=== PATIENT | female | born 1950 | race Caucasian/White ===

== ENCOUNTER 2016-11-03 16:24 | Emergency (ER) | payer MEDICARE, MEDICAID ==
--- NOTE | 2016-11-03 16:40 | EDM.PDOC ---
ED HISTORY OF PRESENT ILLNESS - General Chief Complaint: Cardiovascular Problem Stated Complaint: TROUBLE BREATHING/RUNNY NOSE/CHEST PAIN Time Seen by Provider: 11/03/16 16:40 Source of Information: Reports: Patient History Limitations: Reports: No limitations - History of Present Illness INITIAL COMMENTS - FREE TEXT/NARRATIVE: History of present illness: [] Patient complains of 2 months of shortness of breath, palpitations and shaking hands. Patient also complains of fevers and chills. She used to be a smoker and quit but restarted smoking again. She denies any chest pain Review of systems: As per history of present illness and below otherwise all systems reviewed and negative. Past medical history: As per history of present illness and as reviewed below otherwise noncontributory. Surgical history: As per history of present illness and as reviewed below otherwise noncontributory. Social history: No reported history of drug or alcohol abuse. Family history: As per history of present illness and as reviewed below otherwise noncontributory. Physical exam: General: Well developed, well nourished in NAD HEENT: Atraumatic, normocephalic, pupils reactive, negative for conjunctival pallor or scleral icterus, mucous membranes moist, throat clear, neck supple, nontender, trachea midline. Lungs: Clear to auscultation, breath sounds equal bilaterally, chest nontender. No rhonchi or wheezing Heart: S1S2, regular, negative for clicks, rubs, or JVD. Abdomen: Soft, nondistended, nontender. Negative for masses or hepatosplenomegaly. Negative for costovertebral tenderness. Pelvis: Stable nontender. Genitourinary: Deferred. Rectal: Deferred. Extremities: Atraumatic, negative for cords or calf pain. Neurovascular unremarkable. No edema Neuro: Awake, alert, oriented. Cranial nerves II through XII unremarkable. Cerebellum unremarkable. Motor and sensory unremarkable throughout. Exam nonfocal. Diagnostics: [] Labs chest x-ray negative Therapeutics: [] Impression: [] Chronic shortness of breath, unknown etiology Plan: [] Quit smoking, followup PMD further pulmonary evaluation Definitive disposition and diagnosis as appropriate pending reevaluation and review of above. - Related Data Allergies/ADRs: Allergies Allergy/AdvReac Type Severity Reaction Status Date / Time amoxicillin [Amoxicillin] Allergy Other Verified 06/02/16 10:54 ampicillin Allergy Other Verified 06/02/16 10:54 digoxin Allergy Other Verified 06/02/16 10:54 doxycycline Allergy Other Verified 06/02/16 10:54 fentanyl Allergy Other Verified 06/02/16 10:54 nitrofurantoin Allergy Other Verified 06/02/16 10:54 [From Macrobid] nitrofurantoin Allergy Other Verified 06/02/16 10:54 macrocrystalline [From Macrobid] Penicillins Allergy Other Verified 06/02/16 10:54 Sulfa (Sulfonamide Allergy Other Verified 06/02/16 10:54 Antibiotics) Home Meds: Home Meds ALPRAZolam [Xanax] 1 mg PO Q8H PRN 05/08/14 [History] Cyanocobalamin (Vitamin B-12) [B-12] 1,000 mcg PO DAILY 05/08/14 [History] Cholecalciferol (Vitamin D3) [Vitamin D3] 2,000 unit PO DAILY 12/31/14 [History] Metoprolol Succinate 75 mg PO DAILY 12/31/14 [History] Loratadine [Claritin] 10 mg PO DAILY 10/16/16 [History] Potassium 1 tab DAILY 11/03/16 [History] Past Medical History HEENT History: Reports: Allergic rhinitis Other HEENT History: wears glasses, has full upper denture and partial lower denture Cardiovascular History: Reports: Hypertension Respiratory History: Reports: None Genitourinary History: Reports: None ECONOMICS CONSULTANT History: Reports: None Musculoskeletal History: Reports: Back pain, chronic Neurological History: Reports: None Other Neuro History: "bad nerves" Psychiatric History: Reports: Anxiety Other Psychiatric History: Takes medication for anxiety. Endocrine/Metabolic History: Reports: None Hematologic History: Reports: None Immunologic History: Reports: None Oncologic (Cancer) History: Reports: None Dermatologic History: Reports: None - Infectious Disease History Infectious Disease History: Reports: Measles, Mumps - Past Surgical History Head Surgeries/Procedures: Reports: None HEENT Surgical History: Reports: Naso-sinus surgery Other HEENT Surgeries/Procedures: nose surgery Cardiovascular Surgical History: Reports: None Respiratory Surgical History: Reports: None GI Surgical History: Reports: Cholecystectomy Female Surgical History: Reports: None Endocrine Surgical History: Reports: None Neurological Surgical History: Reports: None Musculoskeletal Surgical History: Reports: Other (see below) Other Musculoskeletal Surgeries/Procedures:: fusion of L4-5 Oncologic Surgical History: Reports: None Dermatological Surgical History: Reports: None Social & Family History - Family History Family Medical History: Noncontributory - Tobacco Use Smoking Status *Q: Current Every Day Smoker Years of Tobacco use: 53 Packs/Tins Daily: 1 Used Tobacco, but Quit: Yes Month Tobacco Last Used: 12/2015 Second Hand Smoke Exposure: Yes - Caffeine Use Caffeine Use: Reports: Coffee - Alcohol Use Days Per Week of Alcohol Use: 3 Number of Drinks Per Day: 2 Total Drinks Per Week: 6 - Recreational Drug Use Recreational Drug Use: No Drug Use in Last 12 Months: No ED ROS GENERAL - Review of Systems Review Of Systems: See Below (See history of present illness) ED EXAM, GENERAL - Physical Exam Exam: See Below (See history of present illness) Course - Vital Signs Last Recorded V/S: Last Vital Signs Temp 36.8 C 11/03/16 16:36 Pulse 91 11/03/16 16:36 Resp 18 11/03/16 16:36 BP 142/98 H 11/03/16 16:36 Pulse Ox 99 11/03/16 16:36 - Orders/Labs/Meds Orders: Active Orders 24 hr Category Date Time Status Chest 2V [CR] Stat Exams 11/03/16 16:38 Taken Labs: Laboratory Tests 11/03/16 11/03/16 11/03/16 Range/Units 16:55 16:55 16:55 WBC 5.37 (4.0-11.0) K/uL RBC 4.11 L (4.30-5.90) M/uL Hgb 13.6 (12.0-16.0) g/dL Hct 38.8 (36.0-46.0) % MCV 94.4 (80.0-98.0) fL MCH 33.1 H (27.0-32.0) pg MCHC 35.1 (31.0-37.0) g/dL RDW Std Deviation 45.1 (28.0-62.0) fl RDW Coeff of Dirk 13 (11.0-15.0) % Plt Count 241 (150-400) K/uL MPV 10.10 (7.40-12.00) fL Neut % (Auto) 50.5 (48.0-80.0) % Lymph % (Auto) 39.9 (16.0-40.0) % Robertson % (Auto) 7.4 (0.0-15.0) % Eos % (Auto) 1.1 (0.0-7.0) % Baso % (Auto) 1.1 (0.0-1.5) % Neut # 2.7 (1.4-5.7) K/uL Lymph # 2.1 (0.6-2.4) K/uL Robertson # 0.4 (0.0-0.8) K/uL Eos # 0.1 (0.0-0.7) K/uL Baso # 0.1 (0.0-0.1) K/uL Nucleated RBC % 0.0 /100WBC Nucleated RBCs # 0 K/uL Sodium 137 (136-146) mmol/L Potassium 4.0 (3.5-5.1) mmol/L Chloride 103 (98-110) mmol/L Carbon Dioxide 21 (21-31) mmol/L BUN 10 (6.0-23.0) mg/dL Creatinine 0.9 (0.6-1.5) mg/dL Est Cr Clr Drug Dosing 58.66 mL/min Estimated GFR (MDRD) > 60.0 ml/min Glucose 100 (60-110) mg/dL Calcium 9.8 (8.8-10.8) mg/dL Troponin I < 0.10 (0.0-0.29) NG/ML B-Natriuretic Peptide (<100) PG/ML 11/03/16 Range/Units 16:55 WBC (4.0-11.0) K/uL RBC (4.30-5.90) M/uL Hgb (12.0-16.0) g/dL Hct (36.0-46.0) % MCV (80.0-98.0) fL MCH (27.0-32.0) pg MCHC (31.0-37.0) g/dL RDW Std Deviation (28.0-62.0) fl RDW Coeff of Dirk (11.0-15.0) % Plt Count (150-400) K/uL MPV (7.40-12.00) fL Neut % (Auto) (48.0-80.0) % Lymph % (Auto) (16.0-40.0) % Robertson % (Auto) (0.0-15.0) % Eos % (Auto) (0.0-7.0) % Baso % (Auto) (0.0-1.5) % Neut # (1.4-5.7) K/uL Lymph # (0.6-2.4) K/uL Robertson # (0.0-0.8) K/uL Eos # (0.0-0.7) K/uL Baso # (0.0-0.1) K/uL Nucleated RBC % /100WBC Nucleated RBCs # K/uL Sodium (136-146) mmol/L Potassium (3.5-5.1) mmol/L Chloride (98-110) mmol/L Carbon Dioxide (21-31) mmol/L BUN (6.0-23.0) mg/dL Creatinine (0.6-1.5) mg/dL Est Cr Clr Drug Dosing mL/min Estimated GFR (MDRD) ml/min Glucose (60-110) mg/dL Calcium (8.8-10.8) mg/dL Troponin I (0.0-0.29) NG/ML B-Natriuretic Peptide < 15 (<100) PG/ML Departure - Departure Time of Disposition: 17:28 Disposition: Home, Self-Care 01 Condition: good Clinical Impression: Shortness of breath Forms: ED Department Discharge Additional Instructions: The following information is given to patients seen in the emergency department who are being discharged to home. This information is to outline your options for follow-up care. We provide all patients seen in our emergency department with a follow-up referral. The need for follow-up, as well as the timing and circumstances, are variable depending upon the specifics of your emergency department visit. If you don't have a primary care physician on staff, we will provide you with a referral. We always advise you to contact your personal physician following an emergency department visit to inform them of the circumstance of the visit and for follow-up with them and/or the need for any referrals to a consulting specialist. The emergency department will also refer you to a specialist when appropriate. This referral assures that you have the opportunity for follow-up care with a specialist. All of these measure are taken in an effort to provide you with optimal care, which includes your follow-up. Under all circumstances we always encourage you to contact your private physician who remains a resource for coordinating your care. When calling for follow-up care, please make the office aware that this follow-up is from your recent emergency room visit. If for any reason you are refused follow-up, please contact the [facility] Emergency Department at and asked to speak to the emergency department charge nurse. Quit smoking, follow up with her primary care physician for further pulmonary evaluation [facility] [address] [place] [id number] - My Orders Last 24 Hours: My Active Orders 11/03/16 16:38 Chest 2V [CR] Stat - Assessment/Plan Last 24 Hours: My Active Orders 11/03/16 16:38 Chest 2V [CR] Stat
[2016-11-03 17:22] LABS: CHLORIDE,CL 103 mmol/L (98-110); SODIUM,NA 137 mmol/L (136-146)
[2016-11-03 17:42] VITALS: BP 150/88
--- NOTE | 2016-11-04 19:30 | CR ---
EXAM DATE: 11/03/16 PATIENT'S AGE: 66 Patient: TAY DARDEN Facility: [place] [place] Site . Site : 1950 Study: XRay Chest [id number]/[id number] 5:13:25 PM Ordering Physician: Doctor Davalos Final Report: INDICATION: EXTREME SOB, SMOKER TECHNIQUE: Chest 2 views. COMPARISON: 06/02/16 FINDINGS: Cardiovascular and mediastinum: Heart size and vasculature are normal in caliber and appearance. Mediastinum is within normal limits. Lungs and pleural spaces: Lungs are clear. No sign of infiltrate or mass. No sign of pleural effusion. No pneumothorax. Bones and soft tissues: No significant findings. IMPRESSION: Unremarkable chest. Dictated by: Bernardo Hines MD @ 11/03/2016 17:37:14 (Electronic Signature) Report Signed by Proxy and Original Signed Document filed in the Medical Record. MTDD
== END 2016-11-03 17:39 | disposition home or self-care (01) ==
LOC: MW.ED 16:24
DX: R06.02 Shortness of breath (principal); I10 Essential (primary) hypertension; F41.9 Anxiety disorder, unspecified; F17.210 Nicotine dependence, cigarettes, uncomplicated; Z90.49 Acquired absence of other specified parts of digestive tract; Z98.1 Arthrodesis status; Z98.890 Other specified postprocedural states; Z79.899 Other long term (current) drug therapy; Z88.0 Allergy status to penicillin; Z88.2 Allergy status to sulfonamides; Z88.8 Allergy status to other drugs, medicaments and biological substances; Z88.1 Allergy status to other antibiotic agents
CPT/HCPCS: 36415; 71020; 71020-26; 80048; 83880; 84484; 85025; 99282; 99284

== ENCOUNTER 2016-12-23 15:00 | Observation (INO) | payer MEDICARE, MEDICAID ==
[2016-12-23] MEDS ORDERED: Sodium Chloride 0.9% 2.5 ML Syringe FLUSH PRN (15:07)
[2016-12-23] MEDS ORDERED: Sodium Chloride 0.9% 10 ML Syringe FLUSH PRN (15:07)
--- NOTE | 2016-12-23 15:11 | EDM.PDOC ---
[id number] [id number] TROUBLE REMEMBERING Time Seen by Provider: 12/23/16 15:09 Source of Information: Reports: Patient, EMS History Limitations: Reports: No limitations - History of Present Illness INITIAL COMMENTS - FREE TEXT/NARRATIVE: HISTORY AND PHYSICAL: [66-year-old female presenting by EMS with altered mental status, confusion and weak] History of Present Illness: [She states she has been, for the last 2 weeks, of not feeling well She became worse today] Review of Systems: As per history of present illness and below otherwise all systems reviewed and negative. Past medical history: As per history of present illness and as reviewed below otherwise noncontributory. Surgical history: As per history of present illness and as reviewed below otherwise noncontributory. Social history: No reported history of drug or alcohol abuse. Family history: As per history of present illness and as reviewed below otherwise noncontributory. Physical exam: Alert female who is staring off. has difficulty spelling her last name. HEENT: Atraumatic, normocehpalic, pupils reactive, negative for conjunctival pallor or scleral icterus, mucous membranes moist, throat clear, neck supple, nontender, trachea midline. Lungs: Clear to auscultation, breath sounds equal bilaterally, chest non tender. Heart: S1S2, regular, negative for clicks, rubs, or JVD. Abdomen: Soft, nondistended, nontender. Negative for masses or hepatossplenmegaly. Negative for costovertebral tenderness. Pelvis: Stable nontender. Genitourinary: Deferred. Rectal: Deferred Extremities: Atraumatic, negative for cords or calf pain. Neurovascular unremarkable. Neuro: Awake, alert, oriented. Cranial nerves II through XII unremarkable. Cerebellum unremarkable. Motor and sensory unremarkable throughout. Exam nonfocal. I discussed the case with Dr. Lux and he is in agreement to refer her for observation Discussed with the patient and her and they are agreeable to this course of action. Diagnostics: [CBC CMP AMyalase, Lipase, Head CT EKG] Therapeutics: [] Impression: [Altered mental status] Plan: [Refer for observation] Definitive disposition and diagnosis as appropriate pending reevaluation and review of above. Timing/Duration: Reports: Day(s): - Related Data Allergies/ADRs: Allergies Allergy/AdvReac Type Severity Reaction Status Date / Time amoxicillin [Amoxicillin] Allergy Other Verified 12/28/16 11:52 ampicillin Allergy Other Verified 12/28/16 11:52 digoxin Allergy Other Verified 12/28/16 11:52 doxycycline Allergy Other Verified 12/28/16 11:52 fentanyl Allergy Other Verified 12/28/16 11:52 nitrofurantoin Allergy Other Verified 12/28/16 11:52 [From Macrobid] nitrofurantoin Allergy Other Verified 12/28/16 11:52 macrocrystalline [From Macrobid] Penicillins Allergy Other Verified 12/28/16 11:52 Sulfa (Sulfonamide Allergy Other Verified 12/28/16 11:52 Antibiotics) Home Meds: Home Meds ALPRAZolam [Xanax] 1 mg PO TID PRN 05/08/14 [History] Cyanocobalamin (Vitamin B-12) [B-12] 1,000 mcg PO DAILY 05/08/14 [History] Cholecalciferol (Vitamin D3) [Vitamin D3] 2,000 unit PO DAILY 12/31/14 [History] Metoprolol Succinate 75 mg PO DAILY 12/31/14 [History] Budesonide/Formoterol [Symbicort 160-4.5 MCG] 1 puff INH BID 12/23/16 [History] Potassium Chloride [Klor-Con 10] 10 meq PO DAILY 12/23/16 [History] Past Medical History HEENT History: Reports: Allergic rhinitis Other HEENT History: wears glasses, has full upper denture and partial lower denture Cardiovascular History: Reports: Hypertension Respiratory History: Reports: None Genitourinary History: Reports: None ELASTIC CUTTER History: Reports: None Musculoskeletal History: Reports: Back pain, chronic Neurological History: Reports: None Other Neuro History: "bad nerves" Psychiatric History: Reports: Anxiety Other Psychiatric History: Takes medication for anxiety. Endocrine/Metabolic History: Reports: None Hematologic History: Reports: None Immunologic History: Reports: None Oncologic (Cancer) History: Reports: None Dermatologic History: Reports: None - Infectious Disease History Infectious Disease History: Reports: Measles, Mumps - Past Surgical History Head Surgeries/Procedures: Reports: None HEENT Surgical History: Reports: Naso-sinus surgery Other HEENT Surgeries/Procedures: nose surgery Cardiovascular Surgical History: Reports: None Respiratory Surgical History: Reports: None GI Surgical History: Reports: Cholecystectomy Female Surgical History: Reports: None Endocrine Surgical History: Reports: None Neurological Surgical History: Reports: None Musculoskeletal Surgical History: Reports: Other (see below) Other Musculoskeletal Surgeries/Procedures:: fusion of L4-5 Oncologic Surgical History: Reports: None Dermatological Surgical History: Reports: None Social & Family History - Family History Family Medical History: Noncontributory - Tobacco Use Smoking Status *Q: Current Every Day Smoker Years of Tobacco use: 53 Packs/Tins Daily: 1 Used Tobacco, but Quit: Yes Month Tobacco Last Used: 12/2015 Second Hand Smoke Exposure: Yes - Caffeine Use Caffeine Use: Reports: Coffee - Alcohol Use Days Per Week of Alcohol Use: 3 Number of Drinks Per Day: 2 Total Drinks Per Week: 6 - Recreational Drug Use Recreational Drug Use: No Drug Use in Last 12 Months: No ED ROS GENERAL - Review of Systems Review Of Systems: ROS reveals no pertinent complaints other than HPI. ED EXAM, NEURO - Physical Exam Exam: See Below (see dictation) EKG INTERPRETATION EKG Date: 12/23/16 Rhythm: NSR Rate (beats/min): 60 Walker: normal P-wave: present Course - Vital Signs Last Recorded V/S: Last Vital Signs Temp 37.0 C 12/24/16 08:00 Pulse 68 12/24/16 08:24 Resp 18 12/24/16 08:00 BP 132/65 12/24/16 08:24 Pulse Ox 94 L 12/24/16 08:00 - Orders/Labs/Meds Labs: Laboratory Tests 12/23/16 12/23/16 12/23/16 Range/Units 15:22 15:22 15:22 WBC 10.60 (4.0-11.0) K/uL RBC 3.59 L (4.30-5.90) M/uL Hgb 11.7 L (12.0-16.0) g/dL Hct 34.9 L (36.0-46.0) % MCV 97.2 (80.0-98.0) fL MCH 32.6 H (27.0-32.0) pg MCHC 33.5 (31.0-37.0) g/dL RDW Std Deviation 50.0 (28.0-62.0) fl RDW Coeff of Dirk 14 (11.0-15.0) % Plt Count 358 (150-400) K/uL MPV 10.20 (7.40-12.00) fL Neut % (Auto) 73.2 (48.0-80.0) % Lymph % (Auto) 20.5 (16.0-40.0) % [place] % (Auto) 4.8 (0.0-15.0) % Eos % (Auto) 0.8 (0.0-7.0) % Baso % (Auto) 0.7 (0.0-1.5) % Neut # (Auto) 7.8 H (1.4-5.7) K/uL Lymph # (Auto) 2.2 (0.6-2.4) K/uL [place] # (Auto) 0.5 (0.0-0.8) K/uL Eos # (Auto) 0.1 (0.0-0.7) K/uL Baso # (Auto) 0.1 (0.0-0.1) K/uL Nucleated RBC % 0.0 /100WBC Nucleated RBCs # 0 K/uL INR 1.02 (0.86-1.11) Lactate 0.8 (0.20-2.00) mmol/L Sodium (136-146) mmol/L Potassium (3.5-5.1) mmol/L Chloride (98-110) mmol/L Carbon Dioxide (21-31) mmol/L BUN (6.0-23.0) mg/dL Creatinine (0.6-1.5) mg/dL Est Cr Clr Drug Dosing mL/min Estimated GFR (MDRD) ml/min Glucose (60-110) mg/dL Calcium (8.8-10.8) mg/dL Total Bilirubin (0.1-1.5) mg/dL AST (5-40) IU/L ALT (8-54) IU/L Alkaline Phosphatase (40-150) Ammonia (14-68) UG/DL Troponin I (0.0-0.29) NG/ML Total Protein (6.0-8.0) g/dL Albumin (3.4-4.8) g/dL Globulin (2.0-3.5) g/dL Albumin/Globulin Ratio (1.3-2.8) Amylase (10-90) U/L Lipase (7-80) U/L Urine Color Urine Appearance Urine pH (5.0-8.0) Ur Specific [place] (1.001-1.035) Urine Protein (NEGATIVE) mg/dL Urine Glucose (UA) (NEGATIVE) mg/dL Urine Ketones (NEGATIVE) mg/dL Urine Occult Blood (NEGATIVE) Urine Nitrite (NEGATIVE) Urine Bilirubin (NEGATIVE) Urine Urobilinogen (<2.0) EU/dL Ur Leukocyte Esterase (NEGATIVE) Urine RBC (0-2/HPF) Urine WBC (0-5/HPF) Ur Epithelial Cells (NONE-FEW) Urine Bacteria (NEGATIVE) Urine Opiates Screen (NEGATIVE) Ur Oxycodone Screen (NEGATIVE) Urine Methadone Screen (NEGATIVE) Ur Barbiturates Screen (NEGATIVE) Ur Phencyclidine Scrn (NEGATIVE) Ur Amphetamine Screen (NEGATIVE) U Methamphetamines Scrn (NEGATIVE) U Benzodiazepines Scrn (NEGATIVE) U Cocaine Metab Screen (NEGATIVE) U Marijuana (THC) Screen (NEGATIVE) Ethyl Alcohol mg/dL 12/23/16 12/23/16 12/23/16 Range/Units 15:22 15:22 15:22 WBC (4.0-11.0) K/uL RBC (4.30-5.90) M/uL Hgb (12.0-16.0) g/dL Hct (36.0-46.0) % MCV (80.0-98.0) fL MCH (27.0-32.0) pg MCHC (31.0-37.0) g/dL RDW Std Deviation (28.0-62.0) fl RDW Coeff of Dirk (11.0-15.0) % Plt Count (150-400) K/uL MPV (7.40-12.00) fL Neut % (Auto) (48.0-80.0) % Lymph % (Auto) (16.0-40.0) % [place] % (Auto) (0.0-15.0) % Eos % (Auto) (0.0-7.0) % Baso % (Auto) (0.0-1.5) % Neut # (Auto) (1.4-5.7) K/uL Lymph # (Auto) (0.6-2.4) K/uL [place] # (Auto) (0.0-0.8) K/uL Eos # (Auto) (0.0-0.7) K/uL Baso # (Auto) (0.0-0.1) K/uL Nucleated RBC % /100WBC Nucleated RBCs # K/uL INR (0.86-1.11) Lactate (0.20-2.00) mmol/L Sodium 139 (136-146) mmol/L Potassium 4.2 (3.5-5.1) mmol/L Chloride 104 (98-110) mmol/L Carbon Dioxide 23 (21-31) mmol/L BUN 14 (6.0-23.0) mg/dL Creatinine 0.9 (0.6-1.5) mg/dL Est Cr Clr Drug Dosing 54.30 mL/min Estimated GFR (MDRD) > 60.0 ml/min Glucose 102 (60-110) mg/dL Calcium 9.4 (8.8-10.8) mg/dL Total Bilirubin 0.5 (0.1-1.5) mg/dL AST 17 (5-40) IU/L ALT 18 (8-54) IU/L Alkaline Phosphatase 48 (40-150) Ammonia 38 (14-68) UG/DL Troponin I < 0.10 (0.0-0.29) NG/ML Total Protein 6.8 (6.0-8.0) g/dL Albumin 3.7 (3.4-4.8) g/dL Globulin 3.1 (2.0-3.5) g/dL Albumin/Globulin Ratio 1.2 L (1.3-2.8) Amylase 34 (10-90) U/L Lipase 63 (7-80) U/L Urine Color Urine Appearance Urine pH (5.0-8.0) Ur Specific [place] (1.001-1.035) Urine Protein (NEGATIVE) mg/dL Urine Glucose (UA) (NEGATIVE) mg/dL Urine Ketones (NEGATIVE) mg/dL Urine Occult Blood (NEGATIVE) Urine Nitrite (NEGATIVE) Urine Bilirubin (NEGATIVE) Urine Urobilinogen (<2.0) EU/dL Ur Leukocyte Esterase (NEGATIVE) Urine RBC (0-2/HPF) Urine WBC (0-5/HPF) Ur Epithelial Cells (NONE-FEW) Urine Bacteria (NEGATIVE) Urine Opiates Screen (NEGATIVE) Ur Oxycodone Screen (NEGATIVE) Urine Methadone Screen (NEGATIVE) Ur Barbiturates Screen (NEGATIVE) Ur Phencyclidine Scrn (NEGATIVE) Ur Amphetamine Screen (NEGATIVE) U Methamphetamines Scrn (NEGATIVE) U Benzodiazepines Scrn (NEGATIVE) U Cocaine Metab Screen (NEGATIVE) U Marijuana (THC) Screen (NEGATIVE) Ethyl Alcohol mg/dL 12/23/16 12/23/16 12/23/16 Range/Units 15:22 15:54 15:54 WBC (4.0-11.0) K/uL RBC (4.30-5.90) M/uL Hgb (12.0-16.0) g/dL Hct (36.0-46.0) % MCV (80.0-98.0) fL MCH (27.0-32.0) pg MCHC (31.0-37.0) g/dL RDW Std Deviation (28.0-62.0) fl RDW Coeff of Dirk (11.0-15.0) % Plt Count (150-400) K/uL MPV (7.40-12.00) fL Neut % (Auto) (48.0-80.0) % Lymph % (Auto) (16.0-40.0) % [place] % (Auto) (0.0-15.0) % Eos % (Auto) (0.0-7.0) % Baso % (Auto) (0.0-1.5) % Neut # (Auto) (1.4-5.7) K/uL Lymph # (Auto) (0.6-2.4) K/uL [place] # (Auto) (0.0-0.8) K/uL Eos # (Auto) (0.0-0.7) K/uL Baso # (Auto) (0.0-0.1) K/uL Nucleated RBC % /100WBC Nucleated RBCs # K/uL INR (0.86-1.11) Lactate (0.20-2.00) mmol/L Sodium (136-146) mmol/L Potassium (3.5-5.1) mmol/L Chloride (98-110) mmol/L Carbon Dioxide (21-31) mmol/L BUN (6.0-23.0) mg/dL Creatinine (0.6-1.5) mg/dL Est Cr Clr Drug Dosing mL/min Estimated GFR (MDRD) ml/min Glucose (60-110) mg/dL Calcium (8.8-10.8) mg/dL Total Bilirubin (0.1-1.5) mg/dL AST (5-40) IU/L ALT (8-54) IU/L Alkaline Phosphatase (40-150) Ammonia (14-68) UG/DL Troponin I (0.0-0.29) NG/ML Total Protein (6.0-8.0) g/dL Albumin (3.4-4.8) g/dL Globulin (2.0-3.5) g/dL Albumin/Globulin Ratio (1.3-2.8) Amylase (10-90) U/L Lipase (7-80) U/L Urine Color YELLOW Urine Appearance CLEAR Urine pH 5.5 (5.0-8.0) Ur Specific [place] 1.015 (1.001-1.035) Urine Protein NEGATIVE (NEGATIVE) mg/dL Urine Glucose (UA) NEGATIVE (NEGATIVE) mg/dL Urine Ketones NEGATIVE (NEGATIVE) mg/dL Urine Occult Blood NEGATIVE (NEGATIVE) Urine Nitrite NEGATIVE (NEGATIVE) Urine Bilirubin NEGATIVE (NEGATIVE) Urine Urobilinogen 0.2 (<2.0) EU/dL Ur Leukocyte Esterase NEGATIVE (NEGATIVE) Urine RBC 0-1 (0-2/HPF) Urine WBC 0-2 (0-5/HPF) Ur Epithelial Cells FEW (NONE-FEW) Urine Bacteria RARE (NEGATIVE) Urine Opiates Screen NEGATIVE (NEGATIVE) Ur Oxycodone Screen NEGATIVE (NEGATIVE) Urine Methadone Screen NEGATIVE (NEGATIVE) Ur Barbiturates Screen NEGATIVE (NEGATIVE) Ur Phencyclidine Scrn NEGATIVE (NEGATIVE) Ur Amphetamine Screen NEGATIVE (NEGATIVE) U Methamphetamines Scrn NEGATIVE (NEGATIVE) U Benzodiazepines Scrn POSITIVE (NEGATIVE) U Cocaine Metab Screen NEGATIVE (NEGATIVE) U Marijuana (THC) Screen NEGATIVE (NEGATIVE) Ethyl Alcohol < 10.0 mg/dL Meds: Medications Discontinued Medications Generic Name Dose Route Start Last Admin Trade Name Freq PRN Reason Stop Dose Admin Acetaminophen 650 mg 12/23/16 17:50 Tylenol PO Q6H PRN Fever Alprazolam 1 mg 12/24/16 07:58 12/24/16 08:30 Xanax PO 1 mg TID PRN Administration Anxiety Enoxaparin Sodium 30 mg 12/23/16 18:00 12/23/16 18:47 Lovenox SUBCUT 30 mg Q24H EVELIO Administration Folic Acid 1 mg 12/23/16 18:00 12/24/16 08:25 Folic Acid PO 1 mg DAILY EVELIO Administration Sodium Chloride 1,000 mls @ 75 mls/hr 12/23/16 18:00 12/23/16 18:48 Normal Saline IV 75 mls/hr ASDIRECTED EVELIO Administration Metoprolol Succinate 75 mg 12/24/16 09:00 Toprol Xl PO DAILY EVELIO Metoprolol Succinate 50 mg/ 75 mg 12/24/16 09:00 12/24/16 08:24 Metoprolol Succinate 25 mg PO 75 mg DAILY EVELIO Administration Ondansetron HCl 4 mg 12/23/16 17:50 Zofran IVPUSH Q6H PRN Nausea/Vomiting Symbicort ( 1 each 12/24/16 09:00 12/24/16 08:24 Budesonide/ INH 1 each Formoterol) 160-4.5 BID EVELIO Administration Potassium Chloride 10 meq 12/24/16 09:00 12/24/16 08:21 Klor-Con 10 PO 10 meq DAILY EVELIO Administration Sodium Chloride 10 ml 12/23/16 15:07 Saline Flush FLUSH ASDIRECTED PRN Keep Vein Open Sodium Chloride 2.5 ml 12/23/16 15:07 Saline Flush FLUSH ASDIRECTED PRN Keep Vein Open Thiamine HCl 100 mg 12/23/16 18:00 12/24/16 08:21 Vitamin B-1 PO 100 mg DAILY EVELIO Administration Departure - Departure Time of Disposition: 17:10 Disposition: Refer to Observation Condition: fair Clinical Impression: Alcohol intoxication Qualifiers: Complication of substance-induced condition: uncomplicated Qualified Code(s): F10.920 - Alcohol use, unspecified with intoxication, uncomplicated Pancreatitis, alcoholic, acute Qualifiers: Acute pancreatitis complication: unspecified Qualified Code(s): K85.20 - Alcohol induced acute pancreatitis without necrosis or infection
[2016-12-23 15:54] LABS: CHLORIDE,CL 104 mmol/L (98-110); SODIUM,NA 139 mmol/L (136-146)
[2016-12-23] MEDS ORDERED: Acetaminophen 325 MG Tab PO PRN (17:50)
[2016-12-23] MEDS ORDERED: Ondansetron 4 MG/2 ML SDV IVPUSH PRN (17:50)
[2016-12-23] MEDS ORDERED: Sodium Chloride 0.9% 1,000 ML IV SCH (18:00)
[2016-12-23] MEDS ORDERED: Enoxaparin 30 MG/0.3 ML Syringe SUBCUT SCH (18:00)
[2016-12-23] MEDS: Folic Acid 1 MG Tab PO SCH (18:47)
[2016-12-23] MEDS: Thiamine 100 MG Tab PO SCH (18:47)
[2016-12-24 06:58] LABS: CHLORIDE,CL 105 mmol/L (98-110); SODIUM,NA 137 mmol/L (136-146)
[2016-12-24] MEDS ORDERED: ALPRAZolam 0.5 MG Tab PO PRN (07:58)
[2016-12-24] MEDS: Thiamine 100 MG Tab PO SCH (08:21)
[2016-12-24] MEDS: Folic Acid 1 MG Tab PO SCH (08:25)
[2016-12-24 08:35] VITALS: BP 162/70
[2016-12-24] MEDS ORDERED: SYMBICORT INH SCH (09:00)
[2016-12-24] MEDS ORDERED: Metoprolol Succinate 50 MG Tab.ER PO SCH (09:00)
[2016-12-24] MEDS ORDERED: Potassium Chloride 10 MEQ Tab.ER PO SCH (09:00)
--- NOTE | 2016-12-24 09:15 | PCM.HP ---
H&P History of Present Illness - General Admit Problem/Dx: altered mental status Source of Information: Patient History Limitations: Reports: No limitations - History of Present Illness Initial Comments - Free Text/Narative: The patient is a 66-year-old lady who is admitted to the hospital secondary to issues concerning her memory. Patient was presented by emergency medical services with change in mental status, confusion and weak. Patient today says that she is doing very well she has no concerns or complaints and she has been wanting to leave so she got up this morning. During emergency department visit the patient was noted to be staring off, not necessarily alert and having difficulty spelling her name. Information has been taken for the patient's EMR. Upon arrival on the floor the patient was noted to be awake alert and responding. She had a CIWWA scorer 3 at that time. The patient also reported that she had last alcohol use 2 weeks prior. The patient has a physician that she normally follows up with out of town. Patient has been compliant with her medications that she has been in her usual state of health. Currently she is awake alert and oriented x3. Onset of Symptoms: Reports: sudden Duration of Symptoms: Reports: Hour(s): Location: Reports: generalized Improves with: Reports: None Worsens with: Reports: None Associated Symptoms: Reports: no other symptoms - Related Data Allergies/Adverse Reactions: Allergies Allergy/AdvReac Type Severity Reaction Status Date / Time amoxicillin [Amoxicillin] Allergy Other Verified 12/23/16 15:06 ampicillin Allergy Other Verified 12/23/16 15:06 digoxin Allergy Other Verified 12/23/16 15:06 doxycycline Allergy Other Verified 12/23/16 15:06 fentanyl Allergy Other Verified 12/23/16 15:06 nitrofurantoin Allergy Other Verified 12/23/16 15:06 [From Macrobid] nitrofurantoin Allergy Other Verified 12/23/16 15:06 macrocrystalline [From Macrobid] Penicillins Allergy Other Verified 12/23/16 15:06 Sulfa (Sulfonamide Allergy Other Verified 12/23/16 15:06 Antibiotics) Home Medications: Home Meds ALPRAZolam [Xanax] 1 mg PO TID PRN 05/08/14 [History] Cyanocobalamin (Vitamin B-12) [B-12] 1,000 mcg PO DAILY 09/11/14 [History] Cholecalciferol (Vitamin D3) [Vitamin D3] 2,000 unit PO DAILY 12/31/14 [History] Metoprolol Succinate 75 mg PO DAILY 12/31/14 [History] Budesonide/Formoterol [Symbicort 160-4.5 MCG] 1 puff INH BID 12/23/16 [History] Potassium Chloride [Klor-Con 10] 10 meq PO DAILY 12/23/16 [History] Past Medical History HEENT History: Reports: Allergic rhinitis Other HEENT History: wears glasses, has full upper denture and partial lower denture Cardiovascular History: Reports: Hypertension Respiratory History: Reports: None Genitourinary History: Reports: None [employer]ELOPMENT History: Reports: None Musculoskeletal History: Reports: Back pain, chronic Neurological History: Reports: None Other Neuro History: "bad nerves" Psychiatric History: Reports: Anxiety Other Psychiatric History: Takes medication for anxiety. Endocrine/Metabolic History: Reports: None Hematologic History: Reports: None Immunologic History: Reports: None Oncologic (Cancer) History: Reports: None Dermatologic History: Reports: None - Infectious Disease History Infectious Disease History: Reports: None - Past Surgical History Head Surgeries/Procedures: Reports: None HEENT Surgical History: Reports: Naso-sinus surgery Other HEENT Surgeries/Procedures: nose surgery Cardiovascular Surgical History: Reports: None Respiratory Surgical History: Reports: None GI Surgical History: Reports: Cholecystectomy Female Surgical History: Reports: None Endocrine Surgical History: Reports: None Neurological Surgical History: Reports: None Musculoskeletal Surgical History: Reports: Other (see below) Other Musculoskeletal Surgeries/Procedures:: fusion of L4-5 Oncologic Surgical History: Reports: None Dermatological Surgical History: Reports: None Social & Family History - Family History Family Medical History: Noncontributory HEENT: Reports: None Cardiac: Reports: None Respiratory: Reports: None OBGYN: Reports: None Musculoskeletal: Reports: None Neurological: Reports: None Psychiatric: Reports: None Endocrine/Metabolic: Reports: None Hematologic: Reports: None Oncologic: Reports: Other (see below) Other Oncologic Family History: neck CA - Tobacco Use Smoking Status *Q: Never Smoker Years of Tobacco use: 53 Packs/Tins Daily: 1 Used Tobacco, but Quit: Yes Month Tobacco Last Used: 12/2015 Second Hand Smoke Exposure: No - Caffeine Use Caffeine Use: Reports: Coffee - Alcohol Use Days Per Week of Alcohol Use: 3 Number of Drinks Per Day: 2 Total Drinks Per Week: 6 - Recreational Drug Use Recreational Drug Use: No Drug Use in Last 12 Months: No H&P Review of Systems - Review of Systems: Review Of Systems: See Below General: Reports: no symptoms HEENT: Reports: no symptoms Pulmonary: Reports: No Symptoms Cardiovascular: Reports: no symptoms Gastrointestinal: Reports: No symptoms Genitourinary: Reports: no symptoms Musculoskeletal: Reports: no symptoms Skin: Reports: no symptoms Psychiatric: Reports: anxiety. Denies: confusion, depression Neurological: Reports: No Symptoms Hematologic/Lymphatic: Reports: no symptoms Immunologic: Reports: no symptoms Exam - Exam Exam: See Below - Vital Signs Vital Signs: Last Vital Signs Temp 37.0 C 12/24/16 08:00 Pulse 68 12/24/16 08:24 Resp 18 12/24/16 08:00 BP 132/65 12/24/16 08:24 Pulse Ox 94 L 12/24/16 08:00 Weight: 61.1 kg - Exam Quality Assessment: No: supplemental oxygen General: alert, oriented, cooperative HEENT: Conjunctiva clear, Mucosa moist & pink, Nares patent Neck: supple, trachea midline, 2 Lungs: Clear to auscultation, Normal respiratory effort Cardiovascular: regular rate, regular rhythm Abdomen: normal bowel sounds, soft. No: organomegaly Back Exam: normal inspection Extremities: normal inspection Skin: warm, dry, intact Neuro Extensive - Mental Status: alert, oriented x3 Neuro Extensive - Motor, Sensory, Reflexes: CN II-XII intact Psychiatric: alert, normal affect, normal mood - Patient Data Lab Results last 24 hrs: Laboratory Results - last 24 hr 12/24/16 12/24/16 Range/Units 06:15 06:15 WBC 5.86 (4.0-11.0) K/uL RBC 3.26 L (4.30-5.90) M/uL Hgb 10.7 L (12.0-16.0) g/dL Hct 32.0 L (36.0-46.0) % MCV 98.2 H (80.0-98.0) fL MCH 32.8 H (27.0-32.0) pg MCHC 33.4 (31.0-37.0) g/dL RDW Std Deviation 51.0 (28.0-62.0) fl RDW Coeff of Dirk 14 (11.0-15.0) % Plt Count 313 (150-400) K/uL MPV 9.60 (7.40-12.00) fL Neut % (Auto) 53.9 (48.0-80.0) % Lymph % (Auto) 34.6 (16.0-40.0) % [place] % (Auto) 8.7 (0.0-15.0) % Eos % (Auto) 1.9 (0.0-7.0) % Baso % (Auto) 0.9 (0.0-1.5) % Neut # (Auto) 3.2 (1.4-5.7) K/uL Lymph # (Auto) 2.0 (0.6-2.4) K/uL [place] # (Auto) 0.5 (0.0-0.8) K/uL Eos # (Auto) 0.1 (0.0-0.7) K/uL Baso # (Auto) 0.1 (0.0-0.1) K/uL Nucleated RBC % 0.0 /100WBC Nucleated RBCs # 0 K/uL Sodium 137 (136-146) mmol/L Potassium 4.1 (3.5-5.1) mmol/L Chloride 105 (98-110) mmol/L Carbon Dioxide 24 (21-31) mmol/L BUN 13 (6.0-23.0) mg/dL Creatinine 0.8 (0.6-1.5) mg/dL Est Cr Clr Drug Dosing 65.63 mL/min Estimated GFR (MDRD) > 60.0 ml/min Glucose 90 (60-110) mg/dL Calcium 9.1 (8.8-10.8) mg/dL Result Diagrams: 12/24/16 06:15 12/24/16 06:15 *Q Meaningful Use (ADM) - VTE *Q VTE Criteria *Q: VTE Mechanical Contraindications *Q: At Risk for Falls - Stroke *Q Stroke Criteria *Q: - AMI *Q AMI Criteria *Q: - Problem List (1) Altered mental status, unspecified SNOMED Code(s): 772236654 ICD Code: R41.82 - ALTERED MENTAL STATUS, UNSPECIFIED Status: Resolved Priority: High Current Visit: Yes Qualifiers: Altered mental status type: disorientation Qualified Code(s): R41.0 - Disorientation, unspecified (2) Anxiety SNOMED Code(s): 62678048 ICD Code: F41.9 - ANXIETY DISORDER, UNSPECIFIED Status: Acute Priority: High Current Visit: Yes (3) Anemia SNOMED Code(s): 623785311 ICD Code: D64.9 - ANEMIA, UNSPECIFIED Status: Acute Current Visit: Yes Qualifiers: Anemia type: unspecified type Qualified Code(s): D64.9 - Anemia, unspecified Problem List Initiated/Reviewed/Updated: Yes Orders Last 24hrs: Active Orders 24 hr Category Date Time Status CIWAA Assessment [RC] Q4H Care 12/23/16 17:48 Active Ready for Discharge [RC] PER UNIT ROUTINE Care 12/24/16 09:14 Ordered Regular Diet [DIET] Diet 12/23/16 Dinner Active ALPRAZolam [Xanax] Med 12/24/16 07:58 Active 1 mg PO TID PRN Acetaminophen [Tylenol] Med 12/23/16 17:50 Active 650 mg PO Q6H PRN Enoxaparin [Lovenox] Med 12/23/16 18:00 Active 30 mg SUBCUT Q24H Folic Acid Med 12/23/16 18:00 Active 1 mg PO DAILY Metoprolol Succinate [Toprol Xl] Med 12/24/16 09:00 Active 75 mg PO DAILY Ondansetron [Zofran] Med 12/23/16 17:50 Active 4 mg IVPUSH Q6H PRN Patient's Own Medication [Ptom] Med 12/24/16 09:00 Active 1 each INH BID Potassium Chloride [Klor-Con 10] Med 12/24/16 09:00 Active 10 meq PO DAILY Sodium Chloride 0.9% [Normal Saline] 1,000 ml Med 12/23/16 18:00 Active IV ASDIRECTED Thiamine [Vitamin B-1] Med 12/23/16 18:00 Active 100 mg PO DAILY Seizure Precautions [OM.PC] Routine Oth 12/23/16 17:48 Ordered Medication Orders Acetaminophen (Tylenol) 650 mg PO Q6H PRN PRN Reason: Fever Alprazolam (Xanax) 1 mg PO TID PRN PRN Reason: Anxiety Last Admin: 12/24/16 08:30 Dose: 1 mg Enoxaparin Sodium (Lovenox) 30 mg SUBCUT Q24H [facility] Last Admin: 12/23/16 18:47 Dose: 30 mg Folic Acid (Folic Acid) 1 mg PO DAILY [facility] Last Admin: 12/24/16 08:25 Dose: 1 mg Admin: 12/23/16 18:47 Dose: 1 mg Sodium Chloride (Normal Saline) 1,000 mls @ 75 mls/hr IV ASDIRECTED [facility] Last Admin: 12/23/16 18:48 Dose: 75 mls/hr Metoprolol Succinate 50 mg/ (Metoprolol Succinate 25 mg) 75 mg PO DAILY [facility] Last Admin: 12/24/16 08:24 Dose: 75 mg Ondansetron HCl (Zofran) 4 mg IVPUSH Q6H PRN PRN Reason: Nausea/Vomiting Symbicort ( Budesonide/Formoterol) 160-4.5 1 each INH BID [facility] Last Admin: 12/24/16 08:24 Dose: 1 each Potassium Chloride (Klor-Con 10) 10 meq PO DAILY [facility] Last Admin: 12/24/16 08:21 Dose: 10 meq Sodium Chloride (Saline Flush) 10 ml FLUSH ASDIRECTED PRN PRN Reason: Keep Vein Open Sodium Chloride (Saline Flush) 2.5 ml FLUSH ASDIRECTED PRN PRN Reason: Keep Vein Open Thiamine HCl (Vitamin B-1) 100 mg PO DAILY [facility] Last Admin: 12/24/16 08:21 Dose: 100 mg Admin: 12/23/16 18:47 Dose: 100 mg Assessment/Plan Comment:: Dec 24, 2016: Patient was admitted overnight for observation secondary to her altered mental status. Patient improved rapidly and has no concerns other than wanting to go home secondary to her anxiety.. By day of discharge she was awake alert and oriented in without discomfort. I recommended that the patient followup with her primary care physician. She is to continue all of her medications as prescribed. The patient will be discharged with a diet as tolerated and activity as tolerated. The patient will be discharged accordingly.
--- NOTE | 2016-12-24 09:25 | PCM.DCSUM1 ---
Discharge Summary - Hospital Course HPI Initial Comments: Patient was admitted overnight for observation secondary to her altered mental status. Patient improved rapidly and has no concerns other than wanting to go home secondary to her anxiety.. By day of discharge she was awake alert and oriented in without discomfort. I recommended that the patient followup with her primary care physician. She is to continue all of her medications as prescribed. The patient will be discharged with a diet as tolerated and activity as tolerated. The patient will be discharged accordingly. - Discharge Data Discharge Date: 12/24/16 Discharge Disposition: Home, Self-Care 01 Condition: Good - Discharge Diagnosis/Problem(s) (1) Altered mental status, unspecified SNOMED Code(s): 263878871 ICD Code: R41.82 - ALTERED MENTAL STATUS, UNSPECIFIED Status: Resolved Priority: High Current Visit: Yes Qualifiers: Altered mental status type: disorientation Qualified Code(s): R41.0 - Disorientation, unspecified (2) Anxiety SNOMED Code(s): 35526159 ICD Code: F41.9 - ANXIETY DISORDER, UNSPECIFIED Status: Acute Priority: High Current Visit: Yes (3) Anemia SNOMED Code(s): 321634121 ICD Code: D64.9 - ANEMIA, UNSPECIFIED Status: Acute Current Visit: Yes Qualifiers: Anemia type: unspecified type Qualified Code(s): D64.9 - Anemia, unspecified - Discharge Plan Home Medications: Home Meds ALPRAZolam [Xanax] 1 mg PO TID PRN 05/08/14 [History] Cyanocobalamin (Vitamin B-12) [B-12] 1,000 mcg PO DAILY 05/08/14 [History] Cholecalciferol (Vitamin D3) [Vitamin D3] 2,000 unit PO DAILY 12/31/14 [History] Metoprolol Succinate 75 mg PO DAILY 12/31/14 [History] Budesonide/Formoterol [Symbicort 160-4.5 MCG] 1 puff INH BID 12/23/16 [History] Potassium Chloride [Klor-Con 10] 10 meq PO DAILY 12/23/16 [History] Referrals: PCP,None [Primary Care Provider] - (pls see your primary care physician 1 to 2 weeks.) - General Info Admission Dx/Problem (Free Text: altered mental status Functional Status: Reports: pain controlled - Review of Systems General: Reports: No Symptoms HEENT: Reports: no symptoms Pulmonary: Reports: no symptoms Cardiovascular: Reports: No Symptoms Gastrointestinal: Reports: No symptoms Genitourinary: Reports: no symptoms Musculoskeletal: Reports: no symptoms Skin: Reports: no symptoms Neurological: Reports: No Symptoms Psychiatric: Reports: anxiety - Patient Data Vitals - Most Recent: Last Vital Signs Temp 37.0 C 12/24/16 08:00 Pulse 68 12/24/16 08:24 Resp 18 12/24/16 08:00 BP 132/65 12/24/16 08:24 Pulse Ox 94 L 12/24/16 08:00 Weight - Most Recent: 61.1 kg I&O - Last 24 hours: Intake & Output 12/23/16 12/24/16 12/24/16 22:59 06:59 14:59 Intake Total 1305 Output Total 750 Balance 555 Lab Results - Last 24 hrs: Laboratory Results - last 24 hr 12/24/16 12/24/16 Range/Units 06:15 06:15 WBC 5.86 (4.0-11.0) K/uL RBC 3.26 L (4.30-5.90) M/uL Hgb 10.7 L (12.0-16.0) g/dL Hct 32.0 L (36.0-46.0) % MCV 98.2 H (80.0-98.0) fL MCH 32.8 H (27.0-32.0) pg MCHC 33.4 (31.0-37.0) g/dL RDW Std Deviation 51.0 (28.0-62.0) fl RDW Coeff of Dirk 14 (11.0-15.0) % Plt Count 313 (150-400) K/uL MPV 9.60 (7.40-12.00) fL Neut % (Auto) 53.9 (48.0-80.0) % Lymph % (Auto) 34.6 (16.0-40.0) % [place] % (Auto) 8.7 (0.0-15.0) % Eos % (Auto) 1.9 (0.0-7.0) % Baso % (Auto) 0.9 (0.0-1.5) % Neut # (Auto) 3.2 (1.4-5.7) K/uL Lymph # (Auto) 2.0 (0.6-2.4) K/uL [place] # (Auto) 0.5 (0.0-0.8) K/uL Eos # (Auto) 0.1 (0.0-0.7) K/uL Baso # (Auto) 0.1 (0.0-0.1) K/uL Nucleated RBC % 0.0 /100WBC Nucleated RBCs # 0 K/uL Sodium 137 (136-146) mmol/L Potassium 4.1 (3.5-5.1) mmol/L Chloride 105 (98-110) mmol/L Carbon Dioxide 24 (21-31) mmol/L BUN 13 (6.0-23.0) mg/dL Creatinine 0.8 (0.6-1.5) mg/dL Est Cr Clr Drug Dosing 65.63 mL/min Estimated GFR (MDRD) > 60.0 ml/min Glucose 90 (60-110) mg/dL Calcium 9.1 (8.8-10.8) mg/dL Med Orders - Current: Current Medications Acetaminophen (Tylenol) 650 mg PO Q6H PRN PRN Reason: Fever Alprazolam (Xanax) 1 mg PO TID PRN PRN Reason: Anxiety Last Admin: 12/24/16 08:30 Dose: 1 mg Enoxaparin Sodium (Lovenox) 30 mg SUBCUT Q24H [facility] Last Admin: 12/23/16 18:47 Dose: 30 mg Folic Acid (Folic Acid) 1 mg PO DAILY [facility] Last Admin: 12/24/16 08:25 Dose: 1 mg Sodium Chloride (Normal Saline) 1,000 mls @ 75 mls/hr IV ASDIRECTED [facility] Last Admin: 12/23/16 18:48 Dose: 75 mls/hr Metoprolol Succinate 50 mg/ (Metoprolol Succinate 25 mg) 75 mg PO DAILY [facility] Last Admin: 12/24/16 08:24 Dose: 75 mg Ondansetron HCl (Zofran) 4 mg IVPUSH Q6H PRN PRN Reason: Nausea/Vomiting Symbicort ( Budesonide/Formoterol) 160-4.5 1 each INH BID [facility] Last Admin: 12/24/16 08:24 Dose: 1 each Potassium Chloride (Klor-Con 10) 10 meq PO DAILY [facility] Last Admin: 12/24/16 08:21 Dose: 10 meq Sodium Chloride (Saline Flush) 10 ml FLUSH ASDIRECTED PRN PRN Reason: Keep Vein Open Sodium Chloride (Saline Flush) 2.5 ml FLUSH ASDIRECTED PRN PRN Reason: Keep Vein Open Thiamine HCl (Vitamin B-1) 100 mg PO DAILY [facility] Last Admin: 12/24/16 08:21 Dose: 100 mg Discontinued Medications Metoprolol Succinate (Toprol Xl) 75 mg PO DAILY [facility] - Exam Quality Assessment: Denies: supplemental oxygen General: Reports: alert, oriented HEENT: Reports: Pupils equal, Pupils reactive, EOMI, Mucous membr. moist/pink Neck: Reports: supple, trachea midline Lungs: Reports: Clear to auscultation, Normal respiratory effort Cardiovascular: Reports: Regular Rate, Regular Rhythm Abdomen: Reports: bowel sounds present, soft, no tenderness, no distension Back Exam: Reports: normal inspection, full range of motion Extremities: Reports: no edema, normal pulses Skin: Reports: warm, dry, intact *Q Meaningful Use (DIS) - VTE *Q VTE Criteria *Q: VTE Mechanical Contraindications *Q: At Risk for Falls - Stroke *Q Stroke Criteria *Q: - AMI *Q AMI Criteria *Q:
--- NOTE | 2016-12-25 17:06 | CT ---
EXAM DATE: 12/23/16 PATIENT'S AGE: 66 Patient: TAY DARDEN Facility: [place], [place] Site . Site : 1950 Study: CT Head [id number]/2017 3:37:54 PM Ordering Physician: Doctor Davalos Final Report: INDICATION: confusion, pain CT HEAD WITHOUT CONTRAST TECHNIQUE: Multiple axial CT images were performed through the head without intravenous contrast administration. COMPARISON: 05/08/[address] FINDINGS: No acute intracranial hemorrhage is identified. No extra-axial collections are evident and there is no mass effect or midline shift. There is mild diffuse age-related cortical brain atrophy, similar to the previous exam. There is stable mild ventricular enlargement consistent with central brain atrophy. [place]-white differentiation is within normal limits. There is unchanged mild patchy hypodensity in the periventricular white matter, a nonspecific finding which most likely reflects chronic small vessel ischemic change. Intracranial atherosclerotic vascular calcifications are noted. Osseous structures are within normal limits and no fractures are seen. Included portions of the paranasal sinuses and mastoid air cells are normally aerated aside from minimal mucosal thickening in the left sphenoid and left maxillary sinuses. IMPRESSION: 1. No acute intracranial abnormality identified. 2. Age-related brain atrophy, white matter hypodensity consistent with chronic small vessel ischemic change, and intracranial atherosclerotic vascular calcifications. ANTONIO CARDONA MD [employer] Dictated by Albin Cardona MD @ 12/23/2016 4:00:21 PM Dictated by: Albin Cardona MD @ 12/23/2016 16:00:36 (Electronic Signature) Report Signed by Proxy. [facility]ITAL[facility]audia
--- NOTE | 2016-12-25 17:07 | CR ---
EXAM DATE: 12/23/16 PATIENT'S AGE: 66 Patient: TAY DARDEN Facility: [place], [place] Site . Site : 1950 Study: XRay Chest [id number]/28/2017 3:39:17 PM Ordering Physician: Doctor Davalos Final Report: CHEST 2 VIEWS INDICATION: Pain, shortness of breath COMPARISON: 11/03/2016 FINDINGS: Normal heart size and vascular pattern. Lungs are clear. No pneumothorax or pleural abnormality. IMPRESSION: 1. NEGATIVE CHEST. NO ACUTE ABNORMALITY OR SIGNIFICANT CHANGE FROM 11/03/2016. Dictated by Breezy Sinclair MD @ 12/23/2016 3:44:26 PM Dictated by: Breezy Sinclair MD @ 12/23/2016 15:44:35 (Electronic Signature) Report Signed by Proxy. [facility]
== END 2016-12-24 09:45 | disposition home or self-care (01) ==
LOC: MW.ED 15:00 → MW.MS 16:31
PROVIDERS: ADMIT Internal Medicine; ATTEND Internal Medicine
DX: R41.82 Altered mental status, unspecified (principal); R41.0 Disorientation, unspecified; F41.9 Anxiety disorder, unspecified; D64.9 Anemia, unspecified; I10 Essential (primary) hypertension; G89.29 Other chronic pain; M54.9 Dorsalgia, unspecified; J30.9 Allergic rhinitis, unspecified; Z79.899 Other long term (current) drug therapy; Z87.891 Personal history of nicotine dependence; Z88.0 Allergy status to penicillin; Z88.1 Allergy status to other antibiotic agents; Z88.2 Allergy status to sulfonamides; Z88.8 Allergy status to other drugs, medicaments and biological substances
CPT/HCPCS: 36415; 70450; 71020; 80048; 80053; 80305; 81001; 82140; 82150; 83605; 83690; 84484; 85025; 85610; 93005; 96360; 96361; 96372; 99285; A9270; G0378; G0480; J1650; J7040

== ENCOUNTER 2016-12-26 09:23 | Emergency (ER) | payer MEDICARE, MEDICAID ==
--- NOTE | 2016-12-26 09:43 | EDM.PDOC ---
ED HPI GENERAL MEDICAL PROBLEM - General Chief Complaint: General Stated Complaint: UNK Time Seen by Provider: 12/26/16 09:40 Source of Information: Reports: Patient History Limitations: Reports: No limitations - History of Present Illness INITIAL COMMENTS - FREE TEXT/NARRATIVE: HISTORY AND PHYSICAL: History of present illness: [66-year-old female with a past medical history of anxiety and panic as well as alcohol abuse, recently admitted after presenting with chronic memory loss and generalized weakness. Workup was negative as an inpatient the patient was discharged with a diagnosis of anxiety/panic. She now returns emergency department because of the same symptoms. She has no new complaints. No focal weakness visual or speech changes. No fevers chills sweats or shaking chills. No chest pain shortness of breath. Patient otherwise asymptomatic. She admits she has been anxious and she takes medication daily for anxiety. Patient has a flat affect but she denies suicidal ideation danger to self or others. Review of systems: As per history of present illness and below otherwise all systems reviewed and negative. Past medical history: As per history of present illness and as reviewed below otherwise noncontributory. Surgical history: As per history of present illness and as reviewed below otherwise noncontributory. Social history: No reported history of drug or alcohol abuse. Family history: As per history of present illness and as reviewed below otherwise noncontributory. Physical exam: Patient with flat affect and mildly anxious during conversation about her medical conditions. No acute distress HEENT: Atraumatic, normocephalic, pupils reactive, negative for conjunctival pallor or scleral icterus, mucous membranes moist, throat clear, neck supple, nontender, trachea midline. Lungs: Clear to auscultation, breath sounds equal bilaterally, chest nontender. Heart: S1S2, regular, negative for clicks, rubs, or JVD. Abdomen: Soft, nondistended, nontender. Negative for masses or hepatosplenomegaly. Negative for costovertebral tenderness. Pelvis: Stable nontender. Genitourinary: Deferred. Rectal: Deferred. Extremities: Atraumatic, negative for cords or calf pain. Neurovascular unremarkable. Neuro: Awake, alert, oriented. Cranial nerves II through XII unremarkable. Cerebellum unremarkable. Motor and sensory unremarkable throughout. Exam nonfocal. Diagnostics: [] Therapeutics: [] Impression: [] Plan: [Signs and symptoms consistent gestations of patient's chronic anxiety disorder. Anxiolytic given. Full workup unremarkable. Patient stable. No further workup or treatment indicated. patient agrees with outpatient followup and strict return precautions given Definitive disposition and diagnosis as appropriate pending reevaluation and review of above. - Related Data Allergies Allergy/AdvReac Type Severity Reaction Status Date / Time amoxicillin [Amoxicillin] Allergy Other Verified 12/26/16 09:37 ampicillin Allergy Other Verified 12/26/16 09:37 digoxin Allergy Other Verified 12/26/16 09:37 doxycycline Allergy Other Verified 12/26/16 09:37 fentanyl Allergy Other Verified 12/26/16 09:37 nitrofurantoin Allergy Other Verified 12/26/16 09:37 [From Macrobid] nitrofurantoin Allergy Other Verified 12/26/16 09:37 macrocrystalline [From Macrobid] Penicillins Allergy Other Verified 12/26/16 09:37 Sulfa (Sulfonamide Allergy Other Verified 12/26/16 09:37 Antibiotics) Home Meds: Home Meds ALPRAZolam [Xanax] 1 mg PO TID PRN 05/08/14 [History] Cyanocobalamin (Vitamin B-12) [B-12] 1,000 mcg PO DAILY 05/08/14 [History] Cholecalciferol (Vitamin D3) [Vitamin D3] 2,000 unit PO DAILY 12/31/14 [History] Metoprolol Succinate 75 mg PO DAILY 12/31/14 [History] Budesonide/Formoterol [Symbicort 160-4.5 MCG] 1 puff INH BID 12/23/16 [History] Potassium Chloride [Klor-Con 10] 10 meq PO DAILY 12/23/16 [History] Past Medical History HEENT History: Reports: Allergic rhinitis Other HEENT History: wears glasses, has full upper denture and partial lower denture Cardiovascular History: Reports: Hypertension Respiratory History: Reports: None Genitourinary History: Reports: None 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 Endocrine/Metabolic History: Reports: None Hematologic History: Reports: None Immunologic History: Reports: None Oncologic (Cancer) History: Reports: None Dermatologic History: Reports: None - Infectious Disease History Infectious Disease History: Reports: None - Past Surgical History Head Surgeries/Procedures: Reports: None HEENT Surgical History: Reports: Naso-sinus surgery Other HEENT Surgeries/Procedures: nose surgery Cardiovascular Surgical History: Reports: None Respiratory Surgical History: Reports: None GI Surgical History: Reports: Cholecystectomy Female Surgical History: Reports: None Endocrine Surgical History: Reports: None Neurological Surgical History: Reports: None Musculoskeletal Surgical History: Reports: Other (see below) Other Musculoskeletal Surgeries/Procedures:: fusion of L4-5 Oncologic Surgical History: Reports: None Dermatological Surgical History: Reports: None Social & Family History - Family History Family Medical History: Noncontributory HEENT: Reports: None Cardiac: Reports: None Respiratory: Reports: None OBGYN: Reports: None Musculoskeletal: Reports: None Neurological: Reports: None Psychiatric: Reports: None Endocrine/Metabolic: Reports: None Hematologic: Reports: None Oncologic: Reports: Other (see below) Other Oncologic Family History: neck CA - Tobacco Use Smoking Status *Q: Never Smoker Years of Tobacco use: 53 Packs/Tins Daily: 1 Used Tobacco, but Quit: Yes Month Tobacco Last Used: 12/2015 Second Hand Smoke Exposure: No - Caffeine Use Caffeine Use: Reports: Coffee - Alcohol Use Days Per Week of Alcohol Use: 3 Number of Drinks Per Day: 2 Total Drinks Per Week: 6 - Recreational Drug Use Recreational Drug Use: No Drug Use in Last 12 Months: No ED ROS GENERAL - Review of Systems Review Of Systems: See Below (Her history of present illness) ED EXAM, GENERAL - Physical Exam Exam: See Below (Per history of present illness) Course - Vital Signs Last Recorded V/S: Last Vital Signs Temp 37.0 C 12/26/16 12:31 Pulse 56 L 12/26/16 12:31 Resp 12 12/26/16 12:31 BP 185/65 H 12/26/16 12:31 Pulse Ox 98 12/26/16 12:31 - Orders/Labs/Meds Orders: Active Orders 24 hr Category Date Time Status Peripheral IV Insertion Adult [OM.PC] Stat Oth 12/26/16 10:07 Ordered Labs: Laboratory Tests 12/26/16 12/26/16 12/26/16 Range/Units 10:01 10:29 10:29 Hgb (12.0-16.0) g/dL Hct (36.0-46.0) % Sodium 140 (136-146) mmol/L Potassium 3.7 (3.5-5.1) mmol/L Chloride 106 (98-110) mmol/L Carbon Dioxide 20 L (21-31) mmol/L BUN 10 (6.0-23.0) mg/dL Creatinine 0.8 (0.6-1.5) mg/dL Est Cr Clr Drug Dosing 65.99 mL/min Estimated GFR (MDRD) > 60.0 ml/min Glucose 92 (60-110) mg/dL Calcium 9.7 (8.8-10.8) mg/dL Total Bilirubin 0.7 (0.1-1.5) mg/dL AST 16 (5-40) IU/L ALT 16 (8-54) IU/L Alkaline Phosphatase 47 (40-150) Troponin I < 0.10 (0.0-0.29) NG/ML Total Protein 7.0 (6.0-8.0) g/dL Albumin 3.7 (3.4-4.8) g/dL Globulin 3.3 (2.0-3.5) g/dL Albumin/Globulin Ratio 1.1 L (1.3-2.8) Urine Color YELLOW Urine Appearance CLEAR Urine pH 5.5 (5.0-8.0) Ur Specific [place] <= 1.005 (1.001-1.035) Urine Protein NEGATIVE (NEGATIVE) mg/dL Urine Glucose (UA) NEGATIVE (NEGATIVE) mg/dL Urine Ketones NEGATIVE (NEGATIVE) mg/dL Urine Occult Blood NEGATIVE (NEGATIVE) Urine Nitrite NEGATIVE (NEGATIVE) Urine Bilirubin NEGATIVE (NEGATIVE) Urine Urobilinogen 0.2 (<2.0) EU/dL Ur Leukocyte Esterase TRACE (NEGATIVE) Urine RBC 0-1 (0-2/HPF) Urine WBC 0-1 (0-5/HPF) Ur Epithelial Cells RARE (NONE-FEW) Urine Bacteria RARE (NEGATIVE) 12/26/16 Range/Units 10:29 Hgb 11.4 L (12.0-16.0) g/dL Hct 33.8 L (36.0-46.0) % Sodium (136-146) mmol/L Potassium (3.5-5.1) mmol/L Chloride (98-110) mmol/L Carbon Dioxide (21-31) mmol/L BUN (6.0-23.0) mg/dL Creatinine (0.6-1.5) mg/dL Est Cr Clr Drug Dosing mL/min Estimated GFR (MDRD) ml/min Glucose (60-110) mg/dL Calcium (8.8-10.8) mg/dL Total Bilirubin (0.1-1.5) mg/dL AST (5-40) IU/L ALT (8-54) IU/L Alkaline Phosphatase (40-150) Troponin I (0.0-0.29) NG/ML Total Protein (6.0-8.0) g/dL Albumin (3.4-4.8) g/dL Globulin (2.0-3.5) g/dL Albumin/Globulin Ratio (1.3-2.8) Urine Color Urine Appearance Urine pH (5.0-8.0) Ur Specific [place] (1.001-1.035) Urine Protein (NEGATIVE) mg/dL Urine Glucose (UA) (NEGATIVE) mg/dL Urine Ketones (NEGATIVE) mg/dL Urine Occult Blood (NEGATIVE) Urine Nitrite (NEGATIVE) Urine Bilirubin (NEGATIVE) Urine Urobilinogen (<2.0) EU/dL Ur Leukocyte Esterase (NEGATIVE) Urine RBC (0-2/HPF) Urine WBC (0-5/HPF) Ur Epithelial Cells (NONE-FEW) Urine Bacteria (NEGATIVE) Meds: Medications Discontinued Medications Generic Name Dose Route Start Last Admin Trade Name Rivasq PRN Reason Stop Dose Admin Alprazolam 1 mg 12/26/16 10:37 12/26/16 10:49 Xanax PO 12/26/16 10:38 Not Given ONETIME ONE Alprazolam Confirm 12/26/16 10:39 12/26/16 10:48 Xanax Administered 12/26/16 10:40 1 mg Dose Administration 1 mg .ROUTE .STK-MED ONE Sodium Chloride 1,000 mls @ 999 mls/hr 12/26/16 10:07 12/26/16 10:15 Normal Saline IV 12/26/16 11:07 999 mls/hr .Bolus ONE Administration Departure - Departure Time of Disposition: 11:53 Disposition: Home, Self-Care 01 Condition: good Clinical Impression: Anxiety, Anemia Instructions: Panic Attacks, [id number] Referrals: PCP,None [Primary Care Provider] - Forms: ED Department Discharge Additional Instructions: Your workup today was unremarkable. There are no findings which require immediate treatment or admission to the hospital. It appears that your anxiety is contributing to your perception of feeling generally weak. Be sure to take your Xanax as previously prescribed and follow up with your DrEloise in one day. Return immediately for new severe or worsening symptoms - My Orders Last 24 Hours: My Active Orders 12/26/16 10:07 Peripheral IV Insertion Adult [OM.PC] Stat - Assessment/Plan Last 24 Hours: My Active Orders 12/26/16 10:07 Peripheral IV Insertion Adult [OM.PC] Stat
[2016-12-26] MEDS ORDERED: Sodium Chloride 0.9% 1,000 ML IV ONE (10:07)
[2016-12-26] MEDS ORDERED: ALPRAZolam 0.25 MG Tab PO ONE ×2 (10:17→10:37)
[2016-12-26] MEDS: ALPRAZolam 0.5 MG Tab ONE ×2 (10:47→10:48)
--- NOTE | 2016-12-26 11:14 | CR ---
EXAMINATION: Portable chest radiograph. HISTORY: Chest eval FINDINGS: The trachea is midline. The cardiomediastinal silhouette is within normal limits there is possible s ubtle infiltrate within the left perihilar distribution. No definite pleural effusion or pneumothora x, however the left costophrenic angle is not included. Mild chronic interstitial prominence. Osseous structures appear unremarkable. IMPRESSION: Possible trace left perihilar infiltrate, correlate clinically.
[2016-12-26 11:28] LABS: CHLORIDE,CL 106 mmol/L (98-110); SODIUM,NA 140 mmol/L (136-146)
[2016-12-26 12:33] VITALS: BP 185/65
== END 2016-12-26 12:30 | disposition home or self-care (01) ==
LOC: MW.ED 09:23
DX: F41.9 Anxiety disorder, unspecified (principal); D64.9 Anemia, unspecified; I10 Essential (primary) hypertension; Z90.49 Acquired absence of other specified parts of digestive tract; Z79.899 Other long term (current) drug therapy; Z88.1 Allergy status to other antibiotic agents; Z88.0 Allergy status to penicillin; Z88.2 Allergy status to sulfonamides; Z88.8 Allergy status to other drugs, medicaments and biological substances
CPT/HCPCS: 36415; 71010; 80053; 81001; 84484; 85014; 85018; 93005; 96360; 99285; A9270; J7040; 99283

== ENCOUNTER 2016-12-28 11:40 | Emergency (ER) | payer MEDICARE, MEDICAID ==
--- NOTE | 2016-12-28 12:00 | EDM.PDOC ---
ED HPI GENERAL MEDICAL PROBLEM - General Chief Complaint: General Stated Complaint: SHORTNESS OF BREATH Time Seen by Provider: 12/28/16 12:08 Source of Information: Reports: Patient History Limitations: Reports: No limitations - History of Present Illness INITIAL COMMENTS - FREE TEXT/NARRATIVE: History of present illness: [66-year-old female comes in with diffuse complaints of anxiety and general feelings of being unwell. Patient doesn't knowledge she has chronic history of anxiety since childhood and arty takes antianxiety medication.] Review of systems: As per history of present illness and below otherwise all systems reviewed and negative. Past medical history: As per history of present illness and as reviewed below otherwise noncontributory. Surgical history: As per history of present illness and as reviewed below otherwise noncontributory. Social history: No reported history of drug or alcohol abuse. Family history: As per history of present illness and as reviewed below otherwise noncontributory. Physical exam: HEENT: Atraumatic, normocephalic, pupils reactive, negative for conjunctival pallor or scleral icterus, mucous membranes moist, throat clear, neck supple, nontender, trachea midline. Lungs: Clear to auscultation, breath sounds equal bilaterally, chest nontender. Heart: S1S2, regular, negative for clicks, rubs, or JVD. Abdomen: Soft, nondistended, nontender. Negative for masses or hepatosplenomegaly. Negative for costovertebral tenderness. Pelvis: Stable nontender. Genitourinary: Deferred. Rectal: Deferred. Extremities: Atraumatic, negative for cords or calf pain. Neurovascular unremarkable. Neuro: Awake, alert, oriented. Cranial nerves II through XII unremarkable. Cerebellum unremarkable. Motor and sensory unremarkable throughout. Exam nonfocal. Global assessment is negative for all but subjective complaints of anxiety as noted in the history of present illness. He shouldn't, discusses her concerns and her fears brother is at bedside. Mother requests to speak to the outreach and education social worker so that he can verbalize concerns about patient having a shrinking brain, and some level of dementia. Patient brother does not live locally and acknowledges that he doesn't know her very well there is an significant age difference and he doesn't see her very often Diagnostics: [CBC, CMP] Therapeutics: [IV fluid Ativan] Impression: [anxiety] Plan: [Take Xanax as prescribed followup with [facility]] Definitive disposition and diagnosis as appropriate pending reevaluation and review of above. - Related Data Allergies Allergy/AdvReac Type Severity Reaction Status Date / Time amoxicillin [Amoxicillin] Allergy Other Verified 12/28/16 11:52 ampicillin Allergy Other Verified 12/28/16 11:52 digoxin Allergy Other Verified 12/28/16 11:52 doxycycline Allergy Other Verified 12/28/16 11:52 fentanyl Allergy Other Verified 12/28/16 11:52 nitrofurantoin Allergy Other Verified 12/28/16 11:52 [From Macrobid] nitrofurantoin Allergy Other Verified 12/28/16 11:52 macrocrystalline [From Macrobid] Penicillins Allergy Other Verified 12/28/16 11:52 Sulfa (Sulfonamide Allergy Other Verified 12/28/16 11:52 Antibiotics) Home Meds: Home Meds ALPRAZolam [Xanax] 1 mg PO TID PRN 05/08/14 [History] Cyanocobalamin (Vitamin B-12) [B-12] 1,000 mcg PO DAILY 05/08/14 [History] Cholecalciferol (Vitamin D3) [Vitamin D3] 2,000 unit PO DAILY 12/31/14 [History] Metoprolol Succinate 75 mg PO DAILY 12/31/14 [History] Budesonide/Formoterol [Symbicort 160-4.5 MCG] 1 puff INH BID 12/23/16 [History] Potassium Chloride [Klor-Con 10] 10 meq PO DAILY 12/23/16 [History] Past Medical History HEENT History: Reports: Allergic rhinitis Other HEENT History: wears glasses, has full upper denture and partial lower denture Cardiovascular History: Reports: Hypertension Respiratory History: Reports: None Genitourinary History: Reports: None 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 Endocrine/Metabolic History: Reports: None Hematologic History: Reports: None Immunologic History: Reports: None Oncologic (Cancer) History: Reports: None Dermatologic History: Reports: None - Infectious Disease History Infectious Disease History: Reports: None - Past Surgical History Head Surgeries/Procedures: Reports: None HEENT Surgical History: Reports: Naso-sinus surgery Other HEENT Surgeries/Procedures: nose surgery Cardiovascular Surgical History: Reports: None Respiratory Surgical History: Reports: None GI Surgical History: Reports: Cholecystectomy Female Surgical History: Reports: None Endocrine Surgical History: Reports: None Neurological Surgical History: Reports: None Musculoskeletal Surgical History: Reports: Other (see below) Other Musculoskeletal Surgeries/Procedures:: fusion of L4-5 Oncologic Surgical History: Reports: None Dermatological Surgical History: Reports: None Social & Family History - Family History Family Medical History: Noncontributory HEENT: Reports: None Cardiac: Reports: None Respiratory: Reports: None OBGYN: Reports: None Musculoskeletal: Reports: None Neurological: Reports: None Psychiatric: Reports: None Endocrine/Metabolic: Reports: None Hematologic: Reports: None Oncologic: Reports: Other (see below) Other Oncologic Family History: neck CA - Tobacco Use Smoking Status *Q: Never Smoker Years of Tobacco use: 53 Packs/Tins Daily: 1 Used Tobacco, but Quit: Yes Month Tobacco Last Used: 12/2015 Second Hand Smoke Exposure: No - Caffeine Use Caffeine Use: Reports: Coffee - Alcohol Use Days Per Week of Alcohol Use: 3 Number of Drinks Per Day: 2 Total Drinks Per Week: 6 - Recreational Drug Use Recreational Drug Use: No Drug Use in Last 12 Months: No ED ROS GENERAL - Review of Systems Review Of Systems: See Below (The history of present illness) ED EXAM, GENERAL - Physical Exam Exam: See Below (See history of present illness) Course - Vital Signs Last Recorded V/S: Last Vital Signs Temp 36.2 C 12/28/16 11:49 Pulse 63 12/28/16 11:49 Resp 18 12/28/16 11:49 BP 135/64 12/28/16 11:49 Pulse Ox 96 12/28/16 11:49 - Orders/Labs/Meds Labs: Laboratory Tests 12/28/16 12/28/16 Range/Units 12:25 12:25 WBC 6.98 (4.0-11.0) K/uL RBC 3.44 L (4.30-5.90) M/uL Hgb 11.2 L (12.0-16.0) g/dL Hct 34.2 L (36.0-46.0) % MCV 99.4 H (80.0-98.0) fL MCH 32.6 H (27.0-32.0) pg MCHC 32.7 (31.0-37.0) g/dL RDW Std Deviation 53.0 (28.0-62.0) fl RDW Coeff of Dirk 15 (11.0-15.0) % Plt Count 272 (150-400) K/uL MPV 10.10 (7.40-12.00) fL Neut % (Auto) 55.4 (48.0-80.0) % Lymph % (Auto) 35.1 (16.0-40.0) % Long % (Auto) 8.0 (0.0-15.0) % Eos % (Auto) 0.6 (0.0-7.0) % Baso % (Auto) 0.9 (0.0-1.5) % Neut # (Auto) 3.9 (1.4-5.7) K/uL Lymph # (Auto) 2.5 H (0.6-2.4) K/uL Long # (Auto) 0.6 (0.0-0.8) K/uL Eos # (Auto) 0.0 (0.0-0.7) K/uL Baso # (Auto) 0.1 (0.0-0.1) K/uL Nucleated RBC % 0.0 /100WBC Nucleated RBCs # 0 K/uL Sodium 140 (136-146) mmol/L Potassium 3.8 (3.5-5.1) mmol/L Chloride 105 (98-110) mmol/L Carbon Dioxide 23 (21-31) mmol/L BUN 13 (6.0-23.0) mg/dL Creatinine 0.8 (0.6-1.5) mg/dL Est Cr Clr Drug Dosing TNP Estimated GFR (MDRD) > 60.0 ml/min Glucose 88 (60-110) mg/dL Calcium 9.8 (8.8-10.8) mg/dL Total Bilirubin 0.8 (0.1-1.5) mg/dL AST 14 (5-40) IU/L ALT 15 (8-54) IU/L Alkaline Phosphatase 47 (40-150) Total Protein 7.1 (6.0-8.0) g/dL Albumin 3.9 (3.4-4.8) g/dL Globulin 3.2 (2.0-3.5) g/dL Albumin/Globulin Ratio 1.2 L (1.3-2.8) Meds: Medications Discontinued Medications Generic Name Dose Route Start Last Admin Trade Name Twila PRKim Reason Stop Dose Admin Sodium Chloride 1,000 mls @ 999 mls/hr 12/28/16 12:09 12/28/16 12:32 Normal Saline IV 12/28/16 13:09 999 mls/hr STAT ONE Administration Lorazepam 1 mg 12/28/16 12:09 12/28/16 12:32 Ativan IVPUSH 12/28/16 12:10 1 mg ONETIME ONE Administration Departure - Departure Time of Disposition: 13:44 Disposition: Home, Self-Care 01 Condition: good Clinical Impression: Anxiety Additional Instructions: The following information is given to patients seen in the emergency department who are being discharged to home. This information is to outline your options for follow-up care. We provide all patients seen in our emergency department with a follow-up referral. The need for follow-up, as well as the timing and circumstances, are variable depending upon the specifics of your emergency department visit. If you don't have a primary care physician on staff, we will provide you with a referral. We always advise you to contact your personal physician following an emergency department visit to inform them of the circumstance of the visit and for follow-up with them and/or the need for any referrals to a consulting specialist. The emergency department will also refer you to a specialist when appropriate. This referral assures that you have the opportunity for follow-up care with a specialist. All of these measure are taken in an effort to provide you with optimal care, which includes your follow-up. Under all circumstances we always encourage you to contact your private physician who remains a resource for coordinating your care. When calling for follow-up care, please make the office aware that this follow-up is from your recent emergency room visit. If for any reason you are refused follow-up, please contact the [facility] Emergency Department at and asked to speak to the emergency department charge nurse. Take your anxiety medicine that you currently have Followup with [facility] to discuss concerns with the counselor Followup with your primary care provider when she days Return to ED as needed as discussed
[2016-12-28] MEDS ORDERED: Sodium Chloride 0.9% 1,000 ML IV ONE (12:09)
[2016-12-28] MEDS ORDERED: LORazepam 2 MG/ML MDV IVPUSH ONE (12:09)
[2016-12-28 12:58] LABS: CHLORIDE,CL 105 mmol/L (98-110); SODIUM,NA 140 mmol/L (136-146)
[2016-12-28 13:58] VITALS: BP 129/72
== END 2016-12-28 13:51 | disposition home or self-care (01) ==
LOC: MW.ED 11:40
DX: F41.9 Anxiety disorder, unspecified (principal); I10 Essential (primary) hypertension; Z79.899 Other long term (current) drug therapy; Z88.2 Allergy status to sulfonamides; Z90.49 Acquired absence of other specified parts of digestive tract; Z98.890 Other specified postprocedural states
CPT/HCPCS: 36415; 80053; 85025; 96361; 96374; 99284; J2060; J7040; 99283

== ENCOUNTER 2017-02-09 11:46 | Inpatient (IN) | payer MEDICARE, MEDICAID ==
[2017-02-09] MEDS ORDERED: Sodium Chloride 0.9% 1,000 ML IV ONE ×2 (12:26→15:13)
[2017-02-09] MEDS ORDERED: Sodium Chloride 0.9% 10 ML Syringe FLUSH PRN (12:26)
[2017-02-09] MEDS ORDERED: Sodium Chloride 0.9% 2.5 ML Syringe FLUSH PRN (12:26)
--- NOTE | 2017-02-09 12:32 | EDM.PDOC ---
ED HPI GENERAL MEDICAL PROBLEM - General Chief Complaint: General Stated Complaint: FELL 3 TIMES TODAY Time Seen by Provider: 02/09/17 12:14 - History of Present Illness INITIAL COMMENTS - FREE TEXT/NARRATIVE: HISTORY AND PHYSICAL: History of present illness: The patient is a 66-year-old female with a history of anxiety and hypertension who also takes Lexapro and presents with friend with history of 3 falls today and at least one yesterday and progressive confusion. According to the friend she had a episode of this back in April and was transferred to [facility] and when she was discharged she showed some improvement but not completely. She has had several episodes of confusion since that time and she has been seen here December 28 December 26 and December 23, with an admission on December 23 overnight, for altered mental status and anxiety. The patient is not a very good historian and says she 's been eating and drinking normally and has no systemic complaints of fever chills chest pain shortness of breath abdominal pain vomiting or diarrhea. She has no urinary complaints and denies any extremity neck or back pain. She states that when she falls she sometimes "falls asleep" but she doesn't lose consciousness when she falls. She is unsure of how long she is on the ground after she falls. She doesn't complain of any extremity pain because of these falls. She states that she is eating meals but the friend is concerned that that is not occurring. She lives alone and has no assistance in the household. The patient is well known to nursing staff for these prior episodes of confusion and altered mental status. According to the friend she checks on her on a regular basis as the patient lives above her in the building and last evening she states that her pillbox was filled with 10 days of medications and currently there are no more pills in the pillbox. She do not see any pills in the household on the floor and is unsure of if the patient ingested these pills or if they are lost. Patient is unsure of what happened with these pills. Review of systems: As per history of present illness and below otherwise all systems reviewed and negative. Past medical history: As per history of present illness and as reviewed below otherwise noncontributory. Surgical history: As per history of present illness and as reviewed below otherwise noncontributory. Social history: No reported history of drug or alcohol abuse. Family history: As per history of present illness and as reviewed below otherwise noncontributory. Physical exam: Gen.: Well-developed well-nourished female who speaks clearly and easily and is in no distress. She moves easily in the bed but does require some assistance with sitting up and seems somewhat stiffened overall. HEENT: Atraumatic, normocephalic, pupils reactive, no evidence of any facial injuries or swelling, negative for conjunctival pallor or scleral icterus, mucous membranes moist, throat clear, neck supple, nontender, trachea midline. Lungs: Clear to auscultation, breath sounds equal bilaterally, chest nontender. Heart: S1S2, regular, negative for clicks, rubs, or JVD. Abdomen: Soft, nondistended, nontender. Negative for masses or hepatosplenomegaly. Negative for costovertebral tenderness. Pelvis: Stable nontender. Genitourinary: Deferred. Rectal: Deferred. Extremities: Atraumatic except for some erythema noted on bilateral knees and bilateral elbows with some superficial abrasions but no palpable bony deformities or soft tissue swelling. There is no tenderness in these areas of elbows and knees bilaterally., negative for cords or calf pain. Neurovascular unremarkable. Neuro: Awake, alert, oriented. Cranial nerves II through XII unremarkable. Cerebellum unremarkable. Motor and sensory unremarkable throughout. Exam nonfocal. Gait was not assessed in my initial evaluation but in the bed the patient has very good strength throughout all extremities and dorsi and plantar flexion is intact 5/5 bilaterally. Back: There are no midline step-off sinus defects of the cervical thoracic or lumbar spine and no evidence of any soft tissue trauma is visualized. Skin: Normal turgor no evidence of any rashes or lesions and only superficial abrasion seen as described in the extremity exam above Diagnostics: EKG CBC CMP CT scan of the head chest x-ray Tylenol and aspirin levels alcohol level INR TSH CPK UA and UDS blood cultures 2 Therapeutics: IV O2 monitor IV fluids Rocephin and Zithromax 1510: Case was discussed with our hospitalist Dr. Lux and he is aware of the chest x-ray findings as well as the lab findings and the patient's clinical presentation. We will plan on inpatient admission and he requests more IV fluids to be given, Rocephin and Zithromax. I discussed findings with the patient and friend at bedside as well Impression: Frequent falls, left infrahilar pneumonia, dehydration and mild rhabdomyolysis Definitive disposition and diagnosis as appropriate pending reevaluation and review of above. Generalized Pain Score (Numeric/FACES): 5 - Related Data Allergies Allergy/AdvReac Type Severity Reaction Status Date / Time amoxicillin [Amoxicillin] Allergy Other Verified 02/09/17 12:19 ampicillin Allergy Other Verified 02/09/17 12:19 digoxin Allergy Other Verified 02/09/17 12:19 doxycycline Allergy Other Verified 02/09/17 12:19 fentanyl Allergy Other Verified 02/09/17 12:19 nitrofurantoin Allergy Other Verified 02/09/17 12:19 [From Macrobid] nitrofurantoin Allergy Other Verified 02/09/17 12:19 macrocrystalline [From Macrobid] Penicillins Allergy Other Verified 02/09/17 12:19 Sulfa (Sulfonamide Allergy Other Verified 02/09/17 12:19 Antibiotics) Home Meds: Home Meds ALPRAZolam [Xanax] 1 mg PO TID PRN 05/08/14 [History] Cyanocobalamin (Vitamin B-12) [B-12] 1,000 mcg PO DAILY 05/08/14 [History] Cholecalciferol (Vitamin D3) [Vitamin D3] 2,000 unit PO DAILY 12/31/14 [History] Metoprolol Succinate 75 mg PO DAILY 12/31/14 [History] Budesonide/Formoterol [Symbicort 160-4.5 MCG] 1 puff INH BID 12/23/16 [History] Potassium Chloride [Klor-Con 10] 10 meq PO DAILY 12/23/16 [History] Past Medical History HEENT History: Reports: Allergic Rhinitis Other HEENT History: wears glasses, has full upper denture and partial lower denture Cardiovascular History: Reports: Hypertension Respiratory History: Reports: None Genitourinary History: Reports: None 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 Endocrine/Metabolic History: Reports: None Hematologic History: Reports: None Immunologic History: Reports: None Oncologic (Cancer) History: Reports: None Dermatologic History: Reports: None - Infectious Disease History Infectious Disease History: Reports: None - Past Surgical History Head Surgeries/Procedures: Reports: None HEENT Surgical History: Reports: Naso-Sinus Surgery Cardiovascular Surgical History: Reports: None Respiratory Surgical History: Reports: None GI Surgical History: Reports: Cholecystectomy Female Surgical History: Reports: None Endocrine Surgical History: Reports: None Neurological Surgical History: Reports: None Oncologic Surgical History: Reports: None Dermatological Surgical History: Reports: None Social & Family History - Family History Family Medical History: Noncontributory HEENT: Reports: None Cardiac: Reports: None Respiratory: Reports: None OBGYN: Reports: None Musculoskeletal: Reports: None Neurological: Reports: None Psychiatric: Reports: None Endocrine/Metabolic: Reports: None Hematologic: Reports: None Oncologic: Reports: Other (See Below) Other Oncologic Family History: neck CA - Tobacco Use Smoking Status *Q: Never Smoker Years of Tobacco use: 53 Packs/Tins Daily: 1 Used Tobacco, but Quit: Yes Month Tobacco Last Used: 12/2015 Second Hand Smoke Exposure: No - Caffeine Use Caffeine Use: Reports: Coffee - Alcohol Use Days Per Week of Alcohol Use: 3 Number of Drinks Per Day: 2 Total Drinks Per Week: 6 - Recreational Drug Use Recreational Drug Use: No Drug Use in Last 12 Months: No ED ROS GENERAL - Review of Systems Review Of Systems: ROS reveals no pertinent complaints other than HPI. ED EXAM, GENERAL - Physical Exam Exam: See Below (See dictation) Course - Vital Signs Last Recorded V/S: Last Vital Signs Temp 36.3 C 02/09/17 13:48 Pulse 80 02/09/17 13:48 Resp 15 02/09/17 12:42 BP 138/63 02/09/17 13:48 Pulse Ox 95 02/09/17 12:42 - Orders/Labs/Meds Orders: Active Orders 24 hr Category Date Time Status Cardiac Monitoring [RC] . DIRECTED Care 02/09/17 12:25 Active EKG Documentation Completion [RC] STAT Care 02/09/17 12:25 Active Oxygen Therapy, ED [RC] ASDIRECTED Care 02/09/17 12:25 Active Pulse Oximetry [RC] ASDIRECTED Care 02/09/17 12:25 Active CULTURE BLOOD [BC] Stat Lab 02/09/17 15:15 Ordered CULTURE BLOOD [BC] Stat Lab 02/09/17 15:15 Ordered DRUG SCREEN, URINE [URCHEM] Stat Lab 02/09/17 13:38 Ordered UA W/MICROSCOPIC [URIN] Stat Lab 02/09/17 13:38 Ordered Sodium Chloride 0.9% [Normal Saline] 1,000 ml Med 02/09/17 15:13 Ordered IV STAT Sodium Chloride 0.9% [Saline Flush] Med 02/09/17 12:26 Active 10 ml FLUSH ASDIRECTED PRN Sodium Chloride 0.9% [Saline Flush] Med 02/09/17 12:26 Active 2.5 ml FLUSH ASDIRECTED PRN cefTRIAXone [Rocephin in Dextrose,Iso-Osm 1 GM/50 ML] 1 Med 02/09/17 15:13 Ordered gm Premix Bag 1 bag IV ONETIME Blood Culture x2 Reflex Set [OM.PC] Stat Oth 02/09/17 15:15 Ordered Saline Lock Insert [OM.PC] Stat Oth 02/09/17 12:25 Ordered Medication Orders Sodium Chloride (Normal Saline) 1,000 mls @ 999 mls/hr IV STAT ONE Stop: 02/09/17 16:13 Ceftriaxone Sodium/Dextrose 1 (gm/ Premix) 50 mls @ 100 mls/hr IV ONETIME ONE Stop: 02/09/17 15:42 Sodium Chloride (Saline Flush) 10 ml FLUSH ASDIRECTED PRN PRN Reason: Keep Vein Open Last Admin: 02/09/17 12:37 Dose: 10 ml Sodium Chloride (Saline Flush) 2.5 ml FLUSH ASDIRECTED PRN PRN Reason: Keep Vein Open Last Admin: 02/09/17 12:37 Dose: 2.5 ml Labs: Laboratory Tests 02/09/17 02/09/17 02/09/17 Range/Units 12:38 12:38 12:38 WBC 19.21 H (4.0-11.0) K/uL RBC 3.57 L (4.30-5.90) M/uL Hgb 11.6 L (12.0-16.0) g/dL Hct 34.5 L (36.0-46.0) % MCV 96.6 (80.0-98.0) fL MCH 32.5 H (27.0-32.0) pg MCHC 33.6 (31.0-37.0) g/dL RDW Std Deviation 47.3 (28.0-62.0) fl RDW Coeff of Dirk 13 (11.0-15.0) % Plt Count 186 (150-400) K/uL MPV 9.70 (7.40-12.00) fL Neut % (Auto) 89.2 H (48.0-80.0) % Lymph % (Auto) 4.4 L (16.0-40.0) % [place] % (Auto) 6.2 (0.0-15.0) % Eos % (Auto) 0.0 (0.0-7.0) % Baso % (Auto) 0.2 (0.0-1.5) % Neut # (Auto) 17.1 H (1.4-5.7) K/uL Lymph # (Auto) 0.9 (0.6-2.4) K/uL [place] # (Auto) 1.2 H (0.0-0.8) K/uL Eos # (Auto) 0.0 (0.0-0.7) K/uL Baso # (Auto) 0.0 (0.0-0.1) K/uL Nucleated RBC % 0.0 /100WBC Nucleated RBCs # 0 K/uL INR 1.09 (0.86-1.11) Lactate (0.20-2.00) mmol/L Sodium 134 L (136-146) mmol/L Potassium 3.9 (3.5-5.1) mmol/L Chloride 101 (98-110) mmol/L Carbon Dioxide 22 (21-31) mmol/L BUN 15 (6.0-23.0) mg/dL Creatinine 1.0 (0.6-1.5) mg/dL Est Cr Clr Drug Dosing 52.50 mL/min Estimated GFR (MDRD) 55.6 ml/min Glucose 105 (60-110) mg/dL Calcium 9.5 (8.8-10.8) mg/dL Total Bilirubin 2.0 H (0.1-1.5) mg/dL AST 25 (5-40) IU/L ALT 20 (8-54) IU/L Alkaline Phosphatase 53 (40-150) Creatine Kinase 1076 H (9-236) IU/L Total Protein 7.1 (6.0-8.0) g/dL Albumin 3.8 (3.4-4.8) g/dL Globulin 3.3 (2.0-3.5) g/dL Albumin/Globulin Ratio 1.2 L (1.3-2.8) TSH 3rd Generation 0.80 (0.47-5.0) uIU/mL Salicylates < 5.0 (0-20) mg/dL Acetaminophen < 3.0 ug/mL Ethyl Alcohol < 10.0 mg/dL 02/09/17 Range/Units 13:14 WBC (4.0-11.0) K/uL RBC (4.30-5.90) M/uL Hgb (12.0-16.0) g/dL Hct (36.0-46.0) % MCV (80.0-98.0) fL MCH (27.0-32.0) pg MCHC (31.0-37.0) g/dL RDW Std Deviation (28.0-62.0) fl RDW Coeff of Dirk (11.0-15.0) % Plt Count (150-400) K/uL MPV (7.40-12.00) fL Neut % (Auto) (48.0-80.0) % Lymph % (Auto) (16.0-40.0) % [place] % (Auto) (0.0-15.0) % Eos % (Auto) (0.0-7.0) % Baso % (Auto) (0.0-1.5) % Neut # (Auto) (1.4-5.7) K/uL Lymph # (Auto) (0.6-2.4) K/uL [place] # (Auto) (0.0-0.8) K/uL Eos # (Auto) (0.0-0.7) K/uL Baso # (Auto) (0.0-0.1) K/uL Nucleated RBC % /100WBC Nucleated RBCs # K/uL INR (0.86-1.11) Lactate 1.4 (0.20-2.00) mmol/L Sodium (136-146) mmol/L Potassium (3.5-5.1) mmol/L Chloride (98-110) mmol/L Carbon Dioxide (21-31) mmol/L BUN (6.0-23.0) mg/dL Creatinine (0.6-1.5) mg/dL Est Cr Clr Drug Dosing mL/min Estimated GFR (MDRD) ml/min Glucose (60-110) mg/dL Calcium (8.8-10.8) mg/dL Total Bilirubin (0.1-1.5) mg/dL AST (5-40) IU/L ALT (8-54) IU/L Alkaline Phosphatase (40-150) Creatine Kinase (9-236) IU/L Total Protein (6.0-8.0) g/dL Albumin (3.4-4.8) g/dL Globulin (2.0-3.5) g/dL Albumin/Globulin Ratio (1.3-2.8) TSH 3rd Generation (0.47-5.0) uIU/mL Salicylates (0-20) mg/dL Acetaminophen ug/mL Ethyl Alcohol mg/dL Meds: Medications Generic Name Dose Route Start Last Admin Trade Name Freq PRN Reason Stop Dose Admin Sodium Chloride 1,000 mls @ 999 mls/hr 02/09/17 15:13 Normal Saline IV 02/09/17 16:13 STAT ONE Ceftriaxone Sodium/Dextrose 1 50 mls @ 100 mls/hr 02/09/17 15:13 gm/ Premix IV 02/09/17 15:42 ONETIME ONE Sodium Chloride 10 ml 02/09/17 12:26 02/09/17 12:37 Saline Flush FLUSH 10 ml ASDIRECTED PRN Administration Keep Vein Open Sodium Chloride 2.5 ml 02/09/17 12:26 02/09/17 12:37 Saline Flush FLUSH 2.5 ml ASDIRECTED PRN Administration Keep Vein Open Discontinued Medications Generic Name Dose Route Start Last Admin Trade Name Freq PRN Reason Stop Dose Admin Azithromycin 500 mg 02/09/17 15:13 Zithromax PO 02/09/17 15:14 ONETIME ONE Sodium Chloride 1,000 mls @ 999 mls/hr 02/09/17 12:26 02/09/17 12:36 Normal Saline IV 02/09/17 13:26 999 mls/hr STAT ONE Administration Departure - Departure Time of Disposition: 15:17 Disposition: Admitted As Inpatient 67 Condition: Good Clinical Impression: Pneumonia Qualifiers: Pneumonia type: due to unspecified organism Laterality: left Lung location: unspecified part of lung Qualified Code(s): J18.9 - Pneumonia, unspecified organism Rhabdomyolysis Qualifiers: Rhabdomyolysis type: traumatic Encounter type: initial encounter Qualified Code (s): T79.6XXA - Traumatic ischemia of muscle, initial encounter Falls Qualifiers: Encounter type: initial encounter Qualified Code(s): W19.XXXA - Unspecified fall, initial encounter - Discharge Information Forms: ED Department Discharge - My Orders Last 24 Hours: My Active Orders 02/09/17 12:25 Cardiac Monitoring [RC] . DIRECTED EKG Documentation Completion [RC] STAT Oxygen Therapy, ED [RC] ASDIRECTED Pulse Oximetry [RC] ASDIRECTED Saline Lock Insert [OM.PC] Stat 02/09/17 12:26 Sodium Chloride 0.9% [Saline Flush] 10 ml FLUSH ASDIRECTED PRN Sodium Chloride 0.9% [Saline Flush] 2.5 ml FLUSH ASDIRECTED PRN 02/09/17 13:38 DRUG SCREEN, URINE [URCHEM] Stat UA W/MICROSCOPIC [URIN] Stat 02/09/17 15:13 Sodium Chloride 0.9% [Normal Saline] 1,000 ml IV STAT cefTRIAXone [Rocephin in Dextrose,Iso-Osm 1 GM/50 ML] 1 gm Premix Bag 1 bag IV ONETIME 02/09/17 15:15 CULTURE BLOOD [BC] Stat CULTURE BLOOD [BC] Stat Blood Culture x2 Reflex Set [OM.PC] Stat - Assessment/Plan Last 24 Hours: My Active Orders 02/09/17 12:25 Cardiac Monitoring [RC] . DIRECTED EKG Documentation Completion [RC] STAT Oxygen Therapy, ED [RC] ASDIRECTED Pulse Oximetry [RC] ASDIRECTED Saline Lock Insert [OM.PC] Stat 02/09/17 12:26 Sodium Chloride 0.9% [Saline Flush] 10 ml FLUSH ASDIRECTED PRN Sodium Chloride 0.9% [Saline Flush] 2.5 ml FLUSH ASDIRECTED PRN 02/09/17 13:38 DRUG SCREEN, URINE [URCHEM] Stat UA W/MICROSCOPIC [URIN] Stat 02/09/17 15:13 Sodium Chloride 0.9% [Normal Saline] 1,000 ml IV STAT cefTRIAXone [Rocephin in Dextrose,Iso-Osm 1 GM/50 ML] 1 gm Premix Bag 1 bag IV ONETIME 02/09/17 15:15 CULTURE BLOOD [BC] Stat CULTURE BLOOD [BC] Stat Blood Culture x2 Reflex Set [OM.PC] Stat
[2017-02-09 13:14] LABS: CHLORIDE,CL 101 mmol/L (98-110); SODIUM,NA 134 mmol/L (136-146)
[2017-02-09 13:19] LABS: ACETAMINOPHEN < 3.0 ug/mL
--- NOTE | 2017-02-09 14:28 | CT ---
EXAMINATION: Non contrast CT head. Coronal and sagittal reformats. HISTORY: Pain FINDINGS: No evidence of intra or extra axial hemorrhage, mass, midline shift, hydrocephalus or edema. There is asymmetric prominence of the ventricular system, out of portion to the sulcal atrophy. Mild periv entricular white matter hypodensities are noted. No hypoattenuation changes in the major vascular territories to suggest acute infarct. No abnormal intracranial calcifications are detected. No evidence of substantial vascular calcifications. The paranasal sinuses and mastoid air cells are well aerated without substantial findings. Pituitary fossa appears unremarkable. The calvarium is intact. No evidence of skull fracture. IMPRESSION: 1. No acute intracranial findings. 2. Mild small vessel ischemic changes. 3. 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
--- NOTE | 2017-02-09 14:39 | CR ---
EXAMINATION: Portable chest radiograph. HISTORY: Shortness of breath. FINDINGS: The trachea is midline. The heart is normal in size. There is a left infrahilar infiltrate noted lik linda within the left lingula. No pleural effusion or pneumothorax. Osseous structures appear unremarkable. IMPRESSION: Left infrahilar pneumonia.
[2017-02-09] MEDS ORDERED: Azithromycin 250 MG Tab PO ONE (15:13)
[2017-02-09] MEDS ORDERED: cefTRIAXone 1 GM in Premix Bag 1 BAG IV ONE (15:13)
[2017-02-09] MEDS: Sodium Chloride 0.9% 1,000 ML IV SCH (16:00)
--- NOTE | 2017-02-09 16:25 | PCM.HP ---
<Autumn Benitez Vonnie - Last Filed: 02/09/17 18:03> H&P History of Present Illness - Related Data Allergies/Adverse Reactions: Allergies Allergy/AdvReac Type Severity Reaction Status Date / Time amoxicillin [Amoxicillin] Allergy Other Verified 02/09/17 12:19 ampicillin Allergy Other Verified 02/09/17 12:19 digoxin Allergy Other Verified 02/09/17 12:19 doxycycline Allergy Other Verified 02/09/17 12:19 fentanyl Allergy Other Verified 02/09/17 12:19 nitrofurantoin Allergy Other Verified 02/09/17 12:19 [From Macrobid] nitrofurantoin Allergy Other Verified 02/09/17 12:19 macrocrystalline [From Macrobid] Penicillins Allergy Other Verified 02/09/17 12:19 Sulfa (Sulfonamide Allergy Other Verified 02/09/17 12:19 Antibiotics) morphine Allergy Unknown Other Uncoded 02/09/17 20:40 Home Medications: Home Meds ALPRAZolam [Xanax] 1 mg PO TID PRN 05/08/14 [History] Cyanocobalamin (Vitamin B-12) [B-12] 1,000 mcg PO DAILY 05/08/14 [History] Cholecalciferol (Vitamin D3) [Vitamin D3] 2,000 unit PO DAILY 12/31/14 [History] Metoprolol Succinate 75 mg PO DAILY 12/31/14 [History] Budesonide/Formoterol [Symbicort 160-4.5 MCG] 1 puff INH BID 12/23/16 [History] Potassium Chloride [Klor-Con 10] 10 meq PO DAILY 12/23/16 [History] Albuterol [IJD: Ventolin HFA] 2 inh IH QID PRN 02/10/17 [History] Exam - Vital Signs Vital Signs: Last Vital Signs Temp 37.5 C 02/09/17 17:00 Pulse 67 02/09/17 16:59 Resp 16 02/09/17 16:59 BP 185/84 H 02/09/17 16:59 Pulse Ox 96 02/09/17 16:59 - Patient Data Result Diagrams: 02/09/17 12:38 02/09/17 12:38 *Q Meaningful Use (ADM) - VTE *Q VTE Criteria *Q: - Stroke *Q Stroke Criteria *Q: - AMI *Q AMI Criteria *Q: Orders Last 24hrs: Active Orders 24 hr Category Date Time Status Intake and Output [RC] QSHIFT Care 02/09/17 16:36 Active Oxygen Therapy [RC] PRN Care 02/09/17 16:36 Active RT Aerosol Therapy [RC] ASDIRECTED Care 02/09/17 16:39 Active Up With Assistance [RC] ASDIRECTED Care 02/09/17 16:36 Active VTE/DVT Education [RC] PER UNIT ROUTINE Care 02/09/17 16:36 Active Vital Signs [RC] Q4H Care 02/09/17 16:36 Active Consult to Physical Therapy [PT Evaluation and Cons 02/09/17 16:39 Active Treatment] [CONS] Routine Consult to Head Holder [CONS] Routine Cons 02/09/17 16:36 Active Heart Healthy Diet [DIET] Diet 02/09/17 Breakfast Active Hip Min 1V Rt [CR] Routine Exams 02/09/17 16:24 Taken Hip Min 2V or 3V w Pelvis Rt [CR] Stat Exams 02/09/17 17:02 Ordered Knee 1V or 2V Rt [CR] Routine Exams 02/09/17 16:05 Taken CBC WITH AUTO DIFF [HEME] AM Lab 02/10/17 05:11 Ordered CBC WITH AUTO DIFF [HEME] AM Lab 02/11/17 05:11 Ordered CBC WITH AUTO DIFF [HEME] AM Lab 02/12/17 05:11 Ordered CBC WITH AUTO DIFF [HEME] AM Lab 02/13/17 05:11 Ordered COMPREHENSIVE METABOLIC PN,CMP [CHEM] AM Lab 02/10/17 05:11 Ordered COMPREHENSIVE METABOLIC PN,CMP [CHEM] AM Lab 02/11/17 05:11 Ordered COMPREHENSIVE METABOLIC PN,CMP [CHEM] AM Lab 02/12/17 05:11 Ordered COMPREHENSIVE METABOLIC PN,CMP [CHEM] AM Lab 02/13/17 05:11 Ordered CREATINE KINASE,CK [CHEM] AM Lab 02/10/17 05:11 Ordered CREATINE KINASE,CK [CHEM] AM Lab 02/11/17 05:11 Ordered Acetaminophen [Tylenol] Med 02/09/17 16:36 Active 650 mg PO Q4H PRN Albuterol/Ipratropium [DuoNeb 3.0-0.5 MG/3 ML] Med 02/09/17 16:38 Active 3 ml NEB Q4HRRT PRN Heparin Sodium Med 02/09/17 21:00 Active 5,000 units SUBCUT Q12HR Ondansetron [Zofran] Med 02/09/17 16:36 Active 4 mg IVPUSH Q4H PRN Sodium Chloride 0.9% [Normal Saline] 1,000 ml Med 02/09/17 16:45 Active IV ASDIRECTED Medication Orders Acetaminophen (Tylenol) 650 mg PO Q4H PRN PRN Reason: Pain Albuterol/Ipratropium (Duoneb 3.0-0.5 Mg/3 Ml) 3 ml NEB Q4HRRT PRN PRN Reason: SOB/wheezing Heparin Sodium (Porcine) (Heparin Sodium) 5,000 units SUBCUT Q12HR EVELIO Sodium Chloride (Normal Saline) 1,000 mls @ 125 mls/hr IV ASDIRECTED EVELIO Ondansetron HCl (Zofran) 4 mg IVPUSH Q4H PRN PRN Reason: Nausea Sodium Chloride (Saline Flush) 10 ml FLUSH ASDIRECTED PRN PRN Reason: Keep Vein Open Last Admin: 02/09/17 12:37 Dose: 10 ml Sodium Chloride (Saline Flush) 2.5 ml FLUSH ASDIRECTED PRN PRN Reason: Keep Vein Open Last Admin: 02/09/17 12:37 Dose: 2.5 ml <Maryanne Glass M - Last Filed: 02/10/17 08:39> H&P History of Present Illness - General Date of Service: 02/09/17 Admit Problem/Dx: Pneumonia, confusion Source of Information: Patient, Other (family friend at bedside) History Limitations: Reports: No Limitations - History of Present Illness Initial Comments - Free Text/Narative: This 66 year old female with pmh of HTN, chronic back and neck pain, anxiety and depression presented to the ED with a friend with complaints of frequent falls, 3 today alone. According to her friend a few months ago she was confusion and improved. She reports the lsat 3-4 days the confusion has increased. Today the friend reports she arrived at [facility] [place] and her glasses were on upside down, pills were missing in her pill case and she ( Earnestine) had no recollection of what happened to them. The patient denies confusion, but in the same breath notes some things are "off". The patient denies fevers, but friend reports noticing her sweating and flushed, no chest pain, SOB, no cough or sputum. No recent URI, no abdominal pain or urinary symptoms. She has been falling at home, she reports mainly from unsteady gait. She denies passing out. She does report hitting her head a few times during falls and recalls waking up on the floor, not knowing how long she had been down. In the ED leukocytosis noted, 19,210, hgb 11.6, lactate 1.4 Na 134, bilirubin 2.0. CPK 1076, UA negative. Head CT reported no acute intracranial findings, but did note "ventricular prominence out of proportion to the sulcal atrophy, which may suggest normal pressure hydrocephalus". CXR revealed left infrahilar pneumonia. Generalized Pain Score (Numeric/FACES): 5 Right Hip Pain Score (Numeric/FACES): 10 Past Medical History HEENT History: Reports: Allergic Rhinitis Other HEENT History: wears glasses, has full upper denture and partial lower denture Cardiovascular History: Reports: Hypertension. Denies: Heart Failure, [place] Respiratory History: Reports: None. Denies: COPD, PE Genitourinary History: Reports: None. 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 Denies: CVA, Headaches, Chronic, TIA Psychiatric History: Reports: Anxiety, Depression Endocrine/Metabolic History: Reports: None. Denies: Diabetes, Type II, Hypothyroidism Hematologic History: Reports: None Immunologic History: Reports: None Oncologic (Cancer) History: Reports: None Dermatologic History: Reports: None - Infectious Disease History Infectious Disease History: Reports: None - Past Surgical History Head Surgeries/Procedures: Reports: None HEENT Surgical History: Reports: Naso-Sinus Surgery Cardiovascular Surgical History: Reports: None Respiratory Surgical History: Reports: None GI Surgical History: Reports: Cholecystectomy Female Surgical History: Reports: None Endocrine Surgical History: Reports: None Neurological Surgical History: Reports: None Oncologic Surgical History: Reports: None Dermatological Surgical History: Reports: None Social & Family History - Family History Family Medical History: Noncontributory HEENT: Reports: None Cardiac: Reports: None Respiratory: Reports: None OBGYN: Reports: None Musculoskeletal: Reports: None Neurological: Reports: None Psychiatric: Reports: None Endocrine/Metabolic: Reports: None Hematologic: Reports: None Oncologic: Reports: Other (See Below) Other Oncologic Family History: neck CA - Tobacco Use Smoking Status *Q: Never Smoker Years of Tobacco use: 53 Packs/Tins Daily: 1 Used Tobacco, but Quit: Yes Month Tobacco Last Used: 12/2015 Second Hand Smoke Exposure: No - Caffeine Use Caffeine Use: Reports: Coffee - Alcohol Use Days Per Week of Alcohol Use: 3 Number of Drinks Per Day: 2 Total Drinks Per Week: 6 - Recreational Drug Use Recreational Drug Use: No Drug Use in Last 12 Months: No - Living Situation & Occupation Living situation: Reports: Single (lives alone) H&P Review of Systems - Review of Systems: Review Of Systems: See Below General: Reports: Weakness (unsteady gait). Denies: Fever, Chills HEENT: Reports: No Symptoms. Denies: Headaches, Sinus Congestion, Vertigo, Visual Changes Pulmonary: Reports: No Symptoms. Denies: Shortness of Breath, Wheezing, Cough, Sputum Cardiovascular: Reports: No Symptoms. Denies: Chest Pain, Palpitations, Dyspnea on Exertion, Lightheadedness Gastrointestinal: Reports: No Symptoms. Denies: Abdominal Pain, Black Stool, Bloody Stool, Constipation, Nausea, Vomiting Genitourinary: Reports: No Symptoms. Denies: Dysuria, Frequency, Burning, Pain , Incontinence Musculoskeletal: Reports: Neck Pain (chronic along with back) Skin: Reports: Bruising (bilateral elbows and knees along with some skin tears from carpet) Neurological: Reports: Confusion (mild) Hematologic/Lymphatic: Reports: No Symptoms Immunologic: Reports: No Symptoms Exam - Exam Exam: See Below - Vital Signs Vital Signs: Last Vital Signs Temp 97.9 F 02/09/17 16:09 Pulse 67 02/09/17 16:09 Resp 18 02/09/17 16:09 BP 194/89 H 02/09/17 16:09 Pulse Ox 95 02/09/17 16:09 Weight: 61.1 kg - Exam General: Alert. No: Oriented (orientation takes a minute, easily redirected and reoriented. ) HEENT: Conjunctiva Clear, Mucosa Moist & Toyei, Nares Patent, Posterior Pharynx Clear Neck: Supple, Trachea Midline, Full Range of Motion (no nuchal rigidity, movement is limited secondary to recent anterior approach cervical neck surgery) Lungs: Clear to Auscultation, Normal Respiratory Effort Cardiovascular: Regular Rate, Regular Rhythm, Normal S1, Normal S2 Abdomen: Normal Bowel Sounds, Soft. No: Organomegaly, Distention, Tenderness Extremities: Normal Inspection, Normal Pulses Skin: Ecchymosis (brusing noted to bilateral elbows and knees, from multiple falls. Skin abrasions and tears noted as well from carpet) Neurological: Reflexes Equal Bilateral, Strength Equal Bilateral, Normal Speech Neuro Extensive - Mental Status: Alert. No: Normal Mood/Affect (mild confusion , easily reoriented, but is easily distracted and impulsive in movements) Neuro Extensive - Motor, Sensory, Reflexes: CN II-XII Intact. No: Normal Gait ( unsteady gait) Psychiatric: Alert, Normal Affect, Normal Mood - Patient Data Result Diagrams: 02/10/17 04:37 02/10/17 04:37 *Q Meaningful Use (ADM) - VTE *Q VTE Criteria *Q: - VTE Risk Assess *Q Each Risk Factor Represents 1 Point: Serious Lung Disease Including Pneumonia, Less than 1 Month Total Score 1 Point Risk Factors: 1 Each Risk Factor Represents 2 Points: Age 60 - 74 Years Total Score 2 Point Risk Factors: 2 Each Risk Factor Represents 3 Points: None Total Score 3 Point Risk Factors: 0 Each Risk Factor Represents 5 Points: None Total Score 5 Point Risk Factors: 0 Venous Thromboembolism Risk Factor Score *Q: 3 - Stroke *Q Stroke Criteria *Q: - AMI *Q AMI Criteria *Q: - Problem List (1) Pneumonia SNOMED Code(s): 896778781 ICD Code: J18.9 - PNEUMONIA, UNSPECIFIED ORGANISM Status: Acute Current Visit: Yes Qualifiers: Pneumonia type: due to unspecified organism Laterality: left Lung location: lower lobe of lung Qualified Code(s): J18.1 - Lobar pneumonia, unspecified organism (2) Fracture of femoral neck, right SNOMED Code(s): 7797385 ICD Code: S72.001A - FRACTURE OF UNSP PART OF NECK OF RIGHT FEMUR, INIT Status: Acute Current Visit: Yes Qualifiers: Encounter type: initial encounter Fracture type: closed Qualified Code(s) : S72.001A - Fracture of unspecified part of neck of right femur, initial encounter for closed fracture (3) Falls SNOMED Code(s): 3546873, 568666184 ICD Code: W19.XXXA - UNSPECIFIED FALL, INITIAL ENCOUNTER Status: Acute Current Visit: Yes Qualifiers: Encounter type: initial encounter Qualified Code(s): W19.XXXA - Unspecified fall, initial encounter (4) Rhabdomyolysis SNOMED Code(s): 185418791 ICD Code: M62.82 - RHABDOMYOLYSIS Status: Acute Current Visit: Yes Qualifiers: Encounter type: initial encounter (5) Anxiety SNOMED Code(s): 18831979 ICD Code: F41.9 - ANXIETY DISORDER, UNSPECIFIED Status: Chronic Current Visit: No (6) HTN (hypertension) SNOMED Code(s): 70707834 ICD Code: I10 - ESSENTIAL (PRIMARY) HYPERTENSION Status: Chronic Current Visit: Yes Qualifiers: Hypertension type: essential hypertension Qualified Code(s): I10 - Essential (primary) hypertension Problem List Initiated/Reviewed/Updated: Yes Orders Last 24hrs: Active Orders 24 hr Category Date Time Status Knee 1V or 2V Rt [CR] Routine Exams 02/09/17 16:05 Ordered Medication Orders Sodium Chloride (Saline Flush) 10 ml FLUSH ASDIRECTED PRN PRN Reason: Keep Vein Open Last Admin: 02/09/17 12:37 Dose: 10 ml Sodium Chloride (Saline Flush) 2.5 ml FLUSH ASDIRECTED PRN PRN Reason: Keep Vein Open Last Admin: 02/09/17 12:37 Dose: 2.5 ml Assessment/Plan Comment:: This 66 year old female admitted with pneumonia, mild confusion and falls. 1. Pneumonia; BC pending. Will start Rocephin and Azithromycin for community acquired pneumonia. Oxygen as needed, Duonebs PRN. 2. Mild confusion: Exacerbated by illness, will monitor. Will speak with Dr. Ochoa regrading normal pressure hydrocephalus suggested on CT. 3. Rhabdomyolysis: Give 2 L fluids in ED. Continue IVF 125, recheck CPK in am. 4. Falls: Will consult PT. Does live alone, will consult case management as well. HIGH FALL RISK. In the ED patient was found on ground by nursing staff, she was then c/o R hip pain. Xray reported displaced R femoral neck fracture. Dr. Lopez. consulted. 5. HTN: Continue home medications 6. Anxiety: Continue home medications VTE prophylaxis: Heparin Dispo: Pending improvement
[2017-02-09] MEDS ORDERED: Acetaminophen 325 MG Tab PO PRN (16:36)
[2017-02-09] MEDS ORDERED: Albuterol/Ipratropium 3.0-0.5 MG/3 ML Neb Soln NEB PRN (16:38)
--- NOTE | 2017-02-09 18:53 | PCM.CONS ---
H&P History of Present Illness - General Date of Service: 02/09/17 Admit Problem/Dx: R hip pain Source of Information: Patient, RN Notes Reviewed History Limitations: Reports: No Limitations, Other (occasional confusion) - History of Present Illness Initial Comments - Free Text/Narative: 66 y/o female with R hip pain. Has had some increasing confusion over the past few days. Today had multiple falls and was evaluated in ER. She was found on the floor next to her stretcher in the ER. Following that she c/o pain in the R hip. XR show displaced R femoral neck fx. Admitted for medical conditions as well as hip fracture. Denies previous h/o R hip pain. No other injuries from the fall. Onset of Symptoms: Reports: Today Duration of Symptoms: Reports: Hour(s): (2) Location: Reports: Lower Extremity, Right Quality: Reports: Dull Severity: Moderate Improves with: Reports: Immobilization Worsens with: Reports: Movement Context: Reports: Trauma (Patient fell OOB in ER earlier today. Had 3 other falls today, but did not c/o of pain in hip on presentation to the ER.) Associated Symptoms: Reports: Cough, Fever/Chills, Other (confusion) Generalized Pain Score (Numeric/FACES): 5 - Related Data Allergies/Adverse Reactions: Allergies Allergy/AdvReac Type Severity Reaction Status Date / Time amoxicillin [Amoxicillin] Allergy Other Verified 02/09/17 12:19 ampicillin Allergy Other Verified 02/09/17 12:19 digoxin Allergy Other Verified 02/09/17 12:19 doxycycline Allergy Other Verified 02/09/17 12:19 fentanyl Allergy Other Verified 02/09/17 12:19 nitrofurantoin Allergy Other Verified 02/09/17 12:19 [From Macrobid] nitrofurantoin Allergy Other Verified 02/09/17 12:19 macrocrystalline [From Macrobid] Penicillins Allergy Other Verified 02/09/17 12:19 Sulfa (Sulfonamide Allergy Other Verified 02/09/17 12:19 Antibiotics) Home Medications: Home Meds ALPRAZolam [Xanax] 1 mg PO TID PRN 05/08/14 [History] Cyanocobalamin (Vitamin B-12) [B-12] 1,000 mcg PO DAILY 05/08/14 [History] Cholecalciferol (Vitamin D3) [Vitamin D3] 2,000 unit PO DAILY 12/31/14 [History] Metoprolol Succinate 75 mg PO DAILY 12/31/14 [History] Budesonide/Formoterol [Symbicort 160-4.5 MCG] 1 puff INH BID 12/23/16 [History] Potassium Chloride [Klor-Con 10] 10 meq PO DAILY 12/23/16 [History] Past Medical History HEENT History: Reports: Allergic Rhinitis Other HEENT History: wears glasses, has full upper denture and partial lower denture Cardiovascular History: Reports: Hypertension. Denies: Heart Failure, [place] Respiratory History: Reports: None. Denies: COPD, PE Genitourinary History: Reports: None. 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 Denies: CVA, Headaches, Chronic, TIA Other Neuro History: "bad nerves" Psychiatric History: Reports: Anxiety, Depression Other Psychiatric History: Takes medication for anxiety. Endocrine/Metabolic History: Reports: None. Denies: Diabetes, Type II, Hypothyroidism Hematologic History: Reports: None Immunologic History: Reports: None Oncologic (Cancer) History: Reports: None Dermatologic History: Reports: None - Infectious Disease History Infectious Disease History: Reports: None - Past Surgical History Head Surgeries/Procedures: Reports: None HEENT Surgical History: Reports: Naso-Sinus Surgery Cardiovascular Surgical History: Reports: None Respiratory Surgical History: Reports: None GI Surgical History: Reports: Cholecystectomy Female Surgical History: Reports: None Endocrine Surgical History: Reports: None Neurological Surgical History: Reports: None Oncologic Surgical History: Reports: None Dermatological Surgical History: Reports: None Social & Family History - Family History Family Medical History: Noncontributory HEENT: Reports: None Cardiac: Reports: None Respiratory: Reports: None OBGYN: Reports: None Musculoskeletal: Reports: None Neurological: Reports: None Psychiatric: Reports: None Endocrine/Metabolic: Reports: None Hematologic: Reports: None Oncologic: Reports: Other (See Below) Other Oncologic Family History: neck CA - Tobacco Use Smoking Status *Q: Never Smoker Years of Tobacco use: 53 Packs/Tins Daily: 1 Used Tobacco, but Quit: Yes Month Tobacco Last Used: 12/2015 Second Hand Smoke Exposure: No - Caffeine Use Caffeine Use: Reports: Coffee - Alcohol Use Days Per Week of Alcohol Use: 3 Number of Drinks Per Day: 2 Total Drinks Per Week: 6 - Recreational Drug Use Recreational Drug Use: No Drug Use in Last 12 Months: No - Living Situation & Occupation Living situation: Reports: Single (lives alone) H&P Review of Systems - Review of Systems: Review Of Systems: See Below General: Reports: No Symptoms HEENT: Reports: No Symptoms Pulmonary: Reports: Shortness of Breath, Cough Cardiovascular: Reports: No Symptoms Gastrointestinal: Reports: No Symptoms Genitourinary: Reports: No Symptoms Skin: Reports: Bruising (R knee) Psychiatric: Reports: No Symptoms Neurological: Reports: Confusion Hematologic/Lymphatic: Reports: No Symptoms Immunologic: Reports: No Symptoms Exam - Exam Exam: See Below - Vital Signs Vital Signs: Last Vital Signs Temp 99.5 F 02/09/17 17:00 Pulse 67 02/09/17 16:59 Resp 16 02/09/17 16:59 BP 185/84 H 02/09/17 16:59 Pulse Ox 96 02/09/17 16:59 Weight: 61.1 kg - Exam General: Alert, Oriented HEENT: Conjunctiva Clear, Hearing Intact, Nares Patent Neck: Supple, Trachea Midline, 2 Lungs: Normal Respiratory Effort Cardiovascular: Regular Rate Abdomen: Soft (Female) Exam: Deferred Rectal (Female) Exam: Deferred Skin: Warm, Dry, Intact Neuro Extensive - Mental Status: Alert (occasionally answers questions inappropriately, but easily redirected), Oriented x3, Normal Mood/Affect, Normal Cognition Psychiatric: Alert, Normal Affect, Normal Mood Physical Exam Comments:: Exam of RLE show bruising over lateral hip. Pain with gentle log rolling of R hip. Ecchymosis noted over anterior R knee. No TTP. No calf TTP. AT/EHL/gastroc 5/5. Sensation intact. DP 2+. - Patient Data Result Diagrams: 02/09/17 12:38 02/09/17 12:38 Imaging Impressions Last 24 hrs: XR R hip and pelvis reviewed. Shows displaced R femoral neck fracture. R knee XR show degenerative changes without acute injury. Consult PN Assessment/Plan POD#: 1 Procedures: Procedures ASSAY OF AMMONIA (12/23/16) ASSAY OF AMYLASE (12/23/16) ASSAY OF CK (CPK) (02/13/15) ASSAY OF LACTIC ACID (12/23/16) ASSAY OF LIPASE (12/23/16) ASSAY OF NATRIURETIC PEPTIDE (11/03/16) ASSAY OF TROPONIN QUANT (12/26/16) BIOPSY OF TONGUE (02/16/16) BLOOD GASES ANY COMBINATION (12/31/14) CHEST X-RAY 1 VIEW FRONTAL (12/26/16) CHEST X-RAY 2VW FRONTAL&LATL (12/23/16) COMPLETE CBC W/AUTO DIFF WBC (12/28/16) COMPREHEN METABOLIC PANEL (12/28/16) CREATINE MB FRACTION (02/13/15) CT ANGIOGRAPHY CHEST (06/02/16) CT HEAD/BRAIN W/O DYE (12/23/16) DRUG TEST PRSMV DIR OPT OBS (12/23/16) ELECTROCARDIOGRAM TRACING (12/26/16) EMERGENCY DEPT VISIT (12/28/16) EMERGENCY DEPT VISIT (12/26/16) EMERGENCY DEPT VISIT (11/03/16) EMERGENCY DEPT VISIT (10/16/16) EMERGENCY DEPT VISIT (06/02/16) EMERGENCY DEPT VISIT (03/27/16) EMERGENCY DEPT VISIT (03/26/16) EMERGENCY DEPT VISIT (04/19/15) EMERGENCY DEPT VISIT (02/13/15) EMERGENCY DEPT VISIT (05/08/14) EVALUATE PT USE OF INHALER (06/02/16) FIBRIN DEGRADATION QUANT (06/02/16) HEMATOCRIT (12/26/16) HEMOGLOBIN (12/26/16) HYDRATE IV INFUSION ADD-ON (12/28/16) HYDRATION IV INFUSION INIT (12/26/16) INFLUENZA ASSAY W/OPTIC (10/16/16) METABOLIC PANEL TOTAL CA (12/23/16) NASAL ENDOSCOPY DX (09/25/15) OFFICE/OUTPATIENT VISIT EST (02/08/16) OFFICE/OUTPATIENT VISIT NEW (09/25/15) PROTHROMBIN TIME (12/23/16) ROUTINE VENIPUNCTURE (12/28/16) THER/PROPH/DIAG INJ IV PUSH (12/28/16) THER/PROPH/DIAG INJ SC/IM (12/23/16) TISSUE EXAM BY PATHOLOGIST (02/16/16) TX/PRO/DX INJ NEW DRUG ADDON (02/13/15) URINALYSIS AUTO W/SCOPE (12/26/16) WITHDRAWAL OF ARTERIAL BLOOD (12/31/14) X-RAY EXAM OF SINUSES (02/01/16) (1) Fracture of femoral neck, right SNOMED Code(s): 1412784 Code(s): S72.001A - FRACTURE OF UNSP PART OF NECK OF RIGHT FEMUR, INIT Current Visit: Yes Qualifiers: Encounter type: initial encounter Fracture type: closed Qualified Code(s) : S72.001A - Fracture of unspecified part of neck of right femur, initial encounter for closed fracture Problem List Initiated/Reviewed/Updated: Yes Plan: At this time treatment options d/w patient. Due to type of fracture I am recommending surgical treatment. This would be a R hip hemiarthroplasty. The procedure, along with postoperative course was also discussed. Risks of procedure include, but are not limited to, infection, n/v injury, dislocation, continued pain, blood clots, need for transfusion, and anesthetic complications and . Patient agrees to proceed. Will plan to do Monday morning. With her pneumonia, I would like to make sure BC are negative prior to surgery. I would also like her to show improvement with the pneumonia after her abx are started. She agrees with the plan.
[2017-02-09] MEDS ORDERED: Heparin Sodium 5,000 Units/ML Vial SUBCUT SCH (21:00)
[2017-02-10] MEDS: Sodium Chloride 0.9% 1,000 ML IV SCH ×3 (02:35→21:04)
[2017-02-10 05:38] LABS: CHLORIDE,CL 107 mmol/L (98-110); SODIUM,NA 137 mmol/L (136-146)
[2017-02-10] MEDS: oxyCODONE 5 MG Tab PO PRN ×3 (07:15→22:48)
--- NOTE | 2017-02-10 08:05 | PCM.SN ---
- Free Text/Narrative Note: pt resting comfortably in bed answers questions appropriately today states pain is tolerable if she does not move states she has frequent falls, does not use FWW no appetite, but denies n/v no productive cough/sob/cp/fevers/chills exam rle shows externally rotated position multiple ecchymosis over bilateral knees cath secure is on R thigh polar care in place R displaced femoral neck fx pna - managed by hospitalist plan: OR tomorrow AM if blood cultures negative continue pain management change cath secure device to L thigh NPO at midnight (ordered by RK) pre-op abx as ordered by RK will hold heparin after evening dose tonight, likely resume POD#1
--- NOTE | 2017-02-10 08:43 | PCM.PN ---
- General Info Date of Service: 02/10/17 Admission Dx/Problem (Free Text): Pneumonia, confusion Subjective Update: Reports not feeling well today, R hip hurts. Continues to denies chest pain or SOB and no cough. Functional Status: Reports: pain controlled, tolerating diet - Review of Systems General: Reports: No Symptoms. Denies: Fever HEENT: Reports: no symptoms. Denies: sinus congestion, sore throat, visual changes Pulmonary: Reports: no symptoms. Denies: shortness of breath, cough, sputum Cardiovascular: Reports: No Symptoms. Denies: Chest Pain, Edema Gastrointestinal: Reports: No symptoms. Denies: Abdominal pain, Nausea, Vomiting Genitourinary: Reports: no symptoms Musculoskeletal: Reports: leg pain (R hip) Neurological: Reports: Confusion Psychiatric: Reports: no symptoms - Patient Data Vitals - most recent: Last Vital Signs Temp 98.1 F 02/10/17 07:47 Pulse 54 L 02/10/17 07:47 Resp 18 02/10/17 07:47 BP 165/62 H 02/10/17 07:47 Pulse Ox 95 02/10/17 07:47 Weight - most recent: 61.1 kg I&O - last 24 hours: Intake & Output 02/09/17 02/10/17 02/10/17 22:59 06:59 14:59 Intake Total 1475 Output Total 1250 Balance 225 Lab Results last 24 hrs: Laboratory Results - last 24 hr 02/10/17 02/10/17 02/10/17 Range/Units 04:37 04:37 04:37 WBC 12.96 H (4.0-11.0) K/uL RBC 3.18 L (4.30-5.90) M/uL Hgb 10.3 L (12.0-16.0) g/dL Hct 31.1 L (36.0-46.0) % MCV 97.8 (80.0-98.0) fL MCH 32.4 H (27.0-32.0) pg MCHC 33.1 (31.0-37.0) g/dL RDW Std Deviation 47.8 (28.0-62.0) fl RDW Coeff of Dirk 13 (11.0-15.0) % Plt Count 174 (150-400) K/uL MPV 9.90 (7.40-12.00) fL Neut % (Auto) 81.1 H (48.0-80.0) % Lymph % (Auto) 10.6 L (16.0-40.0) % [place] % (Auto) 7.9 (0.0-15.0) % Eos % (Auto) 0.2 (0.0-7.0) % Baso % (Auto) 0.2 (0.0-1.5) % Neut # (Auto) 10.5 H (1.4-5.7) K/uL Lymph # (Auto) 1.4 (0.6-2.4) K/uL [place] # (Auto) 1.0 H (0.0-0.8) K/uL Eos # (Auto) 0.0 (0.0-0.7) K/uL Baso # (Auto) 0.0 (0.0-0.1) K/uL Nucleated RBC % 0.0 /100WBC Nucleated RBCs # 0 K/uL Sodium 137 (136-146) mmol/L Potassium 3.5 (3.5-5.1) mmol/L Chloride 107 (98-110) mmol/L Carbon Dioxide 20 L (21-31) mmol/L BUN 8 (6.0-23.0) mg/dL Creatinine 0.7 (0.6-1.5) mg/dL Est Cr Clr Drug Dosing 72.10 mL/min Estimated GFR (MDRD) > 60.0 ml/min Glucose 92 (60-110) mg/dL Calcium 8.5 L (8.8-10.8) mg/dL Total Bilirubin 1.4 (0.1-1.5) mg/dL AST 49 H (5-40) IU/L ALT 24 (8-54) IU/L Alkaline Phosphatase 52 (40-150) Creatine Kinase 2357 H (9-236) IU/L Total Protein 6.1 (6.0-8.0) g/dL Albumin 3.2 L (3.4-4.8) g/dL Globulin 2.9 (2.0-3.5) g/dL Albumin/Globulin Ratio 1.1 L (1.3-2.8) Blood Type A POSITIVE Antibody Screen NEGATIVE Med Orders - Current: Current Medications Acetaminophen (Tylenol) 650 mg PO Q4H PRN PRN Reason: Pain Last Admin: 02/09/17 18:21 Dose: 650 mg Albuterol/Ipratropium (Duoneb 3.0-0.5 Mg/3 Ml) 3 ml NEB Q4HRRT PRN PRN Reason: SOB/wheezing Heparin Sodium (Porcine) (Heparin Sodium) 5,000 units SUBCUT Q12H EVELIO Hydromorphone HCl (Dilaudid) 0.5 mg IVPUSH Q2H PRN PRN Reason: Pain Sodium Chloride (Normal Saline) 1,000 mls @ 125 mls/hr IV ASDIRECTED EVELIO Last Admin: 02/10/17 02:35 Dose: 125 mls/hr Clindamycin Phosphate 600 mg/ (Premix) 50 mls @ 100 mls/hr IV ONETIME ONE Stop: 02/11/17 09:29 Azithromycin 500 mg/ Sodium (Chloride) 250 mls @ 250 mls/hr IV Q24H EVELIO Ceftriaxone Sodium/Dextrose 1 (gm/ Premix) 50 mls @ 100 mls/hr IV Q24H EVELIO Ondansetron HCl (Zofran) 4 mg IVPUSH Q4H PRN PRN Reason: Nausea Oxycodone HCl (Oxycodone) 5 mg PO Q4H PRN PRN Reason: Pain Last Admin: 02/10/17 07:15 Dose: 5 mg Sodium Chloride (Saline Flush) 10 ml FLUSH ASDIRECTED PRN PRN Reason: Keep Vein Open Last Admin: 02/09/17 12:37 Dose: 10 ml Sodium Chloride (Saline Flush) 2.5 ml FLUSH ASDIRECTED PRN PRN Reason: Keep Vein Open Last Admin: 02/09/17 12:37 Dose: 2.5 ml Tranexamic Acid (Cyklokapron) 1,000 mg .ROUTE .STK-MED ONE Stop: 02/11/17 09:01 Discontinued Medications Azithromycin (Zithromax) 500 mg PO ONETIME ONE Stop: 02/09/17 15:14 Last Admin: 02/09/17 15:48 Dose: 500 mg Heparin Sodium (Porcine) (Heparin Sodium) 5,000 units SUBCUT Q12HR EVELIO Last Admin: 02/09/17 22:01 Dose: 5,000 units Sodium Chloride (Normal Saline) 1,000 mls @ 999 mls/hr IV STAT ONE Stop: 02/09/17 13:26 Last Admin: 02/09/17 12:36 Dose: 999 mls/hr Sodium Chloride (Normal Saline) 1,000 mls @ 999 mls/hr IV STAT ONE Stop: 02/09/17 16:13 Last Admin: 02/09/17 15:22 Dose: 999 mls/hr Ceftriaxone Sodium/Dextrose 1 (gm/ Premix) 50 mls @ 100 mls/hr IV ONETIME ONE Stop: 02/09/17 15:42 Last Admin: 02/09/17 15:48 Dose: 100 mls/hr - Exam General: alert, oriented, cooperative Lungs: Clear to auscultation, Normal respiratory effort Cardiovascular: Regular Rate, Regular Rhythm Abdomen: bowel sounds present, soft, no tenderness, no distension Extremities: normal pulses, other (tenderness to R hip, no ecchymosis noted. Polar ice in place) Neurological: other (intermittent confusion noted.) Psy/Mental Status: alert, normal affect, normal mood - Problem List & Annotations (1) Pneumonia SNOMED Code(s): 817752333 Code(s): J18.9 - PNEUMONIA, UNSPECIFIED ORGANISM Status: Acute Current Visit: Yes Qualifiers: Pneumonia type: due to unspecified organism Laterality: left Lung location: lower lobe of lung Qualified Code(s): J18.1 - Lobar pneumonia, unspecified organism (2) Fracture of femoral neck, right SNOMED Code(s): 6814414 Code(s): S72.001A - FRACTURE OF UNSP PART OF NECK OF RIGHT FEMUR, INIT Status: Acute Current Visit: Yes Qualifiers: Encounter type: initial encounter Fracture type: closed Qualified Code(s) : S72.001A - Fracture of unspecified part of neck of right femur, initial encounter for closed fracture (3) Falls SNOMED Code(s): 3604150, 064724532 Code(s): W19.XXXA - UNSPECIFIED FALL, INITIAL ENCOUNTER Status: Acute Current Visit: Yes Qualifiers: Encounter type: initial encounter Qualified Code(s): W19.XXXA - Unspecified fall, initial encounter (4) Rhabdomyolysis SNOMED Code(s): 127719219 Code(s): M62.82 - RHABDOMYOLYSIS Status: Acute Current Visit: Yes Qualifiers: Encounter type: initial encounter (5) Anxiety SNOMED Code(s): 51397857 Code(s): F41.9 - ANXIETY DISORDER, UNSPECIFIED Status: Chronic Current Visit: No (6) HTN (hypertension) SNOMED Code(s): 44345698 Code(s): I10 - ESSENTIAL (PRIMARY) HYPERTENSION Status: Chronic Current Visit: Yes Qualifiers: Hypertension type: essential hypertension Qualified Code(s): I10 - Essential (primary) hypertension - Problem List Review Problem List Initiated/Reviewed/Updated: Yes - My Orders Last 24 Hours: My Active Orders 02/09/17 16:36 Intake and Output [RC] QSHIFT Oxygen Therapy [RC] PRN Up With Assistance [RC] ASDIRECTED VTE/DVT Education [RC] PER UNIT ROUTINE Vital Signs [RC] Q4H Consult to Library Sales Consultant [CONS] Routine Acetaminophen [Tylenol] 650 mg PO Q4H PRN Ondansetron [Zofran] 4 mg IVPUSH Q4H PRN 02/09/17 16:38 Albuterol/Ipratropium [DuoNeb 3.0-0.5 MG/3 ML] 3 ml NEB Q4HRRT PRN 02/09/17 16:39 RT Aerosol Therapy [RC] ASDIRECTED 02/09/17 16:45 Sodium Chloride 0.9% [Normal Saline] 1,000 ml IV ASDIRECTED 02/10/17 15:45 Azithromycin [Zithromax] 500 mg Sodium Chloride 0.9% [Normal Saline] 250 ml IV Q24H 02/10/17 16:00 cefTRIAXone [Rocephin in Dextrose,Iso-Osm 1 GM/50 ML] 1 gm Premix Bag 1 bag IV Q24H 02/11/17 05:11 CBC WITH AUTO DIFF [HEME] AM COMPREHENSIVE METABOLIC PN,CMP [CHEM] AM CREATINE KINASE,CK [CHEM] AM 02/12/17 05:11 CBC WITH AUTO DIFF [HEME] AM COMPREHENSIVE METABOLIC PN,CMP [CHEM] AM 02/13/17 05:11 CBC WITH AUTO DIFF [HEME] AM COMPREHENSIVE METABOLIC PN,CMP [CHEM] AM - Plan Plan:: This 66 year old female admitted with pneumonia, mild confusion and falls. 1. Pneumonia: BC pending. Continue Rocephin and Azithromycin for community acquired pneumonia. Leukocytosis improving. Oxygen as needed, Duonebs PRN. 2. Mild confusion: Exacerbated by illness, will monitor. Spoke with Dr. Ochoa regrading normal pressure hydrocephalus suggested on CT. Assessment will be very difficult due to hip fracture. No assessment or treatment is acutely needed at this time, She would like to see that patient as outpatient in 2-4 weeks when she is able to assess her gait. 3. Elevated CPK: Continue IVF 125, CPK is only mildly elevated. Monitor. 4. R femoral neck fx: Dr. Lopez consulted. Plan to OR in am. Will continue Heparin today and this evening, then hold until POD #1. 5. HTN: Continue home medications 6. Anxiety: Continue home medications VTE prophylaxis: Heparin Dispo: Pending improvement, will likely need SNF placement
[2017-02-10] MEDS: Heparin Sodium 5,000 Units/ML Vial SUBCUT SCH ×2 (09:02→21:22)
[2017-02-10] MEDS: HYDROmorphone 1 MG/ML Syringe IVPUSH PRN (13:44)
[2017-02-10] MEDS: Azithromycin 500 MG in Sodium Chloride 0.9% 250 ML IV SCH (15:17)
[2017-02-10] MEDS: cefTRIAXone 1 GM in Premix Bag 1 BAG IV SCH (16:18)
--- NOTE | 2017-02-10 16:49 | CR ---
EXAM DATE: 02/09/17 PATIENT'S AGE: 66 Patient: TAY DARDEN Facility: [place], [place] Site . Site : 1950 Study: XRay Knee [id number]/15/2017 4:38:13 PM Ordering Physician: Jose J Lima Final Report: Indication: Fall Technique: Two views of the right knee Comparison: None available Findings: Bones: Alignment is normal. No fractures or bone lesions. A superior patellar enthesophyte. Joint spaces: Unremarkable. Soft tissues: A linear calcific density in the posterior soft tissues of the mid thigh, nonspecific. Impression: No acute fracture or dislocation. Dictated by Alan Krishna MD @ 02/09/2017 4:55:00 PM Dictated by: Alan Krishna MD @ 02/09/2017 16:55:03 (Electronic Signature) Report Signed by Proxy. KHANH
--- NOTE | 2017-02-10 16:52 | CR ---
EXAM DATE: 02/09/17 PATIENT'S AGE: 66 Patient: TAY DARDEN Facility: [place], [place] Site . Site : 1950 Study: XRay Hip w/ pelvis [id number]/15/2017 5:34:51 PM Ordering Physician: Jose J Lima Final Report: INDICATION: Fall TECHNIQUE: AP pelvis and two views right hip, 5:20 p.m. COMPARISON: 4:24 p.m. FINDINGS: Bones: Right femoral neck fracture. Joint spaces: Unremarkable. Soft tissues: Unremarkable. IMPRESSION: Right femoral neck fracture. Dictated by Bernardo Hines MD @ 02/09/2017 6:07:22 PM Dictated by: Bernardo Hines MD @ 02/09/2017 18:07:26 (Electronic Signature) Report Signed by Proxy. [facility] HOSPITALClaudia
--- NOTE | 2017-02-10 16:52 | CR ---
EXAM DATE: 02/09/17 PATIENT'S AGE: 66 Patient: TAY DARDEN Facility: [place], [place] Site . Site : 1950 Study: XRay Hip [id number]/15/2017 4:38:38 PM Ordering Physician: Jose J Lima Final Report: Indication: Fall Technique: A single view of the right hip Comparison: None available Findings: Bones: A lucency in the superior lip of the right acetabulum and apparent cortical irregularity in the right femoral neck, concerning for a nondisplaced fracture. No evidence of dislocation. Joint spaces: Unremarkable. Soft tissues: Unremarkable. Impression: Findings concerning for a right femoral neck and superior acetabular fractures. Correlate with additional views. Dictated by Alan Krishna MD @ 02/09/2017 4:57:09 PM Dictated by: Alan Krishna MD @ 02/09/2017 16:57:13 (Electronic Signature) Report Signed by Proxy. KHANH
[2017-02-10] MEDS ORDERED: Sodium Chloride 0.65% Nasal Spray 45 ML Bottle NAS PRN (23:49)
[2017-02-10] MEDS ORDERED: Metoprolol Succinate 50 MG Tab.ER PO ONE (23:53)
[2017-02-11] MEDS: HYDROmorphone 1 MG/ML Syringe IVPUSH PRN ×3 (04:25→17:25)
[2017-02-11 06:49] LABS: CHLORIDE,CL 106 mmol/L (98-110); SODIUM,NA 138 mmol/L (136-146)
[2017-02-11] MEDS ORDERED: Propofol 200 MG/20 ML SDV ONE ×2 (08:28→08:39)
[2017-02-11] MEDS ORDERED: Lidocaine 2% 5 ML SDV ONE (08:28)
[2017-02-11] MEDS ORDERED: fentaNYL 100 MCG/2 ML SDV ONE (08:29)
--- NOTE | 2017-02-11 08:42 | PCM.PREANE ---
Preanesthetic Assessment - Anesthesia/Transfusion/Family Hx Anesthesia History: Prior Anesthesia Reaction Family History of Anesthesia Reaction: No Transfusion History: No Prior Transfusion(s) Intubation History: Unknown - Review of Systems General: No Symptoms Pulmonary: No Symptoms Cardiovascular: No Symptoms Gastrointestinal: No symptoms Neurological: Confusion Other: Reports: None - Physical Assessment Pulse: 69 O2 Sat by Pulse Oximetry: 91 Respiratory Rate: 20 Blood Pressure: 181/79 Vital Signs: Last Vital Signs Temp 36.9 C 02/11/17 04:10 Pulse 70 02/11/17 05:05 Resp 20 02/11/17 04:10 BP 163/78 H 02/11/17 05:05 Pulse Ox 91 L 02/11/17 04:10 Height: 1.65 m Weight: 61.1 kg ASA Class: 3E Mental Status: Other (confused) Thyro-Mental Finger Breadths: 3 Mouth Opening Finger Breadths: 3 ROM/Head Extension: Limited/Partial Lungs: Decreased breath sounds, Crackles (difuse) - Lab Values: Laboratory Last Values WBC 8.68 K/uL (4.0-11.0) 02/11/17 06:00 RBC 3.15 M/uL (4.30-5.90) L 02/11/17 06:00 Hgb 10.2 g/dL (12.0-16.0) L 02/11/17 06:00 Hct 30.4 % (36.0-46.0) L 02/11/17 06:00 MCV 96.5 fL (80.0-98.0) 02/11/17 06:00 MCH 32.4 pg (27.0-32.0) H 02/11/17 06:00 MCHC 33.6 g/dL (31.0-37.0) 02/11/17 06:00 RDW Std Deviation 46.1 fl (28.0-62.0) 02/11/17 06:00 RDW Coeff of Dirk 13 % (11.0-15.0) 02/11/17 06:00 Plt Count 211 K/uL (150-400) 02/11/17 06:00 MPV 9.90 fL (7.40-12.00) 02/11/17 06:00 Neut % (Auto) 74.2 % (48.0-80.0) 02/11/17 06:00 Lymph % (Auto) 14.9 % (16.0-40.0) L 02/11/17 06:00 [place] % (Auto) 9.4 % (0.0-15.0) 02/11/17 06:00 Eos % (Auto) 1.2 % (0.0-7.0) 02/11/17 06:00 Baso % (Auto) 0.3 % (0.0-1.5) 02/11/17 06:00 Neut # (Auto) 6.4 K/uL (1.4-5.7) H 02/11/17 06:00 Lymph # (Auto) 1.3 K/uL (0.6-2.4) 02/11/17 06:00 [place] # (Auto) 0.8 K/uL (0.0-0.8) 02/11/17 06:00 Eos # (Auto) 0.1 K/uL (0.0-0.7) 02/11/17 06:00 Baso # (Auto) 0.0 K/uL (0.0-0.1) 02/11/17 06:00 Nucleated RBC % 0.0 /100WBC 02/11/17 06:00 Nucleated RBCs # 0 K/uL 02/11/17 06:00 INR 1.09 (0.86-1.11) 02/09/17 12:38 Lactate 1.4 mmol/L (0.20-2.00) 02/09/17 13:14 Sodium 138 mmol/L (136-146) 02/11/17 06:00 Potassium 3.3 mmol/L (3.5-5.1) L 02/11/17 06:00 Chloride 106 mmol/L (98-110) 02/11/17 06:00 Carbon Dioxide 21 mmol/L (21-31) 02/11/17 06:00 BUN 5 mg/dL (6.0-23.0) L 02/11/17 06:00 Creatinine 0.7 mg/dL (0.6-1.5) 02/11/17 06:00 Est Cr Clr Drug Dosing 72.10 mL/min 02/11/17 06:00 Estimated GFR (MDRD) > 60.0 ml/min 02/11/17 06:00 Glucose 85 mg/dL (60-110) 02/11/17 06:00 Calcium 8.1 mg/dL (8.8-10.8) L 02/11/17 06:00 Total Bilirubin 0.9 mg/dL (0.1-1.5) 02/11/17 06:00 AST 49 IU/L (5-40) H 02/11/17 06:00 ALT 28 IU/L (8-54) 02/11/17 06:00 Alkaline Phosphatase 128 (40-150) 02/11/17 06:00 Creatine Kinase 848 IU/L (9-236) H 02/11/17 06:00 Total Protein 5.7 g/dL (6.0-8.0) L 02/11/17 06:00 Albumin 2.9 g/dL (3.4-4.8) L 02/11/17 06:00 Globulin 2.8 g/dL (2.0-3.5) 02/11/17 06:00 Albumin/Globulin Ratio 1.0 (1.3-2.8) L 02/11/17 06:00 TSH 3rd Generation 0.80 uIU/mL (0.47-5.0) 02/09/17 12:38 Urine Color YELLOW 02/09/17 15:15 Urine Appearance CLEAR 02/09/17 15:15 Urine pH 6.0 (5.0-8.0) 02/09/17 15:15 Ur Specific [place] 1.015 (1.001-1.035) 02/09/17 15:15 Urine Protein TRACE mg/dL (NEGATIVE) 02/09/17 15:15 Urine Glucose (UA) NEGATIVE mg/dL (NEGATIVE) 02/09/17 15:15 Urine Ketones NEGATIVE mg/dL (NEGATIVE) 02/09/17 15:15 Urine Occult Blood LARGE (NEGATIVE) H 02/09/17 15:15 Urine Nitrite NEGATIVE (NEGATIVE) 02/09/17 15:15 Urine Bilirubin NEGATIVE (NEGATIVE) 02/09/17 15:15 Urine Urobilinogen 0.2 EU/dL (<2.0) 02/09/17 15:15 Ur Leukocyte Esterase NEGATIVE (NEGATIVE) 02/09/17 15:15 Urine RBC 0-2 (0-2/HPF) 02/09/17 15:15 Urine WBC 0-1 (0-5/HPF) 02/09/17 15:15 Ur Epithelial Cells RARE (NONE-FEW) 02/09/17 15:15 Urine Bacteria RARE (NEGATIVE) 02/09/17 15:15 Salicylates < 5.0 mg/dL (0-20) 02/09/17 12:38 Urine Opiates Screen NEGATIVE (NEGATIVE) 02/09/17 15:15 Ur Oxycodone Screen NEGATIVE (NEGATIVE) 02/09/17 15:15 Urine Methadone Screen NEGATIVE (NEGATIVE) 02/09/17 15:15 Acetaminophen < 3.0 ug/mL 02/09/17 12:38 Ur Barbiturates Screen NEGATIVE (NEGATIVE) 02/09/17 15:15 Ur Phencyclidine Scrn NEGATIVE (NEGATIVE) 02/09/17 15:15 Ur Amphetamine Screen NEGATIVE (NEGATIVE) 02/09/17 15:15 U Methamphetamines Scrn NEGATIVE (NEGATIVE) 02/09/17 15:15 U Benzodiazepines Scrn NEGATIVE (NEGATIVE) 02/09/17 15:15 U Cocaine Metab Screen NEGATIVE (NEGATIVE) 02/09/17 15:15 U Marijuana (THC) Screen NEGATIVE (NEGATIVE) 02/09/17 15:15 Ethyl Alcohol < 10.0 mg/dL 02/09/17 12:38 Blood Type A POSITIVE 02/10/17 04:37 Antibody Screen NEGATIVE 02/10/17 04:37 - Allergies Allergies/Adverse Reactions: Allergies Allergy/AdvReac Type Severity Reaction Status Date / Time amoxicillin [Amoxicillin] Allergy Other Verified 02/09/17 12:19 ampicillin Allergy Other Verified 02/09/17 12:19 digoxin Allergy Other Verified 02/09/17 12:19 doxycycline Allergy Other Verified 02/09/17 12:19 fentanyl Allergy Other Verified 02/09/17 12:19 nitrofurantoin Allergy Other Verified 02/09/17 12:19 [From Macrobid] nitrofurantoin Allergy Other Verified 02/09/17 12:19 macrocrystalline [From Macrobid] Penicillins Allergy Other Verified 02/09/17 12:19 Sulfa (Sulfonamide Allergy Other Verified 02/09/17 12:19 Antibiotics) morphine Allergy Unknown Other Uncoded 02/09/17 20:40 - Blood Blood Available: No - Anesthesia Plan Pre-Op Medication Ordered: None - Acknowledgements Anesthesia Type Planned: Spinal Pt an Appropriate Candidate for the Planned Anesthesia: Yes Alternatives and Risks of Anesthesia Discussed w Pt/Guardian: Yes Pt/Guardian Understands and Agrees with Anesthesia Plan: Yes PreAnesthesia Questionnaire HEENT History: Reports: Allergic Rhinitis Other HEENT History: wears glasses, has full upper denture and partial lower denture Cardiovascular History: Reports: Hypertension Respiratory History: Reports: None, COPD Genitourinary History: Reports: None. Denies: Chronic Renal Insuffiency SOFTLINES SUPERVISOR History: Reports: None Musculoskeletal History: Reports: Back Pain, Chronic, Neck Pain, Chronic, Other (See Below) (rt. hip fx. at present time) Neurological History: Reports: None. Denies: CVA, Headaches, Chronic, TIA Other Neuro History: "bad nerves" Psychiatric History: Reports: Anxiety, Depression, Other (See Below) (normal pressure hydrocephalus, confused at present time (for unknown lenth of time)) Other Psychiatric History: Takes medication for anxiety. Endocrine/Metabolic History: Reports: Other (See Below) (hypokalemia 3.3 at present). Denies: Diabetes, Type II, Hypothyroidism Hematologic History: Reports: Anemia Immunologic History: Reports: None Oncologic (Cancer) History: Reports: None Dermatologic History: Reports: None - Infectious Disease History Infectious Disease History: Reports: None - Past Surgical History Head Surgeries/Procedures: Reports: None HEENT Surgical History: Reports: Naso-Sinus Surgery Cardiovascular Surgical History: Reports: None Respiratory Surgical History: Reports: None GI Surgical History: Reports: Cholecystectomy Female Surgical History: Reports: None Endocrine Surgical History: Reports: None Neurological Surgical History: Reports: None Oncologic Surgical History: Reports: None Dermatological Surgical History: Reports: None - SUBSTANCE USE Smoking Status *Q: Former Smoker (quit 01/10 smoked for 53 years) Tobacco Use Within Last Twelve Months: Cigarettes Second Hand Smoke Exposure: No Days Per Week of Alcohol Use: 3 Number of Drinks Per Day: 2 Total Drinks Per Week: 6 Recreational Drug Use History: No - HOME MEDS Home Medications: Home Meds ALPRAZolam [Xanax] 1 mg PO TID PRN 05/08/14 [History] Cholecalciferol (Vitamin D3) [Vitamin D3] 2,000 unit PO DAILY 12/31/14 [History] Metoprolol Succinate 75 mg PO DAILY 12/31/14 [History] Potassium Chloride [Klor-Con 10] 10 meq PO DAILY 12/23/16 [History] ALPRAZolam [Xanax] 1 mg PO TID 02/10/17 [History] Albuterol [IJD: Ventolin HFA] 2 inh IH QID PRN 02/10/17 [History] Cetirizine [ZyrTEC] 10 mg PO DAILY PRN 02/10/17 [History] Escitalopram [Lexapro] 10 mg PO DAILY 02/10/17 [History] - CURRENT (IN HOUSE) MEDS Current Meds: Current Medications Acetaminophen (Tylenol) 650 mg PO Q4H PRN PRN Reason: Pain Last Admin: 02/09/17 18:21 Dose: 650 mg Albuterol/Ipratropium (Duoneb 3.0-0.5 Mg/3 Ml) 3 ml NEB Q4HRRT PRN PRN Reason: SOB/wheezing Heparin Sodium (Porcine) (Heparin Sodium) 5,000 units SUBCUT Q12H EVELIO Hydromorphone HCl (Dilaudid) 0.5 mg IVPUSH Q2H PRN PRN Reason: Pain Last Admin: 02/11/17 08:09 Dose: 0.5 mg Sodium Chloride (Normal Saline) 1,000 mls @ 125 mls/hr IV ASDIRECTED EVELIO Last Infusion: 02/11/17 04:58 Dose: 125 mls/hr Clindamycin Phosphate 600 mg/ (Premix) 50 mls @ 100 mls/hr IV ONETIME ONE Stop: 02/11/17 09:29 Azithromycin 500 mg/ Sodium (Chloride) 250 mls @ 250 mls/hr IV Q24H EVELIO Last Admin: 02/10/17 15:17 Dose: 250 mls/hr Ceftriaxone Sodium/Dextrose 1 (gm/ Premix) 50 mls @ 100 mls/hr IV Q24H EVELIO Last Admin: 02/10/17 16:18 Dose: 100 mls/hr Ondansetron HCl (Zofran) 4 mg IVPUSH Q4H PRN PRN Reason: Nausea Oxycodone HCl (Oxycodone) 5 mg PO Q4H PRN PRN Reason: Pain Last Admin: 02/10/17 22:48 Dose: 5 mg Sodium Chloride (Saline Flush) 10 ml FLUSH ASDIRECTED PRN PRN Reason: Keep Vein Open Last Admin: 02/09/17 12:37 Dose: 10 ml Sodium Chloride (Saline Flush) 2.5 ml FLUSH ASDIRECTED PRN PRN Reason: Keep Vein Open Last Admin: 02/09/17 12:37 Dose: 2.5 ml Tranexamic Acid (Cyklokapron) 1,000 mg .ROUTE .STK-MED ONE Stop: 02/11/17 09:01 Discontinued Medications Azithromycin (Zithromax) 500 mg PO ONETIME ONE Stop: 02/09/17 15:14 Last Admin: 02/09/17 15:48 Dose: 500 mg Fentanyl (Sublimaze) Confirm Administered Dose 100 mcg .ROUTE .STK-MED ONE Stop: 02/11/17 08:30 Heparin Sodium (Porcine) (Heparin Sodium) 5,000 units SUBCUT Q12HR EVELIO Last Admin: 02/09/17 22:01 Dose: 5,000 units Heparin Sodium (Porcine) (Heparin Sodium) 5,000 units SUBCUT Q12HR EVELIO Stop: 02/10/17 21:01 Last Admin: 02/10/17 21:22 Dose: 5,000 units Sodium Chloride (Normal Saline) 1,000 mls @ 999 mls/hr IV STAT ONE Stop: 02/09/17 13:26 Last Admin: 02/09/17 12:36 Dose: 999 mls/hr Sodium Chloride (Normal Saline) 1,000 mls @ 999 mls/hr IV STAT ONE Stop: 02/09/17 16:13 Last Admin: 02/09/17 15:22 Dose: 999 mls/hr Ceftriaxone Sodium/Dextrose 1 (gm/ Premix) 50 mls @ 100 mls/hr IV ONETIME ONE Stop: 02/09/17 15:42 Last Admin: 02/09/17 15:48 Dose: 100 mls/hr Lidocaine (Xylocaine-Mpf 2%) Confirm Administered Dose 5 ml .ROUTE .STK-MED ONE Stop: 02/11/17 08:29 Metoprolol Succinate (Toprol Xl) 50 mg PO ONETIME ONE Stop: 02/10/17 23:54 Last Admin: 02/11/17 00:12 Dose: 50 mg Propofol (Diprivan 20 Ml) Confirm Administered Dose 200 mg .ROUTE .STK-MED ONE Stop: 02/11/17 08:29
[2017-02-11] MEDS ORDERED: Phenylephrine 1% 10 MG/ML SDV ONE (08:49)
[2017-02-11] MEDS ORDERED: Clindamycin Phosphate in D5W 600 MG in Premix Bag 50 BAG IV ONE ×2 (09:00)
[2017-02-11] MEDS ORDERED: Ondansetron 4 MG/2 ML SDV ONE (10:34)
--- NOTE | 2017-02-11 11:11 | PCM.OPNOTE ---
- General Post-Op/Procedure Note Date of Surgery/Procedure: 02/11/17 Operative Procedure(s): R hip hemiarthroplasty Post-Op Diagnosis: displaced R femoral neck fracture Anesthesia Technique: Moderate sedation, Spinal Primary Surgeon: Julia Lopez Flight Test Engineer: Dory Donnelly EBBhargav in mLs: 150 Condition: Stable Free Text/Narrative:: #[id number] Intake & Output 02/10/17 02/11/17 02/11/17 22:59 06:59 14:59 Intake Total 4361 1038 Output Total 4490 1500 Balance -129 462
--- NOTE | 2017-02-11 12:38 | PCM.POSTAN ---
POST ANESTHESIA ASSESSMENT - MENTAL STATUS Mental Status: alert, oriented - RESPIRATORY Respiratory Status: respiratory rate WNL, airway patent, O2 saturation stable - CARDIOVASCULAR CV Status: pulse rate WNL, blood pressure stable - GASTROINTESTINAL GI Status: no symptoms - POST OP HYDRATION Hydration Status: adequate & stable
[2017-02-11] MEDS ORDERED: Potassium Chloride 20 MEQ Tab.ER PO ONE (13:06)
--- NOTE | 2017-02-11 13:13 | PCM.PN ---
- Review of Systems Systems Review Comment:: reports leg pain - Patient Data Vitals - most recent: Last Vital Signs Temp 36.1 C 02/11/17 10:53 Pulse 71 02/11/17 11:43 Resp 16 02/11/17 11:43 BP 145/80 H 02/11/17 11:43 Pulse Ox 95 02/11/17 11:43 Weight - most recent: 61.1 kg I&O - last 24 hours: Intake & Output 02/10/17 02/11/17 02/11/17 22:59 06:59 14:59 Intake Total 4361 1038 800 Output Total 4490 1500 Balance -129 -462 800 Lab Results last 24 hrs: Laboratory Results - last 24 hr 02/11/17 02/11/17 Range/Units 06:00 06:00 WBC 8.68 (4.0-11.0) K/uL RBC 3.15 L (4.30-5.90) M/uL Hgb 10.2 L (12.0-16.0) g/dL Hct 30.4 L (36.0-46.0) % MCV 96.5 (80.0-98.0) fL MCH 32.4 H (27.0-32.0) pg MCHC 33.6 (31.0-37.0) g/dL RDW Std Deviation 46.1 (28.0-62.0) fl RDW Coeff of Dirk 13 (11.0-15.0) % Plt Count 211 (150-400) K/uL MPV 9.90 (7.40-12.00) fL Neut % (Auto) 74.2 (48.0-80.0) % Lymph % (Auto) 14.9 L (16.0-40.0) % [place] % (Auto) 9.4 (0.0-15.0) % Eos % (Auto) 1.2 (0.0-7.0) % Baso % (Auto) 0.3 (0.0-1.5) % Neut # (Auto) 6.4 H (1.4-5.7) K/uL Lymph # (Auto) 1.3 (0.6-2.4) K/uL [place] # (Auto) 0.8 (0.0-0.8) K/uL Eos # (Auto) 0.1 (0.0-0.7) K/uL Baso # (Auto) 0.0 (0.0-0.1) K/uL Nucleated RBC % 0.0 /100WBC Nucleated RBCs # 0 K/uL Sodium 138 (136-146) mmol/L Potassium 3.3 L (3.5-5.1) mmol/L Chloride 106 (98-110) mmol/L Carbon Dioxide 21 (21-31) mmol/L BUN 5 L (6.0-23.0) mg/dL Creatinine 0.7 (0.6-1.5) mg/dL Est Cr Clr Drug Dosing 72.10 mL/min Estimated GFR (MDRD) > 60.0 ml/min Glucose 85 (60-110) mg/dL Calcium 8.1 L (8.8-10.8) mg/dL Total Bilirubin 0.9 (0.1-1.5) mg/dL AST 49 H (5-40) IU/L ALT 28 (8-54) IU/L Alkaline Phosphatase 128 (40-150) Creatine Kinase 848 H (9-236) IU/L Total Protein 5.7 L (6.0-8.0) g/dL Albumin 2.9 L (3.4-4.8) g/dL Globulin 2.8 (2.0-3.5) g/dL Albumin/Globulin Ratio 1.0 L (1.3-2.8) Med Orders - Current: Current Medications Hydrocodone Bitart/Acetaminophen ([place] 325-5 Mg) 1 - 2 tab PO Q4H PRN PRN Reason: Pain Albuterol/Ipratropium (Duoneb 3.0-0.5 Mg/3 Ml) 3 ml NEB Q4HRRT PRN PRN Reason: SOB/wheezing Hydromorphone HCl (Dilaudid) 0.5 mg IVPUSH Q2H PRN PRN Reason: Pain Last Admin: 02/11/17 08:09 Dose: 0.5 mg Sodium Chloride (Normal Saline) 1,000 mls @ 125 mls/hr IV ASDIRECTED EVELIO Last Infusion: 02/11/17 04:58 Dose: 125 mls/hr Azithromycin 500 mg/ Sodium (Chloride) 250 mls @ 250 mls/hr IV Q24H EVELIO Last Admin: 02/10/17 15:17 Dose: 250 mls/hr Ceftriaxone Sodium/Dextrose 1 (gm/ Premix) 50 mls @ 100 mls/hr IV Q24H [facility] Last Admin: 02/10/17 16:18 Dose: 100 mls/hr Clindamycin Phosphate 600 mg/ (Premix) 50 mls @ 100 mls/hr IV Q8H [facility] Stop: 02/12/17 01:29 Ondansetron HCl (Zofran) 4 mg IVPUSH Q4H PRN PRN Reason: Nausea Potassium Chloride (Klor-Con M20) 40 meq PO ONETIME ONE Stop: 02/11/17 13:07 Rivaroxaban (Xarelto) 10 mg PO DAILY [facility] Sodium Chloride (Saline Flush) 10 ml FLUSH ASDIRECTED PRN PRN Reason: Keep Vein Open Last Admin: 02/09/17 12:37 Dose: 10 ml Sodium Chloride (Saline Flush) 2.5 ml FLUSH ASDIRECTED PRN PRN Reason: Keep Vein Open Last Admin: 02/09/17 12:37 Dose: 2.5 ml Discontinued Medications Acetaminophen (Tylenol) 650 mg PO Q4H PRN PRN Reason: Pain Last Admin: 02/09/17 18:21 Dose: 650 mg Azithromycin (Zithromax) 500 mg PO ONETIME ONE Stop: 02/09/17 15:14 Last Admin: 02/09/17 15:48 Dose: 500 mg Fentanyl (Sublimaze) Confirm Administered Dose 100 mcg .ROUTE .STK-MED ONE Stop: 02/11/17 08:30 Glycopyrrolate () Confirm Administered Dose 1 mg .ROUTE .STK-MED ONE Stop: 02/11/17 09:35 Heparin Sodium (Porcine) (Heparin Sodium) 5,000 units SUBCUT Q12HR [facility] Last Admin: 02/09/17 22:01 Dose: 5,000 units Heparin Sodium (Porcine) (Heparin Sodium) 5,000 units SUBCUT Q12H [facility]ELIO Heparin Sodium (Porcine) (Heparin Sodium) 5,000 units SUBCUT Q12HR [facility] Stop: 02/10/17 21:01 Last Admin: 02/10/17 21:22 Dose: 5,000 units Sodium Chloride (Normal Saline) 1,000 mls @ 999 mls/hr IV STAT ONE Stop: 02/09/17 13:26 Last Admin: 02/09/17 12:36 Dose: 999 mls/hr Sodium Chloride (Normal Saline) 1,000 mls @ 999 mls/hr IV STAT ONE Stop: 02/09/17 16:13 Last Admin: 02/09/17 15:22 Dose: 999 mls/hr Ceftriaxone Sodium/Dextrose 1 (gm/ Premix) 50 mls @ 100 mls/hr IV ONETIME ONE Stop: 02/09/17 15:42 Last Admin: 02/09/17 15:48 Dose: 100 mls/hr Clindamycin Phosphate 600 mg/ (Premix) 50 mls @ 100 mls/hr IV ONETIME ONE Stop: 02/11/17 09:29 Last Admin: 02/11/17 10:14 Dose: Not Given Lidocaine (Xylocaine-Mpf 2%) Confirm Administered Dose 5 ml .ROUTE .STK-MED ONE Stop: 02/11/17 08:29 Metoprolol Succinate (Toprol Xl) 50 mg PO ONETIME ONE Stop: 02/10/17 23:54 Last Admin: 02/11/17 00:12 Dose: 50 mg Ondansetron HCl (Zofran) Confirm Administered Dose 4 mg .ROUTE .STK-MED ONE Stop: 02/11/17 10:35 Oxycodone HCl (Oxycodone) 5 mg PO Q4H PRN PRN Reason: Pain Last Admin: 02/10/17 22:48 Dose: 5 mg Phenylephrine HCl (Don-Synephrine) Confirm Administered Dose 10 mg .ROUTE .STK- MED ONE Stop: 02/11/17 08:50 Propofol (Diprivan 20 Ml) Confirm Administered Dose 200 mg .ROUTE .STK-MED ONE Stop: 02/11/17 08:29 Propofol (Diprivan 20 Ml) Confirm Administered Dose 200 mg .ROUTE .STK-MED ONE Stop: 02/11/17 08:40 Tranexamic Acid (Cyklokapron) 1,000 mg .ROUTE .STK-MED ONE Stop: 02/11/17 09:01 Tranexamic Acid (Cyklokapron) Confirm Administered Dose 1,000 mg .ROUTE .STK- MED ONE Stop: 02/11/17 09:03 - Exam General: alert, cooperative Lungs: Clear to auscultation, Normal respiratory effort Cardiovascular: Regular Rate, Regular Rhythm Extremities: no edema Skin: warm, dry, intact Neurological: no new focal deficit - Problem List Review Problem List Initiated/Reviewed/Updated: Yes - My Orders Last 24 Hours: My Active Orders 02/11/17 13:06 Potassium Chloride [Klor-Con M20] 40 meq PO ONETIME ONE - Plan Plan:: This 66 year old female admitted with pneumonia, mild confusion and falls. 1. Community acquired Pneumonia: Continue Rocephin and Azithromycin, cultures pending 2. Mild confusion: Exacerbated by illness, will monitor. Spoke with Dr. Ochoa regrading normal pressure hydrocephalus suggested on CT. Assessment will be very difficult due to hip fracture. No assessment or treatment is acutely needed at this time, She would like to see that patient as outpatient in 2-4 weeks when she is able to assess her gait. Patient takes Xanax daily prn at home. 3. Elevated CPK: Continue IVF 125, CPK is only mildly elevated. Monitor. 4. R femoral neck fx: Dr. Lopez consulted and repaired this morning 5. HTN: Continue home medications 6. Anxiety: Continue home medications VTE prophylaxis: scds Dispo: Pending improvement, will likely need SNF placement
--- NOTE | 2017-02-11 13:33 | PCM48HPAN ---
Post Anesthesia Note - EVALUATION WITHIN 48HRS OF ANESTHETIC Vital Signs in Normal Range: Yes Patient Participated in Evaluation: Yes Respiratory Function Stable: Yes Airway Patent: Yes Cardiovascular Function Stable: Yes Hydration Status Stable: Yes Pain Control Satisfactory: Yes Nausea and Vomiting Control Satisfactory: Yes Mental Status Recovered: Yes - COMMENTS/OBSERVATIONS Free Text/Narrative:: Pt alert and oriented to person, place but not completely oriented to situation. Does not recall how she broke her hip and does not recall going to surgery. Has taken PO and reports some pain to right knee but has not asked for analgesia until now. Nursing staff notified of patients request for analgesia. VSS. No apparent complications from anesthesia.
[2017-02-11] MEDS: Acetaminophen/HYDROcodone 325-5 MG Tab PO PRN ×2 (13:37→21:57)
--- NOTE | 2017-02-11 14:55 | OR ---
SURGEON: Julia Lopez MD DATE OF PROCEDURE: 02/11/2017 PREOPERATIVE DIAGNOSIS: Displaced right femoral neck fracture. POSTOPERATIVE DIAGNOSIS: Displaced right femoral neck fracture. PROCEDURE: Right hip hemiarthroplasty. CLINICAL ANALYST: Dory Donnelly PA-C. ANESTHESIA: Spinal with sedation. ESTIMATED BLOOD LOSS: 150 mL. TOURNIQUET TIME: 0 minutes. COMPLICATIONS: None. DVT PROPHYLAXIS: PAS boot to the nonoperative leg. IMPLANTS USED: Elza M/L taper hip prosthesis size 11, 47 mm bipolar head, and +3.5 mm neck length. BRIEF HISTORY: Earnestine is a 66-year-old female, who developed some confusion on 02/09/2017. She was evaluated in the emergency room and found to have pneumonia. Unfortunately, she did sustain a fall from her stretcher. She complained of right hip pain following this. X-rays were obtained, which showed a displaced right femoral neck fracture. Orthopedic consult was obtained. Due to the displacement of the fracture, I did recommend surgical intervention. The risks and goals of procedure were discussed with the patient and were documented preoperatively. She agreed to proceed. DESCRIPTION OF PROCEDURE: The patient was properly identified and brought to the operating room. Spinal anesthetic was administered on the operating room bed. After adequate anesthesia was obtained, she was transferred to the operating room table. She was then placed in a lateral position with the right lower extremity elevated. A pegboard was used to secure the pelvis and the patient. An axillary roll was placed. Care was taken to pad all bony prominences. The right lower extremity was then prepped in standard fashion using ChloraPrep solution. It was then sterilely draped. A time-out was performed to ensure correct site and procedure. Preoperative antibiotics were given along with 1 g of tranexamic acid. An incision was made centered over the greater trochanter. Subcutaneous tissues were incised down to the level of the fascia. The hip was then slightly abducted and iliotibial band was incised. The external rotator muscles were then identified. She did have a good piriformis muscle and this was removed from a subperiosteal location on the greater trochanter. This was then tagged. The capsule was then identified. This was elevated from the femur in a T-shape fashion. This allowed visualization of the neck. I was able to palpate the lesser trochanter. Oscillating saw was then used to make our neck cut approximately one fingerbreadth proximal to the greater trochanter. The portion of the neck was then removed. The head was then removed without difficulty. It was sized on the back table. It measured a size 46. The acetabulum was then inspected. No significant degenerative changes were noted. All bony debris was irrigated from the acetabulum. Sizing trials were then used. It was felt that a size 47 was appropriate fit with stability. I then turned my attention to the proximal femur. A proximal femoral elevator was used. A box cutting osteotome was used to gain lateral entry to the femur. A canal finding reamer was then placed. A lateralizing reamer was then used to secure a lateral starting point. The femur was then sequentially broached with increasing sizes. Once we got to a size 11 it was felt that we had good fit and rotational stability. Standard offset with neutral neck length was then placed with a size 47 mm bipolar head. This reduced easily. Intraoperative x-rays were then obtained. I felt that this was slightly short, however, the sizing of the stem and position appeared appropriate. Trial implants were then removed. The femoral canal was copiously irrigated with Pulsavac solution. It was then suctioned dry. The prosthesis was then placed. It fit easily. There was a slight amount of anteversion applied to the prosthesis. It seated well and did not appear proud. I elected to proceed with a +3.5 neck length as the intraoperative x-ray showed slight shortening of the right lower extremity. A +3.5 mm neck was then placed with the 47 bipolar head. This was malleted into position. The bipolar prosthesis was then reduced. At this point, we did check stability as we had done earlier in the case, which was not previously documented. We were able to get her to 90 degrees of hip flexion, 45 degrees of abduction, and 45 degrees of internal rotation before any instability was noted. I was able to get her fully extended. It did not appear tight. Leg lengths appeared symmetric. The wound was then copiously irrigated with saline solution. The capsule was reapproximated using #2 FiberWire. The piriformis was also sewn back to the greater trochanter using a free needle through bony tunnels. The iliotibial band and tensor fascia michelle were then closed with #1 Vicryl. We also used a running stitch to secure watertight closure. The subcutaneous tissues were closed with 2-0 Vicryl and the skin was closed with daisy. Xeroform gauze was placed over the wound and a bulky dressing was applied. Hip abductor pillow was placed. She was awakened from her sedation and transferred back to the operating room cart. She was brought to recovery room in stable condition. All needle and sponge counts were correct. CHRISTIE / NORBERTO /[id number]
[2017-02-11] MEDS: Azithromycin 500 MG in Sodium Chloride 0.9% 250 ML IV SCH (15:23)
[2017-02-11] MEDS: cefTRIAXone 1 GM in Premix Bag 1 BAG IV SCH (17:07)
[2017-02-11] MEDS: Sodium Chloride 0.9% 1,000 ML IV SCH (17:07)
[2017-02-11] MEDS: Clindamycin Phosphate in D5W 600 MG in Premix Bag 50 BAG IV SCH ×2 (17:26)
[2017-02-11] MEDS ORDERED: Hydrochlorothiazide 25 MG Tab PO ONE (22:47)
[2017-02-12] MEDS: Clindamycin Phosphate in D5W 600 MG in Premix Bag 50 BAG IV SCH ×2 (01:05)
[2017-02-12] MEDS: Acetaminophen/HYDROcodone 325-5 MG Tab PO PRN ×4 (02:58→22:08)
[2017-02-12] MEDS: Sodium Chloride 0.9% 1,000 ML IV SCH (04:36)
[2017-02-12 06:54] LABS: CHLORIDE,CL 101 mmol/L (98-110); SODIUM,NA 138 mmol/L (136-146)
--- NOTE | 2017-02-12 07:48 | PCM.SURGPN ---
- General Info Date of Service: 02/12/17 Date of Surgery/Procedure: 02/11/17 POD#: 1 Functional Status: Reports: pain controlled. Denies: ambulating - Review of Systems General: Reports: No Symptoms Pulmonary: Denies: shortness of breath, cough, sputum Cardiovascular: Denies: Chest Pain, Palpitations Gastrointestinal: Denies: Nausea, Vomiting Musculoskeletal: Reports: leg pain Systems Review Comment:: pt resting comfortably in bed no specific concerns today has not been OOB pain controlled with medications - Patient Data Vitals - most recent: Last Vital Signs Temp 98.8 F 02/12/17 04:00 Pulse 69 02/12/17 04:00 Resp 18 02/12/17 04:00 BP 155/77 H 02/12/17 04:00 Pulse Ox 95 02/12/17 04:00 Weight - most recent: 61.1 kg I&O - last 24 hours: Intake & Output 02/11/17 02/12/17 02/12/17 22:59 06:59 14:59 Intake Total 3683 2135 Output Total 1110 3100 Balance 2573 -965 Lab Results last 24 hrs: Laboratory Results - last 24 hr 02/11/17 02/11/17 02/12/17 Range/Units 13:20 19:20 01:23 WBC (4.0-11.0) K/uL RBC (4.30-5.90) M/uL Hgb (12.0-16.0) g/dL Hct (36.0-46.0) % MCV (80.0-98.0) fL MCH (27.0-32.0) pg MCHC (31.0-37.0) g/dL RDW Std Deviation (28.0-62.0) fl RDW Coeff of Dirk (11.0-15.0) % Plt Count (150-400) K/uL MPV (7.40-12.00) fL Neut % (Auto) (48.0-80.0) % Lymph % (Auto) (16.0-40.0) % [place] % (Auto) (0.0-15.0) % Eos % (Auto) (0.0-7.0) % Baso % (Auto) (0.0-1.5) % Neut # (Auto) (1.4-5.7) K/uL Lymph # (Auto) (0.6-2.4) K/uL [place] # (Auto) (0.0-0.8) K/uL Eos # (Auto) (0.0-0.7) K/uL Baso # (Auto) (0.0-0.1) K/uL Nucleated RBC % /100WBC Nucleated RBCs # K/uL Sodium (136-146) mmol/L Potassium (3.5-5.1) mmol/L Chloride (98-110) mmol/L Carbon Dioxide (21-31) mmol/L BUN (6.0-23.0) mg/dL Creatinine (0.6-1.5) mg/dL Est Cr Clr Drug Dosing mL/min Estimated GFR (MDRD) ml/min Glucose (60-110) mg/dL Calcium (8.8-10.8) mg/dL Total Bilirubin (0.1-1.5) mg/dL AST (5-40) IU/L ALT (8-54) IU/L Alkaline Phosphatase (40-150) Troponin I < 0.10 < 0.10 < 0.10 (0.0-0.29) NG/ML Total Protein (6.0-8.0) g/dL Albumin (3.4-4.8) g/dL Globulin (2.0-3.5) g/dL Albumin/Globulin Ratio (1.3-2.8) 02/12/17 02/12/17 Range/Units 05:11 06:22 WBC 9.50 (4.0-11.0) K/uL RBC 3.22 L (4.30-5.90) M/uL Hgb 10.5 L (12.0-16.0) g/dL Hct 30.8 L (36.0-46.0) % MCV 95.7 (80.0-98.0) fL MCH 32.6 H (27.0-32.0) pg MCHC 34.1 (31.0-37.0) g/dL RDW Std Deviation 44.6 (28.0-62.0) fl RDW Coeff of Dirk 13 (11.0-15.0) % Plt Count 233 (150-400) K/uL MPV 9.40 (7.40-12.00) fL Neut % (Auto) 73.0 (48.0-80.0) % Lymph % (Auto) 13.5 L (16.0-40.0) % [place] % (Auto) 12.5 (0.0-15.0) % Eos % (Auto) 0.8 (0.0-7.0) % Baso % (Auto) 0.2 (0.0-1.5) % Neut # (Auto) 6.9 H (1.4-5.7) K/uL Lymph # (Auto) 1.3 (0.6-2.4) K/uL [place] # (Auto) 1.2 H (0.0-0.8) K/uL Eos # (Auto) 0.1 (0.0-0.7) K/uL Baso # (Auto) 0.0 (0.0-0.1) K/uL Nucleated RBC % 0.0 /100WBC Nucleated RBCs # 0 K/uL Sodium 138 (136-146) mmol/L Potassium 3.6 (3.5-5.1) mmol/L Chloride 101 (98-110) mmol/L Carbon Dioxide 26 (21-31) mmol/L BUN 3 L (6.0-23.0) mg/dL Creatinine 0.7 (0.6-1.5) mg/dL Est Cr Clr Drug Dosing 72.10 mL/min Estimated GFR (MDRD) > 60.0 ml/min Glucose 109 (60-110) mg/dL Calcium 8.8 (8.8-10.8) mg/dL Total Bilirubin 0.8 (0.1-1.5) mg/dL AST 58 H (5-40) IU/L ALT 35 (8-54) IU/L Alkaline Phosphatase 144 (40-150) Troponin I (0.0-0.29) NG/ML Total Protein 5.9 L (6.0-8.0) g/dL Albumin 2.9 L (3.4-4.8) g/dL Globulin 3.0 (2.0-3.5) g/dL Albumin/Globulin Ratio 1.0 L (1.3-2.8) Med Orders - Current: Current Medications Hydrocodone Bitart/Acetaminophen ([place] 325-5 Mg) 1 - 2 tab PO Q4H PRN PRN Reason: Pain Last Admin: 02/12/17 02:58 Dose: 1 tab Albuterol/Ipratropium (Duoneb 3.0-0.5 Mg/3 Ml) 3 ml NEB Q4HRRT PRN PRN Reason: SOB/wheezing Hydromorphone HCl (Dilaudid) 0.5 mg IVPUSH Q2H PRN PRN Reason: Pain Last Admin: 02/11/17 17:25 Dose: 0.5 mg Sodium Chloride (Normal Saline) 1,000 mls @ 125 mls/hr IV ASDIRECTED EVELIO Last Admin: 02/12/17 04:36 Dose: 125 mls/hr Azithromycin 500 mg/ Sodium (Chloride) 250 mls @ 250 mls/hr IV Q24H [facility] Last Admin: 02/11/17 15:23 Dose: 250 mls/hr Ceftriaxone Sodium/Dextrose 1 (gm/ Premix) 50 mls @ 100 mls/hr IV Q24H [facility] Last Admin: 02/11/17 17:07 Dose: 100 mls/hr Metoprolol Succinate (Toprol Xl) 75 mg PO DAILY [facility] Ondansetron HCl (Zofran) 4 mg IVPUSH Q4H PRN PRN Reason: Nausea Rivaroxaban (Xarelto) 10 mg PO DAILY [facility] Sodium Chloride (Saline Flush) 10 ml FLUSH ASDIRECTED PRN PRN Reason: Keep Vein Open Last Admin: 02/09/17 12:37 Dose: 10 ml Sodium Chloride (Saline Flush) 2.5 ml FLUSH ASDIRECTED PRN PRN Reason: Keep Vein Open Last Admin: 02/09/17 12:37 Dose: 2.5 ml Discontinued Medications Acetaminophen (Tylenol) 650 mg PO Q4H PRN PRN Reason: Pain Last Admin: 02/09/17 18:21 Dose: 650 mg Azithromycin (Zithromax) 500 mg PO ONETIME ONE Stop: 02/09/17 15:14 Last Admin: 02/09/17 15:48 Dose: 500 mg Fentanyl (Sublimaze) Confirm Administered Dose 100 mcg .ROUTE .STK-MED ONE Stop: 02/11/17 08:30 Glycopyrrolate () Confirm Administered Dose 1 mg .ROUTE .STK-MED ONE Stop: 02/11/17 09:35 Heparin Sodium (Porcine) (Heparin Sodium) 5,000 units SUBCUT Q12HR [facility] Last Admin: 02/09/17 22:01 Dose: 5,000 units Heparin Sodium (Porcine) (Heparin Sodium) 5,000 units SUBCUT Q12H [facility] Heparin Sodium (Porcine) (Heparin Sodium) 5,000 units SUBCUT Q12HR [facility] Stop: 02/10/17 21:01 Last Admin: 02/10/17 21:22 Dose: 5,000 units Hydrochlorothiazide (Hydrochlorothiazide) 25 mg PO ONETIME ONE Stop: 02/11/17 22:48 Last Admin: 02/11/17 22:59 Dose: 25 mg Sodium Chloride (Normal Saline) 1,000 mls @ 999 mls/hr IV STAT ONE Stop: 02/09/17 13:26 Last Admin: 02/09/17 12:36 Dose: 999 mls/hr Sodium Chloride (Normal Saline) 1,000 mls @ 999 mls/hr IV STAT ONE Stop: 02/09/17 16:13 Last Admin: 02/09/17 15:22 Dose: 999 mls/hr Ceftriaxone Sodium/Dextrose 1 (gm/ Premix) 50 mls @ 100 mls/hr IV ONETIME ONE Stop: 02/09/17 15:42 Last Admin: 02/09/17 15:48 Dose: 100 mls/hr Clindamycin Phosphate 600 mg/ (Premix) 50 mls @ 100 mls/hr IV ONETIME ONE Stop: 02/11/17 09:29 Last Admin: 02/11/17 10:14 Dose: Not Given Clindamycin Phosphate 600 mg/ (Premix) 50 mls @ 100 mls/hr IV Q8H [facility] Stop: 02/12/17 01:29 Last Admin: 02/12/17 01:05 Dose: 100 mls/hr Lidocaine (Xylocaine-Mpf 2%) Confirm Administered Dose 5 ml .ROUTE .STK-MED ONE Stop: 02/11/17 08:29 Metoprolol Succinate (Toprol Xl) 50 mg PO ONETIME ONE Stop: 02/10/17 23:54 Last Admin: 02/11/17 00:12 Dose: 50 mg Ondansetron HCl (Zofran) Confirm Administered Dose 4 mg .ROUTE .STK-MED ONE Stop: 02/11/17 10:35 Oxycodone HCl (Oxycodone) 5 mg PO Q4H PRN PRN Reason: Pain Last Admin: 02/10/17 22:48 Dose: 5 mg Phenylephrine HCl (Don-Synephrine) Confirm Administered Dose 10 mg .ROUTE .STK- MED ONE Stop: 02/11/17 08:50 Potassium Chloride (Klor-Con M20) 40 meq PO ONETIME ONE Stop: 02/11/17 13:07 Last Admin: 02/11/17 13:37 Dose: 40 meq Propofol (Diprivan 20 Ml) Confirm Administered Dose 200 mg .ROUTE .STK-MED ONE Stop: 02/11/17 08:29 Propofol (Diprivan 20 Ml) Confirm Administered Dose 200 mg .ROUTE .STK-MED ONE Stop: 02/11/17 08:40 Tranexamic Acid (Cyklokapron) 1,000 mg .ROUTE .STK-MED ONE Stop: 02/11/17 09:01 Tranexamic Acid (Cyklokapron) Confirm Administered Dose 1,000 mg .ROUTE .STK- MED ONE Stop: 02/11/17 09:03 - Exam Wound/Incisions: dressing dry and intact. No: drainage, erythema General: alert, oriented Cardiovascular: Regular Rate, Regular Rhythm Extremities: no edema, normal pulses, no calf tenderness, other (RLE - at/ehl/ gastroc 5/5, dp 2+, sensation intact distally. hip adductor pillow in place. ) Physical Findings Comment:: vss, afeb hgb 10.5 bc continue to show no growth - Problem List Review Problem List Initiated/Reviewed/Updated: Yes - My Orders Last 24 Hours: Active Orders 24 hr Category Date Time Status EKG 12 Lead [EKG Documentation Completion] [RC] ROUTINE Care 02/11/17 13:07 Active Consult to Physical Therapy [PT Evaluation and Cons 02/11/17 11:01 Active Treatment] [CONS] Routine Heart Healthy Diet [DIET] Diet 02/11/17 Lunch Active Hip Min 1V w Pelvis Rt [CR] Routine Exams 02/11/17 11:05 Taken Pelvis 1V or 2V [CR] Routine Exams 02/11/17 08:41 Taken CBC WITH AUTO DIFF [HEME] AM Lab 02/13/17 05:11 Ordered COMPREHENSIVE METABOLIC PN,CMP [CHEM] AM Lab 02/13/17 05:11 Ordered Acetaminophen/HYDROcodone [[place] 325-5 MG] Med 02/11/17 10:59 Active 1 - 2 tab PO Q4H PRN Metoprolol Succinate [Toprol XL] Med 02/12/17 09:00 Active 75 mg PO DAILY Rivaroxaban [Xarelto] Med 02/12/17 09:00 Active 10 mg PO DAILY Hip Precautions Posterior [OM.PC] Routine Oth 02/11/17 11:01 Ordered Medication Orders Hydrocodone Bitart/Acetaminophen ([place] 325-5 Mg) 1 - 2 tab PO Q4H PRN PRN Reason: Pain Last Admin: 02/12/17 02:58 Dose: 1 tab Admin: 02/11/17 21:57 Dose: 1 tab Admin: 02/11/17 13:37 Dose: 2 tab Albuterol/Ipratropium (Duoneb 3.0-0.5 Mg/3 Ml) 3 ml NEB Q4HRRT PRN PRN Reason: SOB/wheezing Hydromorphone HCl (Dilaudid) 0.5 mg IVPUSH Q2H PRN PRN Reason: Pain Last Admin: 02/11/17 17:25 Dose: 0.5 mg Admin: 02/11/17 08:09 Dose: 0.5 mg Admin: 02/11/17 04:25 Dose: 0.5 mg Admin: 02/10/17 13:44 Dose: 0.5 mg Sodium Chloride (Normal Saline) 1,000 mls @ 125 mls/hr IV ASDIRECTED EVELIO Last Admin: 02/12/17 04:36 Dose: 125 mls/hr Infusion: 02/12/17 01:07 Dose: 125 mls/hr Admin: 02/11/17 17:07 Dose: 125 mls/hr Infusion: 02/11/17 05:04 Dose: 125 mls/hr Infusion: 02/11/17 04:58 Dose: 125 mls/hr Admin: 02/10/17 21:04 Dose: 125 mls/hr Infusion: 02/10/17 21:01 Dose: 125 mls/hr Admin: 02/10/17 10:53 Dose: 125 mls/hr Infusion: 02/10/17 10:35 Dose: 125 mls/hr Admin: 02/10/17 02:35 Dose: 125 mls/hr Infusion: 02/10/17 00:00 Dose: 125 mls/hr Admin: 02/09/17 16:00 Dose: 125 mls/hr Azithromycin 500 mg/ Sodium (Chloride) 250 mls @ 250 mls/hr IV Q24H [facility] Last Admin: 02/11/17 15:23 Dose: 250 mls/hr Infusion: 02/10/17 16:17 Dose: 250 mls/hr Admin: 02/10/17 15:17 Dose: 250 mls/hr Ceftriaxone Sodium/Dextrose 1 (gm/ Premix) 50 mls @ 100 mls/hr IV Q24H [facility] Last Admin: 02/11/17 17:07 Dose: 100 mls/hr Infusion: 02/10/17 16:48 Dose: 100 mls/hr Admin: 02/10/17 16:18 Dose: 100 mls/hr Metoprolol Succinate (Toprol Xl) 75 mg PO DAILY [facility] Ondansetron HCl (Zofran) 4 mg IVPUSH Q4H PRN PRN Reason: Nausea Rivaroxaban (Xarelto) 10 mg PO DAILY [facility] Sodium Chloride (Saline Flush) 10 ml FLUSH ASDIRECTED PRN PRN Reason: Keep Vein Open Last Admin: 02/09/17 12:37 Dose: 10 ml Sodium Chloride (Saline Flush) 2.5 ml FLUSH ASDIRECTED PRN PRN Reason: Keep Vein Open Last Admin: 02/09/17 12:37 Dose: 2.5 ml - Assessment Assessment (Free Text/Narrative):: POD#1 R hip hemiarthroplasty - Plan Plan (Free Text/Narrative):: continue pain management Xarelto 10mg PO daily for DVT prophylaxis, PAS boots OOB today, WBAT RLE, posterior hip precautions will continue to follow until d/ch/transfer to [facility] dressing change tomorrow - aquacel will require FWW for ambulation assistance, stability s/p R hip hemiarthroplasty. cane will not provide sufficient gait assistance/ stabilization. may consider using FWW intermediate designer d/t falls
[2017-02-12] MEDS: Rivaroxaban 10 MG Tab PO SCH (08:02)
[2017-02-12] MEDS: Metoprolol Succinate 25 MG Tab.ER PO SCH (08:02)
[2017-02-12] MEDS ORDERED: Heparin Sodium 5,000 Units/ML Vial SUBCUT SCH (09:00)
--- NOTE | 2017-02-12 09:29 | PCM.PN ---
- Review of Systems Systems Review Comment:: reports leg pain - Patient Data Vitals - most recent: Last Vital Signs Temp 37.2 C 02/12/17 08:00 Pulse 72 02/12/17 08:02 Resp 18 02/12/17 04:00 BP 144/75 H 02/12/17 08:02 Pulse Ox 91 L 02/12/17 08:00 Weight - most recent: 61.1 kg I&O - last 24 hours: Intake & Output 02/11/17 02/12/17 02/12/17 22:59 06:59 14:59 Intake Total 3683 2135 Output Total 1110 3100 Balance 2573 -965 Lab Results last 24 hrs: Laboratory Results - last 24 hr 02/11/17 02/11/17 02/12/17 Range/Units 13:20 19:20 01:23 WBC (4.0-11.0) K/uL RBC (4.30-5.90) M/uL Hgb (12.0-16.0) g/dL Hct (36.0-46.0) % MCV (80.0-98.0) fL MCH (27.0-32.0) pg MCHC (31.0-37.0) g/dL RDW Std Deviation (28.0-62.0) fl RDW Coeff of Dirk (11.0-15.0) % Plt Count (150-400) K/uL MPV (7.40-12.00) fL Neut % (Auto) (48.0-80.0) % Lymph % (Auto) (16.0-40.0) % [place] % (Auto) (0.0-15.0) % Eos % (Auto) (0.0-7.0) % Baso % (Auto) (0.0-1.5) % Neut # (Auto) (1.4-5.7) K/uL Lymph # (Auto) (0.6-2.4) K/uL [place] # (Auto) (0.0-0.8) K/uL Eos # (Auto) (0.0-0.7) K/uL Baso # (Auto) (0.0-0.1) K/uL Nucleated RBC % /100WBC Nucleated RBCs # K/uL Sodium (136-146) mmol/L Potassium (3.5-5.1) mmol/L Chloride (98-110) mmol/L Carbon Dioxide (21-31) mmol/L BUN (6.0-23.0) mg/dL Creatinine (0.6-1.5) mg/dL Est Cr Clr Drug Dosing mL/min Estimated GFR (MDRD) ml/min Glucose (60-110) mg/dL Calcium (8.8-10.8) mg/dL Total Bilirubin (0.1-1.5) mg/dL AST (5-40) IU/L ALT (8-54) IU/L Alkaline Phosphatase (40-150) Troponin I < 0.10 < 0.10 < 0.10 (0.0-0.29) NG/ML Total Protein (6.0-8.0) g/dL Albumin (3.4-4.8) g/dL Globulin (2.0-3.5) g/dL Albumin/Globulin Ratio (1.3-2.8) 02/12/17 02/12/17 Range/Units 05:11 06:22 WBC 9.50 (4.0-11.0) K/uL RBC 3.22 L (4.30-5.90) M/uL Hgb 10.5 L (12.0-16.0) g/dL Hct 30.8 L (36.0-46.0) % MCV 95.7 (80.0-98.0) fL MCH 32.6 H (27.0-32.0) pg MCHC 34.1 (31.0-37.0) g/dL RDW Std Deviation 44.6 (28.0-62.0) fl RDW Coeff of Dirk 13 (11.0-15.0) % Plt Count 233 (150-400) K/uL MPV 9.40 (7.40-12.00) fL Neut % (Auto) 73.0 (48.0-80.0) % Lymph % (Auto) 13.5 L (16.0-40.0) % [place] % (Auto) 12.5 (0.0-15.0) % Eos % (Auto) 0.8 (0.0-7.0) % Baso % (Auto) 0.2 (0.0-1.5) % Neut # (Auto) 6.9 H (1.4-5.7) K/uL Lymph # (Auto) 1.3 (0.6-2.4) K/uL [place] # (Auto) 1.2 H (0.0-0.8) K/uL Eos # (Auto) 0.1 (0.0-0.7) K/uL Baso # (Auto) 0.0 (0.0-0.1) K/uL Nucleated RBC % 0.0 /100WBC Nucleated RBCs # 0 K/uL Sodium 138 (136-146) mmol/L Potassium 3.6 (3.5-5.1) mmol/L Chloride 101 (98-110) mmol/L Carbon Dioxide 26 (21-31) mmol/L BUN 3 L (6.0-23.0) mg/dL Creatinine 0.7 (0.6-1.5) mg/dL Est Cr Clr Drug Dosing 72.10 mL/min Estimated GFR (MDRD) > 60.0 ml/min Glucose 109 (60-110) mg/dL Calcium 8.8 (8.8-10.8) mg/dL Total Bilirubin 0.8 (0.1-1.5) mg/dL AST 58 H (5-40) IU/L ALT 35 (8-54) IU/L Alkaline Phosphatase 144 (40-150) Troponin I (0.0-0.29) NG/ML Total Protein 5.9 L (6.0-8.0) g/dL Albumin 2.9 L (3.4-4.8) g/dL Globulin 3.0 (2.0-3.5) g/dL Albumin/Globulin Ratio 1.0 L (1.3-2.8) Med Orders - Current: Current Medications Hydrocodone Bitart/Acetaminophen ([place] 325-5 Mg) 1 - 2 tab PO Q4H PRN PRN Reason: Pain Last Admin: 02/12/17 08:00 Dose: 1 tab Albuterol/Ipratropium (Duoneb 3.0-0.5 Mg/3 Ml) 3 ml NEB Q4HRRT PRN PRN Reason: SOB/wheezing Hydromorphone HCl (Dilaudid) 0.5 mg IVPUSH Q2H PRN PRN Reason: Pain Last Admin: 02/11/17 17:25 Dose: 0.5 mg Sodium Chloride (Normal Saline) 1,000 mls @ 125 mls/hr IV ASDIRECTED [facility] Last Admin: 02/12/17 04:36 Dose: 125 mls/hr Azithromycin 500 mg/ Sodium (Chloride) 250 mls @ 250 mls/hr IV Q24H [facility] Last Admin: 02/11/17 15:23 Dose: 250 mls/hr Ceftriaxone Sodium/Dextrose 1 (gm/ Premix) 50 mls @ 100 mls/hr IV Q24H [facility] Last Admin: 02/11/17 17:07 Dose: 100 mls/hr Metoprolol Succinate (Toprol Xl) 75 mg PO DAILY [facility] Last Admin: 02/12/17 08:02 Dose: 75 mg Ondansetron HCl (Zofran) 4 mg IVPUSH Q4H PRN PRN Reason: Nausea Rivaroxaban (Xarelto) 10 mg PO DAILY [facility] Last Admin: 02/12/17 08:02 Dose: 10 mg Sodium Chloride (Saline Flush) 10 ml FLUSH ASDIRECTED PRN PRN Reason: Keep Vein Open Last Admin: 02/09/17 12:37 Dose: 10 ml Sodium Chloride (Saline Flush) 2.5 ml FLUSH ASDIRECTED PRN PRN Reason: Keep Vein Open Last Admin: 02/09/17 12:37 Dose: 2.5 ml Discontinued Medications Acetaminophen (Tylenol) 650 mg PO Q4H PRN PRN Reason: Pain Last Admin: 02/09/17 18:21 Dose: 650 mg Azithromycin (Zithromax) 500 mg PO ONETIME ONE Stop: 02/09/17 15:14 Last Admin: 02/09/17 15:48 Dose: 500 mg Fentanyl (Sublimaze) Confirm Administered Dose 100 mcg .ROUTE .STK-MED ONE Stop: 02/11/17 08:30 Glycopyrrolate () Confirm Administered Dose 1 mg .ROUTE .STK-MED ONE Stop: 02/11/17 09:35 Heparin Sodium (Porcine) (Heparin Sodium) 5,000 units SUBCUT Q12HR [facility] Last Admin: 02/09/17 22:01 Dose: 5,000 units Heparin Sodium (Porcine) (Heparin Sodium) 5,000 units SUBCUT Q12H [facility] Heparin Sodium (Porcine) (Heparin Sodium) 5,000 units SUBCUT Q12HR [facility] Stop: 02/10/17 21:01 Last Admin: 02/10/17 21:22 Dose: 5,000 units Hydrochlorothiazide (Hydrochlorothiazide) 25 mg PO ONETIME ONE Stop: 02/11/17 22:48 Last Admin: 02/11/17 22:59 Dose: 25 mg Sodium Chloride (Normal Saline) 1,000 mls @ 999 mls/hr IV STAT ONE Stop: 02/09/17 13:26 Last Admin: 02/09/17 12:36 Dose: 999 mls/hr Sodium Chloride (Normal Saline) 1,000 mls @ 999 mls/hr IV STAT ONE Stop: 02/09/17 16:13 Last Admin: 02/09/17 15:22 Dose: 999 mls/hr Ceftriaxone Sodium/Dextrose 1 (gm/ Premix) 50 mls @ 100 mls/hr IV ONETIME ONE Stop: 02/09/17 15:42 Last Admin: 02/09/17 15:48 Dose: 100 mls/hr Clindamycin Phosphate 600 mg/ (Premix) 50 mls @ 100 mls/hr IV ONETIME ONE Stop: 02/11/17 09:29 Last Admin: 02/11/17 10:14 Dose: Not Given Clindamycin Phosphate 600 mg/ (Premix) 50 mls @ 100 mls/hr IV Q8H [facility] Stop: 02/12/17 01:29 Last Admin: 02/12/17 01:05 Dose: 100 mls/hr Lidocaine (Xylocaine-Mpf 2%) Confirm Administered Dose 5 ml .ROUTE .STK-MED ONE Stop: 02/11/17 08:29 Metoprolol Succinate (Toprol Xl) 50 mg PO ONETIME ONE Stop: 02/10/17 23:54 Last Admin: 02/11/17 00:12 Dose: 50 mg Ondansetron HCl (Zofran) Confirm Administered Dose 4 mg .ROUTE .STK-MED ONE Stop: 02/11/17 10:35 Oxycodone HCl (Oxycodone) 5 mg PO Q4H PRN PRN Reason: Pain Last Admin: 02/10/17 22:48 Dose: 5 mg Phenylephrine HCl (Don-Synephrine) Confirm Administered Dose 10 mg .ROUTE .STK- MED ONE Stop: 02/11/17 08:50 Potassium Chloride (Klor-Con M20) 40 meq PO ONETIME ONE Stop: 02/11/17 13:07 Last Admin: 02/11/17 13:37 Dose: 40 meq Propofol (Diprivan 20 Ml) Confirm Administered Dose 200 mg .ROUTE .STK-MED ONE Stop: 02/11/17 08:29 Propofol (Diprivan 20 Ml) Confirm Administered Dose 200 mg .ROUTE .STK-MED ONE Stop: 02/11/17 08:40 Tranexamic Acid (Cyklokapron) 1,000 mg .ROUTE .STK-MED ONE Stop: 02/11/17 09:01 Tranexamic Acid (Cyklokapron) Confirm Administered Dose 1,000 mg .ROUTE .STK- MED ONE Stop: 02/11/17 09:03 - Exam General: alert, cooperative Lungs: Clear to auscultation, Normal respiratory effort Cardiovascular: Regular Rate, Regular Rhythm Abdomen: soft, no tenderness, no distension Extremities: no edema Skin: warm, dry, intact - Problem List Review Problem List Initiated/Reviewed/Updated: Yes - My Orders Last 24 Hours: My Active Orders 02/12/17 09:00 Metoprolol Succinate [Toprol XL] 75 mg PO DAILY - Plan Plan:: This 66 year old female admitted with pneumonia, mild confusion and falls. 1. Community acquired Pneumonia: Continue Rocephin and Azithromycin, cultures pending 2. R femoral neck fx: Dr. Lopez consulted and repaired this 3. HTN: Continue home medications VTE prophylaxis: Xarelto Dispo: Pending improvement, will likely need SNF placement
[2017-02-12] MEDS: HYDROmorphone 1 MG/ML Syringe IVPUSH PRN (12:26)
[2017-02-12] MEDS: Azithromycin 500 MG in Sodium Chloride 0.9% 250 ML IV SCH (14:59)
[2017-02-12] MEDS: cefTRIAXone 1 GM in Premix Bag 1 BAG IV SCH (16:21)
[2017-02-13 05:15] LABS: CHLORIDE,CL 96 mmol/L (98-110); SODIUM,NA 136 mmol/L (136-146)
[2017-02-13] MEDS: Acetaminophen/HYDROcodone 325-5 MG Tab PO PRN ×3 (05:17→16:05)
--- NOTE | 2017-02-13 07:57 | PCM.SURGPN ---
- General Info Date of Service: 02/13/17 Date of Surgery/Procedure: 02/11/17 POD#: 2 Functional Status: Reports: pain controlled, ambulating - Review of Systems General: Reports: No Symptoms. Denies: Fever Pulmonary: Reports: no symptoms. Denies: shortness of breath, cough, sputum Cardiovascular: Reports: No Symptoms. Denies: Chest Pain, Palpitations Gastrointestinal: Reports: No symptoms. Denies: Nausea, Vomiting Musculoskeletal: Reports: leg pain Systems Review Comment:: pt up to chair for breakfast tolerating PO intake states mobilization was difficult, but able to transfer bed to chair no specific concerns today - Patient Data Vitals - most recent: Last Vital Signs Temp 98.6 F 02/13/17 04:00 Pulse 92 02/13/17 04:00 Resp 20 02/13/17 04:00 BP 120/68 02/13/17 04:00 Pulse Ox 95 02/13/17 04:00 Weight - most recent: 61.1 kg I&O - last 24 hours: Intake & Output 02/12/17 02/13/17 02/13/17 22:59 06:59 14:59 Intake Total 900 500 Output Total 2800 1300 Balance -1900 -800 Lab Results last 24 hrs: Laboratory Results - last 24 hr 02/13/17 02/13/17 Range/Units 04:40 04:40 WBC 11.82 H (4.0-11.0) K/uL RBC 3.15 L (4.30-5.90) M/uL Hgb 10.2 L (12.0-16.0) g/dL Hct 29.7 L (36.0-46.0) % MCV 94.3 (80.0-98.0) fL MCH 32.4 H (27.0-32.0) pg MCHC 34.3 (31.0-37.0) g/dL RDW Std Deviation 43.9 (28.0-62.0) fl RDW Coeff of Dirk 13 (11.0-15.0) % Plt Count 285 (150-400) K/uL MPV 9.50 (7.40-12.00) fL Neut % (Auto) 74.0 (48.0-80.0) % Lymph % (Auto) 13.5 L (16.0-40.0) % [place] % (Auto) 11.4 (0.0-15.0) % Eos % (Auto) 0.8 (0.0-7.0) % Baso % (Auto) 0.3 (0.0-1.5) % Neut # (Auto) 8.8 H (1.4-5.7) K/uL Lymph # (Auto) 1.6 (0.6-2.4) K/uL [place] # (Auto) 1.4 H (0.0-0.8) K/uL Eos # (Auto) 0.1 (0.0-0.7) K/uL Baso # (Auto) 0.0 (0.0-0.1) K/uL Nucleated RBC % 0.0 /100WBC Nucleated RBCs # 0 K/uL Sodium 136 (136-146) mmol/L Potassium 3.1 L (3.5-5.1) mmol/L Chloride 96 L (98-110) mmol/L Carbon Dioxide 28 (21-31) mmol/L BUN 4 L (6.0-23.0) mg/dL Creatinine 0.7 (0.6-1.5) mg/dL Est Cr Clr Drug Dosing 72.10 mL/min Estimated GFR (MDRD) > 60.0 ml/min Glucose 100 (60-110) mg/dL Calcium 8.8 (8.8-10.8) mg/dL Total Bilirubin 0.6 (0.1-1.5) mg/dL AST 62 H (5-40) IU/L ALT 35 (8-54) IU/L Alkaline Phosphatase 134 (40-150) Total Protein 6.1 (6.0-8.0) g/dL Albumin 3.0 L (3.4-4.8) g/dL Globulin 3.1 (2.0-3.5) g/dL Albumin/Globulin Ratio 1.0 L (1.3-2.8) Med Orders - Current: Current Medications Hydrocodone Bitart/Acetaminophen ([place] 325-5 Mg) 1 - 2 tab PO Q4H PRN PRN Reason: Pain Last Admin: 02/13/17 05:17 Dose: 1 tab Albuterol/Ipratropium (Duoneb 3.0-0.5 Mg/3 Ml) 3 ml NEB Q4HRRT PRN PRN Reason: SOB/wheezing Hydromorphone HCl (Dilaudid) 0.5 mg IVPUSH Q2H PRN PRN Reason: Pain Last Admin: 02/12/17 12:26 Dose: 0.5 mg Azithromycin 500 mg/ Sodium (Chloride) 250 mls @ 250 mls/hr IV Q24H [facility] Last Admin: 02/12/17 14:59 Dose: 250 mls/hr Ceftriaxone Sodium/Dextrose 1 (gm/ Premix) 50 mls @ 100 mls/hr IV Q24H [facility] Last Admin: 02/12/17 16:21 Dose: 100 mls/hr Metoprolol Succinate (Toprol Xl) 75 mg PO DAILY [facility] Last Admin: 02/12/17 08:02 Dose: 75 mg Ondansetron HCl (Zofran) 4 mg IVPUSH Q4H PRN PRN Reason: Nausea Rivaroxaban (Xarelto) 10 mg PO DAILY [facility] Last Admin: 02/12/17 08:02 Dose: 10 mg Sodium Chloride (Saline Flush) 10 ml FLUSH ASDIRECTED PRN PRN Reason: Keep Vein Open Last Admin: 02/09/17 12:37 Dose: 10 ml Sodium Chloride (Saline Flush) 2.5 ml FLUSH ASDIRECTED PRN PRN Reason: Keep Vein Open Last Admin: 02/09/17 12:37 Dose: 2.5 ml Discontinued Medications Acetaminophen (Tylenol) 650 mg PO Q4H PRN PRN Reason: Pain Last Admin: 02/09/17 18:21 Dose: 650 mg Azithromycin (Zithromax) 500 mg PO ONETIME ONE Stop: 02/09/17 15:14 Last Admin: 02/09/17 15:48 Dose: 500 mg Fentanyl (Sublimaze) Confirm Administered Dose 100 mcg .ROUTE .STK-MED ONE Stop: 02/11/17 08:30 Glycopyrrolate () Confirm Administered Dose 1 mg .ROUTE .STK-MED ONE Stop: 02/11/17 09:35 Heparin Sodium (Porcine) (Heparin Sodium) 5,000 units SUBCUT Q12HR [facility] Last Admin: 02/09/17 22:01 Dose: 5,000 units Heparin Sodium (Porcine) (Heparin Sodium) 5,000 units SUBCUT Q12H [facility] Heparin Sodium (Porcine) (Heparin Sodium) 5,000 units SUBCUT Q12HR [facility] Stop: 02/10/17 21:01 Last Admin: 02/10/17 21:22 Dose: 5,000 units Hydrochlorothiazide (Hydrochlorothiazide) 25 mg PO ONETIME ONE Stop: 02/11/17 22:48 Last Admin: 02/11/17 22:59 Dose: 25 mg Sodium Chloride (Normal Saline) 1,000 mls @ 999 mls/hr IV STAT ONE Stop: 02/09/17 13:26 Last Admin: 02/09/17 12:36 Dose: 999 mls/hr Sodium Chloride (Normal Saline) 1,000 mls @ 999 mls/hr IV STAT ONE Stop: 02/09/17 16:13 Last Admin: 02/09/17 15:22 Dose: 999 mls/hr Ceftriaxone Sodium/Dextrose 1 (gm/ Premix) 50 mls @ 100 mls/hr IV ONETIME ONE Stop: 02/09/17 15:42 Last Admin: 02/09/17 15:48 Dose: 100 mls/hr Sodium Chloride (Normal Saline) 1,000 mls @ 125 mls/hr IV ASDIRECTED [facility] Last Admin: 02/12/17 04:36 Dose: 125 mls/hr Clindamycin Phosphate 600 mg/ (Premix) 50 mls @ 100 mls/hr IV ONETIME ONE Stop: 02/11/17 09:29 Last Admin: 02/11/17 10:14 Dose: Not Given Clindamycin Phosphate 600 mg/ (Premix) 50 mls @ 100 mls/hr IV Q8H [facility] Stop: 02/12/17 01:29 Last Admin: 02/12/17 01:05 Dose: 100 mls/hr Lidocaine (Xylocaine-Mpf 2%) Confirm Administered Dose 5 ml .ROUTE .STK-MED ONE Stop: 02/11/17 08:29 Metoprolol Succinate (Toprol Xl) 50 mg PO ONETIME ONE Stop: 02/10/17 23:54 Last Admin: 02/11/17 00:12 Dose: 50 mg Ondansetron HCl (Zofran) Confirm Administered Dose 4 mg .ROUTE .STK-MED ONE Stop: 02/11/17 10:35 Oxycodone HCl (Oxycodone) 5 mg PO Q4H PRN PRN Reason: Pain Last Admin: 02/10/17 22:48 Dose: 5 mg Phenylephrine HCl (Don-Synephrine) Confirm Administered Dose 10 mg .ROUTE .STK- MED ONE Stop: 02/11/17 08:50 Potassium Chloride (Klor-Con M20) 40 meq PO ONETIME ONE Stop: 02/11/17 13:07 Last Admin: 02/11/17 13:37 Dose: 40 meq Propofol (Diprivan 20 Ml) Confirm Administered Dose 200 mg .ROUTE .STK-MED ONE Stop: 02/11/17 08:29 Propofol (Diprivan 20 Ml) Confirm Administered Dose 200 mg .ROUTE .STK-MED ONE Stop: 02/11/17 08:40 Tranexamic Acid (Cyklokapron) 1,000 mg .ROUTE .STK-MED ONE Stop: 02/11/17 09:01 Tranexamic Acid (Cyklokapron) Confirm Administered Dose 1,000 mg .ROUTE .STK- MED ONE Stop: 02/11/17 09:03 - Exam Wound/Incisions: healing well. No: drainage, erythema General: alert, oriented Cardiovascular: Regular Rate, Regular Rhythm Extremities: no edema, normal pulses, no calf tenderness, other (RLE - at/ehl/ gastroc 5/5, dp 2+, sensation intact distally. ) Physical Findings Comment:: vss, afeb WBC 11.82 hgb 10.2 - Problem List Review Problem List Initiated/Reviewed/Updated: Yes - My Orders Last 24 Hours: Active Orders 24 hr Category Date Time Status Dressing Change [Wound Care] [RC] Q12H Care 02/12/17 07:49 Active Metoprolol Succinate [Toprol XL] Med 02/12/17 09:00 Active 75 mg PO DAILY Rivaroxaban [Xarelto] Med 02/12/17 09:00 Active 10 mg PO DAILY Medication Orders Hydrocodone Bitart/Acetaminophen ([place] 325-5 Mg) 1 - 2 tab PO Q4H PRN PRN Reason: Pain Last Admin: 02/13/17 05:17 Dose: 1 tab Admin: 02/12/17 22:08 Dose: 1 tab Admin: 02/12/17 16:25 Dose: 1 tab Admin: 02/12/17 08:00 Dose: 1 tab Admin: 02/12/17 02:58 Dose: 1 tab Admin: 02/11/17 21:57 Dose: 1 tab Admin: 02/11/17 13:37 Dose: 2 tab Albuterol/Ipratropium (Duoneb 3.0-0.5 Mg/3 Ml) 3 ml NEB Q4HRRT PRN PRN Reason: SOB/wheezing Hydromorphone HCl (Dilaudid) 0.5 mg IVPUSH Q2H PRN PRN Reason: Pain Last Admin: 02/12/17 12:26 Dose: 0.5 mg Admin: 02/11/17 17:25 Dose: 0.5 mg Admin: 02/11/17 08:09 Dose: 0.5 mg Admin: 02/11/17 04:25 Dose: 0.5 mg Admin: 02/10/17 13:44 Dose: 0.5 mg Azithromycin 500 mg/ Sodium (Chloride) 250 mls @ 250 mls/hr IV Q24H [facility] Last Admin: 02/12/17 14:59 Dose: 250 mls/hr Infusion: 02/11/17 16:23 Dose: 250 mls/hr Admin: 02/11/17 15:23 Dose: 250 mls/hr Infusion: 02/10/17 16:17 Dose: 250 mls/hr Admin: 02/10/17 15:17 Dose: 250 mls/hr Ceftriaxone Sodium/Dextrose 1 (gm/ Premix) 50 mls @ 100 mls/hr IV Q24H [facility] Last Admin: 02/12/17 16:21 Dose: 100 mls/hr Infusion: 02/11/17 17:37 Dose: 100 mls/hr Admin: 02/11/17 17:07 Dose: 100 mls/hr Infusion: 02/10/17 16:48 Dose: 100 mls/hr Admin: 02/10/17 16:18 Dose: 100 mls/hr Metoprolol Succinate (Toprol Xl) 75 mg PO DAILY [facility] Last Admin: 02/12/17 08:02 Dose: 75 mg Ondansetron HCl (Zofran) 4 mg IVPUSH Q4H PRN PRN Reason: Nausea Rivaroxaban (Xarelto) 10 mg PO DAILY [facility] Last Admin: 02/12/17 08:02 Dose: 10 mg Sodium Chloride (Saline Flush) 10 ml FLUSH ASDIRECTED PRN PRN Reason: Keep Vein Open Last Admin: 02/09/17 12:37 Dose: 10 ml Sodium Chloride (Saline Flush) 2.5 ml FLUSH ASDIRECTED PRN PRN Reason: Keep Vein Open Last Admin: 02/09/17 12:37 Dose: 2.5 ml - Assessment Assessment (Free Text/Narrative):: POD#2 R hip hemiarthroplasty anemia leukocytosis - Plan Plan (Free Text/Narrative):: continue pain management dressing changed PT today, WBAT RLE, FWW Xarelto for DVT prophylaxis will continue to follow until d/ch
[2017-02-13] MEDS ORDERED: Potassium Chloride 20 MEQ Tab.ER PO ONE (08:25)
[2017-02-13] MEDS: Docusate Sodium 100 MG Cap PO SCH ×2 (08:46→20:57)
[2017-02-13] MEDS: Metoprolol Succinate 25 MG Tab.ER PO SCH (08:46)
[2017-02-13] MEDS: Rivaroxaban 10 MG Tab PO SCH (08:47)
[2017-02-13] MEDS ORDERED: Magnesium Sulfate/Water 4 GM in Premix Bag 1 BAG IV ONE (11:16)
--- NOTE | 2017-02-13 11:32 | PCM.PN ---
- General Info Date of Service: 02/13/17 Admission Dx/Problem (Free Text): Pneumonia, confusion Subjective Update: "Feeling better today". Reports pain to hip is tolerable. Denies any chest pain , SOB or palpitations. Is ambulating with assist of 2 and walker. No complaints this morning. Functional Status: Reports: pain controlled, tolerating diet, ambulating - Review of Systems General: Reports: No Symptoms. Denies: Fever HEENT: Reports: no symptoms. Denies: headaches, sinus congestion, sore throat Pulmonary: Reports: no symptoms. Denies: shortness of breath, cough, sputum Cardiovascular: Reports: No Symptoms. Denies: Chest Pain, Edema Gastrointestinal: Reports: No symptoms. Denies: Abdominal pain, Constipation, Nausea, Vomiting Genitourinary: Reports: no symptoms. Denies: dysuria, frequency, burning Musculoskeletal: Reports: joint pain (R hip pain) Skin: Reports: no symptoms Neurological: Reports: No Symptoms Psychiatric: Reports: no symptoms - Patient Data Vitals - most recent: Last Vital Signs Temp 97.5 F 02/13/17 07:56 Pulse 81 02/13/17 08:46 Resp 22 H 02/13/17 07:56 BP 124/93 H 02/13/17 08:46 Pulse Ox 91 L 02/13/17 07:56 Weight - most recent: 61.1 kg I&O - last 24 hours: Intake & Output 02/12/17 02/13/17 02/13/17 22:59 06:59 14:59 Intake Total 900 500 Output Total 2800 1300 Balance -1900 -800 Lab Results last 24 hrs: Laboratory Results - last 24 hr 02/13/17 02/13/17 02/13/17 Range/Units 04:40 04:40 04:40 WBC 11.82 H (4.0-11.0) K/uL RBC 3.15 L (4.30-5.90) M/uL Hgb 10.2 L (12.0-16.0) g/dL Hct 29.7 L (36.0-46.0) % MCV 94.3 (80.0-98.0) fL MCH 32.4 H (27.0-32.0) pg MCHC 34.3 (31.0-37.0) g/dL RDW Std Deviation 43.9 (28.0-62.0) fl RDW Coeff of Dirk 13 (11.0-15.0) % Plt Count 285 (150-400) K/uL MPV 9.50 (7.40-12.00) fL Neut % (Auto) 74.0 (48.0-80.0) % Lymph % (Auto) 13.5 L (16.0-40.0) % [place] % (Auto) 11.4 (0.0-15.0) % Eos % (Auto) 0.8 (0.0-7.0) % Baso % (Auto) 0.3 (0.0-1.5) % Neut # (Auto) 8.8 H (1.4-5.7) K/uL Lymph # (Auto) 1.6 (0.6-2.4) K/uL [place] # (Auto) 1.4 H (0.0-0.8) K/uL Eos # (Auto) 0.1 (0.0-0.7) K/uL Baso # (Auto) 0.0 (0.0-0.1) K/uL Nucleated RBC % 0.0 /100WBC Nucleated RBCs # 0 K/uL Sodium 136 (136-146) mmol/L Potassium 3.1 L (3.5-5.1) mmol/L Chloride 96 L (98-110) mmol/L Carbon Dioxide 28 (21-31) mmol/L BUN 4 L (6.0-23.0) mg/dL Creatinine 0.7 (0.6-1.5) mg/dL Est Cr Clr Drug Dosing 72.10 mL/min Estimated GFR (MDRD) > 60.0 ml/min Glucose 100 (60-110) mg/dL Calcium 8.8 (8.8-10.8) mg/dL Magnesium 1.3 L (1.5-2.3) mEq/L Total Bilirubin 0.6 (0.1-1.5) mg/dL AST 62 H (5-40) IU/L ALT 35 (8-54) IU/L Alkaline Phosphatase 134 (40-150) Total Protein 6.1 (6.0-8.0) g/dL Albumin 3.0 L (3.4-4.8) g/dL Globulin 3.1 (2.0-3.5) g/dL Albumin/Globulin Ratio 1.0 L (1.3-2.8) Med Orders - Current: Current Medications Hydrocodone Bitart/Acetaminophen ([place] 325-5 Mg) 1 - 2 tab PO Q4H PRN PRN Reason: Pain Last Admin: 02/13/17 05:17 Dose: 1 tab Albuterol/Ipratropium (Duoneb 3.0-0.5 Mg/3 Ml) 3 ml NEB Q4HRRT PRN PRN Reason: SOB/wheezing Docusate Sodium (Colace) 100 mg PO BID [facility] Last Admin: 02/13/17 08:46 Dose: 100 mg Hydromorphone HCl (Dilaudid) 0.5 mg IVPUSH Q2H PRN PRN Reason: Pain Last Admin: 02/12/17 12:26 Dose: 0.5 mg Azithromycin 500 mg/ Sodium (Chloride) 250 mls @ 250 mls/hr IV Q24H [facility] Last Admin: 02/12/17 14:59 Dose: 250 mls/hr Ceftriaxone Sodium/Dextrose 1 (gm/ Premix) 50 mls @ 100 mls/hr IV Q24H [facility] Last Admin: 02/12/17 16:21 Dose: 100 mls/hr Magnesium Sulfate 4 gm/ Premix 100 mls @ 50 mls/hr IV ONETIME ONE Stop: 02/13/17 13:15 Metoprolol Succinate (Toprol Xl) 75 mg PO DAILY [facility] Last Admin: 02/13/17 08:46 Dose: 75 mg Ondansetron HCl (Zofran) 4 mg IVPUSH Q4H PRN PRN Reason: Nausea Rivaroxaban (Xarelto) 10 mg PO DAILY [facility] Last Admin: 02/13/17 08:47 Dose: 10 mg Sodium Chloride (Saline Flush) 10 ml FLUSH ASDIRECTED PRN PRN Reason: Keep Vein Open Last Admin: 02/09/17 12:37 Dose: 10 ml Sodium Chloride (Saline Flush) 2.5 ml FLUSH ASDIRECTED PRN PRN Reason: Keep Vein Open Last Admin: 02/09/17 12:37 Dose: 2.5 ml Discontinued Medications Acetaminophen (Tylenol) 650 mg PO Q4H PRN PRN Reason: Pain Last Admin: 02/09/17 18:21 Dose: 650 mg Azithromycin (Zithromax) 500 mg PO ONETIME ONE Stop: 02/09/17 15:14 Last Admin: 02/09/17 15:48 Dose: 500 mg Fentanyl (Sublimaze) Confirm Administered Dose 100 mcg .ROUTE .STK-MED ONE Stop: 02/11/17 08:30 Glycopyrrolate () Confirm Administered Dose 1 mg .ROUTE .STK-MED ONE Stop: 02/11/17 09:35 Heparin Sodium (Porcine) (Heparin Sodium) 5,000 units SUBCUT Q12HR [facility] Last Admin: 02/09/17 22:01 Dose: 5,000 units Heparin Sodium (Porcine) (Heparin Sodium) 5,000 units SUBCUT Q12H [facility] Heparin Sodium (Porcine) (Heparin Sodium) 5,000 units SUBCUT Q12HR [facility] Stop: 02/10/17 21:01 Last Admin: 02/10/17 21:22 Dose: 5,000 units Hydrochlorothiazide (Hydrochlorothiazide) 25 mg PO ONETIME ONE Stop: 02/11/17 22:48 Last Admin: 02/11/17 22:59 Dose: 25 mg Sodium Chloride (Normal Saline) 1,000 mls @ 999 mls/hr IV STAT ONE Stop: 02/09/17 13:26 Last Admin: 02/09/17 12:36 Dose: 999 mls/hr Sodium Chloride (Normal Saline) 1,000 mls @ 999 mls/hr IV STAT ONE Stop: 02/09/17 16:13 Last Admin: 02/09/17 15:22 Dose: 999 mls/hr Ceftriaxone Sodium/Dextrose 1 (gm/ Premix) 50 mls @ 100 mls/hr IV ONETIME ONE Stop: 02/09/17 15:42 Last Admin: 02/09/17 15:48 Dose: 100 mls/hr Sodium Chloride (Normal Saline) 1,000 mls @ 125 mls/hr IV ASDIRECTED [facility] Last Admin: 02/12/17 04:36 Dose: 125 mls/hr Clindamycin Phosphate 600 mg/ (Premix) 50 mls @ 100 mls/hr IV ONETIME ONE Stop: 02/11/17 09:29 Last Admin: 02/11/17 10:14 Dose: Not Given Clindamycin Phosphate 600 mg/ (Premix) 50 mls @ 100 mls/hr IV Q8H [facility] Stop: 02/12/17 01:29 Last Admin: 02/12/17 01:05 Dose: 100 mls/hr Lidocaine (Xylocaine-Mpf 2%) Confirm Administered Dose 5 ml .ROUTE .STK-MED ONE Stop: 02/11/17 08:29 Metoprolol Succinate (Toprol Xl) 50 mg PO ONETIME ONE Stop: 02/10/17 23:54 Last Admin: 02/11/17 00:12 Dose: 50 mg Ondansetron HCl (Zofran) Confirm Administered Dose 4 mg .ROUTE .STK-MED ONE Stop: 02/11/17 10:35 Oxycodone HCl (Oxycodone) 5 mg PO Q4H PRN PRN Reason: Pain Last Admin: 02/10/17 22:48 Dose: 5 mg Phenylephrine HCl (Don-Synephrine) Confirm Administered Dose 10 mg .ROUTE .STK- MED ONE Stop: 02/11/17 08:50 Potassium Chloride (Klor-Con M20) 40 meq PO ONETIME ONE Stop: 02/11/17 13:07 Last Admin: 02/11/17 13:37 Dose: 40 meq Potassium Chloride (Klor-Con M20) 40 meq PO ONETIME ONE Stop: 02/13/17 08:26 Last Admin: 02/13/17 08:46 Dose: 40 meq Propofol (Diprivan 20 Ml) Confirm Administered Dose 200 mg .ROUTE .STK-MED ONE Stop: 02/11/17 08:29 Propofol (Diprivan 20 Ml) Confirm Administered Dose 200 mg .ROUTE .STK-MED ONE Stop: 02/11/17 08:40 Tranexamic Acid (Cyklokapron) 1,000 mg .ROUTE .STK-MED ONE Stop: 02/11/17 09:01 Tranexamic Acid (Cyklokapron) Confirm Administered Dose 1,000 mg .ROUTE .STK- MED ONE Stop: 02/11/17 09:03 - Exam General: alert, oriented, cooperative, no acute distress Lungs: Clear to auscultation, Normal respiratory effort Cardiovascular: Regular Rate, Regular Rhythm Abdomen: bowel sounds present, soft, no tenderness, no distension Extremities: no edema, normal pulses, no tenderness/swelling Skin: ecchymosis (some bruising noted around incision, R hip) Wound/Incisions: dressing dry and intact Psy/Mental Status: alert, normal affect, normal mood - Problem List & Annotations (1) Pneumonia SNOMED Code(s): 824768379 Code(s): J18.9 - PNEUMONIA, UNSPECIFIED ORGANISM Status: Acute Current Visit: Yes Qualifiers: Pneumonia type: due to unspecified organism Laterality: left Lung location: lower lobe of lung Qualified Code(s): J18.1 - Lobar pneumonia, unspecified organism (2) Fracture of femoral neck, right SNOMED Code(s): 1253895 Code(s): S72.001A - FRACTURE OF UNSP PART OF NECK OF RIGHT FEMUR, INIT Status: Acute Current Visit: Yes Qualifiers: Encounter type: initial encounter Fracture type: closed Qualified Code(s) : S72.001A - Fracture of unspecified part of neck of right femur, initial encounter for closed fracture (3) Falls SNOMED Code(s): 8738161, 548617431 Code(s): W19.XXXA - UNSPECIFIED FALL, INITIAL ENCOUNTER Status: Acute Current Visit: Yes Qualifiers: Encounter type: initial encounter Qualified Code(s): W19.XXXA - Unspecified fall, initial encounter (4) Rhabdomyolysis SNOMED Code(s): 829730794 Code(s): M62.82 - RHABDOMYOLYSIS Status: Acute Current Visit: Yes Qualifiers: Encounter type: initial encounter (5) Anxiety SNOMED Code(s): 97069396 Code(s): F41.9 - ANXIETY DISORDER, UNSPECIFIED Status: Chronic Current Visit: No (6) HTN (hypertension) SNOMED Code(s): 24858478 Code(s): I10 - ESSENTIAL (PRIMARY) HYPERTENSION Status: Chronic Current Visit: Yes Qualifiers: Hypertension type: essential hypertension Qualified Code(s): I10 - Essential (primary) hypertension - Problem List Review Problem List Initiated/Reviewed/Updated: Yes - My Orders Last 24 Hours: My Active Orders 02/13/17 11:16 Remove Farooq Catheter [Urinary Catheter Removal] [RC] Per Unit Routine Magnesium Sulfate/Water [Magnesium Sulfate 4 GM in Water 100 ML] 4 gm Premix Bag 1 bag IV ONETIME - Plan Plan:: This 66 year old female admitted with pneumonia, mild confusion and falls. 1. Community acquired Pneumonia: Continue Rocephin and Azithromycin, BC negative. 2. R femoral neck fx: Dr. Lopez consulted and repaired this 02/11/2017. Stable. Pain well controlled. has been ambulating with 2 assist and walker. Will remove farooq today. 3. HTN: Continue home medications VTE prophylaxis: Xarelto Dispo: Likely transfer to [facility] in am.
[2017-02-13] MEDS: Azithromycin 500 MG in Sodium Chloride 0.9% 250 ML IV SCH (14:50)
[2017-02-13] MEDS: cefTRIAXone 1 GM in Premix Bag 1 BAG IV SCH (16:08)
[2017-02-13] MEDS: Ondansetron 4 MG/2 ML SDV IVPUSH PRN (19:26)
--- NOTE | 2017-02-14 07:55 | PCM.SURGPN ---
- General Info Date of Service: 02/14/17 Date of Surgery/Procedure: 02/11/17 POD#: 3 Functional Status: Reports: pain controlled, tolerating diet, ambulating - Review of Systems General: Reports: No Symptoms Pulmonary: Reports: no symptoms Cardiovascular: Reports: No Symptoms Gastrointestinal: Reports: No symptoms Systems Review Comment:: pt up to chair for breakfast feeling better today confusion continues to improve ambulating with FWW and assist x2 pain continues to be controlled feels ready for d/ch to SNF - Patient Data Vitals - most recent: Last Vital Signs Temp 97.7 F 02/14/17 07:50 Pulse 71 02/14/17 07:50 Resp 20 02/14/17 07:50 BP 113/80 02/14/17 07:50 Pulse Ox 96 02/14/17 07:50 Weight - most recent: 61.1 kg I&O - last 24 hours: Intake & Output 02/13/17 02/14/17 02/14/17 22:59 06:59 14:59 Intake Total 1186 350 Output Total 1705 950 Balance -519 -600 Lab Results last 24 hrs: Laboratory Results - last 24 hr 02/13/17 Range/Units 04:40 Magnesium 1.3 L (1.5-2.3) mEq/L Med Orders - Current: Current Medications Hydrocodone Bitart/Acetaminophen ([place] 325-5 Mg) 1 - 2 tab PO Q4H PRN PRN Reason: Pain Last Admin: 02/13/17 16:05 Dose: 1 tab Albuterol/Ipratropium (Duoneb 3.0-0.5 Mg/3 Ml) 3 ml NEB Q4HRRT PRN PRN Reason: SOB/wheezing Docusate Sodium (Colace) 100 mg PO BID [facility] Last Admin: 02/13/17 20:57 Dose: 100 mg Hydromorphone HCl (Dilaudid) 0.5 mg IVPUSH Q2H PRN PRN Reason: Pain Last Admin: 02/12/17 12:26 Dose: 0.5 mg Azithromycin 500 mg/ Sodium (Chloride) 250 mls @ 250 mls/hr IV Q24H [facility] Last Admin: 02/13/17 14:50 Dose: 250 mls/hr Ceftriaxone Sodium/Dextrose 1 (gm/ Premix) 50 mls @ 100 mls/hr IV Q24H [facility] Last Admin: 02/13/17 16:08 Dose: 100 mls/hr Metoprolol Succinate (Toprol Xl) 75 mg PO DAILY [facility] Last Admin: 02/13/17 08:46 Dose: 75 mg Ondansetron HCl (Zofran) 4 mg IVPUSH Q4H PRN PRN Reason: Nausea Last Admin: 02/13/17 19:26 Dose: 4 mg Rivaroxaban (Xarelto) 10 mg PO DAILY [facility] Last Admin: 02/13/17 08:47 Dose: 10 mg Sodium Chloride (Saline Flush) 10 ml FLUSH ASDIRECTED PRN PRN Reason: Keep Vein Open Last Admin: 02/09/17 12:37 Dose: 10 ml Sodium Chloride (Saline Flush) 2.5 ml FLUSH ASDIRECTED PRN PRN Reason: Keep Vein Open Last Admin: 02/09/17 12:37 Dose: 2.5 ml Discontinued Medications Acetaminophen (Tylenol) 650 mg PO Q4H PRN PRN Reason: Pain Last Admin: 02/09/17 18:21 Dose: 650 mg Azithromycin (Zithromax) 500 mg PO ONETIME ONE Stop: 02/09/17 15:14 Last Admin: 02/09/17 15:48 Dose: 500 mg Fentanyl (Sublimaze) Confirm Administered Dose 100 mcg .ROUTE .STK-MED ONE Stop: 02/11/17 08:30 Glycopyrrolate () Confirm Administered Dose 1 mg .ROUTE .STK-MED ONE Stop: 02/11/17 09:35 Heparin Sodium (Porcine) (Heparin Sodium) 5,000 units SUBCUT Q12HR [facility] Last Admin: 02/09/17 22:01 Dose: 5,000 units Heparin Sodium (Porcine) (Heparin Sodium) 5,000 units SUBCUT Q12H [facility] Heparin Sodium (Porcine) (Heparin Sodium) 5,000 units SUBCUT Q12HR [facility] Stop: 02/10/17 21:01 Last Admin: 02/10/17 21:22 Dose: 5,000 units Hydrochlorothiazide (Hydrochlorothiazide) 25 mg PO ONETIME ONE Stop: 02/11/17 22:48 Last Admin: 02/11/17 22:59 Dose: 25 mg Sodium Chloride (Normal Saline) 1,000 mls @ 999 mls/hr IV STAT ONE Stop: 02/09/17 13:26 Last Admin: 02/09/17 12:36 Dose: 999 mls/hr Sodium Chloride (Normal Saline) 1,000 mls @ 999 mls/hr IV STAT ONE Stop: 02/09/17 16:13 Last Admin: 02/09/17 15:22 Dose: 999 mls/hr Ceftriaxone Sodium/Dextrose 1 (gm/ Premix) 50 mls @ 100 mls/hr IV ONETIME ONE Stop: 02/09/17 15:42 Last Admin: 02/09/17 15:48 Dose: 100 mls/hr Sodium Chloride (Normal Saline) 1,000 mls @ 125 mls/hr IV ASDIRECTED [facility] Last Admin: 02/12/17 04:36 Dose: 125 mls/hr Clindamycin Phosphate 600 mg/ (Premix) 50 mls @ 100 mls/hr IV ONETIME ONE Stop: 02/11/17 09:29 Last Admin: 02/11/17 10:14 Dose: Not Given Clindamycin Phosphate 600 mg/ (Premix) 50 mls @ 100 mls/hr IV Q8H [facility] Stop: 02/12/17 01:29 Last Admin: 02/12/17 01:05 Dose: 100 mls/hr Magnesium Sulfate 4 gm/ Premix 100 mls @ 50 mls/hr IV ONETIME ONE Stop: 02/13/17 13:15 Last Admin: 02/13/17 11:42 Dose: 50 mls/hr Lidocaine (Xylocaine-Mpf 2%) Confirm Administered Dose 5 ml .ROUTE .STK-MED ONE Stop: 02/11/17 08:29 Metoprolol Succinate (Toprol Xl) 50 mg PO ONETIME ONE Stop: 02/10/17 23:54 Last Admin: 02/11/17 00:12 Dose: 50 mg Ondansetron HCl (Zofran) Confirm Administered Dose 4 mg .ROUTE .STK-MED ONE Stop: 02/11/17 10:35 Oxycodone HCl (Oxycodone) 5 mg PO Q4H PRN PRN Reason: Pain Last Admin: 02/10/17 22:48 Dose: 5 mg Phenylephrine HCl (Don-Synephrine) Confirm Administered Dose 10 mg .ROUTE .STK- MED ONE Stop: 02/11/17 08:50 Potassium Chloride (Klor-Con M20) 40 meq PO ONETIME ONE Stop: 02/11/17 13:07 Last Admin: 02/11/17 13:37 Dose: 40 meq Potassium Chloride (Klor-Con M20) 40 meq PO ONETIME ONE Stop: 02/13/17 08:26 Last Admin: 02/13/17 08:46 Dose: 40 meq Propofol (Diprivan 20 Ml) Confirm Administered Dose 200 mg .ROUTE .STK-MED ONE Stop: 02/11/17 08:29 Propofol (Diprivan 20 Ml) Confirm Administered Dose 200 mg .ROUTE .STK-MED ONE Stop: 02/11/17 08:40 Tranexamic Acid (Cyklokapron) 1,000 mg .ROUTE .STK-MED ONE Stop: 02/11/17 09:01 Tranexamic Acid (Cyklokapron) Confirm Administered Dose 1,000 mg .ROUTE .STK- MED ONE Stop: 02/11/17 09:03 - Exam Wound/Incisions: dressing dry and intact. No: drainage, erythema General: alert, oriented Cardiovascular: Regular Rate, Regular Rhythm Extremities: no edema, normal pulses, no calf tenderness, other (RLE - at/ehl/ gastroc 5/5, dp 2+, sensation intact distally) Physical Findings Comment:: vss, afeb - Problem List Review Problem List Initiated/Reviewed/Updated: Yes - My Orders Last 24 Hours: Active Orders 24 hr Category Date Time Status Docusate Sodium [Colace] Med 02/13/17 09:00 Active 100 mg PO BID Medication Orders Hydrocodone Bitart/Acetaminophen ([place] 325-5 Mg) 1 - 2 tab PO Q4H PRN PRN Reason: Pain Last Admin: 02/13/17 16:05 Dose: 1 tab Admin: 02/13/17 11:57 Dose: 2 tab Admin: 02/13/17 05:17 Dose: 1 tab Admin: 02/12/17 22:08 Dose: 1 tab Admin: 02/12/17 16:25 Dose: 1 tab Admin: 02/12/17 08:00 Dose: 1 tab Admin: 02/12/17 02:58 Dose: 1 tab Admin: 02/11/17 21:57 Dose: 1 tab Admin: 02/11/17 13:37 Dose: 2 tab Albuterol/Ipratropium (Duoneb 3.0-0.5 Mg/3 Ml) 3 ml NEB Q4HRRT PRN PRN Reason: SOB/wheezing Docusate Sodium (Colace) 100 mg PO BID [facility] Last Admin: 02/13/17 20:57 Dose: 100 mg Admin: 02/13/17 08:46 Dose: 100 mg Hydromorphone HCl (Dilaudid) 0.5 mg IVPUSH Q2H PRN PRN Reason: Pain Last Admin: 02/12/17 12:26 Dose: 0.5 mg Admin: 02/11/17 17:25 Dose: 0.5 mg Admin: 02/11/17 08:09 Dose: 0.5 mg Admin: 02/11/17 04:25 Dose: 0.5 mg Admin: 02/10/17 13:44 Dose: 0.5 mg Azithromycin 500 mg/ Sodium (Chloride) 250 mls @ 250 mls/hr IV Q24H [facility] Last Admin: 02/13/17 14:50 Dose: 250 mls/hr Infusion: 02/12/17 15:59 Dose: 250 mls/hr Admin: 02/12/17 14:59 Dose: 250 mls/hr Infusion: 02/11/17 16:23 Dose: 250 mls/hr Admin: 02/11/17 15:23 Dose: 250 mls/hr Infusion: 02/10/17 16:17 Dose: 250 mls/hr Admin: 02/10/17 15:17 Dose: 250 mls/hr Ceftriaxone Sodium/Dextrose 1 (gm/ Premix) 50 mls @ 100 mls/hr IV Q24H [facility] Last Admin: 02/13/17 16:08 Dose: 100 mls/hr Infusion: 02/12/17 16:51 Dose: 100 mls/hr Admin: 02/12/17 16:21 Dose: 100 mls/hr Infusion: 02/11/17 17:37 Dose: 100 mls/hr Admin: 02/11/17 17:07 Dose: 100 mls/hr Infusion: 02/10/17 16:48 Dose: 100 mls/hr Admin: 02/10/17 16:18 Dose: 100 mls/hr Metoprolol Succinate (Toprol Xl) 75 mg PO DAILY [facility] Last Admin: 02/13/17 08:46 Dose: 75 mg Admin: 02/12/17 08:02 Dose: 75 mg Ondansetron HCl (Zofran) 4 mg IVPUSH Q4H PRN PRN Reason: Nausea Last Admin: 02/13/17 19:26 Dose: 4 mg Rivaroxaban (Xarelto) 10 mg PO DAILY [facility] Last Admin: 02/13/17 08:47 Dose: 10 mg Admin: 02/12/17 08:02 Dose: 10 mg Sodium Chloride (Saline Flush) 10 ml FLUSH ASDIRECTED PRN PRN Reason: Keep Vein Open Last Admin: 02/09/17 12:37 Dose: 10 ml Sodium Chloride (Saline Flush) 2.5 ml FLUSH ASDIRECTED PRN PRN Reason: Keep Vein Open Last Admin: 02/09/17 12:37 Dose: 2.5 ml - Assessment Assessment (Free Text/Narrative):: POD#3 R hip hemiarthroplasty anemia - Plan Plan (Free Text/Narrative):: continue PT, pain management, anticoagulation orthopedically stable for transfer to [facility] posterior hip precautions, hip adductor pillow, FWW, PT daily while in rehab.
[2017-02-14] MEDS: Metoprolol Succinate 25 MG Tab.ER PO SCH (08:52)
[2017-02-14] MEDS: Rivaroxaban 10 MG Tab PO SCH (08:53)
[2017-02-14] MEDS: Docusate Sodium 100 MG Cap PO SCH (08:53)
[2017-02-14 09:13] LABS: CHLORIDE,CL 96 mmol/L (98-110); SODIUM,NA 134 mmol/L (136-146)
[2017-02-14] MEDS: Acetaminophen/HYDROcodone 325-5 MG Tab PO PRN (09:56)
[2017-02-14] MEDS: Ondansetron 4 MG/2 ML SDV IVPUSH PRN (09:56)
--- NOTE | 2017-02-14 10:10 | CR ---
EXAMINATION: Pelvis and right hip HISTORY: Arthroplasty COMPARISON: 02/09/2017 TECHNIQUE: AP pelvis and 2 views of the right hip FINDINGS: Intraoperative pelvic film demonstrates trial hardware for total hip arthroplasty. Subsequ ent postoperative films demonstrate right total hip hardware in good position and alignment. Remaini ng osseous structures appear intact. Bone mineralization is otherwise normal. Overlying operative so ft tissue changes are noted. IMPRESSION: 1. Right total hip hardware demonstrated in good position and alignment.
[2017-02-14] MEDS ORDERED: Potassium Chloride 20 MEQ Tab.ER PO ONE (10:15)
--- NOTE | 2017-02-14 11:31 | PCM.DCSUM1 ---
Discharge Summary - Hospital Course Brief History: This 66 year old female with pmh of HTN, chronic back and neck pain, anxiety and depression presented to the ED with a friend with complaints of frequent falls, 3 today alone. According to her friend a few months ago she was confusion and improved. She reports the lsat 3-4 days the confusion has increased. Today the friend reports she arrived at Earnestine's house and her glasses were on upside down, pills were missing in her pill case and she ( Earnestine) had no recollection of what happened to them. The patient denies confusion, but in the same breath notes some things are "off". The patient denies fevers, but friend reports noticing her sweating and flushed, no chest pain, SOB, no cough or sputum. No recent URI, no abdominal pain or urinary symptoms. She has been falling at home, she reports mainly from unsteady gait. She denies passing out. She does report hitting her head a few times during falls and recalls waking up on the floor, not knowing how long she had been down. In the ED leukocytosis noted, 19,210, hgb 11.6, lactate 1.4 Na 134, bilirubin 2.0. CPK 1076, UA negative. Head CT reported no acute intracranial findings, but did note "ventricular prominence out of proportion to the sulcal atrophy, which may suggest normal pressure hydrocephalus". CXR revealed left infrahilar pneumonia. - Discharge Data Discharge Date: 02/14/17 Discharge Disposition: DC/Tfer to SNF 03 Condition: Good - Discharge Diagnosis/Problem(s) (1) Pneumonia SNOMED Code(s): 197159046 ICD Code: J18.9 - PNEUMONIA, UNSPECIFIED ORGANISM Status: Acute Current Visit: Yes Qualifiers: Pneumonia type: due to unspecified organism Laterality: left Lung location: lower lobe of lung Qualified Code(s): J18.1 - Lobar pneumonia, unspecified organism (2) Fracture of femoral neck, right SNOMED Code(s): 8259775 ICD Code: S72.001A - FRACTURE OF UNSP PART OF NECK OF RIGHT FEMUR, INIT Status: Acute Current Visit: Yes Qualifiers: Encounter type: initial encounter Fracture type: closed Qualified Code(s) : S72.001A - Fracture of unspecified part of neck of right femur, initial encounter for closed fracture (3) Falls SNOMED Code(s): 1937650, 674111141 ICD Code: W19.XXXA - UNSPECIFIED FALL, INITIAL ENCOUNTER Status: Acute Current Visit: Yes Qualifiers: Encounter type: initial encounter Qualified Code(s): W19.XXXA - Unspecified fall, initial encounter (4) Rhabdomyolysis SNOMED Code(s): 813458105 ICD Code: M62.82 - RHABDOMYOLYSIS Status: Acute Current Visit: Yes Qualifiers: Encounter type: initial encounter (5) Anxiety SNOMED Code(s): 07599065 ICD Code: F41.9 - ANXIETY DISORDER, UNSPECIFIED Status: Chronic Current Visit: No (6) HTN (hypertension) SNOMED Code(s): 24207073 ICD Code: I10 - ESSENTIAL (PRIMARY) HYPERTENSION Status: Chronic Current Visit: Yes Qualifiers: Hypertension type: essential hypertension Qualified Code(s): I10 - Essential (primary) hypertension - Patient Summary/Data Operative Procedure(s) Performed: R hip hemiarthroplasty Consults: Consultations 02/09/17 16:36 Consult to Sales Force Developer [CONS] Routine 02/09/17 17:38 Consult to Physician [CONS] Stat 02/11/17 11:01 Consult to Physical Therapy [PT Evaluation and Treatment] [CONS] Routine - Patient Instructions Diet: Heart Healthy Diet Activity: Apply Ice, Full Weight Bearing, No Strenuous Activities Activity, Other: WBAT RLE, use FWW for ambulation Driving: Do Not Drive Showering/Bathing: May Shower, No Tub Bathing/Swimming Showering/Bathing, Other: Okay to shower over Aquacel dressing. Wound/Incision Care: Do NOT Change Dressing Notify Provider of: Fever, Increased Pain, Swelling and Redness, Drainage, Nausea and/or Vomiting Other/Special Instructions: Posterior hip precautions. Hip adductor pillow while in bed. PT/OT daily while in Rehab. - Discharge Plan Prescriptions/Med Rec: ALPRAZolam [Xanax] 1 mg PO TID PRN #25 tablet PRN Reason: Anxiety Azithromycin 500 mg PO DAILY #4 tablet Docusate Sodium [Colace] 100 mg PO BID #30 cap Home Medications: Home Meds Cholecalciferol (Vitamin D3) [Vitamin D3] 2,000 unit PO DAILY 12/31/14 [History] Metoprolol Succinate 75 mg PO DAILY 12/31/14 [History] Potassium Chloride [Klor-Con 10] 10 meq PO DAILY 12/23/16 [History] Albuterol [IJD: Ventolin HFA] 2 inh IH QID PRN 02/10/17 [History] Cetirizine [ZyrTEC] 10 mg PO DAILY PRN 02/10/17 [History] Escitalopram [Lexapro] 10 mg PO DAILY 02/10/17 [History] ALPRAZolam [Xanax] 1 mg PO TID PRN #25 tablet 02/14/17 [Rx] Acetaminophen/HYDROcodone [[place] 325-5 MG] 1 - 2 tab PO Q4H PRN #0 tablet [Rx] Azithromycin 500 mg PO DAILY #4 tablet 02/14/17 [Rx] Docusate Sodium [Colace] 100 mg PO BID #30 cap 02/14/17 [Rx] Rivaroxaban [Xarelto] 10 mg PO DAILY tablet 02/14/17 [Rx] Referrals: Julia Lopez MD [Physician] - 03/21/17 3:30 pm Anila Ochoa MD [Physician] - 04/10/17 3:00 pm David Motta MD [Physician] - Dory Donnelly PA [Physician Cost Control Specialist] - 02/21/17 10:30 am (If you have questions or concerns prior to follow-up, please call Dr. Lopez's office. ) - Discharge Summary/Plan Comment DC Time >30 min.: No Discharge Summary/Plan Comment: Discharge diagnoses: Community acquired pneumonia R hip fracture, s/p r hip hemiarthoplasty. Intermittent confusion anxiety/depression Isi was admitted initially for community acquired pneumonia. Her stay was complicated by a fall, which then she started having R hip pain. Xrays were obtained and a displaced right femoral neck fracture was noted. Dr. Lopez, Orthopedics was consulted and performed a R hip hemiarthoplasty on February 11. She has done well post-operatively. She has been placed on Xarelto for VTE prophylaxis and should remain on this for 4 weeks. She has done well with PT. She does live alone with closest family a brother in [place], [place]. Plan is to discharge to [facility] for rehabilitation. I spoke with brother David this morning who is in agreement. He reports they are working on moving her out of her apartment now to a ground level place, possibly assisted living or even moving her to [facility] to be near family. This is all to be determined with course of PT in the next few weeks. She was continued on Rocephin and Azithromycin for CAP. Leukocytosis improved, otherwise she had little symptoms on admission. She will be continued on Azithromycin for another [address] findings "ventricular prominence out of proportion to the sulcal atrophy, which may suggest normal pressure hydrocephalus". I spoke with Dr. Ochoa, she will follow up as outpatient. Brothpari Hernandez is aware and reports they have noticed a slow decline in memory over the last few months. Reports their mother had Alzheimer's dementia. Discharge to [facility] today, with PT OT to evaluate and treat. Continue all home medications as previously prescribed. Ortho provided prescriptions for Xarelto and [place]. - General Info Date of Service: 02/14/17 Admission Dx/Problem (Free Text: Pneumonia, R hip fracture Subjective Update: Reports today she is feeling well. Denies chest pain or palpitations. Pain is well controlled, has been ambulating and up to chair Functional Status: Reports: pain controlled, tolerating diet, ambulating, urinating - Review of Systems General: Reports: No Symptoms. Denies: Fever Pulmonary: Reports: no symptoms. Denies: shortness of breath Cardiovascular: Reports: No Symptoms. Denies: Chest Pain Gastrointestinal: Reports: No symptoms. Denies: Abdominal pain, Constipation, Nausea, Vomiting Genitourinary: Reports: no symptoms Musculoskeletal: Reports: joint pain (R hip intermittently, but pain is well controlled.) Skin: Reports: no symptoms Neurological: Reports: No Symptoms Psychiatric: Reports: no symptoms - Patient Data Vitals - Most Recent: Last Vital Signs Temp 97.7 F 02/14/17 07:50 Pulse 71 02/14/17 08:52 Resp 02/14/17 07:50 BP 113/83 02/14/17 08:52 Pulse Ox 96 02/14/17 07:50 Weight - Most Recent: 61.1 kg I&O - Last 24 hours: Intake & Output 02/13/17 02/14/17 02/14/17 22:59 06:59 14:59 Intake Total 1186 350 Output Total 1705 950 Balance -519 -600 Lab Results - Last 24 hrs: Laboratory Results - last 24 hr 02/14/17 02/14/17 Range/Units 08:36 08:36 WBC 10.42 (4.0-11.0) K/uL RBC 3.13 L (4.30-5.90) M/uL Hgb 10.2 L (12.0-16.0) g/dL Hct 30.0 L (36.0-46.0) % MCV 95.8 (80.0-98.0) fL MCH 32.6 H (27.0-32.0) pg MCHC 34.0 (31.0-37.0) g/dL RDW Std Deviation 45.9 (28.0-62.0) fl RDW Coeff of Dirk 13 (11.0-15.0) % Plt Count 368 (150-400) K/uL MPV 9.60 (7.40-12.00) fL Neut % (Auto) 79.9 (48.0-80.0) % Lymph % (Auto) 10.3 L (16.0-40.0) % [place] % (Auto) 9.3 (0.0-15.0) % Eos % (Auto) 0.3 (0.0-7.0) % Baso % (Auto) 0.2 (0.0-1.5) % Neut # (Auto) 8.3 H (1.4-5.7) K/uL Lymph # (Auto) 1.1 (0.6-2.4) K/uL [place] # (Auto) 1.0 H (0.0-0.8) K/uL Eos # (Auto) 0.0 (0.0-0.7) K/uL Baso # (Auto) 0.0 (0.0-0.1) K/uL Nucleated RBC % 0.0 /100WBC Nucleated RBCs # 0 K/uL Sodium 134 L (136-146) mmol/L Potassium 3.2 L (3.5-5.1) mmol/L Chloride 96 L (98-110) mmol/L Carbon Dioxide 27 (21-31) mmol/L BUN 6 (6.0-23.0) mg/dL Creatinine 0.7 (0.6-1.5) mg/dL Est Cr Clr Drug Dosing 72.10 mL/min Estimated GFR (MDRD) > 60.0 ml/min Glucose 103 (60-110) mg/dL Calcium 9.0 (8.8-10.8) mg/dL Med Orders - Current: Current Medications Hydrocodone Bitart/Acetaminophen ([place] 325-5 Mg) 1 - 2 tab PO Q4H PRN PRN Reason: Pain Last Admin: 02/14/17 09:56 Dose: 1 tab Albuterol/Ipratropium (Duoneb 3.0-0.5 Mg/3 Ml) 3 ml NEB Q4HRRT PRN PRN Reason: SOB/wheezing Docusate Sodium (Colace) 100 mg PO BID [facility] Last Admin: 02/14/17 08:53 Dose: 100 mg Hydromorphone HCl (Dilaudid) 0.5 mg IVPUSH Q2H PRN PRN Reason: Pain Last Admin: 02/12/17 12:26 Dose: 0.5 mg Azithromycin 500 mg/ Sodium (Chloride) 250 mls @ 250 mls/hr IV Q24H [facility] Last Admin: 02/13/17 14:50 Dose: 250 mls/hr Ceftriaxone Sodium/Dextrose 1 (gm/ Premix) 50 mls @ 100 mls/hr IV Q24H [facility] Last Admin: 02/13/17 16:08 Dose: 100 mls/hr Metoprolol Succinate (Toprol Xl) 75 mg PO DAILY [facility] Last Admin: 02/14/17 08:52 Dose: 75 mg Ondansetron HCl (Zofran) 4 mg IVPUSH Q4H PRN PRN Reason: Nausea Last Admin: 02/14/17 09:56 Dose: 4 mg Rivaroxaban (Xarelto) 10 mg PO DAILY [facility] Last Admin: 02/14/17 08:53 Dose: 10 mg Sodium Chloride (Saline Flush) 10 ml FLUSH ASDIRECTED PRN PRN Reason: Keep Vein Open Last Admin: 02/09/17 12:37 Dose: 10 ml Sodium Chloride (Saline Flush) 2.5 ml FLUSH ASDIRECTED PRN PRN Reason: Keep Vein Open Last Admin: 02/09/17 12:37 Dose: 2.5 ml Discontinued Medications Acetaminophen (Tylenol) 650 mg PO Q4H PRN PRN Reason: Pain Last Admin: 02/09/17 18:21 Dose: 650 mg Azithromycin (Zithromax) 500 mg PO ONETIME ONE Stop: 02/09/17 15:14 Last Admin: 02/09/17 15:48 Dose: 500 mg Fentanyl (Sublimaze) Confirm Administered Dose 100 mcg .ROUTE .STK-MED ONE Stop: 02/11/17 08:30 Glycopyrrolate () Confirm Administered Dose 1 mg .ROUTE .STK-MED ONE Stop: 02/11/17 09:35 Heparin Sodium (Porcine) (Heparin Sodium) 5,000 units SUBCUT Q12HR [facility] Last Admin: 02/09/17 22:01 Dose: 5,000 units Heparin Sodium (Porcine) (Heparin Sodium) 5,000 units SUBCUT Q12H [facility] Heparin Sodium (Porcine) (Heparin Sodium) 5,000 units SUBCUT Q12HR [facility] Stop: 02/10/17 21:01 Last Admin: 02/10/17 21:22 Dose: 5,000 units Hydrochlorothiazide (Hydrochlorothiazide) 25 mg PO ONETIME ONE Stop: 02/11/17 22:48 Last Admin: 02/11/17 22:59 Dose: 25 mg Sodium Chloride (Normal Saline) 1,000 mls @ 999 mls/hr IV STAT ONE Stop: 02/09/17 13:26 Last Admin: 02/09/17 12:36 Dose: 999 mls/hr Sodium Chloride (Normal Saline) 1,000 mls @ 999 mls/hr IV STAT ONE Stop: 02/09/17 16:13 Last Admin: 02/09/17 15:22 Dose: 999 mls/hr Ceftriaxone Sodium/Dextrose 1 (gm/ Premix) 50 mls @ 100 mls/hr IV ONETIME ONE Stop: 02/09/17 15:42 Last Admin: 02/09/17 15:48 Dose: 100 mls/hr Sodium Chloride (Normal Saline) 1,000 mls @ 125 mls/hr IV ASDIRECTED [facility] Last Admin: 02/12/17 04:36 Dose: 125 mls/hr Clindamycin Phosphate 600 mg/ (Premix) 50 mls @ 100 mls/hr IV ONETIME ONE Stop: 02/11/17 09:29 Last Admin: 02/11/17 10:14 Dose: Not Given Clindamycin Phosphate 600 mg/ (Premix) 50 mls @ 100 mls/hr IV Q8H [facility] Stop: 02/12/17 01:29 Last Admin: 02/12/17 01:05 Dose: 100 mls/hr Magnesium Sulfate 4 gm/ Premix 100 mls @ 50 mls/hr IV ONETIME ONE Stop: 02/13/17 13:15 Last Admin: 02/13/17 11:42 Dose: 50 mls/hr Lidocaine (Xylocaine-Mpf 2%) Confirm Administered Dose 5 ml .ROUTE .STK-MED ONE Stop: 02/11/17 08:29 Metoprolol Succinate (Toprol Xl) 50 mg PO ONETIME ONE Stop: 02/10/17 23:54 Last Admin: 02/11/17 00:12 Dose: 50 mg Ondansetron HCl (Zofran) Confirm Administered Dose 4 mg .ROUTE .STK-MED ONE Stop: 02/11/17 10:35 Oxycodone HCl (Oxycodone) 5 mg PO Q4H PRN PRN Reason: Pain Last Admin: 02/10/17 22:48 Dose: 5 mg Phenylephrine HCl (Don-Synephrine) Confirm Administered Dose 10 mg .ROUTE .STK- MED ONE Stop: 02/11/17 08:50 Potassium Chloride (Klor-Con M20) 40 meq PO ONETIME ONE Stop: 02/11/17 13:07 Last Admin: 02/11/17 13:37 Dose: 40 meq Potassium Chloride (Klor-Con M20) 40 meq PO ONETIME ONE Stop: 02/13/17 08:26 Last Admin: 02/13/17 08:46 Dose: 40 meq Potassium Chloride (Klor-Con M20) 40 meq PO ONETIME ONE Stop: 02/14/17 10:16 Last Admin: 02/14/17 10:14 Dose: 40 meq Propofol (Diprivan 20 Ml) Confirm Administered Dose 200 mg .ROUTE .STK-MED ONE Stop: 02/11/17 08:29 Propofol (Diprivan 20 Ml) Confirm Administered Dose 200 mg .ROUTE .STK-MED ONE Stop: 02/11/17 08:40 Tranexamic Acid (Cyklokapron) 1,000 mg .ROUTE .STK-MED ONE Stop: 02/11/17 09:01 Tranexamic Acid (Cyklokapron) Confirm Administered Dose 1,000 mg .ROUTE .[employer] ONE Stop: 02/11/17 09:03 - Exam General: Reports: alert, oriented, cooperative, no acute distress Lungs: Reports: Clear to auscultation, Normal respiratory effort Cardiovascular: Reports: Regular Rate, Regular Rhythm Abdomen: Reports: bowel sounds present, soft, no tenderness, no distension Extremities: Reports: no edema, normal pulses, no tenderness/swelling Skin: Reports: other (abrasion to chin. Multiple bruising to bilateral elbows and knees from falls at home, prior to admission.). Denies: intact Wound/Incisions: Reports: dressing dry and intact (R hip) Psy/Mental Status: Reports: alert, normal affect, normal mood *Q Meaningful Use (DIS) - VTE *Q VTE Criteria *Q: - Stroke *Q Stroke Criteria *Q: - AMI *Q AMI Criteria *Q:
[2017-02-14 11:56] VITALS: BP 133/61
== END 2017-02-14 13:20 | DRG 983 ==
LOC: MW.ED 11:46 → MW.MS 15:18 → UNDOADMIN 15:53 → MW.MS 02-13 13:23 → UNDODISIN 02-14 13:20
PROVIDERS: ADMIT Internal Medicine; ATTEND Internal Medicine
PROC: 0SRR0JA Replacement of Right Hip Joint, Femoral Surface with Synthetic Substitute, Uncemented, Open Approach (ICD-10-PCS; principal; 2017-02-11)
DX: J18.9 Pneumonia, unspecified organism (principal); S72.001A Fracture of unspecified part of neck of right femur, initial encounter for closed fracture; W06.XXXA Fall from bed, initial encounter; Y92.238 Other place in hospital as the place of occurrence of the external cause; T79.6XXA Traumatic ischemia of muscle, initial encounter; G31.84 Mild cognitive impairment of uncertain or unknown etiology; E86.0 Dehydration; I10 Essential (primary) hypertension; F41.8 Other specified anxiety disorders; Z88.0 Allergy status to penicillin; Z88.8 Allergy status to other drugs, medicaments and biological substances; F41.9 Anxiety disorder, unspecified; Z96.641 Presence of right artificial hip joint; Z79.899 Other long term (current) drug therapy; Z91.81 History of falling
CPT/HCPCS: 36415; 70450; 71010; 80053; 80305; 81001; 82550; 83605; 84443; 85025; 85610; 87040 ×2; 93005; 96361; 96365; 99285; A9270; G0480 ×3; J0696; J7040 ×2; 01210; 51703; 72170; 72170-26; 73501-26-RT; 73501-RT; 73502-26-RT; 73502-RT; 73560-26-RT; 73560-RT; 80048; 83735; 84484; 86850; 86900; 86901; 88305; 88311; 97110-GP; 97162-GP; C1776; J0456; J1170; J1644; J2370; J2405; J2704; J3010; J3475; J7050

== ENCOUNTER 2018-02-06 15:12 | Emergency (ER) | payer MEDICARE, MEDICAID ==
[2018-02-06 15:31] VITALS: BP 171/69
--- NOTE | 2018-02-06 16:04 | EDM.PDOC ---
ED HPI GENERAL MEDICAL PROBLEM - General Chief Complaint: Genitourinary Problem Stated Complaint: DIARRHEA Time Seen by Provider: 02/06/18 15:41 Source of Information: Reports: Patient History Limitations: Reports: No Limitations - History of Present Illness INITIAL COMMENTS - FREE TEXT/NARRATIVE: Presents reporting urinary frequency. The patient states that this morning when she got up she had a little bit of burning with urination and has been going frequently since. He states that since childhood she has had frequent urinary tract infections although she has not had one for some time in recent years. Denies back pain, fever, history of renal stones. urinary Pain Score (Numeric/FACES): 4 - Related Data Allergies Allergy/AdvReac Type Severity Reaction Status Date / Time amoxicillin [Amoxicillin] Allergy Other Verified 02/06/18 15:23 ampicillin Allergy Other Verified 02/06/18 15:23 digoxin Allergy Other Verified 02/06/18 15:23 doxycycline Allergy Other Verified 02/06/18 15:23 fentanyl Allergy Other Verified 02/06/18 15:23 nitrofurantoin Allergy Other Verified 02/06/18 15:23 [From Macrobid] nitrofurantoin Allergy Other Verified 02/06/18 15:23 macrocrystalline [From Macrobid] Penicillins Allergy Other Verified 02/06/18 15:23 Sulfa (Sulfonamide Allergy Other Verified 02/06/18 15:23 Antibiotics) morphine Allergy Unknown Other Uncoded 02/09/17 20:40 Home Meds: Home Meds Cholecalciferol (Vitamin D3) [Vitamin D3] 2,000 unit PO DAILY 12/31/14 [History] Metoprolol Succinate 75 mg PO DAILY 12/31/14 [History] Cetirizine [ZyrTEC] 10 mg PO DAILY 02/10/17 [History] Escitalopram [Lexapro] 10 mg PO DAILY 02/10/17 [History] ALPRAZolam [Xanax] 1 mg PO TID PRN #25 tablet 02/14/17 [Rx] Acetaminophen [Tylenol] 650 mg PO Q4H PRN MDD 3000 mg 02/06/18 [History] Acetaminophen/HYDROcodone [[place] 325-5 MG] 5 - 325 mg PO BID PRN 02/06/18 [ History] Albuterol [Ventolin HFA] 2 inh IH QID PRN 02/06/18 [History] Bisacodyl [Dulcolax] 10 mg RC Q24H PRN 02/06/18 [History] Ciprofloxacin HCl [Cipro] 1 tab PO BID #20 tablet 02/06/18 [Rx] Diclofenac Sodium 1 applic TOP BID PRN 02/06/18 [History] Docusate Sodium [Colace] 100 mg PO BID 02/06/18 [History] Magnesium Hydroxide [Milk of Magnesia] 30 ml PO Q24H PRN 02/06/18 [History] Potassium Chloride [Klor-Con M10] 10 meq PO DAILY 02/06/18 [History] guaiFENesin [Mucinex] 600 - 1,200 mg PO Q12H PRN 02/06/18 [History] Past Medical History HEENT History: Reports: Allergic Rhinitis Other HEENT History: wears glasses, has full upper denture and partial lower denture Cardiovascular History: Reports: Hypertension Respiratory History: Reports: None, COPD, Pneumonia, Recurrent Gastrointestinal History: Reports: None Genitourinary History: Reports: None BRASS MOLDER HELPER History: Reports: None Musculoskeletal History: Reports: Back Pain, Chronic, Neck Pain, Chronic, Other (See Below) Neurological History: Reports: None Other Neuro History: "bad nerves" Psychiatric History: Reports: Anxiety, Depression, Other (See Below) Other Psychiatric History: Takes medication for anxiety. Endocrine/Metabolic History: Reports: Other (See Below) Hematologic History: Reports: Anemia Immunologic History: Reports: None Oncologic (Cancer) History: Reports: None Dermatologic History: Reports: None - Infectious Disease History Infectious Disease History: Reports: Measles - Past Surgical History Head Surgeries/Procedures: Reports: None HEENT Surgical History: Reports: Naso-Sinus Surgery Cardiovascular Surgical History: Reports: None Respiratory Surgical History: Reports: None GI Surgical History: Reports: Cholecystectomy Female Surgical History: Reports: None Endocrine Surgical History: Reports: None Neurological Surgical History: Reports: None Musculoskeletal Surgical History: Reports: None Oncologic Surgical History: Reports: None Dermatological Surgical History: Reports: None Social & Family History - Family History Family Medical History: Noncontributory HEENT: Reports: None Cardiac: Reports: None Respiratory: Reports: None OBGYN: Reports: None Musculoskeletal: Reports: None Neurological: Reports: None Psychiatric: Reports: None Endocrine/Metabolic: Reports: None Hematologic: Reports: None Oncologic: Reports: Other (See Below) Other Oncologic Family History: neck CA - Tobacco Use Smoking Status *Q: Current Every Day Smoker Years of Tobacco use: 44 Packs/Tins Daily: 0.7 - Caffeine Use Caffeine Use: Reports: Coffee - Recreational Drug Use Recreational Drug Use: No - Living Situation & Occupation Living situation: Reports: Single (lives alone) ED ROS GENERAL - Review of Systems Review Of Systems: ROS reveals no pertinent complaints other than HPI. ED EXAM, GI/ABD - Physical Exam Exam: See Below Exam Limited By: No Limitations General Appearance: Alert, No Apparent Distress Ears: Normal External Exam Nose: Normal Inspection Throat/Mouth: Normal Inspection Head: Atraumatic, Normocephalic Neck: Normal Inspection Respiratory/Chest: No Respiratory Distress, Lungs Clear Cardiovascular: Normal Peripheral Pulses, Regular Rate, Rhythm, No Murmur GI/Abdominal Exam: Soft (Female) Exam: Other (Mild tenderness over the bladder) Neurological: Alert, Oriented Psychiatric: Normal Affect, Normal Mood Skin Exam: Warm, Dry, Intact, Normal Color, No Rash Lymphatic: No Adenopathy Course - Vital Signs Last Recorded V/S: Last Vital Signs Temp 36.1 C 02/06/18 15:23 Pulse 61 02/06/18 15:23 Resp 18 02/06/18 15:23 BP 171/69 H 02/06/18 15:23 Pulse Ox 97 02/06/18 15:23 Departure - Departure Time of Disposition: 17:01 Disposition: Home, Self-Care 01 Condition: Good Clinical Impression: UTI (urinary tract infection) Qualifiers: Urinary tract infection type: acute cystitis Hematuria presence: without hematuria Qualified Code(s): N30.00 - Acute cystitis without hematuria - Discharge Information Referrals: PCP,None [Primary Care Provider] - [facility] [Outside] [facility] [Outside] Additional Instructions: 1. Please take antibiotic twice daily 2. Drink plenty of fluids 3. Follow-up in primary care for continued symptoms
== END 2018-02-06 17:13 | disposition home or self-care (01) ==
LOC: MW.ED 15:12
DX: N30.00 Acute cystitis without hematuria (principal); I10 Essential (primary) hypertension; J44.9 Chronic obstructive pulmonary disease, unspecified; F41.9 Anxiety disorder, unspecified; F32.9 Major depressive disorder, single episode, unspecified; D64.9 Anemia, unspecified; F17.210 Nicotine dependence, cigarettes, uncomplicated; Z88.1 Allergy status to other antibiotic agents; Z88.0 Allergy status to penicillin; Z88.2 Allergy status to sulfonamides; Z87.01 Personal history of pneumonia (recurrent); Z88.5 Allergy status to narcotic agent; Z79.899 Other long term (current) drug therapy
CPT/HCPCS: 81001; 87086; 87088; 87186; 99283

== ENCOUNTER 2018-03-01 05:32 | Observation (INO) | payer MEDICARE, MEDICAID ==
[2018-03-01] MEDS ORDERED: Sodium Chloride 0.9% 1,000 ML IV ONE (05:38)
[2018-03-01] MEDS ORDERED: Sodium Chloride 0.9% 2.5 ML Syringe FLUSH PRN ×2 (05:38)
[2018-03-01] MEDS ORDERED: Sodium Chloride 0.9% 10 ML Syringe FLUSH PRN (05:38)
[2018-03-01] MEDS ORDERED: Ondansetron 4 MG/2 ML SDV IVPUSH ONE (05:40)
[2018-03-01] MEDS ORDERED: HYDROmorphone 2 MG/ML SDV IV ONE (05:40)
[2018-03-01] MEDS ORDERED: HYDROmorphone 1 MG/ML Syringe IVPUSH ONE (05:47)
--- NOTE | 2018-03-01 05:48 | EDM.PDOC ---
ED HPI GENERAL MEDICAL PROBLEM - General Chief Complaint: Chest Pain Stated Complaint: CHEST PAIN Time Seen by Provider: 03/01/18 05:36 Source of Information: Reports: Patient History Limitations: Reports: No Limitations - History of Present Illness INITIAL COMMENTS - FREE TEXT/NARRATIVE: HISTORY AND PHYSICAL: History of present illness: 67-year-old female brought to emergency department I ambulance with chief complaint of chest pain starting at 445 this morning with past medical history of hypertension and anxiety/depression. Patient states that she was awoke by substernal chest pain at around 445 this morning. States that the pain is continuous and sharp. States that the pain has been getting worse. There is no radiation, diaphoresis, nausea, or shortness of breath associated. Pain is currently 10 out of 10. Pain is worse with deep breaths. EMS states that when they initially assessed her she had a heart rate in the low 30s 40s and a blood pressure with systolics in the 90s. Secondary to above the did not give any nitroglycerin. They did give her 0.5 mg atropine which improved heart rate into the 70s as well as a pressure into the 120s. As per EMS her normal blood pressure is 120 systolic. Initial EKG and Route was reported to be sinus bradycardia. Patient did receive 324 mg of aspirin in route. Patient states that up until this episode she feeling her normal self and denies any recent illness. Denies any palpitations, syncopal episodes, or focal neurologic episodes. Initial EKG in emergency department showed normal sinus rhythm with a rate of [address] changes. 0600- After 0.5 mg Dilaudid pain improved to 5 out of 10. Secondary to lower blood pressure nitroglycerin was held. Initial exam heart is regular rate and rhythm, chest pain is reproducible. Patient states that the pain is worse with deep breaths. No other significant findings. Review of systems: As per history of present illness and below otherwise all systems reviewed and negative. Past medical history: As per history of present illness and as reviewed below otherwise noncontributory. Surgical history: As per history of present illness and as reviewed below otherwise noncontributory. Social history: No reported history of drug or alcohol abuse. Family history: As per history of present illness and as reviewed below otherwise noncontributory. Physical exam: HEENT: Atraumatic, normocephalic, pupils reactive, negative for conjunctival pallor or scleral icterus, mucous membranes moist, throat clear, neck supple, nontender, trachea midline. Lungs: Clear to auscultation, breath sounds equal bilaterally, chest nontender. Heart: S1S2, regular, negative for clicks, rubs, or JVD. Abdomen: Soft, nondistended, nontender. Negative for masses or hepatosplenomegaly. Negative for costovertebral tenderness. Pelvis: Stable nontender. Genitourinary: Deferred. Rectal: Deferred. Extremities: Atraumatic, negative for cords or calf pain. Neurovascular unremarkable. Neuro: Awake, alert, oriented. Cranial nerves II through XII unremarkable. Cerebellum unremarkable. Motor and sensory unremarkable throughout. Exam nonfocal. Diagnostics: CBC, CMP, troponin, INR, chest x-ray, EKG Therapeutics: 0.5 Dilaudid IV 1, 1 L normal saline 1, Zofran 4 mg IV 1, oxygen, Impression: Atypical chest pain Plan: CBC, CMP, troponin, INR, chest x-ray were all unremarkable. As above EKG showed normal sinus rhythm with no significant ST changes. Secondary to the patient's atypical chest pain as well as episode of bradycardia on transport here I did call hospitalist, Dr. Lux, who accepted patient for admission for observation atypical chest pain. Patient chest pain was decreased from 10/10 with to 5/10 0.5 mg of Dilaudid. She continued to have chest pain throughout her stay and secondary to her episode of lower blood pressure did not give her nitroglycerin. Definitive disposition and diagnosis as appropriate pending reevaluation and review of above. chest pain Pain Score (Numeric/FACES): 10 - Related Data Allergies Allergy/AdvReac Type Severity Reaction Status Date / Time amoxicillin [Amoxicillin] Allergy Other Verified 03/01/18 05:40 ampicillin Allergy Other Verified 03/01/18 05:40 digoxin Allergy Other Verified 03/01/18 05:40 doxycycline Allergy Other Verified 03/01/18 05:40 fentanyl Allergy Other Verified 03/01/18 05:40 nitrofurantoin Allergy Other Verified 03/01/18 05:40 [From Macrobid] nitrofurantoin Allergy Other Verified 03/01/18 05:40 macrocrystalline [From Macrobid] Penicillins Allergy Other Verified 03/01/18 05:40 Sulfa (Sulfonamide Allergy Other Verified 03/01/18 05:40 Antibiotics) morphine Allergy Unknown Other Uncoded 03/01/18 05:40 Home Meds: Home Meds Cholecalciferol (Vitamin D3) [Vitamin D3] 2,000 unit PO DAILY 12/31/14 [History] Metoprolol Succinate 75 mg PO DAILY 12/31/14 [History] Cetirizine [ZyrTEC] 10 mg PO DAILY 02/10/17 [History] Escitalopram [Lexapro] 10 mg PO DAILY 02/10/17 [History] Acetaminophen [Tylenol] 650 mg PO Q4H PRN MDD 3000 mg 02/06/18 [History] Acetaminophen/HYDROcodone [[place] 325-5 MG] 5 - 325 mg PO BID PRN 02/06/18 [ History] Albuterol [Ventolin HFA] 2 inh IH QID PRN 02/06/18 [History] Bisacodyl [Dulcolax] 10 mg RC Q24H PRN 02/06/18 [History] Diclofenac Sodium 1 applic TOP BID PRN 02/06/18 [History] Docusate Sodium [Colace] 100 mg PO BID 02/06/18 [History] Magnesium Hydroxide [Milk of Magnesia] 30 ml PO Q24H PRN 02/06/18 [History] Potassium Chloride [Klor-Con M10] 10 meq PO DAILY 02/06/18 [History] guaiFENesin [Mucinex] 600 - 1,200 mg PO Q12H PRN 02/06/18 [History] ALPRAZolam [Xanax] 1 mg PO BID PRN 03/01/18 [History] Past Medical History HEENT History: Reports: Allergic Rhinitis Other HEENT History: wears glasses, has full upper denture and partial lower denture Cardiovascular History: Reports: Hypertension Respiratory History: Reports: None, COPD, Pneumonia, Recurrent Gastrointestinal History: Reports: None Genitourinary History: Reports: None C[employer]ER History: Reports: None Musculoskeletal History: Reports: Back Pain, Chronic, Neck Pain, Chronic, Other (See Below) Neurological History: Reports: None Other Neuro History: "bad nerves" Psychiatric History: Reports: Anxiety, Depression, Other (See Below) Other Psychiatric History: Takes medication for anxiety. Endocrine/Metabolic History: Reports: Other (See Below) Hematologic History: Reports: Anemia Immunologic History: Reports: None Oncologic (Cancer) History: Reports: None Dermatologic History: Reports: None - Infectious Disease History Infectious Disease History: Reports: Measles - Past Surgical History Head Surgeries/Procedures: Reports: None HEENT Surgical History: Reports: Naso-Sinus Surgery Cardiovascular Surgical History: Reports: None Respiratory Surgical History: Reports: None GI Surgical History: Reports: Cholecystectomy Female Surgical History: Reports: None Endocrine Surgical History: Reports: None Neurological Surgical History: Reports: None Musculoskeletal Surgical History: Reports: None Oncologic Surgical History: Reports: None Dermatological Surgical History: Reports: None Social & Family History - Family History Family Medical History: Noncontributory HEENT: Reports: None Cardiac: Reports: None Respiratory: Reports: None OBGYN: Reports: None Musculoskeletal: Reports: None Neurological: Reports: None Psychiatric: Reports: None Endocrine/Metabolic: Reports: None Hematologic: Reports: None Oncologic: Reports: Other (See Below) Other Oncologic Family History: neck CA - Caffeine Use Caffeine Use: Reports: Coffee - Living Situation & Occupation Living situation: Reports: Single (lives alone) ED ROS GENERAL - Review of Systems Review Of Systems: ROS reveals no pertinent complaints other than HPI. ED EXAM, GENERAL - Physical Exam Exam: See Below Course - Vital Signs Last Recorded V/S: Last Vital Signs Temp 97 F 03/01/18 05:35 Pulse 58 L 03/01/18 06:00 Resp 18 03/01/18 06:00 BP 133/65 03/01/18 06:00 Pulse Ox 98 03/01/18 06:00 - Orders/Labs/Meds Orders: Active Orders 24 hr Category Date Time Status Cardiac Monitoring [RC] . DIRECTED Care 03/01/18 05:38 Active EKG Documentation Completion [RC] STAT Care 03/01/18 05:38 Active Oxygen Therapy [RC] ASDIRECTED Care 03/01/18 05:38 Active Pulse Oximetry [RC] ASDIRECTED Care 03/01/18 05:38 Active Chest 1V Frontal [CR] Stat Exams 03/01/18 05:39 Taken UA W/MICROSCOPIC [URIN] Stat Lab 03/01/18 05:39 Ordered Sodium Chloride 0.9% [Normal Saline] 1,000 ml Med 03/01/18 05:38 Active IV .Bolus Sodium Chloride 0.9% [Saline Flush] Med 03/01/18 05:38 Active 10 ml FLUSH ASDIRECTED PRN Sodium Chloride 0.9% [Saline Flush] Med 03/01/18 05:38 Active 2.5 ml FLUSH ASDIRECTED PRN Sodium Chloride 0.9% [Saline Flush] Med 03/01/18 05:38 Active 2.5 ml FLUSH ASDIRECTED PRN Saline Lock Insert [OM.PC] Stat Oth 03/01/18 05:38 Ordered Medication Orders Sodium Chloride (Normal Saline) 1,000 mls @ 999 mls/hr IV .Bolus ONE Stop: 03/01/18 06:38 Last Admin: 03/01/18 05:50 Dose: 999 mls/hr Sodium Chloride (Saline Flush) 2.5 ml FLUSH ASDIRECTED PRN PRN Reason: Keep Vein Open Sodium Chloride (Saline Flush) 10 ml FLUSH ASDIRECTED PRN PRN Reason: Keep Vein Open Sodium Chloride (Saline Flush) 2.5 ml FLUSH ASDIRECTED PRN PRN Reason: Keep Vein Open Labs: Laboratory Tests 03/01/18 03/01/18 03/01/18 Range/Units 05:50 05:50 05:50 WBC 10.12 (4.0-11.0) K/uL RBC 3.76 L (4.30-5.90) M/uL Hgb 12.2 (12.0-16.0) g/dL Hct 36.7 (36.0-46.0) % MCV 97.6 (80.0-98.0) fL MCH 32.4 H (27.0-32.0) pg MCHC 33.2 (31.0-37.0) g/dL RDW Std Deviation 49.6 (28.0-62.0) fl RDW Coeff of Dirk 14 (11.0-15.0) % Plt Count 208 (150-400) K/uL MPV 10.20 (7.40-12.00) fL Neut % (Auto) 63.7 (48.0-80.0) % Lymph % (Auto) 27.8 (16.0-40.0) % Isabella % (Auto) 5.3 (0.0-15.0) % Eos % (Auto) 2.5 (0.0-7.0) % Baso % (Auto) 0.7 (0.0-1.5) % Neut # (Auto) 6.5 H (1.4-5.7) K/uL Lymph # (Auto) 2.8 H (0.6-2.4) K/uL Isabella # (Auto) 0.5 (0.0-0.8) K/uL Eos # (Auto) 0.3 (0.0-0.7) K/uL Baso # (Auto) 0.1 (0.0-0.1) K/uL Nucleated RBC % 0.0 /100WBC Nucleated RBCs # 0 K/uL INR 0.96 Sodium 141 (136-145) mmol/L Potassium 3.6 (3.5-5.1) mmol/L Chloride 106 (98-107) mmol/L Carbon Dioxide 31.4 (21.0-32.0) mmol/L BUN 11 (7.0-18.0) mg/dL Creatinine 1.0 (0.6-1.0) mg/dL Est Cr Clr Drug Dosing 51.80 mL/min Estimated GFR (MDRD) 55.5 ml/min Glucose 101 (74-106) mg/dL Calcium 8.9 (8.5-10.1) mg/dL Total Bilirubin 0.3 (0.2-1.0) mg/dL AST 12 L (15-37) IU/L ALT 14 (14-63) IU/L Alkaline Phosphatase 40 L (46-116) U/L Troponin I < 0.050 (0.000-0.056) ng/mL Total Protein 6.8 (6.4-8.2) g/dL Albumin 3.3 L (3.4-5.0) g/dL Globulin 3.5 (2.0-3.5) g/dL Albumin/Globulin Ratio 0.9 L (1.3-2.8) Meds: Medications Generic Name Dose Route Start Last Admin Trade Name Freq PRN Reason Stop Dose Admin Sodium Chloride 1,000 mls @ 999 mls/hr 03/01/18 05:38 03/01/18 05:50 Normal Saline IV 03/01/18 06:38 999 mls/hr .Bolus ONE Administration Sodium Chloride 2.5 ml 03/01/18 05:38 Saline Flush FLUSH ASDIRECTED PRN Keep Vein Open Sodium Chloride 10 ml 03/01/18 05:38 Saline Flush FLUSH ASDIRECTED PRN Keep Vein Open Sodium Chloride 2.5 ml 03/01/18 05:38 Saline Flush FLUSH ASDIRECTED PRN Keep Vein Open Discontinued Medications Generic Name Dose Route Start Last Admin Trade Name Freq PRN Reason Stop Dose Admin Hydromorphone HCl 0.5 mg 03/01/18 05:40 03/01/18 05:57 Dilaudid IV 03/01/18 05:41 Not Given ONETIME ONE Hydromorphone HCl 0.5 mg 03/01/18 05:47 03/01/18 05:55 Dilaudid IVPUSH 03/01/18 05:48 0.5 mg ONETIME ONE Administration Ondansetron HCl 4 mg 03/01/18 05:40 03/01/18 05:52 Zofran IVPUSH 03/01/18 05:41 4 mg ONETIME ONE Administration Departure - Departure Time of Disposition: 06:39 Disposition: Admitted As Inpatient 67 Condition: Fair Clinical Impression: Atypical chest pain, Sinus bradycardia - Discharge Information Referrals: PCP,None [Primary Care Provider] - Forms: ED Department Discharge - My Orders Last 24 Hours: My Active Orders 03/01/18 05:38 Cardiac Monitoring [RC] . DIRECTED EKG Documentation Completion [RC] STAT Oxygen Therapy [RC] ASDIRECTED Pulse Oximetry [RC] ASDIRECTED Sodium Chloride 0.9% [Normal Saline] 1,000 ml IV .Bolus Sodium Chloride 0.9% [Saline Flush] 10 ml FLUSH ASDIRECTED PRN Sodium Chloride 0.9% [Saline Flush] 2.5 ml FLUSH ASDIRECTED PRN Sodium Chloride 0.9% [Saline Flush] 2.5 ml FLUSH ASDIRECTED PRN Saline Lock Insert [OM.PC] Stat 03/01/18 05:39 Chest 1V Frontal [CR] Stat UA W/MICROSCOPIC [URIN] Stat - Assessment/Plan Last 24 Hours: My Active Orders 03/01/18 05:38 Cardiac Monitoring [RC] . DIRECTED EKG Documentation Completion [RC] STAT Oxygen Therapy [RC] ASDIRECTED Pulse Oximetry [RC] ASDIRECTED Sodium Chloride 0.9% [Normal Saline] 1,000 ml IV .Bolus Sodium Chloride 0.9% [Saline Flush] 10 ml FLUSH ASDIRECTED PRN Sodium Chloride 0.9% [Saline Flush] 2.5 ml FLUSH ASDIRECTED PRN Sodium Chloride 0.9% [Saline Flush] 2.5 ml FLUSH ASDIRECTED PRN Saline Lock Insert [OM.PC] Stat 03/01/18 05:39 Chest 1V Frontal [CR] Stat UA W/MICROSCOPIC [URIN] Stat
[2018-03-01 06:25] LABS: CHLORIDE,CL 106 mmol/L (98-107); SODIUM,NA 141 mmol/L (136-145)
--- NOTE | 2018-03-01 09:16 | PCM.HP ---
H&P History of Present Illness - General Date of Service: 03/01/18 Admit Problem/Dx: Admission Diagnosis/Problem Admission Diagnosis/Problem Atypical chest pain Source of Information: Patient, Old Records (Dr Ochoa and [facility] reports reviewed.) History Limitations: Reports: No Limitations - History of Present Illness Initial Comments - Free Text/Narative: This 67 year old female with pmh of HTN, R hipx fracture 1 year ago, ventriculomegaly, and anxiety and depression presented to the ED this morning from [facility] with complaints of chest pain. This chest pain started around 0445, sharp shooting in nature, worse with movement and deep breathing. It does not radiate anywhere. No associated diaphoresis, SOB, palpitations, dizziness, lightheadedness or nausea. Pain medication in the ED made the pain better and lying still. She reports feeling normal yesterday and the days prior to this. No recent fevers, chills, abdominal pain, diarrhea or constipation. No urinary symptoms, no black or bloody BMs. When EMS arrived at [place] they noted her heart rate was sinus glenny in the 30-40s, she was given a dose of atropine and heart rate increased to the 70s. She had not received her daily medications today. She denies history of CAD, has known HTN. No DM type 2. She denies recent syncopal episodes of feeling lightheaded and has been up ambulating well with no concerns. In the ED labwork essentially normal. Troponin negative. EKG revealed SR rate in the 60-70s, No ischemic changes. CXR negative. She was given ASA by EMS, no nitro due to borderline BPs on arrival. Dilaudid was given for pain, which helped lower pain from 10/10 to 5/10. Currently chest pain is 4/10 again worse with movement and deep breathing. She will be admitted for atypical chest pain and bradycardia. PCP Dr Motta. chest pain Pain Score (Numeric/FACES): 3 - Related Data Allergies/Adverse Reactions: Allergies Allergy/AdvReac Type Severity Reaction Status Date / Time amoxicillin [Amoxicillin] Allergy Other Verified 03/01/18 05:40 ampicillin Allergy Other Verified 03/01/18 05:40 digoxin Allergy Other Verified 03/01/18 05:40 doxycycline Allergy Other Verified 03/01/18 05:40 fentanyl Allergy Other Verified 03/01/18 05:40 nitrofurantoin Allergy Other Verified 03/01/18 05:40 [From Macrobid] nitrofurantoin Allergy Other Verified 03/01/18 05:40 macrocrystalline [From Macrobid] Penicillins Allergy Other Verified 03/01/18 05:40 Sulfa (Sulfonamide Allergy Other Verified 03/01/18 05:40 Antibiotics) morphine Allergy Unknown Other Uncoded 03/01/18 05:40 Home Medications: Home Meds Cholecalciferol (Vitamin D3) [Vitamin D3] 2,000 unit PO DAILY 12/31/14 [History] Metoprolol Succinate 75 mg PO DAILY 12/31/14 [History] Cetirizine [ZyrTEC] 10 mg PO DAILY 02/10/17 [History] Escitalopram [Lexapro] 10 mg PO DAILY 02/10/17 [History] Acetaminophen [Tylenol] 650 mg PO Q4H PRN MDD 3000 mg 02/06/18 [History] Acetaminophen/HYDROcodone [[place] 325-5 MG] 5 - 325 mg PO BID PRN 02/06/18 [ History] Albuterol [Ventolin HFA] 2 inh IH QID PRN 02/06/18 [History] Bisacodyl [Dulcolax] 10 mg RC Q24H PRN 02/06/18 [History] Diclofenac Sodium 1 applic TOP BID PRN 02/06/18 [History] Docusate Sodium [Colace] 100 mg PO BID 02/06/18 [History] Magnesium Hydroxide [Milk of Magnesia] 30 ml PO Q24H PRN 02/06/18 [History] Potassium Chloride [Klor-Con M10] 10 meq PO DAILY 02/06/18 [History] guaiFENesin [Mucinex] 600 - 1,200 mg PO Q12H PRN 02/06/18 [History] ALPRAZolam [Xanax] 1 mg PO BID PRN 03/01/18 [History] Past Medical History HEENT History: Reports: Allergic Rhinitis Other HEENT History: wears glasses, has full upper denture and partial lower denture Cardiovascular History: Reports: Hypertension. Denies: Afib, Blood Clots/VTE/ DVT, CAD, Heart Failure, PA, SOB on Exertion, Stents Respiratory History: Reports: None, COPD, Pneumonia, Recurrent Gastrointestinal History: Reports: None. Denies: GERD, GI Bleed Genitourinary History: Reports: None. Denies: Chronic Renal Insuffiency [employer] History: Reports: None Musculoskeletal History: Reports: Back Pain, Chronic, Neck Pain, Chronic Neurological History: Reports: Other (See Below) (Ventriculomegaly, at one time evaluated for NPH) Psychiatric History: Reports: Anxiety, Depression Endocrine/Metabolic History: Reports: None. Denies: Diabetes, Type II Hematologic History: Reports: Anemia Immunologic History: Reports: None Oncologic (Cancer) History: Reports: None Dermatologic History: Reports: None - Infectious Disease History Infectious Disease History: Reports: Measles - Past Surgical History Head Surgeries/Procedures: Reports: None HEENT Surgical History: Reports: Naso-Sinus Surgery Cardiovascular Surgical History: Reports: None Respiratory Surgical History: Reports: None GI Surgical History: Reports: Cholecystectomy Female Surgical History: Reports: None Endocrine Surgical History: Reports: None Neurological Surgical History: Reports: None Musculoskeletal Surgical History: Reports: Other (See Below) (R hip fracture 2016 s/p rafal hip) Oncologic Surgical History: Reports: None Dermatological Surgical History: Reports: None Social & Family History - Family History Family Medical History: Noncontributory HEENT: Reports: None Cardiac: Reports: None Respiratory: Reports: None OBGYN: Reports: None Musculoskeletal: Reports: None Neurological: Reports: None Psychiatric: Reports: None Endocrine/Metabolic: Reports: None Hematologic: Reports: None Oncologic: Reports: Other (See Below) Other Oncologic Family History: neck CA - Tobacco Use Smoking Status *Q: Current Every Day Smoker Years of Tobacco use: 20 Packs/Tins Daily: 0.5 - Caffeine Use Caffeine Use: Reports: Coffee - Alcohol Use Alcohol Use History: No - Recreational Drug Use Recreational Drug Use: No - Living Situation & Occupation Living situation: Reports: Single, Other (resident at [facility]) H&P Review of Systems - Review of Systems: Review Of Systems: See Below General: Denies: Fever, Chills, Malaise, Weakness HEENT: Reports: No Symptoms. Denies: Headaches, Sinus Congestion, Sore Throat, Vertigo Pulmonary: Denies: Shortness of Breath, Cough, Sputum Cardiovascular: Reports: Chest Pain (4/10 currently reproducible midsternall with palpation. ). Denies: Palpitations, Dyspnea on Exertion, Edema, Lightheadedness, Syncope Gastrointestinal: Reports: No Symptoms. Denies: Abdominal Pain, Black Stool, Bloody Stool, Decreased Appetite, Nausea, Vomiting Genitourinary: Reports: No Symptoms. Denies: Dysuria, Frequency, Burning Musculoskeletal: Reports: No Symptoms. Denies: Neck Pain Skin: Reports: No Symptoms Psychiatric: Reports: No Symptoms. Denies: Confusion Neurological: Reports: Other (reports bad memory) Hematologic/Lymphatic: Reports: No Symptoms Immunologic: Reports: No Symptoms Exam - Exam Exam: See Below - Vital Signs Vital Signs: Last Vital Signs Temp 95.6 F 03/01/18 07:53 Pulse 53 L 03/01/18 07:53 Resp 20 03/01/18 07:53 BP 144/90 H 03/01/18 07:53 Pulse Ox 99 03/01/18 07:53 Weight: 62.142 kg - Exam General: Alert, Oriented (easily reoriented, slight confusion at times, but redirected easily. ), Cooperative HEENT: Conjunctiva Clear, Mucosa Moist & [place], Nares Patent, Posterior Pharynx Clear Neck: Supple, Trachea Midline, +2 Carotid Pulse wo Bruit, Full Range of Motion. No: Lymphadenopathy Lungs: Clear to Auscultation, Normal Respiratory Effort Cardiovascular: Regular Rhythm, Normal S1, Normal S2, Bradycardia, Other ( tednerness noted to midsternal region with palpation and she reports this reproduces her sharp pain she is feeling. ). No: Systolic Murmur GI/Abdominal Exam: Normal Bowel Sounds, Soft, Non-Tender Extremities: Normal Inspection, Normal Range of Motion, Non-Tender Neuro Extensive - Mental Status: Alert, Oriented x3, Normal Mood/Affect, Memory Intact (needs some redirecting or prompting. otherwise is oriented. ) Neuro Extensive - Motor, Sensory, Reflexes: CN II-XII Intact, Normal Gait Psychiatric: Alert, Normal Affect, Normal Mood - Patient Data Lab Results Last 24 hrs: Laboratory Results - last 24 hr 03/01/18 03/01/18 03/01/18 Range/Units 05:50 05:50 05:50 WBC 10.12 (4.0-11.0) K/uL RBC 3.76 L (4.30-5.90) M/uL Hgb 12.2 (12.0-16.0) g/dL Hct 36.7 (36.0-46.0) % MCV 97.6 (80.0-98.0) fL MCH 32.4 H (27.0-32.0) pg MCHC 33.2 (31.0-37.0) g/dL RDW Std Deviation 49.6 (28.0-62.0) fl RDW Coeff of Dirk 14 (11.0-15.0) % Plt Count 208 (150-400) K/uL MPV 10.20 (7.40-12.00) fL Neut % (Auto) 63.7 (48.0-80.0) % Lymph % (Auto) 27.8 (16.0-40.0) % [place] % (Auto) 5.3 (0.0-15.0) % Eos % (Auto) 2.5 (0.0-7.0) % Baso % (Auto) 0.7 (0.0-1.5) % Neut # (Auto) 6.5 H (1.4-5.7) K/uL Lymph # (Auto) 2.8 H (0.6-2.4) K/uL [place] # (Auto) 0.5 (0.0-0.8) K/uL Eos # (Auto) 0.3 (0.0-0.7) K/uL Baso # (Auto) 0.1 (0.0-0.1) K/uL Nucleated RBC % 0.0 /100WBC Nucleated RBCs # 0 K/uL INR 0.96 Sodium 141 (136-145) mmol/L Potassium 3.6 (3.5-5.1) mmol/L Chloride 106 (98-107) mmol/L Carbon Dioxide 31.4 (21.0-32.0) mmol/L BUN 11 (7.0-18.0) mg/dL Creatinine 1.0 (0.6-1.0) mg/dL Est Cr Clr Drug Dosing 51.80 mL/min Estimated GFR (MDRD) 55.5 ml/min Glucose 101 (74-106) mg/dL Calcium 8.9 (8.5-10.1) mg/dL Total Bilirubin 0.3 (0.2-1.0) mg/dL AST 12 L (15-37) IU/L ALT 14 (14-63) IU/L Alkaline Phosphatase 40 L (46-116) U/L Troponin I < 0.050 (0.000-0.056) ng/mL Total Protein 6.8 (6.4-8.2) g/dL Albumin 3.3 L (3.4-5.0) g/dL Globulin 3.5 (2.0-3.5) g/dL Albumin/Globulin Ratio 0.9 L (1.3-2.8) Result Diagrams: 03/01/18 05:50 03/01/18 05:50 EKG INTERPRETATION EKG Date: 03/01/18 Time: 05:30 Rhythm: NSR Rate (Beats/Min): 69 P-Wave: Present QRS: Normal ST-T: Normal QT: Normal *Q Meaningful Use (ADM) - VTE Risk Assess *Q Each Risk Factor Represents 1 Point: Abnormal Pulmonary Function (COPD) Total Score 1 Point Risk Factors: 1 Each Risk Factor Represents 2 Points: Age 60 - 74 Years Total Score 2 Point Risk Factors: 2 Each Risk Factor Represents 3 Points: None Total Score 3 Point Risk Factors: 0 Each Risk Factor Represents 5 Points: None Total Score 5 Point Risk Factors: 0 Venous Thromboembolism Risk Factor Score *Q: 3 - Problem List (1) Atypical chest pain SNOMED Code(s): 147142556 ICD Code: R07.89 - OTHER CHEST PAIN Status: Acute Current Visit: Yes (2) Sinus bradycardia SNOMED Code(s): 37538263 ICD Code: R00.1 - BRADYCARDIA, UNSPECIFIED Status: Acute Current Visit: Yes (3) Anxiety SNOMED Code(s): 62671618 ICD Code: F41.9 - ANXIETY DISORDER, UNSPECIFIED Status: Chronic Current Visit: No (4) Chronic neck pain SNOMED Code(s): 5549537652814 ICD Code: M54.2 - CERVICALGIA; G89.29 - OTHER CHRONIC PAIN Status: Chronic Current Visit: No (5) HTN (hypertension) SNOMED Code(s): 04809433 ICD Code: I10 - ESSENTIAL (PRIMARY) HYPERTENSION Status: Chronic Current Visit: No Qualifiers: Hypertension type: essential hypertension Qualified Code(s): I10 - Essential (primary) hypertension (6) Depression SNOMED Code(s): 55640926 ICD Code: F32.9 - MAJOR DEPRESSIVE DISORDER, SINGLE EPISODE, UNSPECIFIED Status: Chronic Current Visit: Yes (7) Idiopathic normal pressure hydrocephalus (INPH) SNOMED Code(s): 49076365, 43200121 ICD Code: G91.2 - (IDIOPATHIC) NORMAL PRESSURE HYDROCEPHALUS Status: Chronic Current Visit: Yes Problem List Initiated/Reviewed/Updated: Yes Orders Last 24hrs: Active Orders 24 hr Category Date Time Status Admission Status [Patient Status] [ADT] Stat ADT 03/01/18 06:40 Active Cardiac Monitoring [RC] . DIRECTED Care 03/01/18 06:45 Active Cardiac Monitoring [RC] Q8H Care 03/01/18 05:38 Active EKG Documentation Completion [RC] STAT Care 03/01/18 05:38 Active Oxygen Therapy [RC] ASDIRECTED Care 03/01/18 05:38 Active Pulse Oximetry [RC] ASDIRECTED Care 03/01/18 05:38 Active Telemetry Monitoring [Cardiac Monitoring] [RC] . Care 03/01/18 07:07 Active DIRECTED Chest 1V Frontal [CR] Stat Exams 03/01/18 05:39 Taken UA W/MICROSCOPIC [URIN] Stat Lab 03/01/18 05:39 Ordered Sodium Chloride 0.9% [Saline Flush] Med 03/01/18 05:38 Active 10 ml FLUSH ASDIRECTED PRN Sodium Chloride 0.9% [Saline Flush] Med 03/01/18 05:38 Active 2.5 ml FLUSH ASDIRECTED PRN Sodium Chloride 0.9% [Saline Flush] Med 03/01/18 05:38 Active 2.5 ml FLUSH ASDIRECTED PRN Saline Lock Insert [OM.PC] Stat Oth 03/01/18 05:38 Ordered Medication Orders Sodium Chloride (Saline Flush) 2.5 ml FLUSH ASDIRECTED PRN PRN Reason: Keep Vein Open Sodium Chloride (Saline Flush) 10 ml FLUSH ASDIRECTED PRN PRN Reason: Keep Vein Open Sodium Chloride (Saline Flush) 2.5 ml FLUSH ASDIRECTED PRN PRN Reason: Keep Vein Open Assessment/Plan Comment:: This 67 year old female admitted with atypical chest pain and bradycardia 1. Atypical chest pain: reproducible chest pain with palpation and deep breathing. But will rule out for ACS. Trend troponins and monitor on Telemetry. Will obtain Lipid panel and A1c. 2. Asymptomatic bradycardia: HOLD Metoprolol for now. Consult Dr Deeprasertkul. Monitor on telemetry. 3. Anxiety/Depression: Continue Alprazolam and Lexapro 4. HTN: Stable. Holding Metoprolol will monitor BPs. VTE prophylaxis: Lovenox. Dispo: 1-2 days
[2018-03-01] MEDS ORDERED: Albuterol 8 GM Inhaler INH PRN (09:29)
[2018-03-01] MEDS ORDERED: ALPRAZolam 0.5 MG Tab PO PRN (09:29)
[2018-03-01] MEDS ORDERED: Acetaminophen/HYDROcodone 325-5 MG Tab PO PRN (09:29)
[2018-03-01] MEDS ORDERED: Acetaminophen 325 MG Tab PO PRN (09:29)
[2018-03-01] MEDS ORDERED: Morphine 2 MG/ML Syringe IVPUSH PRN (09:31)
[2018-03-01] MEDS: Docusate Sodium 100 MG Cap PO SCH ×2 (09:59→20:28)
[2018-03-01] MEDS: Escitalopram 10 MG Tab PO SCH (10:00)
[2018-03-01] MEDS: Enoxaparin 40 MG/0.4 ML Syringe SUBCUT SCH (10:00)
[2018-03-01] MEDS: Cetirizine 10 MG Tab PO SCH (10:00)
--- NOTE | 2018-03-01 14:02 | CR ---
EXAM DATE: 03/01/18 PATIENT'S AGE: 67 Patient: TAY DARDEN Facility: [place], [place] Site . Site : 1950 Study: XRay Chest [id number] 6:15:25 AM Ordering Physician: Moises Roman Final Report: INDICATION: Chest pain TECHNIQUE: Chest 1 views COMPARISON: 12/23/2016 FINDINGS: Cardiovascular and mediastinum: Heart size and vasculature are normal in caliber and appearance. Lungs and pleural spaces: Lungs are clear. No sign of infiltrate or mass. No sign of pleural effusion. No pneumothorax. Bones and soft tissues: No significant findings. IMPRESSION: No acute findings and no significant changes from the prior exam. Dictated by Gaetano Brown MD @ Mar 01 2018 6:30AM (Electronic Signature) Report Signed by Proxy. KHANH
--- NOTE | 2018-03-01 14:12 | CONS ---
DATE OF CONSULTATION: 03/01/2018 DATE OF : 1950 PRIMARY CARE PHYSICIAN: None PCP REASON FOR CONSULTATION: Bradycardia and chest pain. HISTORY OF PRESENT ILLNESS: This is a 67-year-old female who has a history of hypertension, normal pressure hydrocephalus, history of imbalance, history of hip fracture, status post hip surgery. She has been in the [facility] for rehab for a long period of time for almost a year, since last year. She basically was sent from [facility] due to the chest pain. My feeling is that she may have some sort of early dementia; however, it is still unclear if she has a dementia or not and seems like she has a memory problem and she has a problem recalling the details of the symptoms. Apparently, she said she has a chest pain that started this morning around 4:00 a.m., woke her up. It was sharp pain, retrosternal area, no radiation. It was very severe pain like 10/10 on a pain scale. She stated that it seemed to be subsided, but she still has some chest pain until now, which has been 7 or 8 hours. An EKG, currently there are no ST changes. Troponin was negative for one time. She was brought here by the ambulance. In the ambulance, she was found to have a bradycardia with a heart rate of 30. She received 1 dose of atropine 0.5 IV and her heart rate improved to 70. Her medications including the metoprolol 75 mg once a day, which she has been on for years. Otherwise, she denies sweating, shortness of breath, nausea, vomiting, dizziness, or passing out. Currently, she stated that she can walk now by herself. She was a little unclear of what reason that she need to be on the long-term assisted facility.. ALLERGIES: She has multiple allergies to the medication includin. Amoxicillin. 2. Ampicillin. 3. Digoxin. 4. Doxycycline. 5. Fentanyl. 6. Nitrofurantoin. 7. Penicillin. 8. Sulfa. 9. Morphine. MEDICATIONS: Home medications include: 1. Metoprolol succinate 75 mg once a day. 2. Lexapro 10 mg once a day. 3. Vitamin D3. 4. Magnesium hydroxide. 5. Guaifenesin. 6. Xanax 1 mg twice a day p.r.n. 7. Albuterol inhalers. Metoprolol has been stopped because of her bradycardia. PAST MEDICAL HISTORY: Including hypertension. She denied history of a heart attack or having a stent placed or heart failure. She has a history of COPD. SOCIAL HISTORY: She currently smoking. No drug use. No alcohol use. FAMILY HISTORY: She denied the family history of CAD in her family. She is single. Do not have care of . She lived in the [facility] for a year for now. She has her brother who is supposed to be a POA, but I am not sure it is official POA or not. REVIEW OF SYSTEMS: Except indicated in HPI, otherwise has been negative. PHYSICAL EXAMINATION: VITAL SIGNS: Blood pressure is 136/63, currently 139/58; heart rate improved, initially 67, currently 60, the lowest one was 49; temperature 36.6; O2 saturation is 98% on 2 L; respirations 20. HEENT: Not pale. No jaundice. NECK: No JVD. HEART: Normal S1 and S2. No murmur. LUNGS: Clear. ABDOMEN: Soft. Nontender. Bowel sounds are present. No hepatosplenomegaly. EXTREMITIES: Legs have no edema. LABORATORY INVESTIGATIONS: CBC showed WBC of 10, hematocrit of 36, hemoglobin of 12, platelets of 208. INR is 0.9. Sodium 141, potassium 3.6, chloride 106, bicarb 31, BUN 11, creatinine is 1. A1c is 5.7. Troponin is negative x1. EKG shows sinus rhythm, heart rate of 69, [place] interval of 209, QRS duration 92, QTc interval 459. No ST changes. ASSESSMENT AND PLAN: This is a 67-year-old female, status post hip surgery, assisted resident, hypertension, questioning dementia, history of normal pressure hydrocephalus, presents to the hospital with chest pain and bradycardia. Currently, her bradycardia has improved after beta tre was stopped. She has been on the beta tre for a long time for blood pressure and blood pressure seemed to be increasing. We can use amlodipine low dose for the blood pressure control. Regarding the chest pain, this is not typical for cardiac angina, but given the history of smoking as well as hypertension, she would need a stress test to be done due to the hip surgery, I would recommend to have the chemical-induced stress test. This can be done as an outpatient. So far, there is no sign of myocardial infarction. Troponin is to remain negative and her heart rate has improved now to 50 to 60s. An echocardiogram has been ordered. KHALIF / NORBERTO /[id number]
[2018-03-02 08:20] VITALS: BP 96/59
--- NOTE | 2018-03-02 08:21 | PCM.DCSUM1 ---
Discharge Summary - Hospital Course Brief History: This 67 year old female with pmh of HTN, R hipx fracture 1 year ago, ventriculomegaly, and anxiety and depression presented to the ED this morning from [facility] with complaints of chest pain. This chest pain started around 0445, sharp shooting in nature, worse with movement and deep breathing. It does not radiate anywhere. No associated diaphoresis, SOB, palpitations, dizziness, lightheadedness or nausea. Pain medication in the ED made the pain better and lying still. She reports feeling normal yesterday and the days prior to this. No recent fevers, chills, abdominal pain, diarrhea or constipation. No urinary symptoms, no black or bloody BMs. When EMS arrived at [facility] they noted her heart rate was sinus glenny in the 30-40s, she was given a dose of atropine and heart rate increased to the 70s. She had not received her daily medications today. She denies history of CAD, has known HTN. No DM type 2. She denies recent syncopal episodes of feeling lightheaded and has been up ambulating well with no concerns. In the ED labwork essentially normal. Troponin negative. EKG revealed SR rate in the 60-70s, No ischemic changes. CXR negative. She was given ASA by EMS, no nitro due to borderline BPs on arrival. Dilaudid was given for pain, which helped lower pain from 10/10 to 5/10. Currently chest pain is 4/ 10 again worse with movement and deep breathing. She will be admitted for atypical chest pain and bradycardia. PCP Dr Motta. - Discharge Data Discharge Date: 03/02/18 Discharge Disposition: DC/Tfer to [facility] 03 Condition: Good - Discharge Diagnosis/Problem(s) (1) Atypical chest pain SNOMED Code(s): 636233662 ICD Code: R07.89 - OTHER CHEST PAIN Status: Acute Current Visit: Yes (2) Sinus bradycardia SNOMED Code(s): 65830889 ICD Code: R00.1 - BRADYCARDIA, UNSPECIFIED Status: Acute Current Visit: Yes (3) Anxiety SNOMED Code(s): 36812739 ICD Code: F41.9 - ANXIETY DISORDER, UNSPECIFIED Status: Chronic Current Visit: No (4) Chronic neck pain SNOMED Code(s): 7023231259935 ICD Code: M54.2 - CERVICALGIA; G89.29 - OTHER CHRONIC PAIN Status: Chronic Current Visit: No (5) HTN (hypertension) SNOMED Code(s): 96581281 ICD Code: I10 - ESSENTIAL (PRIMARY) HYPERTENSION Status: Chronic Current Visit: No Qualifiers: Hypertension type: essential hypertension Qualified Code(s): I10 - Essential (primary) hypertension (6) Depression SNOMED Code(s): 54086485 ICD Code: F32.9 - MAJOR DEPRESSIVE DISORDER, SINGLE EPISODE, UNSPECIFIED Status: Chronic Current Visit: Yes (7) Idiopathic normal pressure hydrocephalus (INPH) SNOMED Code(s): 84089013, 68295556 ICD Code: G91.2 - (IDIOPATHIC) NORMAL PRESSURE HYDROCEPHALUS Status: Chronic Current Visit: Yes - Patient Summary/Data Consults: Consultations 03/01/18 09:43 Consult to Physician [CONS] Routine - Patient Instructions Diet: Heart Healthy Diet Activity: As Tolerated, No Strenuous Activities Showering/Bathing: May Shower Notify Provider of: Fever, Increased Pain, Swelling and Redness, Drainage, Nausea and/or Vomiting - Discharge Plan Prescriptions/Med Rec: Acetaminophen/HYDROcodone [[place] 325-5 MG] 1 tab PO BID PRN #10 tablet PRN Reason: Pain ALPRAZolam [Xanax] 1 mg PO BID PRN #10 tablet PRN Reason: Anxiety Home Medications: Home Meds Cholecalciferol (Vitamin D3) [Vitamin D3] 2,000 unit PO DAILY 12/31/14 [History] Cetirizine [ZyrTEC] 10 mg PO DAILY 02/10/17 [History] Escitalopram [Lexapro] 10 mg PO DAILY 02/10/17 [History] Acetaminophen [Tylenol] 650 mg PO Q4H PRN MDD 3000 mg 02/06/18 [History] Albuterol [Ventolin HFA] 2 inh IH QID PRN 02/06/18 [History] Bisacodyl [Dulcolax] 10 mg RC Q24H PRN 02/06/18 [History] Diclofenac Sodium 1 applic TOP BID PRN 02/06/18 [History] Docusate Sodium [Colace] 100 mg PO BID 02/06/18 [History] Magnesium Hydroxide [Milk of Magnesia] 30 ml PO Q24H PRN 02/06/18 [History] Potassium Chloride [Klor-Con M10] 10 meq PO DAILY 02/06/18 [History] guaiFENesin [Mucinex] 600 - 1,200 mg PO Q12H PRN 02/06/18 [History] ALPRAZolam [Xanax] 1 mg PO BID PRN #10 tablet 03/02/18 [Rx] Acetaminophen/HYDROcodone [[place] 325-5 MG] 1 tab PO BID PRN #10 tablet 03/02/18 [Rx] Forms: ED Department Discharge Referrals: PCP,None [Primary Care Provider] - David Motta MD [Physician] - (Next [place] Rounds) - Discharge Summary/Plan Comment DC Time >30 min.: No Discharge Summary/Plan Comment: Discharge Diagnoses: Atypical chest pain- resolved Bradycardia- asymptomatic, resolved Hx HTN Mild cognitive impairment Tobacco abuse Earnestine was admitted for atypical chest pain and bradycardia. Chest pain resolved and currently is pain free. Pain likely not cardiac in nature. Troponins negative and EKG remained SR with no ischemic changes. Metoprolol was held due to bradycardia, which has now resolved. BP stable. Consulted with Dr Obregon regrding bradycardia, he agreed on stopping Metoprolol and adding low dose Amlodipine if needed for BP management. Today BP low 100 SBP. Will continue to monitor. She is very eager to be discharged back to [place] this morning. Denies any pain. She is stable and ready for discharge. Will continue all medications, but discontinue Metoprolol for now. She is to see PCP on next [place] rounds and will also have follow up with Dr Obregon in 1 week as well, who is considering Lexiscan. ECHO pending on discharge. She is to return to ED or clinic if concerns should arise. - General Info Date of Service: 03/02/18 Admission Dx/Problem (Free Text: Admission Diagnosis/Problem Admission Diagnosis/Problem Atypical chest pain Subjective Update: Sitting on edge of bed, fully dressed and asking for discharge home. Removed telemetry and IV per self this morning. Alert and slightly disoriented but easily reoriented upon talking. No chest pain or SOB. feels great this morning. Functional Status: Reports: Pain Controlled, Tolerating Diet, Ambulating, Urinating - Review of Systems General: Reports: No Symptoms. Denies: Fever, Weakness, Fatigue HEENT: Reports: No Symptoms. Denies: Headaches, Sore Throat, Visual Changes Pulmonary: Reports: No Symptoms. Denies: Shortness of Breath, Cough, Sputum Cardiovascular: Reports: No Symptoms. Denies: Chest Pain, Lightheadedness Gastrointestinal: Reports: No Symptoms. Denies: Abdominal Pain, Nausea, Vomiting Genitourinary: Reports: No Symptoms. Denies: Dysuria, Frequency, Burning Neurological: Reports: No Symptoms Psychiatric: Reports: No Symptoms - Patient Data Vitals - Most Recent: Last Vital Signs Temp 97.6 F 03/02/18 08:00 Pulse 88 03/02/18 08:00 Resp 18 03/02/18 08:00 BP 96/59 L 03/02/18 08:00 Pulse Ox 96 03/02/18 08:00 Weight - Most Recent: 62.142 kg I&O - Last 24 hours: Intake & Output 03/01/18 03/02/18 03/02/18 22:59 06:59 14:59 Intake Total 790 250 Output Total 1250 0 Balance -460 250 Lab Results - Last 24 hrs: Laboratory Results - last 24 hr 03/01/18 03/01/18 03/01/18 Range/Units 05:50 05:50 10:18 Hemoglobin A1c 5.7 (4.5-6.2) % Troponin I (0.000-0.056) ng/mL Triglycerides 76 (0-200) mg/dL Cholesterol 188 (50-200) mg/dL LDL Cholesterol, Calc 111 (60-180) mg/dL VLDL Cholesterol 15 (5-55) mg/dL HDL Cholesterol 62 H (40-60) mg/dL Cholesterol/HDL Ratio 3.0 L (3.3-6.0) Urine Color YELLOW Urine Appearance CLEAR Urine pH 5.5 (5.0-8.0) Ur Specific [place] 1.015 (1.001-1.035) Urine Protein NEGATIVE (NEGATIVE) mg/dL Urine Glucose (UA) NEGATIVE (NEGATIVE) mg/dL Urine Ketones NEGATIVE (NEGATIVE) mg/dL Urine Occult Blood NEGATIVE (NEGATIVE) Urine Nitrite NEGATIVE (NEGATIVE) Urine Bilirubin NEGATIVE (NEGATIVE) Urine Urobilinogen 0.2 (<2.0) EU/dL Ur Leukocyte Esterase NEGATIVE (NEGATIVE) Urine RBC 0-1 (0-2/HPF) Urine WBC 0-1 (0-5/HPF) Ur Epithelial Cells RARE (NONE-FEW) Amorphous Sediment RARE (NEGATIVE) Urine Bacteria RARE (NEGATIVE) 03/01/18 03/01/18 Range/Units 12:10 18:12 Hemoglobin A1c (4.5-6.2) % Troponin I < 0.050 < 0.050 (0.000-0.056) ng/mL Triglycerides (0-200) mg/dL Cholesterol (50-200) mg/dL LDL Cholesterol, Calc (60-180) mg/dL VLDL Cholesterol (5-55) mg/dL HDL Cholesterol (40-60) mg/dL Cholesterol/HDL Ratio (3.3-6.0) Urine Color Urine Appearance Urine pH (5.0-8.0) Ur Specific [place] (1.001-1.035) Urine Protein (NEGATIVE) mg/dL Urine Glucose (UA) (NEGATIVE) mg/dL Urine Ketones (NEGATIVE) mg/dL Urine Occult Blood (NEGATIVE) Urine Nitrite (NEGATIVE) Urine Bilirubin (NEGATIVE) Urine Urobilinogen (<2.0) EU/dL Ur Leukocyte Esterase (NEGATIVE) Urine RBC (0-2/HPF) Urine WBC (0-5/HPF) Ur Epithelial Cells (NONE-FEW) Amorphous Sediment (NEGATIVE) Urine Bacteria (NEGATIVE) Med Orders - Current: Current Medications Acetaminophen (Tylenol) 650 mg PO Q4H PRN PRN Reason: Pain/Fever Last Admin: 03/01/18 20:28 Dose: 650 mg Hydrocodone Bitart/Acetaminophen ([place] 325-5 Mg) 1 tab PO BID PRN PRN Reason: Pain Albuterol (Ventolin Hfa) 8 gm INH QID PRN PRN Reason: Shortness of Breath Alprazolam (Xanax) 1 mg PO BID PRN PRN Reason: Anxiety Last Admin: 03/01/18 15:08 Dose: 1 mg Cetirizine HCl (Zyrtec) 10 mg PO DAILY [facility] Last Admin: 03/01/18 10:00 Dose: 10 mg Docusate Sodium (Colace) 100 mg PO BID [facility] Last Admin: 03/01/18 20:28 Dose: 100 mg Enoxaparin Sodium (Lovenox) 40 mg SUBCUT Q24H [facility] Last Admin: 03/01/18 10:00 Dose: 40 mg Escitalopram Oxalate (Lexapro) 10 mg PO DAILY [facility] Last Admin: 03/01/18 10:00 Dose: 10 mg Morphine Sulfate (Morphine) 2 mg IVPUSH Q4H PRN PRN Reason: Severe pain Sodium Chloride (Saline Flush) 2.5 ml FLUSH ASDIRECTED PRN PRN Reason: Keep Vein Open Sodium Chloride (Saline Flush) 10 ml FLUSH ASDIRECTED PRN PRN Reason: Keep Vein Open Sodium Chloride (Saline Flush) 2.5 ml FLUSH ASDIRECTED PRN PRN Reason: Keep Vein Open Discontinued Medications Hydromorphone HCl (Dilaudid) 0.5 mg IV ONETIME ONE Stop: 03/01/18 05:41 Last Admin: 03/01/18 05:57 Dose: Not Given Hydromorphone HCl (Dilaudid) 0.5 mg IVPUSH ONETIME ONE Stop: 03/01/18 05:48 Last Admin: 03/01/18 05:55 Dose: 0.5 mg Sodium Chloride (Normal Saline) 1,000 mls @ 999 mls/hr IV .Bolus ONE Stop: 03/01/18 06:38 Last Admin: 03/01/18 05:50 Dose: 999 mls/hr Ondansetron HCl (Zofran) 4 mg IVPUSH ONETIME ONE Stop: 03/01/18 05:41 Last Admin: 03/01/18 05:52 Dose: 4 mg - Exam General: Reports: Alert, Cooperative, No Acute Distress. Denies: Oriented ( slightly disoriented initially, but reorients easily. Eager to go back to [place] this morning. ) Lungs: Reports: Clear to Auscultation, Normal Respiratory Effort Cardiovascular: Reports: Regular Rate, Regular Rhythm GI/Abdominal Exam: Normal Bowel Sounds, Soft, Non-Tender Extremities: Normal Inspection, Normal Range of Motion, Non-Tender Neurological: Reports: No New Focal Deficit Psy/Mental Status: Reports: Alert, Normal Affect, Normal Mood
[2018-03-02] MEDS: Escitalopram 10 MG Tab PO SCH (08:28)
[2018-03-02] MEDS: Docusate Sodium 100 MG Cap PO SCH (08:28)
[2018-03-02] MEDS: Cetirizine 10 MG Tab PO SCH (08:28)
[2018-03-02] MEDS: Enoxaparin 40 MG/0.4 ML Syringe SUBCUT SCH (09:19)
--- NOTE | 2018-03-02 19:51 | ECHO ---
The echocardiogram report can be seen in this patient's EMR (Electronic Medical Record) in the Reports section. The echocardiogram report has been scanned into PACS and can be seen there as well. KHANH
== END 2018-03-02 10:00 ==
LOC: MW.ED 05:32 → MW.MS 06:40
PROVIDERS: ADMIT Internal Medicine; ATTEND Internal Medicine
DX: R07.9 Chest pain, unspecified (principal); R00.1 Bradycardia, unspecified; G91.2 (Idiopathic) normal pressure hydrocephalus; G89.29 Other chronic pain; M54.2 Cervicalgia; I10 Essential (primary) hypertension; F41.9 Anxiety disorder, unspecified; F32.9 Major depressive disorder, single episode, unspecified; Z79.899 Other long term (current) drug therapy; F17.200 Nicotine dependence, unspecified, uncomplicated; Z88.0 Allergy status to penicillin; Z88.1 Allergy status to other antibiotic agents; Z88.2 Allergy status to sulfonamides; Z88.5 Allergy status to narcotic agent; Z88.8 Allergy status to other drugs, medicaments and biological substances
CPT/HCPCS: 36415; 71045; 80053; 80061; 81001; 83036; 84484; 85025; 85610; 93005; 93306; 96361; 96374; 96375; 99285; A9270; J1170; J1650; J2405; J7040; 96372; 99283; G0378

== ENCOUNTER 2019-11-15 17:36 | Observation (INO) | payer MEDICARE, MEDICAID, OTHER ==
--- NOTE | 2019-11-15 18:28 | EDM.PDOC ---
ED HPI GENERAL MEDICAL PROBLEM - General Chief Complaint: Fever Stated Complaint: [facility] Time Seen by Provider: 11/15/19 18:15 Source of Information: Reports: Patient, Senior Living Records History Limitations: Reports: No Limitations - History of Present Illness INITIAL COMMENTS - FREE TEXT/NARRATIVE: This 69 year old female was admitted from [facility] stating that she has had a fever all day and acting confused. [facility] ROLLER to the ED, the patient was given medication for her fever. The patient denies any problems what so ever. No chest pain, SOB, GI complaints or urinary complaints. She states that she does not why she is here. Onset: Today - Related Data Allergies Allergy/AdvReac Type Severity Reaction Status Date / Time amoxicillin [Amoxicillin] Allergy Other Verified 11/15/19 17:57 ampicillin Allergy Other Verified 11/15/19 17:57 digoxin Allergy Other Verified 11/15/19 17:57 doxycycline Allergy Other Verified 11/15/19 17:57 fentanyl Allergy Other Verified 11/15/19 17:57 nitrofurantoin Allergy Other Verified 11/15/19 17:57 [From Macrobid] nitrofurantoin Allergy Other Verified 11/15/19 17:57 macrocrystalline [From Macrobid] Penicillins Allergy Other Verified 11/15/19 17:57 Sulfa (Sulfonamide Allergy Other Verified 11/15/19 17:57 Antibiotics) morphine Allergy Unknown Other Uncoded 11/15/19 17:57 Home Meds: Home Meds Cholecalciferol (Vitamin D3) [Vitamin D3] 2,000 unit PO DAILY 12/31/14 [History] Cetirizine [ZyrTEC] 10 mg PO DAILY 02/10/17 [History] Escitalopram [Lexapro] 10 mg PO DAILY 02/10/17 [History] Acetaminophen [Tylenol] 650 mg PO Q4H PRN MDD 3000 mg 02/06/18 [History] Albuterol [Ventolin HFA] 2 inh IH QID PRN 02/06/18 [History] Docusate Sodium [Colace] 100 mg PO BID 02/06/18 [History] Magnesium Hydroxide [Milk of Magnesia] 30 ml PO Q24H PRN 02/06/18 [History] Potassium Chloride [Klor-Con M10] 10 meq PO DAILY 02/06/18 [History] bisacodyL [Dulcolax] 10 mg RC Q24H PRN 02/06/18 [History] guaiFENesin [Mucinex] 600 - 1,200 mg PO Q12H PRN 02/06/18 [History] ALPRAZolam [Alprazolam] 1 mg PO BID #14 tablet 03/02/18 [Rx] Acetaminophen/HYDROcodone [[place] 325-5 MG] 1 tab PO BID #14 tablet 03/02/18 [Rx] Diclofenac Sodium 1 applic TOP BID #1 tube 03/02/18 [Rx] Past Medical History HEENT History: Reports: Allergic Rhinitis Other HEENT History: wears glasses, has full upper denture and partial lower denture Cardiovascular History: Reports: Hypertension Respiratory History: Reports: None, COPD, Pneumonia, Recurrent Gastrointestinal History: Reports: None Genitourinary History: Reports: None BARMAN History: Reports: None Musculoskeletal History: Reports: Back Pain, Chronic, Neck Pain, Chronic Neurological History: Reports: Other (See Below) Other Neuro History: Hydrocephalus Psychiatric History: Reports: Anxiety, Depression Other Psychiatric History: Takes medication for anxiety. Endocrine/Metabolic History: Reports: None Hematologic History: Reports: Anemia Immunologic History: Reports: None Oncologic (Cancer) History: Reports: None Dermatologic History: Reports: None - Infectious Disease History Infectious Disease History: Reports: Measles - Past Surgical History Head Surgeries/Procedures: Reports: None HEENT Surgical History: Reports: Naso-Sinus Surgery Cardiovascular Surgical History: Reports: None Respiratory Surgical History: Reports: None GI Surgical History: Reports: Cholecystectomy Female Surgical History: Reports: None Endocrine Surgical History: Reports: None Neurological Surgical History: Reports: None Musculoskeletal Surgical History: Reports: Other (See Below) Oncologic Surgical History: Reports: None Dermatological Surgical History: Reports: None Social & Family History - Family History Family Medical History: Noncontributory HEENT: Reports: None Cardiac: Reports: None Respiratory: Reports: None OBGYN: Reports: None Musculoskeletal: Reports: None Neurological: Reports: None Psychiatric: Reports: None Endocrine/Metabolic: Reports: None Hematologic: Reports: None Oncologic: Reports: Other (See Below) Other Oncologic Family History: neck CA - Tobacco Use Smoking Status *Q: Current Every Day Smoker Years of Tobacco use: 30 Packs/Tins Daily: 1 - Caffeine Use Caffeine Use: Reports: Coffee - Recreational Drug Use Recreational Drug Use: No - Living Situation & Occupation Living situation: Reports: Single, Other (resident at [facility]) ED ROS GENERAL - Review of Systems Review Of Systems: See Below Constitutional: Reports: Fever, Other (the senior care states that she was confused but the person who came with her has never worked with this patient.) HEENT: Reports: No Symptoms Respiratory: Reports: No Symptoms, Other (the patient has a history of copd) Cardiovascular: Reports: No Symptoms Endocrine: Reports: No Symptoms GI/Abdominal: Reports: No Symptoms : Reports: No Symptoms Musculoskeletal: Reports: No Symptoms Skin: Reports: No Symptoms Neurological: Reports: Confusion (by history from [facility]) Psychiatric: Reports: No Symptoms ED EXAM, SEPSIS - Physical Exam Exam: See Below Exam Limited By: No Limitations General Appearance: Alert, WD/WN, No Apparent Distress Eye Exam: Bilateral Eye: EOMI, Normal Fundi, Normal Inspection, PERRL Ears: Normal External Exam, Normal Canal, Normal TMs Nose: Normal Inspection, Normal Mucosa, No Blood Throat/Mouth: Normal Inspection, Normal Lips, Normal Oropharynx, No Airway Compromise Head: Atraumatic, Normocephalic Neck: Normal Inspection, Supple, Non-Tender, Full Range of Motion Respiratory/Chest: No Respiratory Distress, Chest Non-Tender, Rales (very few rales noted in both bases.), Prolonged Expiration (mild prolonged expiratory phase) Cardiovascular: Normal Peripheral Pulses, Regular Rate, Rhythm, No Edema, No JVD Peripheral Pulses: 2+: Dorsalis Pedis (L), 3+: Carotid (L), Carotid (R), Radial (L), Radial (R), Dorsalis Pedis (R) GI/Abdominal Exam: Normal Bowel Sounds, Soft, Non-Tender, No Organomegaly, No Distention, No Abnormal Bruit, No Mass (Female) Exam: Deferred Rectal (Female) Exam: Deferred Back: Normal Inspection Extremities: Normal Inspection, No Pedal Edema Neurological: Alert, Oriented (times), CN II-XII Intact, Normal Reflexes, No Motor/Sensory Deficits, Slow to Respond (but not confused since she has been in ED.). No: Confused Psychiatric: Normal Affect, Normal Mood Skin: Warm, Dry, Intact, Normal Color, No Rash Lymphatic: Bilateral: No Adenopathy Course - Vital Signs Text/Narrative:: I talked with Dr. Alejandro and discussed the case with her. She will be admitted for further evaluation. Last Recorded V/S: Last Vital Signs Temp 98.8 F 11/15/19 17:52 Pulse 93 11/15/19 17:52 Resp 16 11/15/19 17:52 BP 126/79 11/15/19 17:52 Pulse Ox 88 L 11/15/19 17:52 - Orders/Labs/Meds Orders: Active Orders 24 hr Category Date Time Status EKG Documentation Completion [RC] STAT Care 11/15/19 18:05 Active CULTURE BLOOD [BC] Stat Lab 11/15/19 17:56 Received CULTURE BLOOD [BC] Stat Lab 11/15/19 18:28 Received Levofloxacin/Dextrose 5%-Water [Levaquin in D5W 750 MG/ Med 11/15/19 19:07 Ordered 150 ML] 750 mg Premix Bag 1 bag IV ONETIME Blood Culture x2 Reflex Set [OM.PC] Stat Oth 11/15/19 18:07 Ordered Isolation [COMM] Routine Oth 11/15/19 18:07 Active Medication Orders Levofloxacin/Dextrose 750 mg/ (Premix) 150 mls @ 100 mls/hr IV ONETIME ONE Stop: 11/15/19 20:36 Labs: Laboratory Tests 11/15/19 11/15/19 11/15/19 Range/Units 17:56 17:56 18:45 WBC 14.86 H (4.0-11.0) K/uL RBC 3.87 L (4.30-5.90) M/uL Hgb 12.6 (12.0-16.0) g/dL Hct 37.3 (36.0-46.0) % MCV 96.4 (80.0-98.0) fL MCH 32.6 H (27.0-32.0) pg MCHC 33.8 (31.0-37.0) g/dL RDW Std Deviation 46.8 (28.0-62.0) fl RDW Coeff of Dirk 13 (11.0-15.0) % Plt Count 218 (150-400) K/uL MPV 10.30 (7.40-12.00) fL Neut % (Auto) 87.1 H (48.0-80.0) % Lymph % (Auto) 7.0 L (16.0-40.0) % [place] % (Auto) 5.5 (0.0-15.0) % Eos % (Auto) 0.2 (0.0-7.0) % Baso % (Auto) 0.2 (0.0-1.5) % Neut # (Auto) 13.0 H (1.4-5.7) K/uL Lymph # (Auto) 1.0 (0.6-2.4) K/uL [place] # (Auto) 0.8 (0.0-0.8) K/uL Eos # (Auto) 0.0 (0.0-0.7) K/uL Baso # (Auto) 0.0 (0.0-0.1) K/uL Nucleated RBC % 0.0 /100WBC Nucleated RBCs # 0 K/uL Sodium 137 (136-145) mmol/L Potassium 4.0 (3.5-5.1) mmol/L Chloride 101 (98-107) mmol/L Carbon Dioxide 26.8 (21.0-32.0) mmol/L BUN 11 (7.0-18.0) mg/dL Creatinine 1.0 (0.6-1.0) mg/dL Est Cr Clr Drug Dosing 50.41 mL/min Estimated GFR (MDRD) 55.1 ml/min Glucose 108 H (74-106) mg/dL Calcium 9.1 (8.5-10.1) mg/dL Total Bilirubin 0.8 (0.2-1.0) mg/dL AST 25 (15-37) IU/L ALT 26 (14-63) IU/L Alkaline Phosphatase 60 (46-116) U/L Troponin I < 0.050 (0.000-0.056) ng/mL Total Protein 7.5 (6.4-8.2) g/dL Albumin 3.5 (3.4-5.0) g/dL Globulin 4.0 (2.6-4.0) g/dL Albumin/Globulin Ratio 0.9 (0.9-1.6) Urine Color YELLOW Urine Appearance HAZY Urine pH 6.0 (5.0-8.0) Ur Specific [place] 1.020 (1.001-1.035) Urine Protein NEGATIVE (NEGATIVE) mg/dL Urine Glucose (UA) NEGATIVE (NEGATIVE) mg/dL Urine Ketones NEGATIVE (NEGATIVE) mg/dL Urine Occult Blood TRACE-INTACT H (NEGATIVE) Urine Nitrite NEGATIVE (NEGATIVE) Urine Bilirubin NEGATIVE (NEGATIVE) Urine Urobilinogen 0.2 (<2.0) EU/dL Ur Leukocyte Esterase NEGATIVE (NEGATIVE) Urine RBC 0-2 (0-2/HPF) Urine WBC 0-2 (0-5/HPF) Ur Epithelial Cells FEW (NONE-FEW) Amorphous Sediment LIGHT (NEGATIVE) Urine Bacteria RARE (NEGATIVE) Urine Mucus LIGHT (NONE-MOD) Meds: Medications Generic Name Dose Route Start Last Admin Trade Name Freq PRN Reason Stop Dose Admin Levofloxacin/Dextrose 750 mg/ 150 mls @ 100 mls/hr 11/15/19 19:07 Premix IV 11/15/19 20:36 ONETIME ONE Departure - Departure Time of Disposition: 19:12 Disposition: Refer to Observation Condition: Fair Clinical Impression: FUO (fever of unknown origin) - Discharge Information *PRESCRIPTION DRUG MONITORING PROGRAM REVIEWED*: Yes *COPY OF PRESCRIPTION DRUG MONITORING REPORT IN PATIENT DE: Yes Referrals: David Motta MD [Primary Care Provider] - Forms: ED Department Discharge Sepsis Event Note - Evaluation Sepsis Screening Result: Possible Severe Sepsis Risk - Focused Exam Vital Signs: Vital Signs Temp Temp Pulse Resp BP Pulse Ox 11/15/19 17:52 100.6 F 98.8 F 93 16 126/79 88 L Date Exam was Performed: 11/15/19 Time Exam was Performed: 19:10 - My Orders Last 24 Hours: My Active Orders 11/15/19 17:56 CULTURE BLOOD [BC] Stat 11/15/19 18:05 EKG Documentation Completion [RC] STAT 11/15/19 18:07 Blood Culture x2 Reflex Set [OM.PC] Stat Isolation [COMM] Routine 11/15/19 18:28 CULTURE BLOOD [BC] Stat 11/15/19 19:07 Levofloxacin/Dextrose 5%-Water [Levaquin in D5W 750 MG/150 ML] 750 mg Premix Bag 1 bag IV ONETIME - Assessment/Plan Last 24 Hours: My Active Orders 11/15/19 17:56 CULTURE BLOOD [BC] Stat 11/15/19 18:05 EKG Documentation Completion [RC] STAT 11/15/19 18:07 Blood Culture x2 Reflex Set [OM.PC] Stat Isolation [COMM] Routine 11/15/19 18:28 CULTURE BLOOD [BC] Stat 11/15/19 19:07 Levofloxacin/Dextrose 5%-Water [Levaquin in D5W 750 MG/150 ML] 750 mg Premix Bag 1 bag IV ONETIME
[2019-11-15 18:30] LABS: BLOOD UREA NITROGEN,BUN 11 mg/dL (7.0-18.0); CARBON DIOXIDE,CO2 26.8 mmol/L (21.0-32.0); CHLORIDE,CL 101 mmol/L (98-107); GLUCOSE RANDOM 108 mg/dL (74-106); SODIUM,NA 137 mmol/L (136-145)
--- NOTE | 2019-11-15 18:54 | CR ---
Chest: Portable view of the chest was obtained. Comparison: No prior chest x-ray. Heart size and mediastinum are normal. Lungs are clear with no acute parenchymal change. Bony structures are grossly intact. Impression: 1. Nothing acute is seen on portable chest x-ray. Diagnostic code #1 Study was dictated in MDT
[2019-11-15] MEDS ORDERED: Levofloxacin/Dextrose 5%-Water 750 MG in Premix Bag 1 BAG IV ONE (19:07)
[2019-11-15] MEDS ORDERED: Acetaminophen 325 MG Tab PO PRN (20:48)
[2019-11-15] MEDS ORDERED: Albuterol/Ipratropium 3.0-0.5 MG/3 ML Neb Soln NEB PRN (20:48)
--- NOTE | 2019-11-15 23:52 | PCM.HP.2 ---
H&P History of Present Illness - General Date of Service: 11/15/19 Admit Problem/Dx: Admission Diagnosis/Problem Admission Diagnosis/Problem Fever of unknown origin - History of Present Illness Initial Comments - Free Text/Narative: This 67 year old female with pmh of HTN, R hipx fracture 3 years ago , ventriculomegaly, and anxiety and depression presented to the ED this morning from [facility] with complaints of fever. Patient was noted to have a fever of 100.6 in [place] and mild confusion so was sent over. Patient WBC count was normal, UA was negative, CXR was unremarkable. Upon further questioning patient states that she has had cough for last few days along with running nose. Patient was started on IV antibiotics and was admitted for further management. Upon reviewing old notes, patient seems to be having memory problems for last few years , ( possible early onset dementia) Denied chest pain, N/V , abdominal pain. urinary frequency, urgency,chills, palpitations, syncope. Upper Back Pain Score (Numeric/FACES): 5 - Related Data Allergies/Adverse Reactions: Allergies Allergy/AdvReac Type Severity Reaction Status Date / Time amoxicillin [Amoxicillin] Allergy Other Verified 11/15/19 17:57 ampicillin Allergy Other Verified 11/15/19 17:57 digoxin Allergy Other Verified 11/15/19 17:57 doxycycline Allergy Other Verified 11/15/19 17:57 fentanyl Allergy Other Verified 11/15/19 17:57 nitrofurantoin Allergy Other Verified 11/15/19 17:57 [From Macrobid] nitrofurantoin Allergy Other Verified 11/15/19 17:57 macrocrystalline [From Macrobid] Penicillins Allergy Other Verified 11/15/19 17:57 Sulfa (Sulfonamide Allergy Other Verified 11/15/19 17:57 Antibiotics) morphine Allergy Unknown Other Uncoded 11/15/19 17:57 Home Medications: Home Meds Cholecalciferol (Vitamin D3) [Vitamin D3] 2,000 unit PO DAILY 12/31/14 [History] Cetirizine [ZyrTEC] 10 mg PO DAILY 02/10/17 [History] Escitalopram [Lexapro] 10 mg PO DAILY 02/10/17 [History] Acetaminophen [Tylenol] 650 mg PO Q4H PRN MDD 3000 mg 02/06/18 [History] Albuterol [Ventolin HFA] 2 inh IH QID PRN 02/06/18 [History] Docusate Sodium [Colace] 100 mg PO BID 02/06/18 [History] Magnesium Hydroxide [Milk of Magnesia] 30 ml PO Q24H PRN 02/06/18 [History] Potassium Chloride [Klor-Con M10] 10 meq PO DAILY 02/06/18 [History] bisacodyL [Dulcolax] 10 mg RC Q24H PRN 02/06/18 [History] guaiFENesin [Mucinex] 600 - 1,200 mg PO Q12H PRN 02/06/18 [History] ALPRAZolam [Alprazolam] 1 mg PO BID #14 tablet 03/02/18 [Rx] Acetaminophen/HYDROcodone [[place] 325-5 MG] 1 tab PO BID #14 tablet 03/02/18 [Rx] Diclofenac Sodium 1 applic TOP BID #1 tube 03/02/18 [Rx] Past Medical History HEENT History: Reports: Allergic Rhinitis Other HEENT History: wears glasses, has full upper denture and partial lower denture Cardiovascular History: Reports: Hypertension Respiratory History: Reports: None, COPD, Pneumonia, Recurrent Gastrointestinal History: Reports: None Genitourinary History: Reports: None [employer] History: Reports: None Musculoskeletal History: Reports: Back Pain, Chronic, Neck Pain, Chronic Neurological History: Reports: Other (See Below) Other Neuro History: Hydrocephalus Psychiatric History: Reports: Anxiety, Depression Other Psychiatric History: Takes medication for anxiety. Endocrine/Metabolic History: Reports: None Hematologic History: Reports: Anemia Immunologic History: Reports: None Oncologic (Cancer) History: Reports: None Dermatologic History: Reports: None - Infectious Disease History Infectious Disease History: Reports: Measles - Past Surgical History Head Surgeries/Procedures: Reports: None HEENT Surgical History: Reports: Naso-Sinus Surgery Cardiovascular Surgical History: Reports: None Respiratory Surgical History: Reports: None GI Surgical History: Reports: Cholecystectomy Female Surgical History: Reports: None Endocrine Surgical History: Reports: None Neurological Surgical History: Reports: None Musculoskeletal Surgical History: Reports: Other (See Below) Oncologic Surgical History: Reports: None Dermatological Surgical History: Reports: None Social & Family History - Family History Family Medical History: Noncontributory HEENT: Reports: None Cardiac: Reports: None Respiratory: Reports: None OBGYN: Reports: None Musculoskeletal: Reports: None Neurological: Reports: None Psychiatric: Reports: None Endocrine/Metabolic: Reports: None Hematologic: Reports: None Oncologic: Reports: Other (See Below) Other Oncologic Family History: neck CA - Tobacco Use Smoking Status *Q: Current Every Day Smoker Years of Tobacco use: 30 Packs/Tins Daily: 1 - Caffeine Use Caffeine Use: Reports: Coffee - Recreational Drug Use Recreational Drug Use: No - Living Situation & Occupation Living situation: Reports: Single, Other (resident at [facility]) H&P Review of Systems - Review of Systems: Review Of Systems: Comprehensive ROS is negative, except as noted in HPI. Exam - Exam Exam: See Below - Vital Signs Vital Signs: Last Vital Signs Temp 37.1 C 11/15/19 17:52 Pulse 76 11/15/19 21:00 Resp 16 11/15/19 21:00 BP 140/72 11/15/19 21:00 Pulse Ox 97 11/15/19 21:00 Weight: 63.503 kg - Exam General: Alert, Oriented (*1), Cooperative. No: Mild Distress HEENT: Conjunctiva Clear Neck: Supple, Trachea Midline Lungs: Clear to Auscultation, Normal Respiratory Effort Cardiovascular: Regular Rate, Regular Rhythm, Normal S1, Normal S2 Peripheral Pulses: 3+: Dorsalis Pedis (L), Dorsalis Pedis (R) - Patient Data Lab Results Last 24 hrs: Laboratory Results - last 24 hr 11/15/19 11/15/19 11/15/19 Range/Units 17:56 17:56 18:45 WBC 14.86 H (4.0-11.0) K/uL RBC 3.87 L (4.30-5.90) M/uL Hgb 12.6 (12.0-16.0) g/dL Hct 37.3 (36.0-46.0) % MCV 96.4 (80.0-98.0) fL MCH 32.6 H (27.0-32.0) pg MCHC 33.8 (31.0-37.0) g/dL RDW Std Deviation 46.8 (28.0-62.0) fl RDW Coeff of Dirk 13 (11.0-15.0) % Plt Count 218 (150-400) K/uL MPV 10.30 (7.40-12.00) fL Neut % (Auto) 87.1 H (48.0-80.0) % Lymph % (Auto) 7.0 L (16.0-40.0) % [place] % (Auto) 5.5 (0.0-15.0) % Eos % (Auto) 0.2 (0.0-7.0) % Baso % (Auto) 0.2 (0.0-1.5) % Neut # (Auto) 13.0 H (1.4-5.7) K/uL Lymph # (Auto) 1.0 (0.6-2.4) K/uL [place] # (Auto) 0.8 (0.0-0.8) K/uL Eos # (Auto) 0.0 (0.0-0.7) K/uL Baso # (Auto) 0.0 (0.0-0.1) K/uL Nucleated RBC % 0.0 /100WBC Nucleated RBCs # 0 K/uL Sodium 137 (136-145) mmol/L Potassium 4.0 (3.5-5.1) mmol/L Chloride 101 (98-107) mmol/L Carbon Dioxide 26.8 (21.0-32.0) mmol/L BUN 11 (7.0-18.0) mg/dL Creatinine 1.0 (0.6-1.0) mg/dL Est Cr Clr Drug Dosing 50.41 mL/min Estimated GFR (MDRD) 55.1 ml/min Glucose 108 H (74-106) mg/dL Calcium 9.1 (8.5-10.1) mg/dL Total Bilirubin 0.8 (0.2-1.0) mg/dL AST 25 (15-37) IU/L ALT 26 (14-63) IU/L Alkaline Phosphatase 60 (46-116) U/L Troponin I < 0.050 (0.000-0.056) ng/mL Total Protein 7.5 (6.4-8.2) g/dL Albumin 3.5 (3.4-5.0) g/dL Globulin 4.0 (2.6-4.0) g/dL Albumin/Globulin Ratio 0.9 (0.9-1.6) Urine Color YELLOW Urine Appearance HAZY Urine pH 6.0 (5.0-8.0) Ur Specific [place] 1.020 (1.001-1.035) Urine Protein NEGATIVE (NEGATIVE) mg/dL Urine Glucose (UA) NEGATIVE (NEGATIVE) mg/dL Urine Ketones NEGATIVE (NEGATIVE) mg/dL Urine Occult Blood TRACE-INTACT H (NEGATIVE) Urine Nitrite NEGATIVE (NEGATIVE) Urine Bilirubin NEGATIVE (NEGATIVE) Urine Urobilinogen 0.2 (<2.0) EU/dL Ur Leukocyte Esterase NEGATIVE (NEGATIVE) Urine RBC 0-2 (0-2/HPF) Urine WBC 0-2 (0-5/HPF) Ur Epithelial Cells FEW (NONE-FEW) Amorphous Sediment LIGHT (NEGATIVE) Urine Bacteria RARE (NEGATIVE) Urine Mucus LIGHT (NONE-MOD) Result Diagrams: 11/15/19 17:56 11/15/19 17:56 Gigi Results Last 24 hrs: Microbiology 11/15/19 17:56 Influenza Type A Antigen Screen - Final Nasopharyngeal Swab NEGATIVE INFLUENZA A VIRUS AG REFERENCE RANGE: NEGATIVE Influenza Type B Antigen Screen - Final NEGATIVE INFLUENZA B VIRUS AG REFERENCE RANGE: NEGATIVE Sepsis Event Note - Evaluation Sepsis Screening Result: Possible Severe Sepsis Risk - Focused Exam Vital Signs: Vital Signs Temp Temp Pulse Resp BP Pulse Ox 11/15/19 21:00 76 16 140/72 97 11/15/19 19:58 77 16 127/57 L 95 11/15/19 17:52 38.1 C 37.1 C 93 16 126/79 88 L Date Exam was Performed: 11/16/19 Time Exam was Performed: 00:48 - Problem List (1) Memory deficit SNOMED Code(s): 301489688 ICD Code: R41.3 - OTHER AMNESIA Status: Acute Current Visit: Yes (2) FUO (fever of unknown origin) SNOMED Code(s): 3519051 ICD Code: R50.9 - FEVER, UNSPECIFIED Status: Acute Current Visit: Yes (3) Cough SNOMED Code(s): 48794766 ICD Code: R05 - COUGH Status: Acute Current Visit: Yes Problem List Initiated/Reviewed/Updated: Yes Orders Last 24hrs: Active Orders 24 hr Category Date Time Status Admission Status [Patient Status] [ADT] Stat ADT 11/15/19 19:13 Active Ambulate [RC] ASDIRECTED Care 11/15/19 20:48 Active Antiembolic Devices [RC] PER UNIT ROUTINE Care 11/15/19 20:51 Active Bedrest Bathroom Privileges [RC] ASDIRECTED Care 11/15/19 20:48 Active EKG Documentation Completion [RC] STAT Care 11/15/19 18:05 Active Oxygen Therapy [RC] PRN Care 11/15/19 20:48 Active Pulse Oximetry [RC] PRN Care 11/15/19 20:49 Active RT Aerosol Therapy [RC] ASDIRECTED Care 11/15/19 20:51 Active VTE/DVT Education [RC] PER UNIT ROUTINE Care 11/15/19 20:48 Active Vital Signs [RC] Q4H Care 11/15/19 20:48 Active Heart Healthy Diet [DIET] Diet 11/16/19 Breakfast Active CULTURE BLOOD [BC] Stat Lab 11/15/19 17:56 Received CULTURE BLOOD [BC] Stat Lab 11/15/19 18:28 Received Acetaminophen [Tylenol] Med 11/15/19 20:48 Active 650 mg PO Q4H PRN Albuterol/Ipratropium [DuoNeb 3.0-0.5 MG/3 ML] Med 11/15/19 20:48 Active 3 ml NEB Q4HRRT PRN Lactated Ringers [Ringers, Lactated] 1,000 ml Med 11/15/19 21:00 Active IV ASDIRECTED Levofloxacin/Dextrose 5%-Water [Levaquin in D5W 750 MG/ Med 11/16/19 09:00 Active 150 ML] 750 mg Premix Bag 1 bag IV Q24H Blood Culture x2 Reflex Set [OM.PC] Stat Oth 11/15/19 18:07 Ordered Isolation [COMM] Routine Oth 11/15/19 18:07 Active Sequential Compression Device [OM.PC] Per Unit Routine Oth 11/15/19 20:49 Ordered Medication Orders Acetaminophen (Tylenol) 650 mg PO Q4H PRN PRN Reason: Pain (Mild 1-3)/fever Albuterol/Ipratropium (Duoneb 3.0-0.5 Mg/3 Ml) 3 ml NEB Q4HRRT PRN PRN Reason: Shortness Of Breath/wheezing Lactated Ringer's (Ringers, Lactated) 1,000 mls @ 125 mls/hr IV ASDIRECTED EVELIO Levofloxacin/Dextrose 750 mg/ (Premix) 150 mls @ 100 mls/hr IV Q24H EVELIO Assessment/Plan Comment:: 69 y/o F admitted for fever, running nose, cough Possible Bronchitis, no known exposure to COVID or travel history cont IV antibiotics for now cont IV fluids resume home meds f/u on blood cultures monitor and replete electrolytes
[2019-11-16] MEDS: Lactated Ringers 1,000 ML IV SCH ×2 (02:25→12:18)
[2019-11-16 07:15] LABS: POTASSIUM,K 4.1 mmol/L (3.5-5.1)
[2019-11-16] MEDS: Levofloxacin/Dextrose 5%-Water 750 MG in Premix Bag 1 BAG IV SCH (10:29)
[2019-11-16] MEDS ORDERED: LORazepam 2 MG/ML SDV IVPUSH ONE ×3 (12:31→15:47)
--- NOTE | 2019-11-16 12:33 | PCM.PN ---
- General Info Date of Service: 11/16/19 Admission Dx/Problem (Free Text): Admission Diagnosis/Problem Admission Diagnosis/Problem Fever of unknown origin Subjective Update: seen at bedside, presently confused which is her baseline, no acute complaints, - Patient Data Vitals - Most Recent: Last Vital Signs Temp 36.6 C 11/16/19 08:35 Pulse 87 11/16/19 08:35 Resp 16 11/16/19 08:35 BP 131/63 11/16/19 08:35 Pulse Ox 91 L 11/16/19 08:35 Weight - Most Recent: 63.503 kg I&O - Last 24 Hours: Intake & Output 11/15/19 11/16/19 11/16/19 22:59 06:59 14:59 Intake Total 300 150 Balance 300 150 Lab Results Last 24 Hours: Laboratory Results - last 24 hr 11/15/19 11/15/19 11/15/19 Range/Units 17:56 17:56 18:45 WBC 14.86 H (4.0-11.0) K/uL RBC 3.87 L (4.30-5.90) M/uL Hgb 12.6 (12.0-16.0) g/dL Hct 37.3 (36.0-46.0) % MCV 96.4 (80.0-98.0) fL MCH 32.6 H (27.0-32.0) pg MCHC 33.8 (31.0-37.0) g/dL RDW Std Deviation 46.8 (28.0-62.0) fl RDW Coeff of Dirk 13 (11.0-15.0) % Plt Count 218 (150-400) K/uL MPV 10.30 (7.40-12.00) fL Neut % (Auto) 87.1 H (48.0-80.0) % Lymph % (Auto) 7.0 L (16.0-40.0) % [place] % (Auto) 5.5 (0.0-15.0) % Eos % (Auto) 0.2 (0.0-7.0) % Baso % (Auto) 0.2 (0.0-1.5) % Neut # (Auto) 13.0 H (1.4-5.7) K/uL Lymph # (Auto) 1.0 (0.6-2.4) K/uL [place] # (Auto) 0.8 (0.0-0.8) K/uL Eos # (Auto) 0.0 (0.0-0.7) K/uL Baso # (Auto) 0.0 (0.0-0.1) K/uL Nucleated RBC % 0.0 /100WBC Nucleated RBCs # 0 K/uL Sodium 137 (136-145) mmol/L Potassium 4.0 (3.5-5.1) mmol/L Chloride 101 (98-107) mmol/L Carbon Dioxide 26.8 (21.0-32.0) mmol/L BUN 11 (7.0-18.0) mg/dL Creatinine 1.0 (0.6-1.0) mg/dL Est Cr Clr Drug Dosing 50.41 mL/min Estimated GFR (MDRD) 55.1 ml/min Glucose 108 H (74-106) mg/dL Calcium 9.1 (8.5-10.1) mg/dL Phosphorus (2.6-4.7) mg/dL Magnesium (1.8-2.4) mg/dL Total Bilirubin 0.8 (0.2-1.0) mg/dL AST 25 (15-37) IU/L ALT 26 (14-63) IU/L Alkaline Phosphatase 60 (46-116) U/L Troponin I < 0.050 (0.000-0.056) ng/mL Total Protein 7.5 (6.4-8.2) g/dL Albumin 3.5 (3.4-5.0) g/dL Globulin 4.0 (2.6-4.0) g/dL Albumin/Globulin Ratio 0.9 (0.9-1.6) Urine Color YELLOW Urine Appearance HAZY Urine pH 6.0 (5.0-8.0) Ur Specific [place] 1.020 (1.001-1.035) Urine Protein NEGATIVE (NEGATIVE) mg/dL Urine Glucose (UA) NEGATIVE (NEGATIVE) mg/dL Urine Ketones NEGATIVE (NEGATIVE) mg/dL Urine Occult Blood TRACE-INTACT H (NEGATIVE) Urine Nitrite NEGATIVE (NEGATIVE) Urine Bilirubin NEGATIVE (NEGATIVE) Urine Urobilinogen 0.2 (<2.0) EU/dL Ur Leukocyte Esterase NEGATIVE (NEGATIVE) Urine RBC 0-2 (0-2/HPF) Urine WBC 0-2 (0-5/HPF) Ur Epithelial Cells FEW (NONE-FEW) Amorphous Sediment LIGHT (NEGATIVE) Urine Bacteria RARE (NEGATIVE) Urine Mucus LIGHT (NONE-MOD) 11/16/19 11/16/19 Range/Units 06:43 06:43 WBC 17.20 H (4.0-11.0) K/uL RBC 3.75 L (4.30-5.90) M/uL Hgb 12.0 (12.0-16.0) g/dL Hct 36.4 (36.0-46.0) % MCV 97.1 (80.0-98.0) fL MCH 32.0 (27.0-32.0) pg MCHC 33.0 (31.0-37.0) g/dL RDW Std Deviation 47.3 (28.0-62.0) fl RDW Coeff of Dirk 13 (11.0-15.0) % Plt Count 211 (150-400) K/uL MPV 10.20 (7.40-12.00) fL Neut % (Auto) 84.5 H (48.0-80.0) % Lymph % (Auto) 7.8 L (16.0-40.0) % [place] % (Auto) 7.5 (0.0-15.0) % Eos % (Auto) 0.1 (0.0-7.0) % Baso % (Auto) 0.1 (0.0-1.5) % Neut # (Auto) 14.5 H (1.4-5.7) K/uL Lymph # (Auto) 1.3 (0.6-2.4) K/uL [place] # (Auto) 1.3 H (0.0-0.8) K/uL Eos # (Auto) 0.0 (0.0-0.7) K/uL Baso # (Auto) 0.0 (0.0-0.1) K/uL Nucleated RBC % 0.0 /100WBC Nucleated RBCs # 0 K/uL Sodium 137 (136-145) mmol/L Potassium 4.1 (3.5-5.1) mmol/L Chloride 101 (98-107) mmol/L Carbon Dioxide 28.0 (21.0-32.0) mmol/L BUN 9 (7.0-18.0) mg/dL Creatinine 1.0 (0.6-1.0) mg/dL Est Cr Clr Drug Dosing 50.68 mL/min Estimated GFR (MDRD) 55.1 ml/min Glucose 107 H (74-106) mg/dL Calcium 9.3 (8.5-10.1) mg/dL Phosphorus 3.1 (2.6-4.7) mg/dL Magnesium 1.7 L (1.8-2.4) mg/dL Total Bilirubin (0.2-1.0) mg/dL AST (15-37) IU/L ALT (14-63) IU/L Alkaline Phosphatase (46-116) U/L Troponin I (0.000-0.056) ng/mL Total Protein (6.4-8.2) g/dL Albumin (3.4-5.0) g/dL Globulin (2.6-4.0) g/dL Albumin/Globulin Ratio (0.9-1.6) Urine Color Urine Appearance Urine pH (5.0-8.0) Ur Specific [place] (1.001-1.035) Urine Protein (NEGATIVE) mg/dL Urine Glucose (UA) (NEGATIVE) mg/dL Urine Ketones (NEGATIVE) mg/dL Urine Occult Blood (NEGATIVE) Urine Nitrite (NEGATIVE) Urine Bilirubin (NEGATIVE) Urine Urobilinogen (<2.0) EU/dL Ur Leukocyte Esterase (NEGATIVE) Urine RBC (0-2/HPF) Urine WBC (0-5/HPF) Ur Epithelial Cells (NONE-FEW) Amorphous Sediment (NEGATIVE) Urine Bacteria (NEGATIVE) Urine Mucus (NONE-MOD) Giig Results Last 24 Hours: Microbiology 11/15/19 17:56 Influenza Type A Antigen Screen - Final Nasopharyngeal Swab NEGATIVE INFLUENZA A VIRUS AG REFERENCE RANGE: NEGATIVE Influenza Type B Antigen Screen - Final NEGATIVE INFLUENZA B VIRUS AG REFERENCE RANGE: NEGATIVE Med Orders - Current: Current Medications Acetaminophen (Tylenol) 650 mg PO Q4H PRN PRN Reason: Pain (Mild 1-3)/fever Albuterol/Ipratropium (Duoneb 3.0-0.5 Mg/3 Ml) 3 ml NEB Q4HRRT PRN PRN Reason: Shortness Of Breath/wheezing Lactated Ringer's (Ringers, Lactated) 1,000 mls @ 125 mls/hr IV ASDIRECTED EVELIO Last Admin: 11/16/19 12:18 Dose: 125 mls/hr Levofloxacin/Dextrose 750 mg/ (Premix) 150 mls @ 100 mls/hr IV Q24H [facility] Last Admin: 11/16/19 10:29 Dose: 100 mls/hr Lorazepam (Ativan) 1 mg IVPUSH ONETIME ONE Stop: 11/16/19 12:32 Discontinued Medications Levofloxacin/Dextrose 750 mg/ (Premix) 150 mls @ 100 mls/hr IV ONETIME ONE Stop: 11/15/19 20:36 Last Admin: 11/15/19 19:57 Dose: 100 mls/hr Sepsis Event Note - Evaluation Sepsis Screening Result: No Definite Risk - Focused Exam Vital Signs: Vital Signs Temp Temp Pulse Resp BP Pulse Ox 11/16/19 08:35 36.6 C 87 16 131/63 91 L 11/16/19 05:30 35.9 C L 80 16 146/72 H 93 L Date Exam was Performed: 11/26/19 Time Exam was Performed: 15:12 - Problem List & Annotations (1) Memory deficit SNOMED Code(s): 537724934 Code(s): R41.3 - OTHER AMNESIA Status: Acute (2) FUO (fever of unknown origin) SNOMED Code(s): 7290723 Code(s): R50.9 - FEVER, UNSPECIFIED Status: Acute (3) Cough SNOMED Code(s): 76387629 Code(s): R05 - COUGH Status: Acute - Problem List Review Problem List Initiated/Reviewed/Updated: Yes - My Orders Last 24 Hours: My Active Orders 11/15/19 20:48 Ambulate [RC] ASDIRECTED Bedrest Bathroom Privileges [RC] ASDIRECTED Oxygen Therapy [RC] PRN VTE/DVT Education [RC] PER UNIT ROUTINE Vital Signs [RC] Q4H Acetaminophen [Tylenol] 650 mg PO Q4H PRN Albuterol/Ipratropium [DuoNeb 3.0-0.5 MG/3 ML] 3 ml NEB Q4HRRT PRN 11/15/19 20:49 Pulse Oximetry [RC] PRN Sequential Compression Device [OM.PC] Per Unit Routine 11/15/19 20:51 Antiembolic Devices [RC] PER UNIT ROUTINE RT Aerosol Therapy [RC] ASDIRECTED 11/15/19 21:00 Lactated Ringers [Ringers, Lactated] 1,000 ml IV ASDIRECTED 11/16/19 09:00 Levofloxacin/Dextrose 5%-Water [Levaquin in D5W 750 MG/150 ML] 750 mg Premix Bag 1 bag IV Q24H 11/16/19 12:31 LORazepam [Ativan] 1 mg IVPUSH ONETIME ONE 11/16/19 Breakfast Heart Healthy Diet [DIET] - Plan Plan:: 69 y/o F admitted for fever, running nose, cough wbc count up today, no fever, Possible Bronchitis, COVID sent awaiting results cont IV antibiotics for now cont IV fluids resume home meds f/u on blood cultures monitor and replete electrolytes
[2019-11-16] MEDS ORDERED: Magnesium Sulfate/Water 2 GM in Premix Bag 1 BAG IV ONE (12:36)
[2019-11-16] MEDS ORDERED: guaiFENesin 600 MG Tab.ER PO PRN (13:50)
[2019-11-16] MEDS ORDERED: Magnesium Hydroxide 400 MG/5 ML Susp 30 ML Cup PO PRN (13:50)
[2019-11-16] MEDS ORDERED: Acetaminophen 325 MG Tab PO PRN (13:50)
[2019-11-16] MEDS ORDERED: Bisacodyl 10 MG Supp RECTAL PRN (13:50)
[2019-11-16] MEDS ORDERED: diphenhydrAMINE 50 MG/ML SDV IVPUSH ONE ×2 (14:58→15:47)
[2019-11-16] MEDS ORDERED: Haloperidol Lactate 5 MG/ML SDV IM PRN (15:46)
[2019-11-16] MEDS ORDERED: Azithromycin 500 MG in Sodium Chloride 0.9% 250 ML IV SCH (19:15)
[2019-11-16] MEDS ORDERED: Non-Formulary Medication 1 Each (Diclofenac Sodium [Diclofenac Sodium] 1 APPLIC) TOP SCH (21:00)
[2019-11-16] MEDS ORDERED: ALPRAZOLAM 1 MG PO SCH (21:00)
[2019-11-16] MEDS: Acetaminophen/HYDROcodone 325-5 MG Tab PO SCH (22:14)
[2019-11-16] MEDS: Docusate Sodium 100 MG Cap PO SCH (22:14)
[2019-11-16] MEDS ORDERED: diphenhydrAMINE 50 MG/ML SDV IVPUSH PRN (23:58)
[2019-11-17] MEDS: Lactated Ringers 1,000 ML IV SCH ×3 (04:24→19:42)
[2019-11-17 07:01] LABS: BLOOD UREA NITROGEN,BUN 7 mg/dL (7.0-18.0); CARBON DIOXIDE,CO2 28.7 mmol/L (21.0-32.0); CHLORIDE,CL 103 mmol/L (98-107); GLUCOSE RANDOM 90 mg/dL (74-106); POTASSIUM,K 3.3 mmol/L (3.5-5.1); SODIUM,NA 137 mmol/L (136-145)
[2019-11-17] MEDS ORDERED: Non-Formulary Medication 1 Each (Cholecalciferol (Vitamin D3) [Vitamin D3] 2,000 UNIT) PO SCH (09:00)
[2019-11-17] MEDS ORDERED: Cetirizine 10 MG Tab PO SCH (09:00)
[2019-11-17] MEDS: Levofloxacin/Dextrose 5%-Water 750 MG in Premix Bag 1 BAG IV SCH (09:38)
[2019-11-17] MEDS: Docusate Sodium 100 MG Cap PO SCH ×2 (09:38→22:17)
[2019-11-17] MEDS: Acetaminophen/HYDROcodone 325-5 MG Tab PO SCH ×2 (09:38→22:16)
[2019-11-17] MEDS: Escitalopram 10 MG Tab PO SCH (09:38)
--- NOTE | 2019-11-17 11:05 | PCM.PN ---
- General Info Date of Service: 11/17/19 Admission Dx/Problem (Free Text): Admission Diagnosis/Problem Admission Diagnosis/Problem Fever of unknown origin Subjective Update: seen at bedside, presently confused which is her baseline, no acute complaints, had to be chemically restrained yesterday afternoon due to agitation. - Review of Systems General: Denies: Fever, Weakness HEENT: Reports: Sinus Congestion, Rhinitis Pulmonary: Reports: Cough. Denies: Shortness of Breath, Pleuritic Chest Pain, Sputum Cardiovascular: Denies: Chest Pain, Palpitations Gastrointestinal: Denies: Abdominal Pain, Constipation, Decreased Appetite Genitourinary: Denies: Dysuria, Frequency, Burning, Pain Musculoskeletal: Denies: Neck Pain, Shoulder Pain, Arm Pain Skin: Denies: Cyanosis, Jaundice, Mottled - Patient Data Vitals - Most Recent: Last Vital Signs Temp 37.3 C 11/17/19 09:37 Pulse 85 11/17/19 09:37 Resp 16 11/17/19 09:37 BP 122/55 L 11/17/19 09:37 Pulse Ox 93 L 11/17/19 09:37 Weight - Most Recent: 63.503 kg I&O - Last 24 Hours: Intake & Output 11/16/19 11/17/19 11/17/19 22:59 06:59 14:59 Intake Total 250 1355 Output Total 368 Balance 250 987 Lab Results Last 24 Hours: Laboratory Results - last 24 hr 11/17/19 11/17/19 Range/Units 06:33 06:33 WBC 12.78 H (4.0-11.0) K/uL RBC 3.36 L (4.30-5.90) M/uL Hgb 10.6 L (12.0-16.0) g/dL Hct 32.1 L (36.0-46.0) % MCV 95.5 (80.0-98.0) fL MCH 31.5 (27.0-32.0) pg MCHC 33.0 (31.0-37.0) g/dL RDW Std Deviation 45.7 (28.0-62.0) fl RDW Coeff of Dirk 13 (11.0-15.0) % Plt Count 195 (150-400) K/uL MPV 10.00 (7.40-12.00) fL Neut % (Auto) 78.7 (48.0-80.0) % Lymph % (Auto) 12.3 L (16.0-40.0) % [place] % (Auto) 7.9 (0.0-15.0) % Eos % (Auto) 0.9 (0.0-7.0) % Baso % (Auto) 0.2 (0.0-1.5) % Neut # (Auto) 10.1 H (1.4-5.7) K/uL Lymph # (Auto) 1.6 (0.6-2.4) K/uL [place] # (Auto) 1.0 H (0.0-0.8) K/uL Eos # (Auto) 0.1 (0.0-0.7) K/uL Baso # (Auto) 0.0 (0.0-0.1) K/uL Nucleated RBC % 0.0 /100WBC Nucleated RBCs # 0 K/uL Sodium 137 (136-145) mmol/L Potassium 3.3 L (3.5-5.1) mmol/L Chloride 103 (98-107) mmol/L Carbon Dioxide 28.7 (21.0-32.0) mmol/L BUN 7 (7.0-18.0) mg/dL Creatinine 0.9 (0.6-1.0) mg/dL Est Cr Clr Drug Dosing 56.31 mL/min Estimated GFR (MDRD) > 60.0 ml/min Glucose 90 (74-106) mg/dL Calcium 8.6 (8.5-10.1) mg/dL Phosphorus 3.1 (2.6-4.7) mg/dL Magnesium 1.9 (1.8-2.4) mg/dL Gigi Results Last 24 Hours: Microbiology 11/15/19 18:28 Aerobic Blood Culture - Preliminary Blood - Venous - Lab Draw NO GROWTH AFTER 1 DAY Anaerobic Blood Culture - Preliminary NO GROWTH AFTER 1 DAY 11/15/19 17:56 Aerobic Blood Culture - Preliminary Blood - Venous NO GROWTH AFTER 1 DAY Anaerobic Blood Culture - Preliminary NO GROWTH AFTER 1 DAY Med Orders - Current: Current Medications Acetaminophen (Tylenol) 650 mg PO Q4H PRN PRN Reason: Pain/Fever Hydrocodone Bitart/Acetaminophen ([place] 325-5 Mg) 1 tab PO BID [facility] Last Admin: 11/17/19 09:38 Dose: 1 tab Albuterol/Ipratropium (Duoneb 3.0-0.5 Mg/3 Ml) 3 ml NEB Q4HRRT PRN PRN Reason: Shortness Of Breath/wheezing Diphenhydramine HCl (Benadryl) 25 mg IVPUSH Q6H PRN PRN Reason: Agitation Docusate Sodium (Colace) 100 mg PO BID [facility] Last Admin: 11/17/19 09:38 Dose: 100 mg Escitalopram Oxalate (Lexapro) 10 mg PO DAILY [facility] Last Admin: 11/17/19 09:38 Dose: 10 mg Guaifenesin (Mucinex) 600 mg PO Q12H PRN PRN Reason: Cough Haloperidol Lactate (Haldol) 5 mg IM Q6H PRN PRN Reason: Agitation Lactated Ringer's (Ringers, Lactated) 1,000 mls @ 125 mls/hr IV ASDIRECTED [facility] Last Admin: 11/17/19 04:24 Dose: 125 mls/hr Levofloxacin/Dextrose 750 mg/ (Premix) 150 mls @ 100 mls/hr IV Q24H [facility] Last Admin: 11/17/19 09:38 Dose: 100 mls/hr Azithromycin 500 mg/ Sodium (Chloride) 250 mls @ 250 mls/hr IV ONETIME [facility] Last Admin: 11/16/19 20:14 Dose: 250 mls/hr Azithromycin 250 mg/ Sodium (Chloride) 250 mls @ 250 mls/hr IV Q24H [facility] Magnesium Hydroxide (Milk Of Magnesia) 30 ml PO Q24H PRN PRN Reason: Constipation Discontinued Medications Acetaminophen (Tylenol) 650 mg PO Q4H PRN PRN Reason: Pain (Mild 1-3)/fever Azithromycin (Zithromax) 250 mg IV Q24H [facility] Bisacodyl (Dulcolax) 10 mg RECTAL Q24H PRN PRN Reason: Constipation Cetirizine HCl (Zyrtec) 10 mg PO DAILY [facility] Diphenhydramine HCl (Benadryl) 25 mg IVPUSH ONETIME ONE Stop: 11/16/19 14:59 Last Admin: 11/16/19 15:17 Dose: 25 mg Diphenhydramine HCl (Benadryl) 25 mg IVPUSH ONETIME ONE Stop: 11/16/19 15:48 Last Admin: 11/16/19 16:24 Dose: 25 mg Levofloxacin/Dextrose 750 mg/ (Premix) 150 mls @ 100 mls/hr IV ONETIME ONE Stop: 11/15/19 20:36 Last Admin: 11/15/19 19:57 Dose: 100 mls/hr Magnesium Sulfate 2 gm/ Premix 50 mls @ 50 mls/hr IV ONETIME ONE Stop: 11/16/19 13:35 Last Admin: 11/16/19 13:21 Dose: 50 mls/hr Lorazepam (Ativan) 1 mg IVPUSH ONETIME ONE Stop: 11/16/19 12:32 Last Admin: 11/16/19 12:47 Dose: 1 mg Lorazepam (Ativan) 2 mg IVPUSH ONETIME ONE Stop: 11/16/19 14:59 Last Admin: 11/16/19 15:17 Dose: 2 mg Lorazepam (Ativan) 5 mg IVPUSH ONETIME ONE Stop: 11/16/19 15:48 Last Admin: 11/16/19 16:18 Dose: 5 mg Non-Formulary Medication (Alprazolam) 1 mg PO BID [facility] Non-Formulary Medication (Cholecalciferol (Vitamin D3) [Vitamin D3]) 2,000 unit PO DAILY [facility] Non-Formulary Medication (Diclofenac Sodium [Diclofenac Sodium]) 1 applic TOP BID [facility] - Exam General: Alert, No Acute Distress Neck: Supple Lungs: Clear to Auscultation, Normal Respiratory Effort Cardiovascular: Regular Rate, Regular Rhythm Extremities: Normal Inspection, Normal Range of Motion, Non-Tender Neurological: No New Focal Deficit, Normal Gait, Normal Speech, Normal Tone, Strength Equal Bilateral, Sensation Intact Psy/Mental Status: Other (dementia) Sepsis Event Note - Evaluation Sepsis Screening Result: No Definite Risk - Focused Exam Vital Signs: Vital Signs Temp Pulse Resp BP Pulse Ox 11/17/19 09:37 37.3 C 85 16 122/55 L 93 L 11/17/19 04:00 36.8 C 63 18 140/63 90 L Date Exam was Performed: 11/26/19 Time Exam was Performed: 15:13 - Problem List & Annotations (1) Memory deficit SNOMED Code(s): 942604090 Code(s): R41.3 - OTHER AMNESIA Status: Acute (2) FUO (fever of unknown origin) SNOMED Code(s): 3067640 Code(s): R50.9 - FEVER, UNSPECIFIED Status: Acute (3) Cough SNOMED Code(s): 61093827 Code(s): R05 - COUGH Status: Acute - Problem List Review Problem List Initiated/Reviewed/Updated: Yes - My Orders Last 24 Hours: My Active Orders 11/16/19 13:50 Acetaminophen [Tylenol] 650 mg PO Q4H PRN Magnesium Hydroxide [Milk of Magnesia] 30 ml PO Q24H PRN guaiFENesin [Mucinex] 600 mg PO Q12H PRN 11/16/19 15:37 Discontinue Telemetry Monitoring [Cardiac Monitoring Discontinue] [RC] Click to Edit 11/16/19 15:46 Haloperidol Lactate [Haldol] 5 mg IM Q6H PRN 11/16/19 21:00 Acetaminophen/HYDROcodone [[place] 325-5 MG] 1 tab PO BID Docusate Sodium [Colace] 100 mg PO BID 11/16/19 23:58 diphenhydrAMINE [Benadryl] 25 mg IVPUSH Q6H PRN 11/17/19 09:00 Escitalopram [Lexapro] 10 mg PO DAILY 11/17/19 19:00 Azithromycin [Zithromax] 250 mg Sodium Chloride 0.9% [Normal Saline (AdvBag)] 250 ml IV Q24H - Plan Plan:: 69 y/o F admitted for fever, running nose, cough Wbc count improving after addition of macrolide, no fever, COVID sent awaiting results cont IV antibiotics for now, switch to PO tomorrow cont IV fluids resume home meds Blood cultures negative monitor and replete electrolytes
[2019-11-17] MEDS ORDERED: Potassium Chloride Riders 40 MEQ in Premix Bag 1 BAG IV ONE (11:06)
[2019-11-17] MEDS ORDERED: Azithromycin 250 MG in Sodium Chloride 0.9% 250 ML IV SCH (19:00)
[2019-11-17] MEDS ORDERED: Azithromycin 500 MG Vial IV SCH (19:15)
[2019-11-18] MEDS: Lactated Ringers 1,000 ML IV SCH (04:36)
[2019-11-18 06:45] LABS: BLOOD UREA NITROGEN,BUN 7 mg/dL (7.0-18.0); CARBON DIOXIDE,CO2 25.9 mmol/L (21.0-32.0); CHLORIDE,CL 107 mmol/L (98-107); GLUCOSE RANDOM 98 mg/dL (74-106); POTASSIUM,K 3.6 mmol/L (3.5-5.1); SODIUM,NA 142 mmol/L (136-145)
[2019-11-18] MEDS ORDERED: Magnesium Sulfate/Water 2 GM in Premix Bag 1 BAG IV ONE (08:04)
[2019-11-18] MEDS: Docusate Sodium 100 MG Cap PO SCH (10:11)
[2019-11-18] MEDS: Acetaminophen/HYDROcodone 325-5 MG Tab PO SCH (10:11)
[2019-11-18] MEDS: Escitalopram 10 MG Tab PO SCH (10:12)
[2019-11-18] MEDS: Levofloxacin/Dextrose 5%-Water 750 MG in Premix Bag 1 BAG IV SCH (10:15)
[2019-11-18 12:29] VITALS: BP 137/63; PULSE 61
--- NOTE | 2019-11-18 13:55 | PCM.PN ---
- General Info Date of Service: 11/18/19 Admission Dx/Problem (Free Text): Admission Diagnosis/Problem Admission Diagnosis/Problem Fever of unknown origin Subjective Update: Feeling improved, eager awaiting discharge back to [place]. No complaints today Functional Status: Reports: Pain Controlled, Tolerating Diet, Ambulating, Urinating - Review of Systems Pulmonary: Reports: No Symptoms. Denies: Shortness of Breath Cardiovascular: Reports: No Symptoms. Denies: Chest Pain Gastrointestinal: Reports: No Symptoms. Denies: Abdominal Pain, Nausea, Vomiting Genitourinary: Reports: No Symptoms Skin: Reports: No Symptoms Neurological: Reports: No Symptoms Psychiatric: Reports: No Symptoms - Patient Data Vitals - Most Recent: Last Vital Signs Temp 98.4 F 11/18/19 12:00 Pulse 61 11/18/19 12:00 Resp 12 11/18/19 12:00 BP 137/63 11/18/19 12:00 Pulse Ox 92 L 11/18/19 04:13 Weight - Most Recent: 63.503 kg I&O - Last 24 Hours: Intake & Output 11/17/19 11/18/19 11/18/19 22:59 06:59 14:59 Intake Total 2341 2176 Output Total 1381 644 Balance 960 1532 Lab Results Last 24 Hours: Laboratory Results - last 24 hr 11/18/19 11/18/19 Range/Units 06:15 06:15 WBC 9.14 (4.0-11.0) K/uL RBC 3.26 L (4.30-5.90) M/uL Hgb 10.5 L (12.0-16.0) g/dL Hct 31.2 L (36.0-46.0) % MCV 95.7 (80.0-98.0) fL MCH 32.2 H (27.0-32.0) pg MCHC 33.7 (31.0-37.0) g/dL RDW Std Deviation 46.0 (28.0-62.0) fl RDW Coeff of Dirk 13 (11.0-15.0) % Plt Count 205 (150-400) K/uL MPV 9.80 (7.40-12.00) fL Neut % (Auto) 72.9 (48.0-80.0) % Lymph % (Auto) 17.7 (16.0-40.0) % [place] % (Auto) 8.2 (0.0-15.0) % Eos % (Auto) 0.9 (0.0-7.0) % Baso % (Auto) 0.3 (0.0-1.5) % Neut # (Auto) 6.7 H (1.4-5.7) K/uL Lymph # (Auto) 1.6 (0.6-2.4) K/uL [place] # (Auto) 0.8 (0.0-0.8) K/uL Eos # (Auto) 0.1 (0.0-0.7) K/uL Baso # (Auto) 0.0 (0.0-0.1) K/uL Nucleated RBC % 0.0 /100WBC Nucleated RBCs # 0 K/uL Sodium 142 (136-145) mmol/L Potassium 3.6 (3.5-5.1) mmol/L Chloride 107 (98-107) mmol/L Carbon Dioxide 25.9 (21.0-32.0) mmol/L BUN 7 (7.0-18.0) mg/dL Creatinine 0.8 (0.6-1.0) mg/dL Est Cr Clr Drug Dosing 63.35 mL/min Estimated GFR (MDRD) > 60.0 ml/min Glucose 98 (74-106) mg/dL Calcium 8.5 (8.5-10.1) mg/dL Phosphorus 3.4 (2.6-4.7) mg/dL Magnesium 1.7 L (1.8-2.4) mg/dL Gigi Results Last 24 Hours: Microbiology 11/15/19 18:28 Aerobic Blood Culture - Preliminary Blood - Venous - Lab Draw NO GROWTH AFTER 2 DAYS Anaerobic Blood Culture - Preliminary NO GROWTH AFTER 2 DAYS 11/15/19 17:56 Aerobic Blood Culture - Preliminary Blood - Venous NO GROWTH AFTER 2 DAYS Anaerobic Blood Culture - Preliminary NO GROWTH AFTER 2 DAYS Med Orders - Current: Current Medications Acetaminophen (Tylenol) 650 mg PO Q4H PRN PRN Reason: Pain/Fever Hydrocodone Bitart/Acetaminophen ([place] 325-5 Mg) 1 tab PO BID [facility] Last Admin: 11/18/19 10:11 Dose: 1 tab Albuterol/Ipratropium (Duoneb 3.0-0.5 Mg/3 Ml) 3 ml NEB Q4HRRT PRN PRN Reason: Shortness Of Breath/wheezing Diphenhydramine HCl (Benadryl) 25 mg IVPUSH Q6H PRN PRN Reason: Agitation Docusate Sodium (Colace) 100 mg PO BID [facility] Last Admin: 11/18/19 10:11 Dose: 100 mg Escitalopram Oxalate (Lexapro) 10 mg PO DAILY [facility] Last Admin: 11/18/19 10:12 Dose: 10 mg Guaifenesin (Mucinex) 600 mg PO Q12H PRN PRN Reason: Cough Haloperidol Lactate (Haldol) 5 mg IM Q6H PRN PRN Reason: Agitation Levofloxacin/Dextrose 750 mg/ (Premix) 150 mls @ 100 mls/hr IV Q24H [facility] Last Admin: 11/18/19 10:15 Dose: 100 mls/hr Magnesium Hydroxide (Milk Of Magnesia) 30 ml PO Q24H PRN PRN Reason: Constipation Discontinued Medications Acetaminophen (Tylenol) 650 mg PO Q4H PRN PRN Reason: Pain (Mild 1-3)/fever Azithromycin (Zithromax) 250 mg IV Q24H [facility] Azithromycin (Zithromax) 250 mg PO Q24H [facility] Bisacodyl (Dulcolax) 10 mg RECTAL Q24H PRN PRN Reason: Constipation Cetirizine HCl (Zyrtec) 10 mg PO DAILY [facility] Diphenhydramine HCl (Benadryl) 25 mg IVPUSH ONETIME ONE Stop: 11/16/19 14:59 Last Admin: 11/16/19 15:17 Dose: 25 mg Diphenhydramine HCl (Benadryl) 25 mg IVPUSH ONETIME ONE Stop: 11/16/19 15:48 Last Admin: 11/16/19 16:24 Dose: 25 mg Levofloxacin/Dextrose 750 mg/ (Premix) 150 mls @ 100 mls/hr IV ONETIME ONE Stop: 11/15/19 20:36 Last Admin: 11/15/19 19:57 Dose: 100 mls/hr Lactated Ringer's (Ringers, Lactated) 1,000 mls @ 125 mls/hr IV ASDIRECTED [facility] Last Admin: 11/18/19 04:36 Dose: 125 mls/hr Magnesium Sulfate 2 gm/ Premix 50 mls @ 50 mls/hr IV ONETIME ONE Stop: 11/16/19 13:35 Last Admin: 11/16/19 13:21 Dose: 50 mls/hr Azithromycin 500 mg/ Sodium (Chloride) 250 mls @ 250 mls/hr IV ONETIME [facility] Last Admin: 11/16/19 20:14 Dose: 250 mls/hr Azithromycin 250 mg/ Sodium (Chloride) 250 mls @ 250 mls/hr IV Q24H [facility] Last Admin: 11/17/19 19:42 Dose: 250 mls/hr Potassium Chloride 40 meq/ (Premix) 100 mls @ 25 mls/hr IV ONETIME ONE Stop: 11/17/19 15:05 Last Admin: 11/17/19 11:48 Dose: 25 mls/hr Magnesium Sulfate 2 gm/ Premix 50 mls @ 50 mls/hr IV ONETIME ONE Stop: 11/18/19 09:03 Last Admin: 11/18/19 10:05 Dose: 50 mls/hr Lorazepam (Ativan) 1 mg IVPUSH ONETIME ONE Stop: 11/16/19 12:32 Last Admin: 11/16/19 12:47 Dose: 1 mg Lorazepam (Ativan) 2 mg IVPUSH ONETIME ONE Stop: 11/16/19 14:59 Last Admin: 11/16/19 15:17 Dose: 2 mg Lorazepam (Ativan) 5 mg IVPUSH ONETIME ONE Stop: 11/16/19 15:48 Last Admin: 11/16/19 16:18 Dose: 5 mg Non-Formulary Medication (Alprazolam) 1 mg PO BID [facility] Non-Formulary Medication (Cholecalciferol (Vitamin D3) [Vitamin D3]) 2,000 unit PO DAILY [facility] Non-Formulary Medication (Diclofenac Sodium [Diclofenac Sodium]) 1 applic TOP BID [facility] - Exam General: Alert, Oriented, Cooperative Lungs: Clear to Auscultation, Normal Respiratory Effort Cardiovascular: Regular Rate, Regular Rhythm GI/Abdominal Exam: Normal Bowel Sounds, Soft, Non-Tender Extremities: Normal Inspection, Normal Range of Motion, Non-Tender, No Pedal Edema Neurological: No New Focal Deficit Psy/Mental Status: Alert, Normal Affect, Normal Mood Sepsis Event Note - Evaluation Sepsis Screening Result: No Definite Risk - Focused Exam Vital Signs: Vital Signs Temp Temp Pulse Resp BP Pulse Ox 03/23/20 12:00 98.4 F 61 12 137/63 11/18/19 04:13 97.9 F 86 16 151/54 H 92 L Date Exam was Performed: 11/18/19 Time Exam was Performed: 13:52 - Problem List Review Problem List Initiated/Reviewed/Updated: Yes - Plan Plan:: 69 y/o F admitted for fever, running nose, cough 1. Bronchitis/CAP - No Leukocytosis today. - awaiting COVID results, unable to discharge safely to SNF prior to results. - Continue Levaquin, switch to PO Resume home medications and likely discharge tomorrow when COVID testing results back.
[2019-11-18] MEDS ORDERED: Azithromycin 250 MG Tab PO SCH (19:00)
[2019-11-19] MEDS ORDERED: Levofloxacin 250 MG Tab PO SCH (09:00)
--- NOTE | 2019-11-19 11:41 | PCM.DCSUM1 ---
Discharge Summary - Hospital Course Brief History: This 67 year old female with pmh of HTN, R hipx fracture 3 years ago , ventriculomegaly, and anxiety and depression presented to the ED this morning from [facility] with complaints of fever. Patient was noted to have a [place] 100.6 [place] and mild confusion so was sent over. Patient WBC count was normal, UA was negative, CXR was unremarkable. Upon further questioning patient states that she has had cough for last few days along with running nose. Patient was started on IV antibiotics and was admitted for further management. Upon reviewing old notes, patient seems to be having memory problems for last few years , ( possible early onset dementia) Denied chest pain , N/V , abdominal pain. urinary frequency, urgency,chills, palpitations, syncope. Diagnosis: Stroke: No - Discharge Data Discharge Date: 11/18/19 Discharge Disposition: Home, Self-Care 01 Condition: Stable - Referral to Home Health Primary Care Physician: David Motta MD - Patient Instructions Diet: Usual Diet as Tolerated Activity: As Tolerated Showering/Bathing: May Shower Notify Provider of: Fever, Increased Pain, Swelling and Redness, Drainage, Nausea and/or Vomiting - Discharge Plan *PRESCRIPTION DRUG MONITORING PROGRAM REVIEWED*: Yes *COPY OF PRESCRIPTION DRUG MONITORING REPORT IN PATIENT DE: Yes Prescriptions/Med Rec: Acetaminophen/HYDROcodone [[place] 325-5 MG] 1 tab PO BID #14 tablet levoFLOXacin [Levaquin] 750 mg PO DAILY #5 tab Home Medications: Home Meds Escitalopram [Lexapro] 10 mg PO DAILY 02/10/17 [History] Docusate Sodium [Colace] 100 mg PO BID PRN 02/06/18 [History] Magnesium Hydroxide [Milk of Magnesia] 30 ml PO Q24H PRN 02/06/18 [History] Potassium Chloride [Klor-Con M10] 10 meq PO DAILY 02/06/18 [History] guaiFENesin [Mucinex] 600 mg PO Q12H PRN 02/06/18 [History] Albuterol [Ventolin HFA] 2 puff INH Q6H PRN 11/16/19 [History] ALPRAZolam [Alprazolam] 1 mg PO BID 11/18/19 [History] Acetaminophen [Tylenol Arthritis Pain] 650 mg PO Q4H PRN 11/18/19 [History] Acetaminophen/HYDROcodone [[place] 325-5 MG] 1 tab PO BID #14 tablet 11/18/19 [Rx] Bisacodyl [Dulcolax] 10 mg RC DAILY PRN 11/18/19 [History] Cetirizine HCl [Allergy Relief] 10 mg PO DAILY 11/18/19 [History] Cholecalciferol (Vitamin D3) [Cholecalciferol] 2,000 unit PO DAILY 11/18/19 [ History] Saliva Substitute Combo No.9 [Biotene] 0.5 oz PO TID 11/18/19 [History] levoFLOXacin [Levaquin] 750 mg PO DAILY #5 tab 11/18/19 [Rx] Oxygen Therapy Mode: Room Air Patient Handouts: Fever, Adult Referrals: David Motta MD [Primary Care Provider] - 11/21/19 (Will be Seen on [place] [facility]) - Discharge Summary/Plan Comment DC Time >30 min.: No Discharge Summary/Plan Comment: Admitting Diagnoses: Fever URI Discharge diagnoses; Bronchitis URI other PMH HTN Anxiety Depression Dementia Earnestine was admitted secondary to fever and suspected URI. influenza negative and COVID testing negative as well. She was treated with Levaquin, which showed improved. No recurrence of fevers. Leukocytosis resolved. Patient became very anxious here and wanted to be discharged back to [place]. BC negative. She will be continued for 5 more days of Levaquin at [place], follow up with PCP 1 week. Return to the ED or clinic if concerns should arise. - Patient Data Vitals - Most Recent: Last Vital Signs Temp 98.4 F 11/18/19 12:00 Pulse 61 11/18/19 12:00 Resp 12 11/18/19 12:00 BP 137/63 11/18/19 12:00 Pulse Ox 92 L 11/18/19 08:00 Weight - Most Recent: 63.503 kg ROSA Results - Last 24 hrs: Microbiology 11/15/19 18:28 Aerobic Blood Culture - Preliminary Blood - Venous - Lab Draw NO GROWTH AFTER 3 DAYS Anaerobic Blood Culture - Preliminary NO GROWTH AFTER 3 DAYS 11/15/19 17:56 Aerobic Blood Culture - Preliminary Blood - Venous NO GROWTH AFTER 3 DAYS Anaerobic Blood Culture - Preliminary NO GROWTH AFTER 3 DAYS 11/15/19 17:56 Coronavirus RNA (PCR) - Final Nasopharyngeal Swab Med Orders - Current: Current Medications Discontinued Medications Acetaminophen (Tylenol) 650 mg PO Q4H PRN PRN Reason: Pain (Mild 1-3)/fever Acetaminophen (Tylenol) 650 mg PO Q4H PRN PRN Reason: Pain/Fever Hydrocodone Bitart/Acetaminophen ([place] 325-5 Mg) 1 tab PO BID [facility] Last Admin: 11/18/19 10:11 Dose: 1 tab Albuterol/Ipratropium (Duoneb 3.0-0.5 Mg/3 Ml) 3 ml NEB Q4HRRT PRN PRN Reason: Shortness Of Breath/wheezing Azithromycin (Zithromax) 250 mg IV Q24H [facility] Azithromycin (Zithromax) 250 mg PO Q24H [facility] Bisacodyl (Dulcolax) 10 mg RECTAL Q24H PRN PRN Reason: Constipation Cetirizine HCl (Zyrtec) 10 mg PO DAILY [facility] Diphenhydramine HCl (Benadryl) 25 mg IVPUSH ONETIME ONE Stop: 11/16/19 14:59 Last Admin: 11/16/19 15:17 Dose: 25 mg Diphenhydramine HCl (Benadryl) 25 mg IVPUSH ONETIME ONE Stop: 11/16/19 15:48 Last Admin: 11/16/19 16:24 Dose: 25 mg Diphenhydramine HCl (Benadryl) 25 mg IVPUSH Q6H PRN PRN Reason: Agitation Docusate Sodium (Colace) 100 mg PO BID [facility] Last Admin: 11/18/19 10:11 Dose: 100 mg Escitalopram Oxalate (Lexapro) 10 mg PO DAILY [facility] Last Admin: 11/18/19 10:12 Dose: 10 mg Guaifenesin (Mucinex) 600 mg PO Q12H PRN PRN Reason: Cough Haloperidol Lactate (Haldol) 5 mg IM Q6H PRN PRN Reason: Agitation Levofloxacin/Dextrose 750 mg/ (Premix) 150 mls @ 100 mls/hr IV ONETIME ONE Stop: 11/15/19 20:36 Last Admin: 11/15/19 19:57 Dose: 100 mls/hr Lactated Ringer's (Ringers, Lactated) 1,000 mls @ 125 mls/hr IV ASDIRECTED [facility] Last Admin: 11/18/19 04:36 Dose: 125 mls/hr Levofloxacin/Dextrose 750 mg/ (Premix) 150 mls @ 100 mls/hr IV Q24H [facility] Last Admin: 11/18/19 10:15 Dose: 100 mls/hr Magnesium Sulfate 2 gm/ Premix 50 mls @ 50 mls/hr IV ONETIME ONE Stop: 11/16/19 13:35 Last Admin: 11/16/19 13:21 Dose: 50 mls/hr Azithromycin 500 mg/ Sodium (Chloride) 250 mls @ 250 mls/hr IV ONETIME [facility] Last Admin: 11/16/19 20:14 Dose: 250 mls/hr Azithromycin 250 mg/ Sodium (Chloride) 250 mls @ 250 mls/hr IV Q24H [facility] Last Admin: 11/17/19 19:42 Dose: 250 mls/hr Potassium Chloride 40 meq/ (Premix) 100 mls @ 25 mls/hr IV ONETIME ONE Stop: 11/17/19 15:05 Last Admin: 11/17/19 11:48 Dose: 25 mls/hr Magnesium Sulfate 2 gm/ Premix 50 mls @ 50 mls/hr IV ONETIME ONE Stop: 11/18/19 09:03 Last Admin: 11/18/19 10:05 Dose: 50 mls/hr Levofloxacin (Levaquin) 750 mg PO Q24H [facility] Lorazepam (Ativan) 1 mg IVPUSH ONETIME ONE Stop: 11/16/19 12:32 Last Admin: 11/16/19 12:47 Dose: 1 mg Lorazepam (Ativan) 2 mg IVPUSH ONETIME ONE Stop: 11/16/19 14:59 Last Admin: 11/16/19 15:17 Dose: 2 mg Lorazepam (Ativan) 5 mg IVPUSH ONETIME ONE Stop: 11/16/19 15:48 Last Admin: 11/16/19 16:18 Dose: 5 mg Magnesium Hydroxide (Milk Of Magnesia) 30 ml PO Q24H PRN PRN Reason: Constipation Non-Formulary Medication (Alprazolam) 1 mg PO BID [facility] Non-Formulary Medication (Cholecalciferol (Vitamin D3) [Vitamin D3]) 2,000 unit PO DAILY [facility] Non-Formulary Medication (Diclofenac Sodium [Diclofenac Sodium]) 1 applic TOP BID [facility]
== END 2019-11-18 15:40 ==
LOC: MW.ED 17:36 → MW.MS 19:13
PROVIDERS: ADMIT Student in an Organized Health Care Education/Training Program; ATTEND Student in an Organized Health Care Education/Training Program
DX: J40 Bronchitis, not specified as acute or chronic (principal); J06.9 Acute upper respiratory infection, unspecified; I10 Essential (primary) hypertension; F03.90 Unspecified dementia, unspecified severity, without behavioral disturbance, psychotic disturbance, mood disturbance, and anxiety; J44.9 Chronic obstructive pulmonary disease, unspecified; F41.9 Anxiety disorder, unspecified; F32.9 Major depressive disorder, single episode, unspecified; F17.210 Nicotine dependence, cigarettes, uncomplicated; Z88.1 Allergy status to other antibiotic agents; Z88.8 Allergy status to other drugs, medicaments and biological substances; Z88.0 Allergy status to penicillin; Z88.6 Allergy status to analgesic agent; Z88.2 Allergy status to sulfonamides; Z79.899 Other long term (current) drug therapy; Z20.828 Contact with and (suspected) exposure to other viral communicable diseases
CPT/HCPCS: 36415; 71045; 80048; 80053; 81001; 83735; 84100; 84484; 85025; 87040; 87804; 93005; 96361; 96365; 96366; 96367; 96375; 96376; 99285; A9270; G0378; J0456; J1200; J1956; J2060; J3475; J3480; J7050; J7120; U0002; 99284; U0001

== ENCOUNTER 2021-10-24 09:30 | Emergency (ER) | payer MEDICARE, MEDICAID ==
[2021-10-24 10:42] VITALS: BP 115/58; PULSE 65
== END 2021-10-24 12:29 | disposition home or self-care (01) ==
LOC: MW.ED 09:30
DX: S52.614A Nondisplaced fracture of right ulna styloid process, initial encounter for closed fracture (principal); S52.501A Unspecified fracture of the lower end of right radius, initial encounter for closed fracture; I10 Essential (primary) hypertension; J44.9 Chronic obstructive pulmonary disease, unspecified; R29.6 Repeated falls; Z91.81 History of falling; Z88.2 Allergy status to sulfonamides; Z88.0 Allergy status to penicillin; Z88.5 Allergy status to narcotic agent; Z90.49 Acquired absence of other specified parts of digestive tract; Z79.899 Other long term (current) drug therapy; W18.30XA Fall on same level, unspecified, initial encounter; Y92.129 Unspecified place in nursing home as the place of occurrence of the external cause
CPT/HCPCS: 29125; 70450; 70450-26; 71045; 71045-26; 72170; 72170-26; 73090-26-RT; 73090-RT; 73130-26-RT; 73130-RT; 99284; 99284-25

== ENCOUNTER 2022-06-08 13:08 | Emergency (ER) | payer MEDICARE, MEDICAID ==
[2022-06-08 16:34] VITALS: BP 126/53; PULSE 68
[2022-06-08] MEDS ORDERED: HYDROmorphone 1 MG/ML Syringe IVPUSH ONE (17:39)
[2022-06-08] MEDS ORDERED: Ondansetron 4 MG/2 ML SDV IVPUSH ONE (17:39)
[2022-06-08] MEDS ORDERED: HYDROmorphone 1 MG/ML Syringe ONE (17:43)
[2022-06-08] MEDS ORDERED: Ondansetron 4 MG/2 ML SDV ONE (17:43)
== END 2022-06-08 17:55 | disposition critical access hospital (66) ==
LOC: MW.ED 13:08
DX: S72.114A Nondisplaced fracture of greater trochanter of right femur, initial encounter for closed fracture (principal); J44.9 Chronic obstructive pulmonary disease, unspecified; I10 Essential (primary) hypertension; Z88.0 Allergy status to penicillin; Z88.1 Allergy status to other antibiotic agents; Z88.6 Allergy status to analgesic agent; Z88.8 Allergy status to other drugs, medicaments and biological substances; Z88.2 Allergy status to sulfonamides; Z79.899 Other long term (current) drug therapy; Z90.49 Acquired absence of other specified parts of digestive tract; Z20.822 Contact with and (suspected) exposure to COVID-19; W19.XXXA Unspecified fall, initial encounter
CPT/HCPCS: 71045; 72192; 85025; 96374; 96375; 99285; J1170; J2405; U0002; 99283

== ENCOUNTER 2022-09-21 23:04 | Inpatient (IN) | payer MEDICARE, MEDICAID ==
[2022-09-22] MEDS ORDERED: cefTRIAXone 1 GM in Sodium Chloride 0.9% 50 ML IV STA (01:16)
[2022-09-22 01:39] LABS: CARBON DIOXIDE,CO2 29.2 mmol/L (21.0-32.0); POTASSIUM,K 3.8 mmol/L (3.5-5.1)
[2022-09-22] MEDS ORDERED: Sodium Chloride 0.9% 1,000 ML IV SCH (03:15)
[2022-09-22] MEDS ORDERED: Acetaminophen 325 MG Tab PO PRN (05:09)
[2022-09-22] MEDS ORDERED: Sodium Chloride 0.9% 2.5 ML Syringe FLUSH PRN (08:05)
[2022-09-22] MEDS ORDERED: Ondansetron 4 MG/2 ML SDV IVPUSH PRN ×2 (08:05→10:12)
[2022-09-22] MEDS ORDERED: Docusate Sodium 100 MG Cap PO PRN (08:05)
[2022-09-22] MEDS ORDERED: Sodium Chloride 0.9% 10 ML Syringe FLUSH PRN (08:05)
[2022-09-22] MEDS ORDERED: Polyethylene Glycol 3350 Powder 17 GM Packet PO PRN (08:05)
[2022-09-22] MEDS: Sodium Chloride 0.9% 1,000 ML IV SCH ×3 (08:15→23:32)
[2022-09-22] MEDS ORDERED: Morphine 2 MG/ML SYRINGE IVPUSH PRN (08:25)
[2022-09-22] MEDS ORDERED: HYDROmorphone 1 MG/ML Syringe IVPUSH PRN (10:12)
[2022-09-22] MEDS ORDERED: Naloxone 0.4 MG/ML SDV IVPUSH PRN (10:12)
[2022-09-22] MEDS ORDERED: Albuterol 0.083% 2.5 MG/3 ML Neb Soln NEB PRN (10:12)
[2022-09-22] MEDS ORDERED: Metoclopramide 10 MG/2 ML SDV IVPUSH PRN (10:12)
[2022-09-22] MEDS ORDERED: ALPRAZolam 0.5 MG Tab PO PRN (11:57)
[2022-09-22] MEDS ORDERED: Bisacodyl 5 MG Tab PO PRN (11:57)
[2022-09-22] MEDS: HYDROmorphone 1 MG/ML Syringe IVPUSH PRN (12:53)
[2022-09-22] MEDS ORDERED: Propofol 200 MG/20 ML SDV ONE ×2 (14:51→16:43)
[2022-09-22] MEDS ORDERED: Lidocaine 2% 5 ML SDV ONE (14:51)
[2022-09-22] MEDS ORDERED: HYDROmorphone 2 MG/ML Syringe ONE (14:52)
[2022-09-22] MEDS ORDERED: ceFAZolin 1 GM Vial ONE (15:28)
[2022-09-22] MEDS ORDERED: ePHEDrine 50 MG/ML SDV ONE (15:44)
[2022-09-22] MEDS: Acetaminophen 325 MG Tab PO SCH (20:54)
[2022-09-22] MEDS ORDERED: buPROPion 150 MG Tab.ER PO SCH (21:00)
[2022-09-22] MEDS: ceFAZolin 1 GM in Premix Bag 1 BAG IV SCH (23:31)
[2022-09-23] MEDS: Sodium Chloride 0.9% 1,000 ML IV SCH (02:46)
[2022-09-23] MEDS: Acetaminophen 325 MG Tab PO SCH ×2 (03:28→09:55)
[2022-09-23] MEDS: HYDROmorphone 1 MG/ML Syringe IVPUSH PRN (05:04)
[2022-09-23] MEDS: ceFAZolin 1 GM in Premix Bag 1 BAG IV SCH (06:50)
[2022-09-23 07:40] VITALS: PULSE 85
[2022-09-23 08:07] LABS: CARBON DIOXIDE,CO2 25.9 mmol/L (21.0-32.0); POTASSIUM,K 3.6 mmol/L (3.5-5.1)
[2022-09-23] MEDS ORDERED: Aspirin 325 MG Tab.EC PO SCH (09:00)
[2022-09-23] MEDS ORDERED: Cetirizine 10 MG Tab PO SCH (09:00)
[2022-09-23] MEDS ORDERED: Escitalopram 10 MG Tab PO SCH (09:00)
[2022-09-23] MEDS ORDERED: cefTRIAXone 1 GM in Sodium Chloride 0.9% 50 ML IV SCH (10:30)
[2022-09-23 11:31] VITALS: BP 162/82
== END 2022-09-23 14:00 | DRG 481 ==
LOC: MW.ED 23:04 → MW.MS 09-22 03:09
PROVIDERS: ADMIT Internal Medicine; ATTEND Internal Medicine
PROC: 0QS704Z Reposition Left Upper Femur with Internal Fixation Device, Open Approach (ICD-10-PCS; principal; 2022-09-21)
DX: S72.142A Displaced intertrochanteric fracture of left femur, initial encounter for closed fracture (principal); F02.C4 Dementia in other diseases classified elsewhere, severe, with anxiety; F03.90 Unspecified dementia, unspecified severity, without behavioral disturbance, psychotic disturbance, mood disturbance, and anxiety; G91.2 (Idiopathic) normal pressure hydrocephalus; N30.00 Acute cystitis without hematuria; Z79.899 Other long term (current) drug therapy; Z96.641 Presence of right artificial hip joint; W19.XXXA Unspecified fall, initial encounter; Z96.642 Presence of left artificial hip joint; Z20.822 Contact with and (suspected) exposure to COVID-19; G89.29 Other chronic pain; F32.A Depression, unspecified; F41.9 Anxiety disorder, unspecified; Z66 Do not resuscitate; D64.9 Anemia, unspecified; J44.9 Chronic obstructive pulmonary disease, unspecified; I10 Essential (primary) hypertension; Z79.1 Long term (current) use of non-steroidal anti-inflammatories (NSAID); Z79.82 Long term (current) use of aspirin; Z79.2 Long term (current) use of antibiotics; Z88.1 Allergy status to other antibiotic agents; Z88.8 Allergy status to other drugs, medicaments and biological substances; Z88.2 Allergy status to sulfonamides; Z88.6 Allergy status to analgesic agent; Z87.01 Personal history of pneumonia (recurrent); Z97.3 Presence of spectacles and contact lenses; Z87.81 Personal history of (healed) traumatic fracture; Z90.49 Acquired absence of other specified parts of digestive tract; Z98.890 Other specified postprocedural states; W18.30XA Fall on same level, unspecified, initial encounter; Y92.129 Unspecified place in nursing home as the place of occurrence of the external cause
CPT/HCPCS: 36415; 70450; 70450-26; 73502-26-LT; 73502-LT; 73552-26-LT; 73552-LT; 80048; 80053; 81001; 82140; 82947; 83605; 83735; 84439; 84443; 85025; 85610; 87040; 87086; 87088; 87186; 93005; 97163-GP; A9270-GY; J0690; J0696; J1170; J2704; J3490; J7030; J7050; U0002

== ENCOUNTER 2023-05-28 14:00 | Emergency (ER) | payer MEDICARE, MEDICAID ==
[2023-05-28 14:22] VITALS: PULSE 63
[2023-05-28] MEDS ORDERED: Lidocaine 4% 1 each Patch TOP PRN (15:05)
[2023-05-28 17:23] VITALS: BP 136/57
== END 2023-05-28 17:22 | disposition home or self-care (01) ==
LOC: MW.ED 14:00
DX: M25.512 Pain in left shoulder (principal); I10 Essential (primary) hypertension; J44.9 Chronic obstructive pulmonary disease, unspecified; Z88.2 Allergy status to sulfonamides; Z88.0 Allergy status to penicillin; Z88.8 Allergy status to other drugs, medicaments and biological substances; Z88.1 Allergy status to other antibiotic agents; Z91.012 Allergy to eggs; Z88.6 Allergy status to analgesic agent; Z88.5 Allergy status to narcotic agent; Z79.899 Other long term (current) drug therapy; W06.XXXA Fall from bed, initial encounter
CPT/HCPCS: 70450; 72125; 73030; 73080; 99284; A9270; 99281

== ENCOUNTER 2023-09-09 12:21 | Emergency (ER) | payer MEDICARE, MEDICAID ==
[2023-09-09] MEDS ORDERED: Acetaminophen/HYDROcodone 325-5 MG Tab PO ONE (13:25)
[2023-09-09 13:48] LABS: BILIRUBIN,URINE NEGATIVE (NEGATIVE); COLOR,URINE YELLOW; GLUCOSE,URINE NEGATIVE (NEGATIVE); KETONES,URINE NEGATIVE (NEGATIVE); LEUKOCYTE ESTERASE,URINE TRACE (NEGATIVE); NITRITE,URINE POSITIVE (NEGATIVE); OCCULT BLOOD,URINE SMALL (NEGATIVE); PH,URINE 5.5 (5.0-8.0); PROTEIN,URINE NEGATIVE (NEGATIVE); UROBILINOGEN,URINE 0.2 EU/dL (<2.0)
[2023-09-09 14:00] LABS: APPEARANCE,URINE HAZY; RBC,URINE 0-1 (0-2/HPF)
[2023-09-09 14:01] LABS: BACTERIA,URINE 1+ (NEGATIVE); EPITHELIAL CELLS,URINE RARE (NONE-FEW)
[2023-09-09 15:11] VITALS: BP 145/66; PULSE 65
== END 2023-09-09 15:26 | disposition home or self-care (01) ==
LOC: MW.ED 12:21
DX: S82.121A Displaced fracture of lateral condyle of right tibia, initial encounter for closed fracture (principal); I10 Essential (primary) hypertension; J44.9 Chronic obstructive pulmonary disease, unspecified; Z79.899 Other long term (current) drug therapy; Z88.2 Allergy status to sulfonamides; Z88.0 Allergy status to penicillin; Z88.6 Allergy status to analgesic agent; Z88.1 Allergy status to other antibiotic agents; Z88.5 Allergy status to narcotic agent; W06.XXXA Fall from bed, initial encounter
CPT/HCPCS: 70450; 73700; 81001; 99284; A9270; 99283

== ENCOUNTER 2025-02-16 19:19 | Emergency (ER) | payer MEDICARE, MEDICAID ==
[2025-02-16 19:36] VITALS: BP 186/116; PULSE 70
[2025-02-16] MEDS: Morphine 4 MG/ML Syringe IM ONE (20:38)
== END 2025-02-16 22:46 | disposition home or self-care (01) ==
LOC: MW.ED 19:19
DX: S82.871A Displaced pilon fracture of right tibia, initial encounter for closed fracture (principal); I10 Essential (primary) hypertension; Z88.0 Allergy status to penicillin; Z88.2 Allergy status to sulfonamides; Z88.8 Allergy status to other drugs, medicaments and biological substances; Z88.6 Allergy status to analgesic agent; Z91.012 Allergy to eggs; Z79.899 Other long term (current) drug therapy; Z90.49 Acquired absence of other specified parts of digestive tract; W19.XXXA Unspecified fall, initial encounter
CPT/HCPCS: 29125; 73600; 96372; 99283; J2270; 29515